=== PATIENT | male | born 1935 | race Caucasian/White ===

== ENCOUNTER 2021-12-05 10:28 | Emergency (ER) | payer OTHER, SELFPAY ==
[2021-12-05 10:39] VITALS: BP 120/64; PULSE 78; RESP 16; TEMP 36.8; O2SAT 99; BMI 27.7
--- NOTE | 2021-12-05 12:23 | ED.LOWEXIN ---
HPI - Extremity Injury (Lower) General Date Seen: 12/05/21 Chief Complaint: Extremity Pain/Injury, Lower Stated Complaint: Pain on left leg Time Seen by Provider: 12/05/21 10:53 Source: patient Mode of arrival: ambulatory Limitations: no limitations History of Present Illness HPI Narrative: 86-year-old gentleman presents here for evaluation of right lower leg pain, he has had an area of redness, that is increased over the course of today, and a history of cellulitis, with a delayed healing wound there. He is brought in today by wheelchair with his . They called the clinic, they were unable to get an appointment, and did want a wait to see her Urgent Care at noon. Denies a history of fevers chills eating and drinking otherwise normally, does use a cane to get around the best at times. Tells me that this wound was there for approximately 1 year any nasally bumped it on his boat, continues to bump but it does also bleed. MD complaint: leg injury Onset (ago): day(s) Related Data Home Medications Medication Instructions Recorded Confirmed allopurinol 100 mg tablet 100 mg PO DAILY 12/05/21 12/05/21 alprazolam 1 mg tablet 0.5 mg PO HS 12/05/21 12/05/21 cholecalciferol (vitamin D3) 325 325 mcg PO QWEEK 12/05/21 12/05/21 mcg (13,000 unit) capsule doxazosin 8 mg tablet 8 mg PO HS 12/05/21 12/05/21 furosemide 40 mg tablet 20 mg PO DAILY 12/05/21 12/05/21 metoprolol succinate 100 mg 100 mg PO DAILY 12/05/21 12/05/21 tablet,extended release 24 hr omeprazole 20 mg capsule,delayed 20 mg PO DAILY 12/05/21 12/05/21 release ruxolitinib 20 mg tablet (Jakafi) 20 mg PO DAILY 12/05/21 12/05/21 vit C 250 mg-vit E 90 mg-zinc 40 1 tab PO BID 12/05/21 12/05/21 mg-copper 1 [id number] capsule (PreserVision AREDS-2) Previous Rx's Medication Instructions Recorded cephalexin 500 mg capsule 500 mg PO TID #30 caps 12/05/21 Allergies Allergy/AdvReac Type Severity Reaction Status Date / Time amoxicillin Allergy vomited Verified 12/05/21 10:50 vicoden Allergy Mild Nausea Uncoded 12/05/21 10:50 Review of Systems Status of ROS: Reports: 6 or more systems reviewed and unremarkable except as noted in History and below Exam Narrative: Exam Narrative: Patient is delightful gentleman seen with his , and then later explained also to his . On his right lower agarwal region. There is an area of redness, with some scaling consistent with the cellulitis, in the middle of this there is an area of redness, and what looks like proud flesh), no (pyogenic granuloma). Pulses are decreased in his legs bilaterally, with a little bit more edema on the right than the left side. He otherwise moves his leg normally. I did emma off with the felt pen, the area of the cellulitis. Const: Vital Signs, click to edit/add: Vital Signs - 24 hr 12/05/21 10:39 Temperature 98.3 F Pulse Rate [Right Pulse Oximeter] 78 Respiratory Rate 16 Blood Pressure [Ri ght Upper Arm] 120/64 Pulse Oximetry 99 Oxygen Delivery Me thod Room Air Course Vital Signs Vital signs: Initial Vital Signs Temperature 98.3 F 12/05/21 10:39 Temperature Source Temporal Artery Scan 12/05/21 10:39 Pulse Rate 78 12/05/21 10:39 Respiratory Rate 16 12/05/21 10:39 Blood Pressure 120/64 12/05/21 10:39 Blood Pressure Mean 82 12/05/21 10:39 Blood Pressure Position Sitting 12/05/21 10:39 Pulse Oximetry 99 12/05/21 10:39 Oxygen Delivery Method 12/05/21 10:39 Vital Signs Temperature 98.3 F 12/05/21 10:39 Pulse Rate 78 12/05/21 10:39 Respiratory Rate 16 12/05/21 10:39 Blood Pressure 120/64 12/05/21 10:39 Pulse Oximetry 99 12/05/21 10:39 Oxygen Delivery Method 12/05/21 10:39 Temperature 98.3 F 12/05/21 10:39 Pulse Rate 78 12/05/21 10:39 Respiratory Rate 16 12/05/21 10:39 Blood Pressure 120/64 12/05/21 10:39 Pulse Oximetry 99 12/05/21 10:39 Oxygen Delivery Method 12/05/21 10:39 MDM - Extremity Injury (Lower) MDM Narrative Medical decision making narrative: during this evaluation I considered multiple diagnosis including cellulitis, osteomyelitis, abscess, MRSA, pathogenic granuloma, basal cell carcinoma or other type of skin cancer, ischemic ulcer, DVT, radiculopathy, fracture, or other possibilities. Medical Records Attestation: I reviewed the patient's medical records. Discharge Plan Discharge Clinical Impression: Cellulitis of right lower leg, Cellulitis, Granuloma, pyogenic Patient Disposition: Home, Self-Care Condition: Stable Instructions: Cellulitis (ED) Additional Instructions: Home, rest, elevation of right leg, laying down with her leg above the level of your heart. Bacitracin twice daily to the area, follow-up with doctor mukherjee in [facility] later in the week, Keflex antibiotics 500 mg p.o. t.i.d., Tylenol 1 g p.o. t.i.d. Follow up appointment is scheduled at the [facility] on 12/09 with a 10am arrival time. [address] [place] [address] Prescriptions: New cephalexin 500 mg capsule 500 mg PO TID Qty: 30 0RF No Action allopurinol 100 mg tablet 100 mg PO DAILY alprazolam 1 mg tablet 0.5 mg PO HS doxazosin 8 mg tablet 8 mg PO HS furosemide 40 mg tablet 20 mg PO DAILY metoprolol succinate 100 mg tablet extended release 24 hr 100 mg PO DAILY omeprazole 20 mg capsule,delayed release(DR/EC) 20 mg PO DAILY Jakafi 20 mg tablet 20 mg PO DAILY PreserVision AREDS-2 250-90-40-1 mg capsule 1 tab PO BID cholecalciferol (vitamin D3) 325 mcg (13,000 unit) capsule 325 mcg PO QWEEK Stand Alone Forms: [employer] Info Instructions
--- OUTSIDE RECORDS SUMMARY | 2021-12-05 12:38 | XMS_ITS | Clinical Summary ---
:1935 Author Organization [facility] [place] [address] Care Team Providers Name Role Phone Jaspal Leigh MD Primary Care Provider Allergies Active Allergy Reactions Severity Noted Date Comments Amoxicillin Nausea Only 10/11/2016 Hydrocodone-Acetaminophen Confusion 04/18/2010 Hydroxyzine Confusion 07/05/2012 Medications Medication Sig Dispensed Refills Start End Status Date Date VITAMINS Take 2 Tablets 0 Activ e A,C,K-OFIJ-LPUZVS by mouth once 1 (Ocuvite daily. PreserVision) 7,160 unit- 113 mg-100 unit tablet allopurinoL Take 1 Tablet 90 Tablet 3 Acti ve (ZYLOPRIM) 100 mg (100 mg) by 1 tabletIndications: mouth once Kidney stones daily. doxazosin (CARDURA) Take 1 Tablet 100 tablet. 3 Active 8 mg (8 mg) by 1 tabletIndications: mouth at Essential bedtime. Wait hypertension with until they goal blood pressure call for this. less than 140/90 furosemide (LASIX) Take 1 Tablet 90 Tablet 3 Active 40 mg (40 mg) by 2 tabletIndications: mouth every Localized edema due morning. to fluid overload omeprazole Take 1 Capsule 90 Capsule 3 Act shara (PRILOSEC) 20 mg (20 mg) by 2 Delayed-Release mouth once capsuleIndications: daily before a Gastroesophageal meal. reflux disease, unspecified whether esophagitis present blood sugar Dispense test 100 Each 3 Acti ve diagnostic (Blood strips covered 2 Glucose Test) by the patient stripIndications: insurance. Type 2 diabetes Test 1 times mellitus without per day. complication, without long-term current use of insulin (HC) ALPRAZolam (XANAX) 1 TAKE ONE-HALF 30 Tablet 2 Active mg TO ONE TABLET 2 tabletIndications: BY MOUTH AT Anxiety, Other BEDTIME insomnia NEEDED FOR ANXIETY metoprolol succinate Take 1 Tablet 90 Tablet 3 Active (Toprol XL) 100 mg (100 mg) by 2 Sustained-Release mouth once tabletIndications: daily. Benign essential HTN ruxolitinib (Jakafi) Take 1 Tablet 0 Active 20 mg tablet by mouth. 2 Inrebic 100 mg cap Take 200 mg by 0 Discontinued capsule mouth once 2 022 (*Patient daily. states no Prescribed by longer oncology taking/Not on sending facility l ist) Active Problems Problem Noted Date Type 2 diabetes mellitus without complication, without long-term current 05/18/2021 use of insulin CKD (chronic kidney disease) stage 4, GFR 15-29 ml/min 05/12/2021 Multiple thyroid nodules 11/30/2019 Overview: Yearly follow up Ultrasound will be due in [id number]. 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 Diverticulosis of colon (without mention of hemorrhage ) 10/16/2011 Cholelithiasis 10/16/2011 Kidney Stones - uric acid 02/17/2011 Colon polyp 04/01/2010 Overview: Colonoscopy 03/2010 polyp repeat in 5 yea rs Primary hypercoagulable state 11/28/2006 Overview: Anticardiolipin IgA antibody was initial ly abnormal - follow up test was normal. Dr. Lui of Hematology told him he could discontinue his coumadin in 06/2007. Jaspal Leigh MD signed electronically .................... 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 05/09/2010 10/13/2010 Overview: INR Goal Range: 2.0 - 2.5 DVT (deep venous thrombosis) 05/09/2010 10/13/2010 Ulcer of esophagus without bleeding 09/21 Encounters Date Type Specialty Care Team Description 12/02/2021 Refill Ceasar Romero, Refi ll Request (Allopurinol) 11/21/2021 Office Visit Sendy Vázquez MD Foll ow Up (Cyst middle of back) 11/21/2021 Travel 11/14/2021 Office Visit Sendy Vázquez MD Cons ult (Cyst middle of back referred b y Natalie CRUMP) 11/13/2021 Travel 10/31/2021 Office Visit Natalie Abraham PA Hunter m Problem (cyst- 3 weeks middle back- pa inful) 10/31/2021 Travel 10/06/2021 Orders Only Lab[facility] 10/06/2021 Travel 09/12/2021 Orders Only Ceasar Romero, <No scans attached> 09/08/2021 Orders Only Lab, [facility] 09/08/2021 Travel from Last 3 Months Immunizations Name Administration Dates Next Due AMB INFLUENZA IIV3 (AGE 65+ YRS) PF 12/26/2018, 12/05/2017 (Flu Clinic Only) AMB Influenza, IIV3 (Age >=3 12/05/2012, 11/27/2011, 011, years)(Flu Clinic Only) 02/04/2008 Amb Influenza, Inact (High-dose) (Flu 12/03/2015, 11/20/2014 , 11/28/2013 Clinic Only) COVID-19 vaccine (Avinger 12/13/2020, 04/18/2020, 30mcg/0.3mL) PF, MDV Influenza A (H1N1), Inactivated 03/08/2009 Influenza A (H1N1), Inactivated (Age 0103/08/2009 >=3 Years) Influenza, High-dose Inactivated 12/03/2015, 11/20/2014, 11/2013 Influenza, IIV3 (Age 6-35 mos) 12/09/2010, 01/28/2009 Influenza, IIV3 (Age >=3 years) 12/05/2012, 11/27/2011, 02/19, 01/28/2009, 02/04/2008, 12/10/2006, 01/17/2006, 12/26/2004, 12/02/2003, 01/10/2003 Influenza, Inactivated AIIV4 (Age 65+ 12/13/2020, 10/31/2019 Years) Preserv Free Influenza, Inactivated IIV3 (Age 65+ 11/15/2016 Years) Preserv Free Pneumococcal Poly,23-Valent 12/10/2015, 03/22/2004 (Pneumovax) Pneumococcal conj 13-Valent (Prevnar 01/27/2015 13) Td (Age >=7 Years) 09/11/1995 Td, Preservative Free (age >= 7 10/19/2006 Years) Tdap 11/02/2017 Zoster (Shingrix-RZV, recombinant) 01/23/2018, 11/02/2017 Zoster (Zostavax-ZVL, live) 02/17/2013 Family History Medical History Relation Name Comments Alcohol/Drug Brother 1 Broderick Lung cancer Brother 1 Broderick Alcoholism Brother 2 Cancer Brother 2 Metastatic unkno wn primary at 60. Heart Disease Father [place] at 53 and 63, at 63 Cancer-breast Mother at 67 Hypertension Mother Relation Name Status Comments Brother 1 Broderick Brother 2 (Age 60) Father (Age 63) Mother (Age 67) Social History Tobacco Use Types Packs/Day Years Used Date Former Smoker Quit: 02/19/18 73 Smokeless Tobacco: Never Used Tobacco Cessation: Counseling Given: Yes Alcohol Use Standard Drinks/Week Comments Not Currently 1.7 (1 standard drink = 0.6 oz pure alco hol) Occasional, 1-2 per week Alcohol Habits Answer Date Recorded How often do you have a drink containing alcohol? 2-4 times a month 02/17/2019 How many drinks containing alcohol do you have on a 1 or 2 02/17/2019 typical day when you are drinking? How often do you have six or more drinks on one Never 02/17/2019 occasion? Comment: Not asked Sex Assigned at Date Recorded Male 06/21/2020 11:36 AM CDT COVID-19 Exposure Response Date Recorded In the last 10 days, have you been in contact with No / Unsu re 11/21/2021 3:28 PM CDT someone who was confirmed or suspected to have Coronavirus/COVID-19? Obstetrics History Last Filed Vital Signs Vital Sign Reading Time Taken Comments Blood Pressure 156/65 11/21/2021 3:39 PM CDT Pulse 70 11/21/2021 3:39 PM CDT Temperature 36.3 ??C (97.3 ??F) 08/29/2021 9:10 AM CDT Respiratory Rate 16 08/29/2021 2:00 PM CDT Oxygen Saturation 100% 11/21/2021 3:39 PM CDT Inhaled Oxygen Concentration - - Weight 82.1 kg (181 lb) 11/14/2021 3:50 PM CDT Height 177.5 cm (5' 9.88) 05/18/2021 1:43 PM CDT Body Mass Index 26.06 05/18/2021 1:43 PM CDT Plan of Treatment Upcoming Encounters Date Type Specialty Care Team Description 12/05/2021 Office Visit Lucia Vázquez MD [phone] (Wo rk) 12/08/2021 Office Visit Ceasar Romero MD [phone] (Wo rk) 12/09/2021 Office Visit Jaspal Leigh MD [address] [phone] (Wo rj) Health Maintenance Due Date Last Done Comments COVID-19 vaccine series (4 - 02/07/2021 12/13/2020, 021, Booster for Pfizer series) 03/28/2020 Influenza for age 65+ 10/20/2021 12/13/2020, 10/31/2019, 12/26/2018, Additional history exists BMI (ht and wt on same day) for 05/18/2022 05/18/2021, 04/19, age 18+ 04/05/2020, Additional history exists Depression screening for age 12+ 05/18/2022 05/18/2021, , 04/28/2019, Additional history exists Medicare Wellness for age 65+ 05/18/2022 05/18/2021 Tetanus booster 11/03/2027 11/02/2017, 10/19/2006, 09/11/1995 Pneumococcal series for age 65+ Completed 12/10/2015, 10/2014, 03/22/2004 Tdap Completed 11/02/2017 Zoster (shingles) series for age Completed 01/23/2018, , 50+ 02/17/2013 Procedures Procedure Name Priority Date/Time Associated Comments Diagnosis BASIC METABOLIC PANEL Routine 10/06/2021 2:50 PM CKD (chronic kidney Results for this CDT disease) stage 4, procedure are in GFR 15-29 ml/min the results (HC) section. RED CELL MORPHOLOGY Routine 09/08/2021 12:32 CKD (chronic kidn ey Results for this PM CDT disease) stage 4, procedure are in GFR 15-29 ml/min the results (HC) section. 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 Myelofibrosis (H C) Anemia in stage 4 chronic kidney disease (HC) MANUAL DIFFERENTIAL Routine 09/08/2021 12:32 CKD (chronic kidn ey Results for this PM CDT disease) stage 4, procedure are in GFR 15-29 ml/min the results (HC) section. Myelofibrosis (H C) Anemia in stage 4 chronic kidney disease (HC) CBC WITH AUTO Routine 09/08/2021 12:32 CKD (chronic kidney Res ults for this DIFFERENTIAL PM CDT disease) stage 4, procedure are in GFR 15-29 ml/min the results (HC) section. Myelofibrosis (H C) Anemia in stage 4 chronic kidney disease (HC) FERRITIN Routine 09/08/2021 12:32 CKD (chronic kidney Resu lts for this PM CDT disease) stage 4, procedure are in GFR 15-29 ml/min the results (HC) section. 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 CBC WITH AUTO Routine 09/08/2021 12:32 CKD (chronic kidney Res ults for this DIFFERENTIAL PM CDT disease) stage 4, procedure are in GFR 15-29 ml/min the results (HC) section. Myelofibrosis (H C) Anemia in stage 4 chronic kidney disease (HC) from Last 3 Months Results (ABNORMAL) BASIC METABOLIC PANEL (10/06/2021 2:50 PM CDT) [facility] Method Time Signature SODIUM 138 135 - 145 10/07/2021 [facility] mmol/L 3:35 AM CDT LAB[facility]ATORY[facility] TRAL LAB[facility]ATORY POTASSIUM 4.8 3.5 - 5.0 10/07/2021 [facility] mmol/L 3:35 AM CDT [facility] TRAL LAB[facility]ATORY CHLORIDE 107 98 - 110 10/07/2021 [facility] mmol/L 3:35 AM CDT [facility]AL LAB[facility]ORY CO2,TOTAL 23 21 - 31 10/07/2021 [facility] mmol/L 3:35 AM CDT [facility]AL LAB[facility]ORY ANION GAP 8 5 - 18 10/07/2021 [facility] 3:35 AM CDT [facility] TRAL LAB[facility]ATORY GLUCOSE 160 (H) 65 - 100 10/07/2021 [facility] mg/dL 3:35 AM CDT LAB[facility] TRAL LABORATORY CALCIUM 8.7 8.5 - 10.5 10/07/2021 [facility] mg/dL 3:35 AM CDT [facility]AL LAB[facility]ATORY BUN 58 (H) 8 - 25 10/07/2021 [facility] mg/dL 3:35 AM CDT [facility]AL LAB[facility]ATORY CREATININE 3.23 (H) 0.72 - 10/07/2021 [facility] 1.25 mg/dL 3:35 AM CDT [facility] TRAL LABORATORY BUN/CREAT RATIO 18 10 - 20 10/07/2021 [facility] 3:35 AM CDT [facility] TRAL LABORATORY eGFR 18 (L) >90 10/07/2021 [facility] mL/min/1.7 3:35 AM CDT LABORATORY-[facility] 3m2 TRAL LABORATORY Comment: As of 2021, eGFR is calcu lated by the CKD-EPI creatinine equation without race adjustment. eGFR can be inf luenced by muscle mass, exercise, and diet. The reported eGFR is an estimation only and is only applicable if the renal function is stable. Specimen Anatomical Collection Method / Collection Time Recei elly Time (Source) Location / Volume Laterality Blood BLOOD SPECIMEN / Venipuncture / 10/06/2021 2:50 2021 2:50 Unknown Unknown PM CDT PM CDT Ceasar Romero MD CHEMISTRY Performing Organization Address City/State/ZIP Code Phon e Number [facility] [address] [place] [id number] LAB[facility]ATORY-CENTRAL 1999 LABORATORY (ABNORMAL) CBC WITH AUTO DIFFERENTIAL (09/08/2021 12:32 PM CDT) [facility] Method Time Signature WHITE BLOOD 17.1 (H) 4.5 - 11.0 09/08/2021 [facility] COUNT thou/cu mm 10:06 PM CDT [facility] TRAL LABORATORY RED BLOOD COUNT 2.79 (L) 4.30 - 09/08/2021 [facility] 5.90 10:06 PM CDT LABORATORY-[facility] mil/cu mm TRAL LABORATORY HEMOGLOBIN 7.6 (L) 13.5 - 09/08/2021 [facility] 17.5 g/dL 10:06 PM CDT [facility] TRAL LABORATORY HEMATOCRIT 25.0 (L) 37.0 - 09/08/2021 [facility] 53.0 % 10:06 PM CDT [facility] TRAL LABORATORY MCV 90 80 - 100 09/08/2021 [facility] fL 10:06 PM CDT [facility] TRAL LABORATORY MCH 27.2 26.0 - 09/08/2021 [facility] 34.0 pg 10:06 PM CDT [facility] TRAL LABORATORY MCHC 30.4 (L) 32.0 - 09/08/2021 [facility] 36.0 g/dL 10:06 PM CDT [facility] TRAL LABORATORY RDW 21.5 (H) 11.5 - 09/08/2021 [facility] 15.5 % 10:06 PM CDT [facility] TRAL LAB[facility]ORY PLATELET COUNT 165 140 - 440 09/08/2021 [facility] thou/cu mm 10:06 PM CDT [facility] TRAL LABORATORY MPV 09/08/2021 [facility] 10:06 PM CDT [facility] TRAL LABORATORY Comment: Unable to be determined Specimen Anatomical Collection Method / Collection Time Recei elly Time (Source) Location / Volume Laterality Blood BLOOD SPECIMEN / Venipuncture / 09/08/2021 12:32 09/08 Unknown Unknown PM CDT 12:33 PM CDT Ceasar Romero MD HEMATOLOGY Performing Organization Address City/State/ZIP Code Phon e Number [facility] [address] [place] [address] LAB[facility]ATORY-CENTRAL 2000 LABORATORY (ABNORMAL) RED CELL MORPHOLOGY (09/08/2021 12:32 PM CDT) [facility] Method Time Signature ELLIPTOCYTES Few 09/08/2021 [facility] 10:05 PM LABORATORY-CE CDT NTRAL LABORATORY SCHISTOCYTES Few 09/08/2021 [facility] 10:05 PM LABORATORY-CE CDT NTRAL LABORATORY TEARDROP CELLS Few 09/08/2021 [facility] 10:05 PM LABORATORY-CE CDT NTRAL LABORATORY RBC COMMENT Present RBC 09/08/2021 [facility] (A) morphology 10:05 PM LABORATORY-CE appears CDT NTRAL normal, RBC LABORATORY morphology within normal limits for newborns. *BASOPHILIC Present 09/08/2021 [facility] STIPPLING 10:05 PM LABORATORY-CE CDT NTRAL LABORATORY LARGE PLATELETS Present 09/08/2021 [facility] 10:05 PM LABORATORY-CE CDT NTRAL LABORATORY Specimen Anatomical Collection Method / Collection Time Recei elly Time (Source) Location / Volume Laterality Blood BLOOD SPECIMEN / Venipuncture / 09/08/2021 12:32 09/08 Unknown Unknown PM CDT 12:33 PM CDT Ceasar Romero MD HEMATOLOGY Performing Organization Address City/State/ZIP Code Phon e Number [facility] [address] [place] [address] LABORATORY-CENTRAL 2000 LABORATORY PLATELET ESTIMATE (09/08/2021 12:32 PM CDT) [facility] Method Time Signature PLATELET Adequate Adequate, No 09/08/2021 [facility] ESTIMATE estimate 10:05 PM CDT [facility] TRAL LABORATORY Specimen Anatomical Collection Method / Collection Time Recei elly Time (Source) Location / Volume Laterality Blood BLOOD SPECIMEN / Venipuncture / 09/08/2021 12:32 09/08 Unknown Unknown PM CDT 12:33 PM CDT Ceasar Romero MD HEMATOLOGY Performing Organization Address City/State/ZIP Code Phon e Number [facility] [address] [place], [place] [address] [place] [address] LABORATORY-CENTRAL 2000 LABORATORY (ABNORMAL) MANUAL DIFFERENTIAL (09/08/2021 12:32 PM CDT) [facility] Method Time Signature % NEUTROPHILS 58.0 % 09/08/2021 [facility] 10:05 PM CDT LABORATORY-CE NTRAL LABORATORY % LYMPHOCYTES 7.0 % 09/08/2021 [facility] 10:05 PM CDT LABORATORY-CE NTRAL LABORATORY % MONOCYTES 9.0 % 09/08/2021 [facility] 10:05 PM CDT LABORATORY-CE NTRAL LABORATORY % EOSINOPHILS 3.0 % 09/08/2021 [facility] 10:05 PM CDT LABORATORY-CE NTRAL LABORATORY % BASOPHILS 2.0 % 09/08/2021 [facility] 10:05 PM CDT LABORATORY-CE NTRAL LABORATORY % METAMYELOCYTES 8.0 (H) <0.2 % 09/08/2021 [facility] H 10:05 PM CDT LABORATORY-CE NTRAL LABORATORY % MYELOCYTES 11.0 (H) <0.2 % 09/08/2021 [facility] 10:05 PM CDT LABORATORY-CE NTRAL LABORATORY % PROMYELOCYTES 0.0 <0.2 % 09/08/2021 [facility] 10:05 PM CDT LABORATORY-CE NTRAL LABORATORY % BLASTS 2.0 (H) <0.2 % 09/08/2021 [facility] 10:05 PM CDT LABORATORY-CE NTRAL LABORATORY % OTHER CELLS 0.0 % 09/08/2021 [facility] 10:05 PM CDT LABORATORY-CE NTRAL LABORATORY % PLASMA CELLS 0.0 % 09/08/2021 [facility] 10:05 PM CDT LABORATORY-CE NTRAL LABORATORY NEUTROPHILS 9.9 (H) 1.7 - 7.0 09/08/2021 [facility] ABSOLUTE thou/cu 10:05 PM CDT LABORATORY-CE mm NTRAL LABORATORY LYMPHOCYTES 1.2 0.9 - 2.9 09/08/2021 [facility] ABSOLUTE thou/cu 10:05 PM CDT LABORATORY-CE mm NTRAL LABORATORY MONOCYTES ABSOLUTE 1.5 (H) <0.9 09/08/2021 [facility] thou/cu 10:05 PM CDT LABORATORY-CE mm NTRAL LABORATORY EOSINOPHILS 0.5 (H) <0.5 09/08/2021 [facility] ABSOLUTE thou/cu 10:05 PM CDT LABORATORY-CE mm NTRAL LABORATORY BASOPHILS ABSOLUTE 0.3 (H) <0.3 09/08/2021 [facility] thou/cu 10:05 PM CDT LABORATORY-CE mm NTRAL LABORATORY ABSOLUTE 1.4 (H) <=0.0 09/08/2021 [facility] METAMYELOCYTES thou/cu 10:05 PM CDT LABORATORY-C E mm NTRAL LABORATORY ABSOLUTE 1.9 (H) <=0.0 09/08/2021 [facility] MYELOCYTES thou/cu 10:05 PM CDT LABORATORY-CE mm NTRAL LABORATORY ABSOLUTE BLASTS 0.3 (H) <=0.0 09/08/2021 [facility] thou/cu 10:05 PM CDT LABORATORY-CE mm NTRAL LABORATORY Specimen Anatomical Collection Method / Collection Time Recei elly Time (Source) Location / Volume Laterality Blood BLOOD SPECIMEN / Venipuncture / 09/08/2021 12:32 09/08 Unknown Unknown PM CDT 12:33 PM CDT Ceasar Romero MD HEMATOLOGY Performing Organization Address City/State/ZIP Code Phon e Number [facility] [address] [place] [address] LABORATORY-CENTRAL 2000 LABORATORY (ABNORMAL) IRON PLUS IRON BINDING CAP (09/08/2021 12:32 PM CDT) Analysis Performed At Patho logist Time Signature IRON 98 31 - 144 09/09/2021 [facility] ug/dL 4:17 AM CDT LAB[facility]ATORY-[facility] TRAL LABORATORY UIBC 120 09/09/2021 [facility] (UNSATURATED) 4:17 AM CDT [facility] TRAL LABORATORY IRON BINDING 218 (L) 245 - 400 09/09/2021 [facility] ug/dL 4:17 AM CDT LAB[facility] TRAL LABORATORY IRON,% 45 20 - 55 % 09/09/2021 [facility] SATURATION 4:17 AM CDT LAB[facility]AT[facility] TRAL LABORATORY Specimen Anatomical Collection Method / Collection Time Recei elly Time (Source) Location / Volume Laterality Blood BLOOD SPECIMEN / Venipuncture / 09/08/2021 12:32 09/08 Unknown Unknown PM CDT 12:33 PM CDT Ceasar Romero MD CHEMISTRY Performing Organization Address City/State/ZIP Code Phon e Number [facility] [address] [place] [address] LABORATORY-CENTRAL 1999 LABORATORY (ABNORMAL) FERRITIN (09/08/2021 12:32 PM CDT) P athologist Signature FERRITIN 492.9 (H) 22.0 - 09/09/2021 [facility] 275.0 3:50 AM CDT LABORATORY-CENT ng/mL RAL LABORATORY Specimen Anatomical Collection Method / Collection Time Recei elly Time (Source) Location / Volume Laterality Blood BLOOD SPECIMEN / Venipuncture / 09/08/2021 12:32 09/08 Unknown Unknown PM CDT 12:33 PM CDT Ceasar Romero MD CHEMISTRY Performing Organization Address City/State/ZIP Code Phon e Number [facility] [address] [place] [address] LABORATORY-CENTRAL 2000 LABORATORY (ABNORMAL) RENAL FUNCTION PANEL (09/08/2021 12:32 PM CDT) [facility] Method Time Signature SODIUM 140 135 - 145 09/09/2021 [facility] mmol/L 3:23 AM CDT [facility] TRAL LABORATORY POTASSIUM 4.5 3.5 - 5.0 09/09/2021 [facility] mmol/L 3:23 AM CDT [facility] TRAL LABORATORY CHLORIDE 108 98 - 110 09/09/2021 [facility] mmol/L 3:23 AM CDT [facility] TRAL LABORATORY CO2,TOTAL 19 (L) 21 - 31 09/09/2021 [facility] mmol/L 3:23 AM CDT [facility] TRAL LABORATORY ANION GAP 13 5 - 18 09/09/2021 [facility] 3:23 AM CDT [facility] TRAL LABORATORY GLUCOSE 224 (H) 65 - 100 09/09/2021 [facility] mg/dL 3:23 AM CDT [facility] TRAL LABORATORY CALCIUM 8.7 8.5 - 10.5 09/09/2021 [facility] mg/dL 3:23 AM CDT [facility] TRAL LABORATORY BUN 51 (H) 8 - 25 09/09/2021 [facility] mg/dL 3:23 AM CDT [facility] TRAL LABORATORY CREATININE 3.62 (H) 0.72 - 09/09/2021 [facility] 1.25 mg/dL 3:23 AM CDT [facility] TRAL LABORATORY BUN/CREAT RATIO 14 10 - 20 09/09/2021 [facility] 3:23 AM CDT LAB[facility] TRAL LABORATORY PHOSPHORUS 4.2 2.3 - 4.7 09/09/2021 [facility] mg/dL 3:23 AM CDT [facility] TRAL LABORATORY ALBUMIN 3.9 3.2 - 4.6 09/09/2021 [facility] g/dL 3:23 AM CDT [facility] TRAL LABORATORY eGFR 16 (L) >90 09/09/2021 [facility] mL/min/1.7 3:23 AM CDT LABORATORY-[facility] 3m2 TRAL LABORATORY Comment: As of 2021, eGFR is calcu lated by the CKD-EPI creatinine equation without race adjustment. eGFR can be inf luenced by muscle mass, exercise, and diet. The reported eGFR is an estimation only and is only applicable if the renal function is stable. Specimen Anatomical Collection Method / Collection Time Recei elly Time (Source) Location / Volume Laterality Blood BLOOD SPECIMEN / Venipuncture / 09/08/2021 12:32 09/08 Unknown Unknown PM CDT 12:33 PM CDT Ceasar Romero MD CHEMISTRY Performing Organization Address City/State/ZIP Code Phon e Number [facility] [address] [place] [address] LABORATORY-CENTRAL 2000 LABORATORY from Last 3 Months Insurance Payer Benefit Plan / Subscriber ID Effective Dates Phone Addre ss Type Group MEDICARE PART B MEDICARE PART B [id number] 2001-Present ATTN: CLAIMS - HB USE ONLY HB ONLY [address] [place] [address] MEDICARE PART A MEDICARE PART A [id number] 2001-Present ATTN: CLAIMS - HB USE ONLY HB ONLY [address] [place] [address] MEDICA MR MED[employer] PRIME [id number] 2012-Present [address] [address] [place] [address] MED[employer] [id number] 2017-Present [address] [address] [place] [address] Advance Directives Latest Code Status on File Code Status Date Activated Date Inactivated Comments Full Code 08/29/2021 11:00 AM 08/30/2021 2:15 AM Code Status Discussion: Reviewed Preferences Care Teams [employer] Dean Relationship Specialty Start Date End Date Jaspal Leigh MD PCP - General 07/27/[address] [place] [address]
--- NOTE | 2021-12-05 12:39 | ED.NURSE ---
Bacitracin applied to wound on pt's L agarwal. Wound on L agarwal dressed with adaptic and gauze roll.
== END 2021-12-05 12:53 | disposition home or self-care (01) ==
PROVIDERS: Emergency Provider Family Medicine; PCP Family Medicine
DX: L03.115 Cellulitis of right lower limb (principal); L98.0 Pyogenic granuloma
CPT/HCPCS: 99283

== ENCOUNTER 2022-03-30 10:38 | Outpatient (CLI) | payer MEDICARE, OTHER, SELFPAY | END 2022-03-30 10:39 | disposition home or self-care (01) | LOC: FRMREF 10:39 | PROVIDERS: PCP Family Medicine; Visit Provider Dermatology | DX: B99.9 Unspecified infectious disease (principal) | CPT/HCPCS: 87070; 87186; 87205 ==

== ENCOUNTER 2023-03-18 13:03 | Emergency (ER) | payer MEDICARE, OTHER, SELFPAY ==
[2023-03-18 13:44] VITALS: BP 135/65; PULSE 86; RESP 16; TEMP 37.2; O2SAT 95; BMI 27.7
--- NOTE | 2023-03-18 14:13 | ED_ITS ---
HPI - General Adult General Date Seen: 03/18/23 Chief complaint: Cough Stated complaint: flu/COVID symptoms Time Seen by Provider: 03/18/23 13:58 History of Present Illness HPI narrative: This is an 87-year-old male with a history of myelofibrosis (currently on ru xolitinib), also history of anemia (get shots for bone marrow stimulation), chronic kidney disease stage 4. He presents to the ER today from home for evaluation of cough, body aches and muscle soreness ongoing since yesterday. Had a faint positive at home COVID test. Symptoms can yesterday with a significant runny nose that was runny with clear liquid and rhinorrhea but no purulent drainage or bloody nose. He has also had a significant dry cough. No chest pain. No shortness of breath. No fever. Not much body aches. Normal activity level. Normal energy. Normal appetite. He had an at home COVID test that was faintly positive. His is not currently sick. She had COVID a few months ago when he did not get sick. She is feeling fine this time. He has no known sick exposures. He has had all of his COVID vaccines as well as the recent booster.. Related Data Home Medications Medication Instructions Recorded Confirmed allopurinol 100 mg tablet 100 mg PO DAILY 12/05/21 03/18/23 alprazolam 1 mg tablet 0.5 mg PO HS 12/05/21 03/18/23 cholecalciferol (vitamin D3) 325 325 mcg PO QWEEK 12/05/21 03/18/23 mcg (13,000 unit) capsule doxazosin 8 mg tablet 8 mg PO HS 12/05/21 03/18/23 furosemide 40 mg tablet 20 mg PO DAILY 12/05/21 03/18/23 metoprolol succinate 100 mg 100 mg PO DAILY 12/05/21 03/18/23 tablet,extended release 24 hr omeprazole 20 mg capsule,delayed 20 mg PO DAILY 12/05/21 03/18/23 release ruxolitinib 20 mg tablet (Jakafi) 20 mg PO DAILY 12/05/21 03/18/23 vit C 250 mg-vit E 90 mg-zinc 40 1 tab PO BID 12/05/21 03/18/23 mg-copper 1 [id number] capsule (PreserVision AREDS-2) Previous Rx's Medication Instructions Recorded gentamicin 0.1 % topical ointment 1 applic topical TID #30 grams 04/04/22 benzonatate 100 mg capsule 100 mg PO TID PRN cough #20 caps 03/18/23 Allergies Allergy/AdvReac Type Severity Reaction Status Date / Time amoxicillin Allergy vomited Verified 03/18/23 13:49 codeine AdvReac Intermediate Nausea Verified 03/18/23 13:49 hydrocodone AdvReac Intermediate Nausea Verified 03/18/23 13:49 vicoden Allergy Mild Nausea Uncoded 12/21/22 11:04 [facility] Medical History (Updated 03/18/23 @ 16:04 by Junior Cabral MD) Infection ?B99.9 - Unspecified infectious disease (ICD-10) Social History Smoking Status: Never smoker Do you use any of these nicotine containing products: None Second hand tobacco smoke exposure: No How often do you have a drink containing alcohol: never How often do you have six or more drinks on one occasion: Never AUDIT-C Alcohol total score: 0 Non-prescribed substance use: denies use Exam Narrative: Exam Narrative: Constitutional: Appears well-developed and well-nourished. Alert. Conversant. Non toxic. Watching football on TV as I enter the room. Politely turns the TV down. HENT: Head: Atraumatic. Nose: Nose normal. No active rhinorrhea at this time. TMs normal bilaterally. Mouth/Throat: Oral mucosa is clear and moist. no trismus. Pharynx normal. Tonsils symmetric. No tonsillar enlargement, erythema, or exudate. Eyes: Conjunctivae normal. EOM normal. Pupils equal, round, and reactive to light. No scleral icterus. Neck: Normal range of motion. Neck supple. No tracheal deviation present. Cardiovascular: Normal rate, regular rhythm. No gallop. No friction rub. No m urmur heard. Symmetric radial artery pulses Pulmonary/Chest: Effort normal. No stridor. No respiratory distress. No wheezes. No rales. No rhonchi . No tenderness. Abdominal: Soft. No distension. No mass. No tenderness. No rebound. No guarding. Musculoskeletal: RUE: Normal range of motion. No tenderness. No deformity LUE: Normal range of motion. No tenderness. No deformity RLE: Normal range of motion. No edema. No tenderness. No deformity LLE: Normal range of motion. No edema. No tenderness. No deformity Neurological: Alert and oriented to person, place, and time. Normal strength. CN II-VII intact. No sensory deficit. GCS eye subscore is 4. GCS verbal subscore is 5. GCS motor subscore is 6. Normal coordination Skin: Skin is warm and dry. No rash noted. No pallor. Normal capillary refill. Psychiatric: Normal mood. Normal affect. Const: Vital Signs, click to edit/add: Vital Signs - 24 hr 03/18/23 13:44 Temperature 98.9 F Pulse Rate [Pulse Oximeter] 86 Respiratory Rate 16 Blood Pressure [Ri ght Upper Arm] 135/65 Pulse Oximetry 95 Oxygen Delivery Me thod Room Air Course Vital Signs Vital signs: Initial Vital Signs Temperature 98.9 F 03/18/23 13:44 Temperature Source Temporal Artery Scan 03/18/23 13:44 Pulse Rate 86 03/18/23 13:44 Respiratory Rate 16 03/18/23 13:44 Blood Pressure 135/65 03/18/23 13:44 Blood Pressure Mean 88 03/18/23 13:44 Blood Pressure Position Sitting 03/18/23 13:44 Pulse Oximetry 95 03/18/23 13:44 Oxygen Delivery Method Room Air 03/18/23 13:44 Vital Signs Temperature 98.9 F 03/18/23 13:44 Pulse Rate 86 03/18/23 13:44 Respiratory Rate 16 03/18/23 13:44 Blood Pressure 135/65 03/18/23 13:44 Pulse Oximetry 95 03/18/23 13:44 Oxygen Delivery Method Room Air 03/18/23 13:44 Temperature 98.9 F 03/18/23 13:44 Pulse Rate 86 03/18/23 13:44 Respiratory Rate 16 03/18/23 13:44 Blood Pressure 135/65 03/18/23 13:44 Pulse Oximetry 95 03/18/23 13:44 Oxygen Delivery Method Room Air 03/18/23 13:44 Medical Decision Making [facility] Narrative Medical decision making narrative: This patient presents for evaluation of cough since yesterday with nasal congestion and a faint positive at home COVID test. This is consistent with an upper respiratory tract infection. Viral testing positive today by COVID via PCR. Negative for influenza and RSV.. There is no signs at this point of serious bacterial infection such as OM, RPA, epiglottitis, [employer], strep pharyngitis, pneumonia, sinusitis, meningitis, bacteremia, serious bacterial infection. Given clear lungs, fever curve, no hypoxia and no respiratory distress I do not feel a CXR is indicated at this point as the probability of bacterial pneumonia is very unlikely. There are no gastrointestinal symptoms at this point and no signs of dehydration. Because of his medical comorbidities he would be a ?high risk? patient with COVID. Would certainly be a candidate for antiviral treatment with Paxlovid. 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 Therefore Paxlovid is contraindicated. Considered other methods of antiviral treatment. He would be a candidate for remdesivir. Discussed with our hospital pharmacy. We do have a limited supply which would be available for the patient. I initially placed orders to start on remdesivir. However discussed with the patient and his that remdesivir is not always covered by insurance and may be substantially expensive, costing in around $3300 according to our hospital pharmacist. Discussing the risks and benefits of treatment with remdesivir, they decided to hold off. Overall although he is a high risk because of his comorbidities he is vaccinated. Actually doing better today than he was yesterday which is reassuring. Discussed the risks of clinical worsening or worsening hypoxia with COVID. Close followup with primary care physician is indicated. Return to ED for f high fever, worsening cough, chest pain, worsening trouble breathing, hypoxia with sats less than 90 (they will get a home O2 monitor), protracted vomiting, confusion, or other worsening. He and his are comfortable. Lab Data Labs: Lab Results 03/18/23 Range/Units 13:54 SARS-CoV-2 (PCR) POSITIVE SARS-CoV-2 A (Negative) Influenza Type A (PCR) Negative PCR FLU A (Negative) Influenza Type B (PCR) Negative PCR FLU B (Negative) RSV (PCR) Negative PCR RSV (Negative) Discharge Plan Discharge Clinical Impression: COVID-19 Patient Disposition: Home, Self-Care Condition: Stable Instructions: COVID-19 (Coronavirus Disease 2019) (ED) Additional Instructions: As we discussed, please come back to the ER right away if you get worse- especially if you have trouble breathing, oxygen levels below 90%, worsening cough, chest pain, high fever, weakness or dehydration. Please continue to stay home in quarantine for at least another 5 days. After that you can go out of the house (only if necessary) while wearing a mask. Please reschedule your checkup that was scheduled for Sunday. Activity Level: No Restrictions Discharge Diet: Regular Prescriptions: New benzonatate 100 mg capsule 100 mg PO TID PRN (Reason: cough) Qty: 20 0RF No Action allopurinol 100 mg tablet 100 mg PO DAILY alprazolam 1 mg tablet 0.5 mg PO HS doxazosin 8 mg tablet 8 mg PO HS furosemide 40 mg tablet 20 mg PO DAILY metoprolol succinate 100 mg tablet extended release 24 hr 100 mg PO DAILY omeprazole 20 mg capsule,delayed release(DR/EC) 20 mg PO DAILY Jakafi 20 mg tablet 20 mg PO DAILY PreserVision AREDS-2 250-90-40-1 mg capsule 1 tab PO BID cholecalciferol (vitamin D3) 325 mcg (13,000 unit) capsule 325 mcg PO QWEEK gentamicin 0.1 % ointment 1 applic topical TID Qty: 30 0RF Follow Up/Referrals: Jaspal Leigh MD [Primary Care Provider] - Stand Alone Forms: [employer] Info Instructions
--- OUTSIDE RECORDS SUMMARY | 2023-03-18 14:54 | XMS_ITS | Clinical Summary ---
Author Name Unknown Organization [facility] Address [place], [place] [address] Care Team Providers Care Ladle Repairer Name Role Phone Jaspal Leigh MD Primary Care Provider [phone] Allergies Active Allergy Reactions Criticality Noted Date Comments Amoxicillin Nausea Only 10/11/2016 Hydrocodone-Acetaminophen Confusion 04/18/2010 Hydroxyzine Confusion 07/05/2012 Medications Medication Sig Dispensed Refills Start Date End Date Status VITAMINS A,C,M-IUHC-KQLPZN (Ocuvite PreserVision) 7,160 unit- 113 mg-100 unit tablet Take 2 Tablets by mouth once daily. 0 06/23/2020 Active blood sugar diagnostic (Blood Glucose Test) stripIndications:Typ e 2 diabetes mellitus without complication, without long-term current use of insulin (HC) Dispense test strips covered by the patient insurance. Test 1 times per day. 100 Each 3 05/18/2021 Active ruxolitinib (Jakafi) 20 mg tablet Take 1 Tablet by mouth. 0 09/28/2021 Active ferrous sulfate, 65 mg elemental, tablet 65 mg elemental iron 0 03/08/2022 Active furosemide (LASIX) 40 mg tabletIndications:Lo calized edema due to fluid overload Take 1 Tablet (40 mg) by mouth every morning. 90 Tablet 3 04/06/2022 Active metoprolol succinate (Toprol XL) 100 mg Sustained-Release tabletIndications:Be nign essential HTN Take 1 Tablet (100 mg) by mouth once daily. 90 Tablet 3 04/06/2022 Active cholecalciferol (Vitamin D) 1,000 unit capsule Take 1 Capsule (1,000 units) by mouth once daily. 0 04/06/2022 Active allopurinoL (ZYLOPRIM) 100 mg tabletIndications:Ki dney stones Take 1 Tablet (100 mg) by mouth once daily. 90 Tablet 3 05/22/2022 Active omeprazole (PRILOSEC) 20 mg Delayed-Release capsuleIndications:G astroesophageal reflux disease, unspecified whether esophagitis present Take 1 Capsule (20 mg) by mouth once daily before a meal. 90 Capsule 3 05/22/2022 Active doxazosin (CARDURA) 8 mg tabletIndications:Es sential hypertension with goal blood pressure less than 140/90 Take 1 Tablet (8 mg) by mouth at bedtime. 100 Tablet 3 05/22/2022 Active ALPRAZolam (XANAX) 1 mg tabletIndications:An xiety,Other insomnia TAKE ONE-HALF TO ONE TABLET BY MOUTH AT BEDTIME NEEDED FOR ANXIETY 30 Tablet 2 12/03/2022 Active Active Problems Problem Noted Date Diagnosed Date Depression, recurrent 05/23/2022 Anemia in stage 4 chronic kidney disease 023 Peripheral arterial disease 03/08/2022 Type 2 diabetes mellitus wit hout complication, without long-term current use of insulin 05/18/2021 CKD (chronic kidney disease) stage 4, GFR 15-29 ml/min 05/12/2021 Overview: He is stable. He sees Dr. Romero and plans to follow him to [place]. He sees him every 3 months.Jaspal Leigh MD signed electronically .................... 01/10/2023 Multiple thyroid nodules 11/30/2019 Overview: Yearly follow up Ultrasound will be due in [id number]. 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 Diverticulosis of colon (without mention of hemo rrhage) 10/16/2011 Cholelithiasis 10/16/2011 Kidney Stones - uric acid 02/17/2011 Colon polyp 04/01/2010 Overview: Colonoscopy 03/2010 polyp repeat in 5 years Primary hypercoagulable state 11/28/2006 Overview: Anticardiolipin IgA antibody was initially abnormal - follow up test was normal. Dr. Lui of Hematology told him he could discontinue his coumadin in 06/2007. Jaspal Leigh MD signed electronically .................... 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 05/09/2010 10/13/2010 Overview: INR Goal Range: 2.0 - 2.5 DVT (deep venous thrombosis) 05/09/2010 10/13/2010 Ulcer of esophagus without bleeding 10/19/2006 Acute renal failure 04/06/19 23 Encounters Date Type Department Care Team Description 03/02/2023 Telephone [facility] [place] [address] Ghulam Matias MD Results 02/28/2023 9:00 AM JOB PLACEMENT SPECIALIST Orders Only [facility] [address] [facility] [place] [facility] 02/28/2023 Travel 01/19/2023 1:45 PM JOB PLACEMENT SPECIALIST Ancillary Procedure [facility] [place] [address] 01/19/2023 Travel 01/10/2023 2:00 PM JOB PLACEMENT SPECIALIST Office Visit [facility] [address] Jaspal Leigh MD Derm Problem (Check wound on back of left calf); Follow Up (Go over recent lab results); Immunization/Injec tion 01/10/2023 Travel 01/09/2023 Telephone [facility] [address] [place] [address] Jaspal Leigh MD Appointment (Too soon for medicare appt) 01/04/2023 3:00 PM JOB PLACEMENT SPECIALIST Office Visit [facility] [address] [place] [address] Ceasar Romero MD Follow Up (CKD) 01/04/2023 Travel 01/02/2023 2:10 PM JOB PLACEMENT SPECIALIST Orders Only [facility] [address] [place] [address] Lab, [place] [facility] 01/02/2023 Travel 12/25/2022 Orders Only [facility] Trans[facility] Providers [address] [phone] Ceasar Romero MD <No scans attached> 12/25/2022 Telephone [facility] [address] [phone] Ceasar Romero MD Questions (lab orders) 12/21/2022 Lab Requisition [facility] [phone] Cristy Estrada MD from Last 3 Months Immunizations Name Administration Dates Next Due AMB INFLUENZA IIV3 (AGE 65+ YRS) PF (Flu Clinic Only) 12/26/2018,12/05/2017 AMB Influenza, IIV3 (Age >=3 years)(Flu Clinic Only) 12/05/2012,11/27/2011,12/09/2010,2007 Amb Influenza, Inact (High-d ose) (Flu Clinic Only) 12/03/2015,11/20/2014,11/28/2013 COVID-19 Vaccine Spikevax (M oderna 50mcg/0.5mL) 12YO+ [id number] Formula PF 01/10/2023 COVID-19 vaccine (SilveradoBio NTech 30mcg/0.3mL) 12YO+ BIVALENT PF MDV 03/08/2022 COVID-19 vaccine (LTG Exam Prep Platform 30mcg/0.3mL) PF, MDV 12/13/2020,04/18/2020,03/28/2020 Influenza A (H1N1), Inactivated 03/08/2009 Influenza A (H1N1), Inactiva kenzie (Age >=3 Years) 03/08/2009 Influenza, High-dose Inactivated 12/03/2015,1003/2014,11/28/2013 Influenza, IIV3 (Age 6-35 mos) 12/09/2010,2008 Influenza, IIV3 (Age >=3 years) 12/06/19 13,11/27/2011,03/03/2010,2008,02/04/2008,12/10/2006,01/17/2006,1 02/26/2004,12/02/2003,01/10/2003 Influenza, Inactivated AIIV4 (Age 65+ Years) Preserv Free 01/10/2023,12/28/2021,12/13/2020,2019 Influenza, Inactivated IIV3 (Age 65+ Years) Preserv Free 11/15/2016 Pneumococcal Poly,23-Valent (Pneumovax) 12/10/2015,03/22/2004 Pneumococcal conj 13-Valent (Prevnar 13) 01/27/2015 Td (Age >=7 Years) 09/11/1995 Td, Preservative Free (age > = 7 Years) 10/19/2006 Tdap 11/02/2017 Zoster (Shingrix-RZV, recombinant) 01/23/2018, Zoster (Zostavax-ZVL, live) 02/17/2013 Family History Medical History Relation Name Comments Alcohol/Drug Brother 1 Broderick Lung cancer Brother 1 Broderick Stroke Brother 1 Broderick Alcoholism Brother 2 Cancer Brother 2 Metastatic unkn own primary at 60. Heart Disease Father [place] at 53 and 6 3, at 63 Cancer-breast Mother at 67 Hypertension Mother Relation Name Status Comments Brother 1 Broderick Brother 2 (Age 60) Father (Age 63) Mother (Age 67) Social History Tobacco Use Types Packs/Day Years Used Date Smoking Tobacco: Former Cigarettes Q uit: 02/19/1971 Smokeless Tobacco: Never Tobacco Cessation:Counseling Given: Not Answered Alcohol Use Standard Drinks/Week Comments Not Currently 0 (1 standard drink = 0.6 oz pur e alcohol) PHQ-2 Answer Date Recorded PHQ-2 TOTAL SCORE 3 05/22/2022 Social Connections Answer Date Recorded Frequency of Communication with Friends and Fami ly Not on file 06/19/2022 Financial Resource Strain Answer Date R ecorded Difficulty of Paying Living Expenses 3 06/08/2021 Difficulty of Paying Living Expenses Not on file 06/08/2021 Food Insecurity Answer Date Recorded Worried About Running Out of Food in the Last Ye ar 1 06/08/2021 Transportation Needs Answer Date Record ed Lack of Transportation (Medical) 1 06/08/2021 Housing Stability Answer Date Recorded Unable to Pay for Housing in the Last Year 1 06/08/2021 Sex and Gender Information Value Date Recorded Sex Assigned at Male 06/21/2020 11:36 AM CDT Gender Identity Not on file Sexual Orientation Not on file Obstetrics History Last Filed Vital Signs Vital Sign Reading Time Taken Comments Blood Pressure 133/58 01/10/2023 2:22 PM JOB PLACEMENT SPECIALIST Pulse 72 01/10/2023 2:22 PM JOB PLACEMENT SPECIALIST Temperature 36.4 ??C (97.5 ??F) 01/10/2023 2:22 PM CS T Respiratory Rate 16 08/29/2021 2:00 PM CDT Oxygen Saturation 99% 01/10/2023 2:22 PM JOB PLACEMENT SPECIALIST Inhaled Oxygen Concentration - - Weight 88.1 kg (194 lb 3.2 oz) 01/10/2023 2:22 P M JOB PLACEMENT SPECIALIST Height 176 cm (5' 9.3) 05/22/2022 1:21 PM CDT Body Mass Index 28.43 05/22/2022 1:21 PM CDT Plan of Treatment Health Maintenance Due Date Last Done Comments COVID-19 vaccine series ( season) 2023 01/10/2023, 03/08/2022, 12/13/2020, Additional history exists Medicare Wellness for age 65+ 05/22/2023 05/22/2022, 05/18/2021 BMI (ht and wt on same day) for age 18+ 05/23/2023 05/22/2022, 12/14/2021, 05/18/2021, Additional history exists Depression screening for age 12+ 05/27/2023 05/26/2022, 05/22/2022, 05/18/2021, Additional history exists Tetanus booster 11/03/2027 11/02/2017, 09/21, 09/11/1995 Pneumococcal series for age 65+ Completed 12/10/2015, 01/27/2015, 03/22/2004 Tdap Completed 11/02/2017 Zoster (shingles) series for age 50+ Completed 01/23/2018, 11/02/2017, 02/17/2013 Influenza for age 65+ Completed 01/10/2023 , 12/28/2021, 12/13/2020, Additional history exists Procedures Procedure Name Priority Date/Time Associated Diagnosis Comments URINE ALBUMIN TO CREATININE RATIO, RANDOM Routine 02/28/2023 9:15 AM JOB PLACEMENT SPECIALIST Type II or unspecified type diabetes mellitus without mention of complication, not stated as uncontrolled BASIC METABOLIC PANEL Routine 02/28/2023 9:02 AM JOB PLACEMENT SPECIALIST CKD (chronic kidney disease) stage 4, GFR 15-29 ml/min (HC) US THYROID/PARATHYROID Routine 01/19/2023 3:02 PM JOB PLACEMENT SPECIALIST Multiple thyroid nodules PLATELET ESTIMATE Routine 01/02/2023 2:2 6 PM JOB PLACEMENT SPECIALIST CKD (chronic kidney disease) stage 4, GFR 15-29 ml/min (HC) RED CELL MORPHOLOGY Routine 01/02/2023 2 :26 PM JOB PLACEMENT SPECIALIST CKD (chronic kidney disease) stage 4, GFR 15-29 ml/min (HC) ALT (SGPT) Routine 01/02/2023 2:26 PM JOB PLACEMENT SPECIALIST Kidney Stones - uric acid VITAMIN D 25 (DEFICIENCY) Routine 01/02/2023 2:26 PM JOB PLACEMENT SPECIALIST Vitamin D deficiency URIC ACID Routine 01/02/2023 2:26 PM JOB PLACEMENT SPECIALIST Kidney Stones - uric acid LIPID PANEL W REFLEX MEASURED LDL Routine 01/02/2023 2:26 PM JOB PLACEMENT SPECIALIST Type II or unspecified type diabetes mellitus without mention of complication, not stated as uncontrolled PTH,INTACT Routine 01/02/2023 2:26 PM JOB PLACEMENT SPECIALIST CKD (chronic kidney disease) stage 4, GFR 15-29 ml/min (HC) FERRITIN Routine 01/02/2023 2:26 PM JOB PLACEMENT SPECIALIST CKD (chronic kidney disease) stage 4, GFR 15-29 ml/min (HC) IRON PLUS IRON BINDING CAP Routine 01/02/2023 2:26 PM JOB PLACEMENT SPECIALIST CKD (chronic kidney disease) stage 4, GFR 15-29 ml/min (HC) CBC W PLT NO DIFF Routine 01/02/2023 2:2 6 PM JOB PLACEMENT SPECIALIST CKD (chronic kidney disease) stage 4, GFR 15-29 ml/min (HC) HEMOGLOBIN A1C Routine 01/02/2023 2:26 PM JOB PLACEMENT SPECIALIST Type II or unspecified type diabetes mellitus without mention of complication, not stated as uncontrolled RENAL FUNCTION PANEL Routine 01/02/2023 2:26 PM JOB PLACEMENT SPECIALIST CKD (chronic kidney disease) stage 4, GFR 15-29 ml/min (HC) LAB TRACKING EVENT Routine 12/21/2022 11 :20 AM CDT PATH TISSUE EXAM Routine 12/21/2022 11:2 0 AM CDT from Last 3 Months Results * (ABNORMAL) URINE ALBUMIN TO CREATININE RATIO, RANDOM (02/28/2023 9:15 AM [facility]) ALB RAND URINE 40.0 mg/L 02/28/2023 6:50 PM [facility] CREATININE,URIN E 0.81 g/L 02/28/2023 6:50 PM [facility] ALBUMIN TO CREATININE RATIO,RAND UR 49.4(H) <30.0 mg/g creat 02/28/2023 6:50 PM [facility] Urine URINE SPECIMEN / Unknown Non-Blood / Unknown 02/28/2023 9:15 AM JOB PLACEMENT SPECIALIST 02/28/2023 9:15 AM [facility] Narrative [facility] - 02/28/2023 6:50 PM JOB PLACEMENT SPECIALIST If Albumin to Creatinine Ratio is elevated, consider the following: ? Elevations seen with incipient nephropathy associated ?? with diabetes mellitus or hypertension. Stress, exercise,hematuria, ?? and urinary tract infection may also produce elevated results. If clinically indicated, confirm with ?24 Hour Albumin to Creatinine Ratio. ?? Ceasar Romero MD URINE [facility] [address] [place] [address], * (ABNORMAL) BASIC METABOLIC PANEL (02/28/2023 9:02 AM [facility]) SODIUM 140 136 - 145 mmol/L 02/28/2023 6:36 PM [facility] POTASSIUM 4.5 3.5 - 5.1 mmol/L 02/28/2023 6:36 PM [facility] CHLORIDE 103 98 - 107 mmol/L 02/28/2023 6:36 PM [facility] CO2,TOTAL 22 22 - 29 mmol/L 02/28/2023 6:36 PM [facility] ANION GAP 15 5 - 18 02/28/2023 6:36 PM [facility] GLUCOSE 164(H) 70 - 99 mg/dL 02/28/2023 6:36 PM [facility] CALCIUM 9.2 8.8 - 10.2 mg/dL 02/28/2023 6:36 PM [facility] BUN 52(H) 8 - 23 mg/dL 02/28/2023 6:36 PM [facility] CREATININE 3.38(H) 0.70 - 1.20 mg/dL 02/28/2023 6:36 PM [facility] BUN/CREAT RATIO 15 10 - 20 6:36 PM [facility] eGFR 17(L) >90 mL/min/1.7 3m2 02/28/2023 6:36 PM JOB PLACEMENT SPECIALIST [facility] Comment:As of 2021, eG FR is calculated by the CKD-EPI creatinine equation without race adjustment. ??eGFR can be influenced by muscle mass, exercise, and diet. ??The reported eGFR is an estimation only and is only applicable if the renal function is stable. Blood BLOOD SPECIMEN / Unknown Venipuncture / Unknown 02/28/2023 9:02 AM JOB PLACEMENT SPECIALIST 02/28/2023 9:02 AM JOB PLACEMENT SPECIALIST Ceasar Romero MD [facility] [address] [place] [address], [place] * US THYROID/PARATHYROID (01/19/2023 3:02 PM JOB PLACEMENT SPECIALIST) Anatomical Region Laterality Modality THYROID Ultrasound 01/22/2023 6:18 AM JOB PLACEMENT SPECIALIST Impressions 01/22/2023 6:18 AM JOB PLACEMENT SPECIALIST Stable size and morphology of bilateral thyroid nodules. Dictated by Braulio Bates MD @ Jan ??4 2022 ??6:18AM (Electronically Signed) ?? Narrative 01/22/2023 6:18 AM JOB PLACEMENT SPECIALIST For Patients: ??As a result of the Century Cures Act, medical imaging exams and procedure reports are released immediately into your electronic medical record. ??You may view this report before your referring provider. ??If you have questions, please contact your health care provider. INDICATION: Thyroid nodules COMPARISON: 11/27/19 TECHNIQUE: Jara scale and color Doppler images were acquired of the thyroid gland. FINDINGS: Hypoechoic nodule right thyroid lobe measures 2.2 x 1.2 x 1.6 cm, previously measuring 2.0 x 1.5 x 1.6 cm. Calcified nodule right thyroid lobe measures 9 x 6 x 8 millimeters, previously measuring 9 x 7 x 8 millimeters. Hypoechoic nodule with calcifications right thyroid lobe measures 1.5 x 1.1 x 1.5 cm, previously measuring 1.6 x 1.4 x 1.3 cm. A circumscribed hypoechoic nodule left thyroid lobe measures 3.5 x 3.0 x 2.6 cm, previously measuring 3.4 x 3.1 x 2.4 cm. The right lobe measures 4.8 x 2.7 x 2.7 cm and the left lobe measures 4.0 x 2.8 x 3.3 cm in size. The isthmus measures 4 millimeters. The color Doppler images demonstrate normal vascularity. There is no evidence of cervical lymphadenopathy or parathyroid mass. Procedure Note Braulio Bates MD - 01/22/2023 For Patients: As a result of the Cures Act, medical imagingexams and procedure reports are released immediately into your electronicmedical record. You may view this report before your referring provider.If you have questions, please contact your health care provider. INDICATION: Thyroid nodules COMPARISON: 11/27/19 TECHNIQUE: Jara scale and color Doppler images were acquired of the thyroid gland. FINDINGS: Hypoechoic nodule right thyroid lobe measures 2.2 x 1.2 x 1.6 cm,previously measuring 2.0 x 1.5 x 1.6 cm. Calcified nodule right thyroidlobe measures 9 x 6 x 8 millimeters, previously measuring 9 x 7 x 8millimeters. Hypoechoic nodule with calcifications right thyroid lobemeasures 1.5 x 1.1 x 1.5 cm, previously measuring 1.6 x 1.4 x 1.3 cm. Acircumscribed hypoechoic nodule left thyroid lobe measures 3.5 x 3.0 x 2.6cm, previously measuring 3.4 x 3.1 x 2.4 cm. The right lobe measures 4.8 x2.7 x 2.7 cm and the left lobe measures 4.0 x 2.8 x 3.3 cm in size. Theisthmus measures 4 millimeters. The color Doppler images demonstratenormal vascularity. There is no evidence of cervical lymphadenopathy orparathyroid mass. IMPRESSION: Stable size and morphology of bilateral thyroid nodules. Dictated by Braulio Bates MD @ Jan 22 2023 6:18AM (Electronically Signed) Jaspal Leigh MD [place] * (ABNORMAL) RED CELL MORPHOLOGY (01/02/2023 2:26 PM JOB PLACEMENT SPECIALIST) ELLIPTOCYTES Few 01/02/2023 3:04 PM JOB PLACEMENT SPECIALIST [facility] TEARDROP CELLS Moderate 01/02/2023 3:04 PM JOB PLACEMENT SPECIALIST [facility] RBC COMMENT Present(A) RBC morphology appears normal, RBC morphology within normal limits for newborns. 01/02/2023 3:04 PM JOB PLACEMENT SPECIALIST [facility] Blood BLOOD SPECIMEN / Unknown Venipuncture / Unknown 01/02/2023 2:26 PM JOB PLACEMENT SPECIALIST 01/02/2023 2:27 PM JOB PLACEMENT SPECIALIST Narrative [facility] - 01/02/2023 3:04 PM JOB PLACEMENT SPECIALIST This procedure was originally ordered at [facility] Trans[facility] Providers. Ceasar Romero MD HEMATOLOGY Performing Organization Address City/[facility]/ZIP Co de Phone Number [facility] [address] [place] [address], [place] [phone] * (ABNORMAL) PLATELET ESTIMATE (01/02/2023 2:26 PM JOB PLACEMENT SPECIALIST) Pathologist [facility] PLATELET ESTIMATE Decreased (A) Adequate, No estimate 01/02/2023 3:04 PM JOB PLACEMENT SPECIALIST [facility] Blood BLOOD SPECIMEN / Unknown Venipuncture / Unknown 01/02/2023 2:26 PM JOB PLACEMENT SPECIALIST 01/02/2023 2:27 PM JOB PLACEMENT SPECIALIST [facility] - 01/02/2023 3:04 PM JOB PLACEMENT SPECIALIST This procedure was originally ordered at [facility] Kidney Transplant Providers. Ceasar Romero MD HEMATOLOGY Performing Organization Address City/[facility]/ZIP Co de Phone Number [facility] [address] [place] [address], [place] [phone] * (ABNORMAL) LIPID PANEL W REFLEX MEASURED LDL (01/02/2023 2:26 PM JOB PLACEMENT SPECIALIST) CHOLESTEROL,TOTAL 107 100 - 199 mg/dL 01/02/2023 10:42 PM JOB PLACEMENT SPECIALIST [facility] Comment: Cholesterol, Total Reference Ranges Desirable <200 mg/dL Borderline 200-239 mg/dL High >=240 mg/dL TRIGLYCERIDES 232(H) <150 mg/dL 01/02/2023 10:42 PM JOB PLACEMENT SPECIALIST [facility] HDL CHOLESTEROL 21(L) >40 mg/dL 10:42 PM JOB PLACEMENT SPECIALIST [facility] NON-HDL CHOLESTEROL 86 <145 mg/dl 01/02/2023 10:42 PM [facility] CHOL/HDL RATIO 5.10(H) <4.50 01/02/2023 10:42 PM JOB PLACEMENT SPECIALIST [facility] LDL CHOLESTEROL 40 <=130 mg/dL 01/02/2023 10:42 PM [facility] VLDL CHOLESTEROL 46(H) <=30 mg/dL 01/02/2023 10:42 PM [facility] PROVIDER ORDERED STATUS RANDOM 01/02/2023 10:42 PM [facility] Blood BLOOD SPECIMEN / Unknown Venipuncture / Unknown 01/02/2023 2:26 PM JOB PLACEMENT SPECIALIST 01/02/2023 2:27 PM JOB PLACEMENT SPECIALIST Jaspal Leigh MD CHEMISTRY [facility] [address] [place] [address], * VITAMIN D 25 (DEFICIENCY) (01/02/2023 2:26 PM JOB PLACEMENT SPECIALIST) VITAMIN D TOTAL 45.3 20.0 - 80.0 ng/mL 01/02/2023 10:[address] [facility] Blood BLOOD SPECIMEN / Unknown Venipuncture / Unknown 01/02/2023 2:26 PM JOB PLACEMENT SPECIALIST 01/02/2023 2:27 PM JOB PLACEMENT SPECIALIST Narrative [facility] - 01/02/2023 10:42 PM JOB PLACEMENT SPECIALIST ? Vitamin D Status Deficiency: ? <20 ng/mL Insufficiency: ?20-29 ng/mL Sufficiency: ?30-80 ng/mL Possible Toxicity: ??>80 ng/mL Based on [employer] recommendations Biotin supplements may cause clinically significant interference for this test assay. ??If interference is suspected, it is strongly recommended that biotin is discontinued for at least one week prior to retesting. Jaspal Leigh MD SEND OUTS Performing Organization Address City/[facility]/ZIP Co de Phone Number [facility] [address] [place] [address], * (ABNORMAL) IRON PLUS IRON BINDING CAP (01/02/2023 2:26 PM JOB PLACEMENT SPECIALIST) Pathologist [facility] IRON 64 61 - 157 ug/dL 01/02/2023 10:42 PM JOB PLACEMENT SPECIALIST [facility] UIBC (UNSATURATED) 167 112 - 347 ug/dL 01/02/2023 10:42 PM JOB PLACEMENT SPECIALIST [facility] IRON BINDING CAPACITY 231(L) 250 - 400 ug/dL 01/02/2023 10:42 PM JOB PLACEMENT SPECIALIST [facility] IRON,% SATURATION 28 14 - 50 % 01/02/2023 10:42 PM JOB PLACEMENT SPECIALIST [facility] Blood BLOOD SPECIMEN / Unknown Venipuncture / Unknown 01/02/2023 2:26 PM JOB PLACEMENT SPECIALIST 01/02/2023 2:27 PM JOB PLACEMENT SPECIALIST Ceasar Romero MD CHEMISTRY Performing Organization Address [facility]/ZIP Co de Phone Number [facility] [address] [place] [address], [place] * (ABNORMAL) CBC W PLT NO DIFF (01/02/2023 2:26 PM JOB PLACEMENT SPECIALIST) Pathologist [facility] WHITE BLOOD COUNT 11.4(H) 4.5 - 11.0 thou/cu mm 01/02/2023 3:04 PM JOB PLACEMENT SPECIALIST [facility] RED BLOOD COUNT 2.96(L) 4.30 - 5.90 mil/cu mm 01/02/2023 3:04 PM [facility] HEMOGLOBIN 8.5(L) 13.5 - 17.5 g/dL 01/02/2023 3:04 PM [facility] HEMATOCRIT 26.9(L) 37.0 - 53.0 % 01/02/2023 3:04 PM [facility] MCV 91 80 - 100 fL 01/02/2023 3:04 PM JOB PLACEMENT SPECIALIST [facility] MCH 28.7 26.0 - 34.0 pg 01/02/2023 3:04 PM JOB PLACEMENT SPECIALIST [facility] MCHC 31.6(L) 32.0 - 36.0 g/dL 01/02/2023 3:04 PM JOB PLACEMENT SPECIALIST [facility] RDW 19.6(H) 11.5 - 15.5 % 01/02/2023 3:04 PM JOB PLACEMENT SPECIALIST [facility] PLATELET COUNT 65(L) 140 - 440 thou/cu mm 01/02/2023 3:04 PM [facility] PLACEMENT SPECIALIST [facility] MPV 01/02/2023 3:04 PM JOB PLACEMENT SPECIALIST [facility] Comment:Unable to be determi edu Blood BLOOD SPECIMEN / Unknown Venipuncture / Unknown 01/02/2023 2:26 PM JOB PLACEMENT SPECIALIST 01/02/2023 2:27 PM JOB PLACEMENT SPECIALIST Narrative [facility] - 01/02/2023 3:04 PM JOB PLACEMENT SPECIALIST This procedure was originally ordered at [facility] Kidney Transplant Providers. Ceasar Romero MD HEMATOLOGY [facility] [address] [place] [address], [place] [phone] * URIC ACID (01/02/2023 2:26 PM JOB PLACEMENT SPECIALIST) URIC ACID 6.4 3.4 - 7.0 mg/dL 01/03/2023 1:21 AM JOB PLACEMENT SPECIALIST [facility] Blood BLOOD SPECIMEN / Unknown Venipuncture / Unknown 01/02/2023 2:26 PM JOB PLACEMENT SPECIALIST 01/02/2023 2:27 PM JOB PLACEMENT SPECIALIST Jaspal Leigh MD CHEMISTRY [facility] [address] [place] [address], [place] * ALT (SGPT) (01/02/2023 2:26 PM JOB PLACEMENT SPECIALIST) ALT (SGPT) 19 10 - 50 IU/L 01/02/2023 10:42 [address] [facility] Blood BLOOD SPECIMEN / Unknown Venipuncture / Unknown 01/02/2023 2:26 PM JOB PLACEMENT SPECIALIST 01/02/2023 2:27 PM JOB PLACEMENT SPECIALIST Jaspal Leigh MD CHEMISTRY Performing Organization Address [facility] Co de Phone Number [facility] [address] * (ABNORMAL) PTH,INTACT (01/02/2023 2:26 PM JOB PLACEMENT SPECIALIST) CALCIUM 9.3 8.8 - 10.2 mg/dL 01/02/2023 10:42 [address] [facility] PTH,INTACT 123.0(H) 15.0 - 69.0 pg/mL 01/02/2023 10:42 [address] [facility] Blood BLOOD SPECIMEN / Unknown Venipuncture / Unknown 01/02/2023 2:26 PM JOB PLACEMENT SPECIALIST 01/02/2023 2:27 PM JOB PLACEMENT SPECIALIST Ceasar Romero MD SEND OUTS Performing Organization Address [facility] Co de Phone Number [facility] [address] * (ABNORMAL) HEMOGLOBIN A1C MONITORING (POCT) (01/02/2023 2:26 PM JOB PLACEMENT SPECIALIST) HEMOGLOBIN A1C MONITORING (POCT) 7.8(H) <=6.4 % 01/02/2023 2:36 PM JOB PLACEMENT SPECIALIST [facility] Blood BLOOD SPECIMEN / Unknown Venipuncture / Unknown 01/02/2023 2:26 PM JOB PLACEMENT SPECIALIST 01/02/2023 2:27 PM JOB PLACEMENT SPECIALIST Narrative [facility] - 01/02/2023 2:36 PM JOB PLACEMENT SPECIALIST ? (<=6.9%) ? Indicates good control ? (7.0% to 7.9%) ? Indicates fair control ? (>=8.0%) ? Indicates poor control ?? NOTE: ??These thresholds are guidelines and ?individual targets may vary. Falsely low levels may be seen with: Recent Transfusion, Recent Significant Blood Loss, Hemolytic Diseases, or Falsely elevated levels may be seen with: Untreated Anemias, Splenectomy ? Ceasar Romero MD CHEMISTRY Performing Organization Address City/[facility]/ZIP Co de Phone Number [facility] [address] [place] [address], * FERRITIN (01/02/2023 2:26 PM JOB PLACEMENT SPECIALIST) Pathologist [facility] FERRITIN 295.0 30.0 - 400.0 ng/mL 01/02/2023 10:42 PM JOB PLACEMENT SPECIALIST [facility] Blood BLOOD SPECIMEN / Unknown Venipuncture / Unknown 01/02/2023 2:26 PM JOB PLACEMENT SPECIALIST 01/02/2023 2:27 PM JOB PLACEMENT SPECIALIST Ceasar Romero MD CHEMISTRY [facility] [address] [address], * (ABNORMAL) RENAL FUNCTION PANEL (01/02/2023 2:26 PM JOB PLACEMENT SPECIALIST) Pathologist [facility] SODIUM 139 136 - 145 mmol/L 01/03/2023 1:21 AM [facility] POTASSIUM 4.7 3.5 - 5.1 mmol/L 01/03/2023 1:21 AM [facility] CHLORIDE 105 98 - 107 mmol/L 01/03/2023 1:21 AM [facility] CO2,TOTAL 23 22 - 29 mmol/L 01/03/2023 1:21 AM [facility] ANION GAP 11 5 - 18 01/03/2023 1:21 AM [facility] GLUCOSE 198(H) 70 - 99 mg/dL 01/03/2023 1:21 AM [facility] CALCIUM 9.3 8.8 - 10.2 mg/dL 01/03/2023 1:21 AM [facility] BUN 59(H) 8 - 23 mg/dL 01/03/2023 1:21 AM [facility] CREATININE 3.37(H) 0.70 - 1.20 mg/dL 01/03/2023 1:21 AM [facility] BUN/CREAT RATIO 18 10 - 20 1:21 AM [facility] eGFR 17(L) >90 mL/min/1.7 3m2 01/03/2023 1:21 AM [facility] Comment:As of 2021, eG FR is calculated by the CKD-EPI creatinine equation without race adjustment. ??eGFR can be influenced by muscle mass, exercise, and diet. ??The reported eGFR is an estimation only and is only applicable if the renal function is stable. PHOSPHORUS 3.3 2.5 - 4.5 mg/dL 01/03/2023 1:21 AM [facility] ALBUMIN 4.2 4.0 - 4.9 g/dL 01/03/2023 1:21 AM [facility] Blood BLOOD SPECIMEN / Unknown Venipuncture / Unknown 01/02/2023 2:26 PM JOB PLACEMENT SPECIALIST 01/02/2023 2:27 PM JOB PLACEMENT SPECIALIST Ceasar Romero MD CHEMISTRY Performing Organization Address City/[facility]/ZIP Co de Phone Number [facility] [address] [place] [address], * LAB TRACKING EVENT (12/21/2022 11:20 AM CDT) Other (Other) Client Collect / Unknown 12/21/2022 11:20 AM CDT 12/21/2022 3:40 PM CDT Cristy Estrada MD LAB BILL ONLY [facility] [address] [place] [address], * PATH TISSUE EXAM (12/21/2022 11:20 AM CDT) Case Report Pathology Report ?Case: [id number] ? Authorizing Provider: ??Cristy Estrada MD ?? Collected: ? 12/21/2022 1120 ? Ordering Location: ? [facility] ?Received: ?12/21/2022 1618 ? Pathologist: ? Salome Sainz MD ? Specimen: ?Left Forearm ? 12/22/2022 11:25 AM CDT [facility] Final Diagnosis A) SKIN, LEFT INNER FOREARM, BIOPSY: 1. At least squamous cell carcinoma in situ: ?? a. Margins: POSITIVE ??(peripheral and deep) 12/22/2022 11:25 AM CDT [facility] Comment The tumor is transected at the base of the biopsy; invasive carcinoma cannot therefore be excluded. 12/22/2022 11:25 AM CDT [facility] Clinical Information Atypical lesion 12/22/2022 11:25 AM CDT [facility] Gross Description A) Received in formalin, labeled with the patient's name and date of , is a 1.1 x 1.0 x 0.1 cm skin biopsy. There is a 1.0 x 0.9 cm variably raised, crusted, brown-black to purple-red lesion. The specimen is inked green, serially sectioned and entirely submitted in one cassette. EKW 12/21/2022 12/22/2022 11:25 AM CDT [facility] Microscopic Description The final diagnosis is based on microscopic examination of appropriate sections of all specimens. 12/22/2022 11:25 AM CDT [facility] Additional Information Interpreted at [facility] - [address] [place] [address] 12/22/2022 11:25 AM CDT [facility] Other (Left Forearm) 12/21/2022 11:20 AM CDT 12/21/2022 4:18 PM CDT Cristy Estrada MD PATHOLOGY/CYTOLOG Y Performing Organization Address City/State/[facility] Co de Phone Number [facility] [address] [place] [address], from Last 3 Months Advance Directives Latest Code Status on File Code Status Date Activated Date Inactivated Comments Full Code 08/29/2021 11:00 AM 08/30/2021 2:15 AM Question Answer Comments Code Status Discussion: Reviewed Preferences Care Teams Ladle Repairer Relationship Specialty Start Date End Date Jaspal Leigh MD [address] [place] [address] PCP - General 07/27/05
--- OUTSIDE RECORDS SUMMARY | 2023-03-18 14:54 | XMS_ITS | Encounter Summary ---
Author Name Unknown Organization [facility] Address [address] [place] [address] Care Team Providers Care Senior Controller Name Role Phone Jaspal Leigh MD Primary Care Provider [phone] Encounter Details Date Type Department Care Team Description 03/02/2023 Telephone [facility] [address] [facility] [address] [place] [address] Ceasar Romero MD [address] [place] [address] Social History Tobacco Use Types Packs/Day Years Used Date Smoking Tobacco: Never Assessed Sex and Gender Information Value Date Recorded Sex Assigned at Not on file Gender Identity Not on file Sexual Orientation Not on file documented as of this encounter Miscellaneous Notes * Telephone Encounter - Joy Lazo - 03/02/2023 3:32 PM CST [place] [facility]-embedded patient is scheduled for a follow up on 04/26/23. A new patient packet is being mailed to the patient. Note from Dr. Romero in December 2022: Follow-up in 4 months with labs prior to the visit. BMP also in 2 months to monitor closely. documented in this encounter Plan of Treatment Upcoming Encounters Date Type Department Care Team Description 04/26/2023 11:00 AM EST Office Visit [facility] [address] [place] [address] Ceasar Romero MD [address] [place] [phone] documented as of this encounter Visit Diagnoses Not on filedocumented in this encounter Care Teams Senior Controller Relationship Specialty Start Date End Date Jaspal Leigh MD [address] [place] [address] PCP - General Family Medicine 03/02/23 documented as of this encounter
--- OUTSIDE RECORDS SUMMARY | 2023-03-18 14:54 | XMS_ITS | Clinical Summary ---
Author Name Unknown Organization [facility] Address [address] [place] [address] Phone Care Team Providers Care Magnetic Resonance Imaging Coordinator Name Role Phone Jaspal Leigh MD Primary Care Provider [phone] Encounters Date Type Department Care Team Description 03/02/2023 Telephone [facility] [place] [address] [address] Ceasar Romero MD from Last 3 Months Social History Tobacco Use Types Packs/Day Years Used Date Smoking Tobacco: Never Assessed Sex and Gender Information Value Date Recorded Sex Assigned at Not on file Gender Identity Not on file Sexual Orientation Not on file Plan of Treatment Upcoming Encounters Date Type Department Care Team Description 04/26/2023 11:00 AM EST Office Visit [facility] [address] [place] [address] Ceasar Romero MD [address] [place] [address] Health Maintenance Due Date Last Done Comments Diabetes: Ophthalmology Exam 03/02/2023 Diabetes: Pedal Pulse Checked 03/02/2023 Diabetes: Sensory Foot Exam 03/02/2023 Diabetes: Visual Foot Exam 03/02/2023 Diabetes: Hemoglobin A1C 04/04/2023 01/02/2023 Pneumococcal Vaccine: 65+ Years Completed 12/10/2015, 01/27/2015, 03/22/2004 Influenza Vaccine Completed 01/10/2023, , 12/13/2020, Additional history exists Hepatitis B Vaccine Aged Out No longe r eligible based on patient's age to complete this topic Care Teams Magnetic Resonance Imaging Coordinator Relationship Specialty Start Date End Date Jaspal Leigh MD [address] [place] [address] PCP - General Family Medicine 03/02/23
[2023-03-18 14:55] LABS: PCR FLU A Negative PCR FLU A (Negative); PCR FLU B Negative PCR FLU B (Negative); PCR RSV Negative PCR RSV (Negative); SARS PCR* POSITIVE SARS-CoV-2 (Negative)
== END 2023-03-18 16:21 | disposition home or self-care (01) ==
PROVIDERS: Emergency Provider Emergency Medicine; PCP Family Medicine
DX: U07.1 COVID-19 (principal)
CPT/HCPCS: 80048; 87631; 96360; 99283; 99284

== ENCOUNTER 2023-03-19 09:09 | Outpatient (CLI) | payer MEDICARE, OTHER, SELFPAY ==
--- OUTSIDE RECORDS SUMMARY | 2023-03-20 11:08 | XMS_ITS | Encounter Summary ---
Author Name Unknown Organization [facility] Address [address] [place] [address] Care Team Providers Care Wastewater Analyst Lab Analyst Name Role Phone Jaspal Leigh MD Primary Care Provider [phone] Encounter Details Date Type Department Care Team Description 03/02/2023 Telephone [facility] [place] [address] [facility] [address] [place] [address] Ceasar Romero MD [address] [place] [address] Social History Tobacco Use Types Packs/Day Years Used Date Smoking Tobacco: Never Assessed Sex and Gender Information Value Date Recorded Sex Assigned at Not on file Gender Identity Not on file Sexual Orientation Not on file documented as of this encounter Miscellaneous Notes * Telephone Encounter - Joy Lazo - 03/02/2023 3:32 PM CST [place] [facility] de-embedded patient is scheduled for a [...] [facility] [address] [place] [address] Ceasar Romero MD [address] [place] [phone] documented as of this encounter Visit Diagnoses Not on filedocumented in this encounter Care Teams Wastewater Analyst Lab Analyst Relationship Specialty Start Date End Date Jaspal Leigh MD [address] [place] [address] PCP - General Family Medicine 03/02/23 documented as of this encounter
--- OUTSIDE RECORDS SUMMARY | 2023-03-20 11:08 | XMS_ITS | Clinical Summary ---
Author Name Unknown Organization [facility] Address [address] [place] [address] Phone Care Team Providers Care Assisted Living Associate Name Role Phone Jaspal Leigh MD Primary Care Provider [phone] Encounters Date Type Department Care Team Description 03/02/2023 Telephone [facility] [place] [address] [address] Ceasar Romero MD from Last [...] [place] [address] [address] Ceasar Romero MD [address] [place] [address] Health Maintenance Due Date Last [...] age to complete this topic Care Teams Assisted Living Associate Relationship Specialty Start Date End Date Jaspal Leigh MD [address] [place] [address] PCP - General Family Medicine 03/02/23
--- OUTSIDE RECORDS SUMMARY | 2023-03-20 11:08 | XMS_ITS | Clinical Summary ---
Author Name Unknown Organization [facility] Address [place], [place] [address] Care Team Providers Care Hand Twister Name Role Phone Jaspal Leigh MD Primary Care Provider [phone] Allergies Active Allergy Reactions Criticality Noted Date Comments Amoxicillin Nausea Only 10/11/2016 Hydrocodone-Acetaminophen Confusion 04/18/2010 Hydroxyzine Confusion 07/05/2012 Medications Medication Sig Dispensed Refills Start Date End Date Status VITAMINS A,C,Y-[id number] (Ocuvite PreserVision) 7,160 unit- 113 mg-100 unit [...] Romero and plans to follow him to [place]. He sees him every 3 months.Jaspal Leigh MD signed electronically .................... 01/10/2023 Multiple thyroid nodules 11/30/2019 Overview: Yearly follow up Ultrasound will be due in [id number]. Gastroesophageal reflux disease 06/23/2015 Overview: EGD 06/2015 [...] Problem Noted Date Diagnosed Date Resolved Date exterminator termite (current) use of anticoagulants 05/09/2010 10/13/2010 Overview: INR Goal Range: 2.0 - 2.5 DVT (deep venous thrombosis) 05/09/2010 10/13/2010 Ulcer of esophagus without bleeding 10/19/2006 Acute renal failure 04/06/19 23 Encounters Date Type Department Care Team Description 03/20/2023 Nurse Triage [facility] [address] [place] [address] Jaspal Leigh MD Covid-19 Positive Result 03/02/2023 Telephone [facility] [address] [place] [address] Ghulam Matias MD Results 02/28/2023 9:00 AM AUTOMATIC PRINT DEVELOPER Orders Only [facility] [address] [place] [address] Lab, [place] [facility] 02/28/2023 Travel 01/19/2023 1:45 PM AUTOMATIC PRINT DEVELOPER Ancillary Procedure [facility] [address] [place] [address] 01/19/2023 Travel 01/10/2023 2:00 PM AUTOMATIC PRINT DEVELOPER Office Visit [facility] [address] [place] [address] Jaspal Leigh MD Derm Problem (Check wound on back of left calf); Follow Up (Go over recent lab results); Immunization/Injec tion 01/10/2023 Travel 01/09/2023 Telephone [facility] [address] [place] [address] Jaspal Leigh MD Appointment (Too soon for medicare appt) 01/04/2023 3:00 PM AUTOMATIC PRINT DEVELOPER Office Visit [facility] [address] [place] [address] Ceasar Romero MD Follow Up (CKD) 01/04/2023 Travel 01/02/2023 2:10 PM AUTOMATIC PRINT DEVELOPER Orders Only [facility] [address] [place] [address] Lab, [place] Lab 01/02/2023 Travel 12/25/2022 Orders Only [facility] [address] [phone] Ceasar Romero MD <No scans attached> 12/25/2022 Telephone [facility] [address] [place] [phone] Ceasar Romero MD Questions (lab orders) 12/21/2022 Lab Requisition [facility] [phone] Cristy Estrada MD from Last 3 Months Immunizations Name Administration Dates Next Due AMB INFLUENZA IIV3 (AGE 65+ YRS) PF (Flu Clinic Only) 12/26/2018,12/05/2017 AMB Influenza, IIV3 (Age >=3 years)(Flu Clinic Only) 12/05/2012,11/27/2011,12/09/2010,2007 Amb Influenza, Inact (High-d ose) (Flu Clinic Only) 12/03/2015,11/20/2014,11/28/2013 COVID-19 Vaccine Spikevax (M oderna 50mcg/0.5mL) 12YO+ [id number] Formula PF 01/10/2023 COVID-19 vaccine (Collexpo NTech 30mcg/0.3mL) 12YO+ BIVALENT PF, MDV 03/08/2022 COVID-19 vaccine (AditiveBio NTech 30mcg/0.3mL) PF, MDV 12/13/2020,04/18/2020,03/28/2020 Influenza A (H1N1), Inactivated 03/08/2009 Influenza A (H1N1), Inactiva kenzie (Age >=3 Years) 03/08/2009 Influenza, High-dose Inactivated 12/03/2015,03/2014,11/28/2013 Influenza, IIV3 (Age 6-35 mos) 12/09/2010,2008 Influenza, [...] own primary at 60. Heart Disease Father PA at 53 and 6 3, at 64 [...] Comments Blood Pressure 133/58 01/10/2023 2:22 PM AUTOMATIC PRINT DEVELOPER Pulse 72 01/10/2023 2:22 PM AUTOMATIC PRINT DEVELOPER Temperature 36.4 ??C (97.5 ??F) 01/10/2023 2:22 PM CS T Respiratory Rate 16 08/29/2021 2:00 PM CDT Oxygen Saturation 99% 01/10/2023 2:22 PM AUTOMATIC PRINT DEVELOPER Inhaled Oxygen Concentration - - Weight 88.1 kg (194 lb 3.2 oz) 01/10/2023 2:22 P M AUTOMATIC PRINT DEVELOPER Height 176 cm (5' 9.3) 05/22/2022 1:21 [...] CREATININE RATIO, RANDOM Routine 02/28/2023 9:15 AM AUTOMATIC PRINT DEVELOPER Type II or unspecified type diabetes mellitus without mention of complication, not stated as uncontrolled BASIC METABOLIC PANEL Routine 02/28/2023 9:02 AM AUTOMATIC PRINT DEVELOPER CKD (chronic kidney disease) stage 4, GFR 15-29 ml/min (HC) US THYROID/PARATHYROID Routine 01/19/2023 3:02 PM AUTOMATIC PRINT DEVELOPER Multiple thyroid nodules PLATELET ESTIMATE Routine 01/02/2023 2:2 6 PM AUTOMATIC PRINT DEVELOPER CKD (chronic kidney disease) stage 4, GFR 15-29 ml/min (HC) RED CELL MORPHOLOGY Routine 01/02/2023 2 :26 PM AUTOMATIC PRINT DEVELOPER CKD (chronic kidney disease) stage 4, GFR 15-29 ml/min (HC) ALT (SGPT) Routine 01/02/2023 2:26 PM AUTOMATIC PRINT DEVELOPER Kidney Stones - uric acid VITAMIN D 25 (DEFICIENCY) Routine 01/02/2023 2:26 PM AUTOMATIC PRINT DEVELOPER Vitamin D deficiency URIC ACID Routine 01/02/2023 2:26 PM AUTOMATIC PRINT DEVELOPER Kidney Stones - uric acid LIPID PANEL W REFLEX MEASURED LDL Routine 01/02/2023 2:26 PM AUTOMATIC PRINT DEVELOPER Type II or unspecified type diabetes mellitus without mention of complication, not stated as uncontrolled PTH,INTACT Routine 01/02/2023 2:26 PM AUTOMATIC PRINT DEVELOPER CKD (chronic kidney disease) stage 4, GFR 15-29 ml/min (HC) FERRITIN Routine 01/02/2023 2:26 PM AUTOMATIC PRINT DEVELOPER CKD (chronic kidney disease) stage 4, GFR 15-29 ml/min (HC) IRON PLUS IRON BINDING CAP Routine 01/02/2023 2:26 PM AUTOMATIC PRINT DEVELOPER CKD (chronic kidney disease) stage 4, GFR 15-29 ml/min (HC) CBC W PLT NO DIFF Routine 01/02/2023 2:2 6 PM AUTOMATIC PRINT DEVELOPER CKD (chronic kidney disease) stage 4, GFR 15-29 ml/min (HC) HEMOGLOBIN A1C Routine 01/02/2023 2:26 PM AUTOMATIC PRINT DEVELOPER Type II or unspecified type diabetes mellitus without mention of complication, not stated as uncontrolled RENAL FUNCTION PANEL Routine 01/02/2023 2:26 PM AUTOMATIC PRINT DEVELOPER CKD (chronic kidney disease) stage 4, GFR 15-29 ml/min (HC) LAB TRACKING EVENT Routine 12/21/2022 11 :20 AM CDT PATH TISSUE EXAM Routine 12/21/2022 11:2 0 AM CDT from Last 3 Months Results * (ABNORMAL) URINE ALBUMIN TO CREATININE RATIO, RANDOM (02/28/2023 9:15 AM [facility]) ALB RAND URINE 40.0 mg/L 02/28/2023 6:50 PM [facility] CREATININE,URIN E 0.81 g/L 02/28/2023 6:50 PM AUTOMATIC PRINT DEVELOPER [facility] ALBUMIN TO CREATININE RATIO,RAND UR 49.4(H) <30.0 mg/g creat 02/28/2023 6:50 PM [facility] Urine URINE SPECIMEN / Unknown Non-Blood / Unknown 02/28/2023 9:15 AM AUTOMATIC PRINT DEVELOPER 02/28/2023 9:15 AM [facility] Narrative [facility] - 02/28/2023 6:50 PM AUTOMATIC PRINT DEVELOPER If Albumin to Creatinine Ratio is elevated, consider the following: ? Elevations seen with incipient nephropathy associated ?? with diabetes mellitus or hypertension. Stress, exercise,hematuria, ?? and urinary tract infection may also produce elevated results. If clinically indicated, confirm with ?24 Hour Albumin to Creatinine Ratio. ?? Ceasar Romero MD URINE [facility] [address] [place] [address], * (ABNORMAL) BASIC METABOLIC PANEL (02/28/2023 9:02 AM AUTOMATIC PRINT DEVELOPER) SODIUM 140 136 - 145 mmol/L 02/28/2023 6:36 PM [facility] POTASSIUM 4.5 3.5 - 5.1 mmol/L 02/28/2023 6:36 PM [facility] CHLORIDE 103 98 - 107 mmol/L 02/28/2023 6:36 PM [facility] CO2,TOTAL 22 22 - 29 mmol/L 02/28/2023 6:36 PM [facility] ANION GAP 15 5 - 18 02/28/2023 6:36 PM [facility] GLUCOSE 164(H) 70 - 99 mg/dL 02/28/2023 6:36 PM [facility] CALCIUM 9.2 8.8 - 10.2 mg/dL 02/28/2023 6:36 PM [facility] BUN 52(H) 8 - 23 mg/dL 02/28/2023 6:36 PM [facility] CREATININE 3.38(H) 0.70 - 1.20 mg/dL 02/28/2023 6:36 PM AUTOMATIC PRINT DEVELOPER [facility] BUN/CREAT RATIO 15 10 - 20 6:36 PM AUTOMATIC PRINT DEVELOPER [facility] eGFR 17(L) >90 mL/min/1.7 3m2 02/28/2023 6:36 PM AUTOMATIC PRINT DEVELOPER [facility] Comment:As of 2021, eG FR is calculated by the CKD-EPI creatinine equation without race adjustment. ??eGFR can be influenced by muscle mass, exercise, and diet. ??The reported eGFR is an estimation only and is only applicable if the renal function is stable. Blood BLOOD SPECIMEN / Unknown Venipuncture / Unknown 02/28/2023 9:02 AM AUTOMATIC PRINT DEVELOPER 02/28/2023 9:02 AM AUTOMATIC PRINT DEVELOPER Ceasar Romero MD CHEMISTRY [facility] [address] [place] [address], [place] * US THYROID/PARATHYROID (01/19/2023 3:02 PM AUTOMATIC PRINT DEVELOPER) Anatomical Region Laterality Modality THYROID Ultrasound 01/22/2023 6:18 AM AUTOMATIC PRINT DEVELOPER Impressions 01/22/2023 6:18 AM AUTOMATIC PRINT DEVELOPER Stable size and morphology of bilateral thyroid nodules. Dictated by Braulio Bates MD @ Jan ??4 2022 ??6:18AM (Electronically Signed) ?? Narrative 01/22/2023 6:18 AM AUTOMATIC PRINT DEVELOPER For Patients: ??As a result of the [...] (ABNORMAL) RED CELL MORPHOLOGY (01/02/2023 2:26 PM AUTOMATIC PRINT DEVELOPER) [facility] ELLIPTOCYTES Few 01/02/2023 3:04 PM AUTOMATIC PRINT DEVELOPER [facility] TEARDROP CELLS Moderate 01/02/2023 3:04 PM AUTOMATIC PRINT DEVELOPER [facility] RBC COMMENT Present(A) RBC morphology appears normal, RBC morphology within normal limits for newborns. 01/02/2023 3:04 PM AUTOMATIC PRINT DEVELOPER [facility] Blood BLOOD SPECIMEN / Unknown Venipuncture / Unknown 01/02/2023 2:26 PM AUTOMATIC PRINT DEVELOPER 01/02/2023 2:27 PM AUTOMATIC PRINT DEVELOPER Narrative [facility] - 01/02/2023 3:04 PM AUTOMATIC PRINT DEVELOPER This procedure was originally ordered at [facility]. Ceasar Romero MD HEMATOLOGY Performing Organization Address City/[facility]/ZIP Co de Phone Number [facility] [address] [place] [address], [place] [phone] * (ABNORMAL) PLATELET ESTIMATE (01/02/2023 2:26 PM AUTOMATIC PRINT DEVELOPER) [facility] PLATELET ESTIMATE Decreased (A) Adequate, No estimate 01/02/2023 3:04 PM AUTOMATIC PRINT DEVELOPER [facility] Blood BLOOD SPECIMEN / Unknown Venipuncture / Unknown 01/02/2023 2:26 PM AUTOMATIC PRINT DEVELOPER 01/02/2023 2:27 PM AUTOMATIC PRINT DEVELOPER Narrative [facility] - 01/02/2023 3:04 PM AUTOMATIC PRINT DEVELOPER This procedure was originally ordered at [facility]. Ceasar Romero MD HEMATOLOGY [facility] [address] [place] [address], [place] [phone] * (ABNORMAL) LIPID PANEL W REFLEX MEASURED LDL (01/02/2023 2:26 PM AUTOMATIC PRINT DEVELOPER) [facility] CHOLESTEROL,TOTAL 107 100 - 199 mg/dL 01/02/2023 10:42 PM AUTOMATIC PRINT DEVELOPER [facility] Comment: Cholesterol, Total Reference Ranges Desirable <200 mg/dL Borderline 200-239 mg/dL High >=240 mg/dL TRIGLYCERIDES 232(H) <150 mg/dL 01/02/2023 10:42 PM AUTOMATIC PRINT DEVELOPER [facility] HDL CHOLESTEROL 21(L) >40 mg/dL 10:42 PM AUTOMATIC PRINT DEVELOPER [facility] NON-HDL CHOLESTEROL 86 <145 mg/dl 01/02/2023 10:42 PM AUTOMATIC PRINT DEVELOPER [facility] CHOL/HDL RATIO 5.10(H) <4.50 01/02/2023 10:42 PM AUTOMATIC PRINT DEVELOPER [facility] LDL CHOLESTEROL 40 <=130 mg/dL 01/02/2023 10:42 PM [facility] VLDL CHOLESTEROL 46(H) <=30 mg/dL 01/02/2023 10:42 PM AUTOMATIC PRINT DEVELOPER [facility] PROVIDER ORDERED STATUS RANDOM 01/02/2023 10:42 PM [facility] Blood BLOOD SPECIMEN / Unknown Venipuncture / Unknown 01/02/2023 2:26 PM AUTOMATIC PRINT DEVELOPER 01/02/2023 2:27 PM AUTOMATIC PRINT DEVELOPER Jaspal Leigh MD [facility]MISTRY [facility] [address] [place] [address], * VITAMIN D 25 (DEFICIENCY) (01/02/2023 2:26 PM AUTOMATIC PRINT DEVELOPER) VITAMIN D TOTAL 45.3 20.0 - 80.0 ng/mL 01/02/2023 10:42 PM AUTOMATIC PRINT DEVELOPER [facility] Blood BLOOD SPECIMEN / Unknown Venipuncture / Unknown 01/02/2023 2:26 PM AUTOMATIC PRINT DEVELOPER 01/02/2023 2:27 PM AUTOMATIC PRINT DEVELOPER Narrative [facility] - 01/02/2023 10:42 PM AUTOMATIC PRINT DEVELOPER ? Vitamin D Status Deficiency: ? <20 ng/mL Insufficiency: ?20-29 ng/mL Sufficiency: ?30-80 ng/mL Possible Toxicity: ??>80 ng/mL Based on [employer] of [employer] recommendations Biotin supplements may cause clinically significant interference for this test assay. ??If interference is suspected, it is strongly recommended that biotin is discontinued for at least one week prior to retesting. Jaspal Leigh MD SEND OUTS Performing Organization Address [facility]/ZIP Co de Phone Number [facility] [address] [place], [place] [id number], * (ABNORMAL) IRON PLUS IRON BINDING CAP (01/02/2023 2:26 PM AUTOMATIC PRINT DEVELOPER) Pathologist [facility] IRON 64 61 - 157 ug/dL 01/02/2023 10:42 PM AUTOMATIC PRINT DEVELOPER [facility] UIBC (UNSATURATED) 167 112 - 347 ug/dL 01/02/2023 10:42 PM AUTOMATIC PRINT DEVELOPER [facility] IRON BINDING CAPACITY 231(L) 250 - 400 ug/dL 01/02/2023 10:42 PM AUTOMATIC PRINT DEVELOPER [facility] IRON,% SATURATION 28 14 - 50 % 01/02/2023 10:42 PM AUTOMATIC PRINT DEVELOPER [facility] Blood BLOOD SPECIMEN / Unknown Venipuncture / Unknown 01/02/2023 2:26 PM AUTOMATIC PRINT DEVELOPER 01/02/2023 2:27 PM AUTOMATIC PRINT DEVELOPER Ceasar Romero MD CHEMISTRY Performing Organization Address [facility]/ZIP Co de Phone Number [facility] [address] [place] [address], [place] * (ABNORMAL) CBC W PLT NO DIFF (01/02/2023 2:26 PM AUTOMATIC PRINT DEVELOPER) WHITE BLOOD COUNT 11.4(H) 4.5 - 11.0 thou/cu mm 01/02/2023 3:04 PM AUTOMATIC PRINT DEVELOPER [facility] RED BLOOD COUNT 2.96(L) 4.30 - 5.90 mil/cu mm 01/02/2023 3:04 PM AUTOMATIC PRINT DEVELOPER [facility] HEMOGLOBIN 8.5(L) 13.5 - 17.5 g/dL 01/02/2023 3:04 PM AUTOMATIC PRINT DEVELOPER [facility] HEMATOCRIT 26.9(L) 37.0 - 53.0 % 01/02/2023 3:04 PM AUTOMATIC PRINT DEVELOPER [facility] MCV 91 80 - 100 fL 01/02/2023 3:04 PM AUTOMATIC PRINT DEVELOPER [facility] MCH 28.7 26.0 - 34.0 pg 01/02/2023 3:04 PM AUTOMATIC PRINT DEVELOPER [facility] MCHC 31.6(L) 32.0 - 36.0 g/dL 01/02/2023 3:04 PM AUTOMATIC PRINT DEVELOPER [facility] RDW 19.6(H) 11.5 - 15.5 % 01/02/2023 3:04 PM AUTOMATIC PRINT DEVELOPER [facility] PLATELET COUNT 65(L) 140 - 440 thou/cu mm 01/02/2023 3:04 PM AUTOMATIC PRINT DEVELOPER [facility] MPV 01/02/2023 3:04 PM AUTOMATIC PRINT DEVELOPER [facility] Comment:Unable to be determi edu Blood BLOOD SPECIMEN / Unknown Venipuncture / Unknown 01/02/2023 2:26 PM AUTOMATIC PRINT DEVELOPER 01/02/2023 2:27 PM AUTOMATIC PRINT DEVELOPER Narrative [facility] - 01/02/2023 3:04 PM AUTOMATIC PRINT DEVELOPER This procedure was originally ordered at [facility]. Ceasar Romero MD HEMATOLOGY Performing Organization Address City/[facility]/ZIP Co de Phone Number [facility] [address] [place] [address], [place] [phone] * URIC ACID (01/02/2023 2:26 PM AUTOMATIC PRINT DEVELOPER) URIC ACID 6.4 3.4 - 7.0 mg/dL 01/03/2023 1:21 AM AUTOMATIC PRINT DEVELOPER [facility] Blood BLOOD SPECIMEN / Unknown Venipuncture / Unknown 01/02/2023 2:26 PM AUTOMATIC PRINT DEVELOPER 01/02/2023 2:27 PM AUTOMATIC PRINT DEVELOPER Jaspal Leigh MD CHEMISTRY [facility] [address] [place] [address], [place] * ALT (SGPT) (01/02/2023 2:26 PM AUTOMATIC PRINT DEVELOPER) ALT (SGPT) 19 10 - 50 IU/L 01/02/2023 10:42 PM AUTOMATIC PRINT DEVELOPER [facility] Blood BLOOD SPECIMEN / Unknown Venipuncture / Unknown 01/02/2023 2:26 PM AUTOMATIC PRINT DEVELOPER 01/02/2023 2:27 PM AUTOMATIC PRINT DEVELOPER Jaspal Leigh MD CHEMISTRY Performing Organization Address [facility] Co de Phone Number [facility] [address] [place] [address], * (ABNORMAL) PTH,INTACT (01/02/2023 2:26 PM AUTOMATIC PRINT DEVELOPER) Pathologist [facility] CALCIUM 9.3 8.8 - 10.2 mg/dL 01/02/2023 10:42 PM AUTOMATIC PRINT DEVELOPER [facility] PTH,INTACT 123.0(H) 15.0 - 69.0 pg/mL 01/02/2023 10:42 PM AUTOMATIC PRINT DEVELOPER [facility] Blood BLOOD SPECIMEN / Unknown Venipuncture / Unknown 01/02/2023 2:26 PM AUTOMATIC PRINT DEVELOPER 01/02/2023 2:27 PM AUTOMATIC PRINT DEVELOPER Ceasar Romero MD SEND OUTS Performing Organization Address [facility] Co de Phone Number [facility] [address] [place] [address], [place] * (ABNORMAL) HEMOGLOBIN A1C MONITORING (POCT) (01/02/2023 2:26 PM AUTOMATIC PRINT DEVELOPER) HEMOGLOBIN A1C MONITORING (POCT) 7.8(H) <=6.4 % 01/02/2023 2:36 PM AUTOMATIC PRINT DEVELOPER [facility] Blood BLOOD SPECIMEN / Unknown Venipuncture / Unknown 01/02/2023 2:26 PM AUTOMATIC PRINT DEVELOPER 01/02/2023 2:27 PM AUTOMATIC PRINT DEVELOPER Narrative [facility] - 01/02/2023 2:36 PM AUTOMATIC PRINT DEVELOPER ? (<=6.9%) ? Indicates good control ? (7.0% to 7.9%) ? Indicates fair control ? (>=8.0%) ? Indicates poor control ?? NOTE: ??These thresholds are guidelines and ?individual targets may vary. Falsely low levels may be seen with: Recent Transfusion, Recent Significant Blood Loss, Hemolytic Diseases, or Falsely elevated levels may be seen with: Untreated Anemias, Splenectomy ? Ceasar Romero MD CHEMISTRY [facility] [address] [place] [address], * FERRITIN (01/02/2023 2:26 PM AUTOMATIC PRINT DEVELOPER) Pathologist [facility] FERRITIN 295.0 30.0 - 400.0 ng/mL 01/02/2023 10:42 PM AUTOMATIC PRINT DEVELOPER [facility] Blood BLOOD SPECIMEN / Unknown Venipuncture / Unknown 01/02/2023 2:26 PM AUTOMATIC PRINT DEVELOPER 01/02/2023 2:27 PM AUTOMATIC PRINT DEVELOPER Ceasar Romero MD [facility] [address] [place] [address], * (ABNORMAL) RENAL FUNCTION PANEL (01/02/2023 2:26 PM AUTOMATIC PRINT DEVELOPER) Pathologist [facility] SODIUM 139 136 - 145 mmol/L 01/03/2023 1:21 AM AUTOMATIC PRINT DEVELOPER [facility] POTASSIUM 4.7 3.5 - 5.1 mmol/L 01/03/2023 1:21 AM AUTOMATIC PRINT DEVELOPER [facility] CHLORIDE 105 98 - 107 mmol/L 01/03/2023 1:21 AM AUTOMATIC PRINT DEVELOPER [facility] CO2,TOTAL 23 22 - 29 mmol/L 01/03/2023 1:21 AM AUTOMATIC PRINT DEVELOPER [facility] ANION GAP 11 5 - 18 01/03/2023 1:21 AM [facility] GLUCOSE 198(H) 70 - 99 mg/dL 01/03/2023 1:21 AM [facility] CALCIUM 9.3 8.8 - 10.2 mg/dL 01/03/2023 1:21 AM [facility] BUN 59(H) 8 - 23 mg/dL 01/03/2023 1:21 AM [facility] CREATININE 3.37(H) 0.70 - 1.20 mg/dL 01/03/2023 1:21 AM [facility] BUN/CREAT RATIO 18 10 - 20 1:21 AM [facility] eGFR 17(L) >90 mL/min/1.7 3m2 01/03/2023 1:21 AM [facility] Comment:As of 2021, eG FR is calculated by the CKD-EPI creatinine equation without race adjustment. ??eGFR can be influenced by muscle mass, exercise, and diet. ??The reported eGFR is an estimation only and is only applicable if the renal function is stable. PHOSPHORUS 3.3 2.5 - 4.5 mg/dL 01/03/2023 1:21 AM [facility] ALBUMIN 4.2 4.0 - 4.9 g/dL 01/03/2023 1:21 AM [facility] Blood BLOOD SPECIMEN / Unknown Venipuncture / Unknown 01/02/2023 2:26 PM AUTOMATIC PRINT DEVELOPER 01/02/2023 2:27 PM AUTOMATIC PRINT DEVELOPER Ceasar Romero MD CHEMISTRY [facility] [address] [place] [address], * LAB TRACKING EVENT (12/21/2022 11:20 AM CDT) Other (Other) Client Collect / Unknown 12/21/2022 11:20 AM CDT 12/21/2022 3:40 PM CDT Cristy Estrada MD LAB BILL ONLY [facility] [employer] [facility] [address] [place] [address], * PATH TISSUE EXAM (12/21/2022 11:20 AM CDT) Case Report Pathology Report ?Case: [id number] ? Authorizing Provider: ??Cristy Estrada MD ?? Collected: ? 12/21/2022 1120 ? Ordering Location: ? [facility] ?Received: ?12/21/2022 1618 ? Pathologist: ? Salome Sainz MD ? Specimen: ?Left Forearm ? 12/22/2022 11:25 AM CDT [employer] [facility] Final Diagnosis A) SKIN, LEFT INNER FOREARM, BIOPSY: 1. At least squamous cell carcinoma in situ: ?? a. Margins: POSITIVE ??(peripheral and deep) 12/22/2022 11:25 AM CDT [employer] [facility] Comment The tumor is transected at the base of the biopsy; invasive carcinoma cannot therefore be excluded. 12/22/2022 11:25 AM CDT [facility] [employer] [facility] Clinical Information Atypical lesion 12/22/2022 11:25 AM CDT [facility] Gross Description A) Received in formalin, labeled with the patient's name and date of , is a 1.1 x 1.0 x 0.1 cm skin biopsy. There is a 1.0 x 0.9 cm variably raised, crusted, brown-black to purple-red lesion. The specimen is inked green, serially sectioned and entirely submitted in one cassette. EKW 12/21/2022 12/22/2022 11:25 AM CDT [facility] Microscopic Description The final diagnosis is based on microscopic examination of appropriate sections of all specimens. 12/22/2022 11:25 AM CDT [facility] Additional Information Interpreted at [facility] Z2 [facility] - [address] [place] [address] 12/22/2022 11:25 AM T [facility] Other (Left Forearm) 12/21/2022 11:20 AM CDT 12/21/2022 4:18 PM CDT Cristy Estrada MD PATHOLOGY/CYTOLOG Y Performing Organization Address City/State/[facility] Co de Phone Number [facility] [address] [place] [address], from Last 3 Months Advance Directives Latest Code Status on File Code Status Date Activated Date Inactivated Comments Full Code 08/29/2021 11:00 AM 08/30/2021 2:15 AM Question Answer Comments Code Status Discussion: Reviewed Preferences Care Teams Hand Twister Relationship Specialty Start Date End Date Jaspal Leigh [place] [address] [place] [address] PCP - General 07/27/05
== END 2023-03-19 09:10 | disposition home or self-care (01) ==
LOC: AMB 03-20 11:06
PROVIDERS: PCP Family Medicine; Visit Provider Family Medicine
DX: R53.1 Weakness (principal)
CPT/HCPCS: A0998

== ENCOUNTER 2023-08-20 15:33 | Outpatient (RCR) | payer MEDICARE, OTHER, SELFPAY | END 2023-12-18 23:59 | disposition home or self-care (01) | PROVIDERS: PCP Family Medicine; Visit Provider Family Medicine | DX: M51.36 Other intervertebral disc degeneration, lumbar region (principal); M54.50 Low back pain, unspecified; M62.81 Muscle weakness (generalized); Z51.89 Encounter for other specified aftercare | CPT/HCPCS: 97110; 97161 ==

== ENCOUNTER 2023-11-25 04:40 | Outpatient (CLI) | payer MEDICARE, OTHER, SELFPAY ==
--- OUTSIDE RECORDS SUMMARY | 2023-12-11 23:30 | XMS_ITS | Clinical Summary ---
Author Organization [facility] [place] Address [address] [place] [address] Phone Care Team Providers Care Attacher Name Role Phone Jaspal Leigh MD Primary Care Provider [phone] Allergies Active Allergy Reactions Criticality Noted Date Comments Amoxicillin Nausea 10/11/2016 Other Reaction(s): vomited Codeine Nausea High 03/18/2023 Other Reaction(s): Unknown Hydrocodone Nausea High 03/18/2023 Medications furosemide (LASIX) 40 MG tablet Take 40 mg by mouth 1 (one) time each day 04/06/2022 Active omeprazole (PriLOSEC) [address] capsule Take 20 mg by mouth 1 (one) time each day 02/26/2023 Active Multiple Vitamins-Minera ls (PreserVision AREDS) tablet Take 2 tablets by mouth in the morning. 06/23/2020 Active Jakafi 20 MG chemo tablet Take 20 mg by mouth 09/28/2021 Active ferrous sulfate 324 (65 Fe) MG EC tablet Take 324 mg by mouth 1 (one) time each day 03/08/2022 Active ALPRAZolam (XANAX) 1 MG tablet Take 0.5 mg by mouth at night if needed for anxiety 12/03/2022 Active allopurinol (ZYLOPRIM) 100 MG tablet Take 100 mg by mouth 1 (one) time each day 05/22/2022 Active doxazosin (CARDURA) 8 MG tablet Take 8 mg by mouth every night 05/22/2022 Active cholecalciferol (VITAMIN D-3) 25 MCG (1000 UT) capsule Take 1,000 Units by mouth in the morning. 04/06/2022 Active metoprolol succinate XL (TOPROL-XL) 100 MG 24 hr tablet Take 1 tablet (100 mg total) by mouth 1 (one) time each day 90 tablet 3 05/29/2023 Active glipiZIDE (GLUCOTROL XL) 5 MG 24 hr tablet Take 5 mg by mouth in the morning. 09/19/2023 Active Active Problems Problem Noted Date Diagnosed Date Hypertensive chronic kidney disease with stage 1 through stage 4 chronic kidney disease, or unspecified chronic kidney disease 04/26/2023 Type 2 diabetes mellitus wit h diabetic chronic kidney disease 04/26/2023 Anemia in chronic kidney disease 04/26/2023 Uric acid urolithiasis 04/26/2023 Secondary hyperparathyroidism of renal origin Gastroesophageal reflux disease 04/26/2023 Peripheral vascular disease 03/08/2022 Chronic kidney disease, stage 4 (severe) 022 Overview (03/27/2023): He is stable. He sees Dr. Romero and plans to follow him to [place]. He sees him every 3 months.Jaspal Leigh MD signed electronically .................... 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 Primary hypercoagulable state 11/28/2006 Overview (04/26/2023): Anticardiolipin IgA antibody was initially abnormal - follow up test was normal. Dr. Lui of Hematology told him he could discontinue his coumadin in 06/2007. Jaspal Leigh MD signed electronically .................... 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, not otherwise specified; Hypertensive chronic kidney disease with stage 1 through stage 4 chronic kidney disease, or unspecified chronic kidney disease; Type 2 diabetes mellitus with diabetic chronic kidney disease (HCC); Secondary hyperparathyroidism of renal origin (HCC); Anemia in chronic kidney disease; Uric acid urolithiasis; Gastroesophageal reflux disease 11/25/2023 Orders Only [facility] [place] [address] Ceasar Romero MD Chronic kidney disease, stage 4 (severe) (HCC) 11/22/2023 Telephone [facility] [address] [place] [address] Myron Guerrero 11/21/2023 Documentation Only [facility] [address] [place] [id number] Ceasar Romero MD 09/25/2023 Orders Only [facility] [place] [address] Ceasar Romero MD Chronic kidney disease, stage 4 (severe) (HCC) 09/11/2023 Office Communication [facility] [address] [place] [phone] Ceasar Romero MD from Last 3 Months Immunizations Name Administration Dates Next Due Influenza Vaccine, Quadrival ent, Adjuvanted 01/10/2023,12/28/2021,12/13/2020, 020 Moderna Sars-cov-2 (Covid-19 ) Vaccine, Mrna, Fran Protein 07/18/2023,01/10/2023 Pfizer SARS-CoV-2 Bivalent 3 0 mcg/0.3 mL 03/08/2022 Family History Medical History Relation Comments Cancer Brother 1 metastatic - ukn own primary age 60 Cancer Brother 2 lung Heart disease Father Diabetes Father's Brother Heart disease Father's Brother Hypertension Father's Sister No Known Problems Maternal Grandfather Heart disease Maternal Grandmother Stroke Maternal Grandmother Cancer Mother age 67 Diabetes Mother Heart attack Mother PA at 53 & 63, d ied 63 Heart disease Mother Hypertension Mother Diabetes Mother's Brother Hypertension Mother's Sister No Known Problems Paternal Grandfather No Known Problems Paternal Grandmother Relation Status Comments Brother 1 Brother 2 Alive Father Father's Brother Father's Sister Maternal Grandfather Maternal Grandmother Mother Mother's Brother Mother's Sister Paternal Grandfather Paternal Grandmother Social History Tobacco Use Types Packs/Day Years Used Date Smoking Tobacco: Former Cigarettes 1 1975 Smokeless Tobacco: Never Tobacco Cessation:Counseling Given: Not Answered Alcohol Use Standard Drinks/Week Comments Not Currently 0 (1 standard drink = 0.6 oz pur e alcohol) Sex and Gender Information Value Date Recorded Sex Assigned at Not on file Legal Sex Male 2:00 PM EST Gender Identity Not on file Sexual Orientation Not on file Last Filed Vital Signs Vital Sign Reading Time Taken Comments Blood Pressure 126/58 12/06/2023 2:44 PM CDT Pulse 65 12/06/2023 2:44 PM CDT Temperature - - Respiratory Rate - - Oxygen Saturation 97% 07/26/2023 10:23 AM CDT Inhaled Oxygen Concentration - - Weight 83.9 kg (185 lb) 12/06/2023 2:44 PM CDT Height 179.1 cm (5' 10.5) 12/06/2023 2:44 PM CD T Body Mass Index 26.17 12/06/2023 2:44 PM CDT Plan of Treatment Upcoming Encounters Date Type Department Care Team (Late st Contact Info) Description 03/28/2024 11:30 AM GUN STOCKER Office Visit [facility] [place] [place] [address] [place] [address] Ceasar Romero MD [address] [place] [phone] Health Maintenance Due Date Last Done Comments Pneumococcal Vaccine: 65+ Years (1 of 2 - PCV) 1941 Diabetes: Ophthalmology Exam 03/02/2023 Diabetes: Pedal Pulse Checked 03/02/2023 Diabetes: Sensory Foot Exam 03/02/2023 Diabetes: Visual Foot Exam 03/02/2023 Diabetes: Hemoglobin A1C 03/04/2024 024, 07/18/2023, 01/02/2023 Influenza Vaccine Completed 11/09/2023, , 12/28/2021, Additional history exists Hepatitis B Vaccine Aged Out No longe r eligible based on patient's age to complete this topic Procedures Procedure Name Priority Date/Time Associated Diagnosis Comments PTH, INTACT Routine 12/03/2023 10:40 AM CDT HEMOGLOBIN Routine 12/03/2023 10:40 AM CDT RENAL FUNCTION PANEL Routine 12/03/2023 10:40 AM CDT BASIC METABOLIC PANEL Routine 09/28/2023 Chronic kidney disease, stage 4 (severe) (HCC) from Last 3 Months Results * (ABNORMAL) Hemoglobin (12/03/2023 10:40 AM CDT) Hemoglobin 8.0(L) 13.2 - 17.1 g/dL See order comments 12/03/2023 10:4 0 AM CDT 12/03/2023 10:40 AM CDT Narrative Resulting Agency Comment Performing Organization Information: ?Site ID: [id number] ?Name: [facility] ?Address: [address] [place] [phone] ?Director: Dion Sifuentes us Ceasar Romero MD LAB BLOOD ORDERABLES Final Re sult Performing Organization Address [facility] Co de Phone Number [facility] See order comments [place] [address] * (ABNORMAL) PTH, Intact (12/03/2023 10:40 AM CDT) Parathyroid Hormone, Intact 206(H) 16 - 77 pg/mL See order comments Comment: Interpretive Guide ?Intact PTH ? Calcium ? ------- Normal Parathyroid ?Normal ? Normal Hypoparathyroidism ?Low or Low Normal ?Low Hyperparathyroidism ?? Primary ?Normal or High ? High ?? Secondary ?High ? Normal or Low ?? Tertiary ? High ? High Non-Parathyroid ?? Hypercalcemia ?Low or Low Normal ?High 12/03/2023 10:4 0 AM CDT 12/03/2023 10:40 AM CDT Narrative Resulting Agency Comment Performing Organization Information: ?Site ID: [id number] ?Name: [employer] ?Address: [address] [place] [phone] ?Director: Dion Sifuentes us Ceasar Romero MD LAB BLOOD ORDERABLES Final Re sult [facility] See order comments [place] [address] * (ABNORMAL) Renal Function Panel (12/03/2023 10:40 AM CDT) Glucose 177(H) 65 - 99 mg/dL See order comments Comment: ? Fasting reference interval For someone without known diabetes, a glucose value >125 mg/dL indicates that they may have diabetes and this should be confirmed with a follow-up test. BUN 52(H) 7 - 25 mg/dL See order comments Creatinine 3.39(H) 0.70 - 1.22 mg/dL See order comments eGFR CKD-EPI CR 2020 17(L) > OR = 60 mL/min/1.7 3m2 See order comments BUN/Creatinine Ratio 15 6 - 22 (calc) See order comments Sodium 138 135 - 146 mmol/L See order comments Potassium 4.3 3.5 - 5.3 mmol/L See order comments Chloride 108 98 - 110 mmol/L See order comments Bicarbonate (CO2) 22 20 - 32 mmol/L See order comments Calcium 8.4(L) 8.6 - 10.3 mg/dL See order comments Phosphorus 4.4(H) 2.1 - 4.3 mg/dL See order comments Albumin 3.6 3.6 - 5.1 g/dL See order comments 12/03/2023 10:4 0 AM CDT 12/03/2023 10:40 AM CDT Narrative Resulting Agency Comment Performing Organization Information: ?Site ID: ?Name: [facility] ?Address: [address] [place] [phone] ?Director: Dion Sifuentes us Ceasar Romero MD LAB BLOOD ORDERABLES Final Re sult [facility] See order comments [place] [address] * (ABNORMAL) Basic metabolic panel (09/28/2023) Sodium 140 mEq/L [facility] Potassium 5.1 mEq/L [facility] Chloride 106 [facility] Carbon Dioxide 22 mmol/L [facility] Calcium 9.1 mg/dL [facility] BUN 60(H) mg/dL [facility] Creatinine 3.31(H) mg/dL [facility] Glucose 153(H) mg/dL [facility] eGFR 17(L) [facility] Blood (Blood, Venous) 09/28/2023 us Ceasar Romero MD LAB BLOOD ORDERABLES Final Re sult [facility] from Last 3 Months Insurance [address] [place] [address] [employer] MEDICARE Care Teams Attacher Relationship Specialty Start Date End Date Jaspal Leigh MD [address] [place] [address] PCP - General Family Medicine 03/02/23
--- OUTSIDE RECORDS SUMMARY | 2023-12-11 23:30 | XMS_ITS | Encounter Summary ---
Author Organization [facility] Address [address] [place] [address] Care Team Providers Care Living Coach Name Role Phone Jaspal Leigh MD Primary Care Provider [phone] Encounter Details Date Type Department Care Team (Late st Contact Info) Description 11/25/2023 Orders Only [facility] [address] [place] [address] Ceasar Romero MD [address] [place] [address] Chronic kidney disease, stage 4 (severe) (HCC) Social History Tobacco Use Types Packs/Day Years Used Date Smoking Tobacco: Former Cigarettes 1 20 1 956 - 1975 Smokeless Tobacco: Never Alcohol Use Standard Drinks/Week Comments Not Currently 0 (1 standard drink = 0.6 oz pur e alcohol) Sex and Gender Information Value Date Recorded Sex Assigned at Not on file Legal Sex Male 2:00 PM EST Gender Identity Not on file Sexual Orientation Not on file documented as of this encounter Plan of Treatment Upcoming Encounters Date Type Department Care Team (Late st Contact Info) Description 03/28/2024 11:30 AM MANUFACTURING QUALITY INSPECTOR Office Visit [facility] [address] [place] [address] Ceasar Romero MD [address] [place] [address] documented as of this encounter Visit Diagnoses Diagnosis Chronic kidney disease, stage 4 (severe) (HCC) documented in this encounter Care Teams Living Coach Relationship Specialty Start Date End Date Jaspal Leigh MD [address] [place] [address] PCP - General Family Medicine 03/02/23 documented as of this encounter
--- OUTSIDE RECORDS SUMMARY | 2023-12-11 23:30 | XMS_ITS | Encounter Summary ---
Author Organization [facility] Address [address] [place] [address] Care Team Providers Care Molder Setter Name Role Phone Jaspal Leigh MD Primary Care Provider [phone] Encounter Details Date Type Department Care Team (Late st Contact Info) Description 09/25/2023 Orders Only [facility] [address] [place] [address] Ceasar Romero MD [address] [place] [address] Chronic kidney disease, stage 4 [...] on file documented as of this encounter Progress Notes * Mariana Osorio RN BSN - 09/25/2023 11:59 PM CDT Recheck * Ceasar Romero MD - 09/25/2023 11:59 PM CDT Kidney labs stable, MyChart message sent to patient. Darío Romero MD documented in this encounter Plan of Treatment Upcoming Encounters Date Type Department Care Team (Late st Contact Info) Description 03/28/2024 11:30 AM VITREO RETINAL SURGEON Office Visit [facility] [place] [place] [address] [place] [address] Ceasar Romero MD [address] [place] [address] documented as of this encounter Procedures Procedure Name Priority Date/Time Associated Diagnosis Comments BASIC METABOLIC PANEL Routine 09/28/2023 Chronic kidney disease, stage 4 (severe) (HCC) documented in this encounter Results * (ABNORMAL) Basic metabolic panel (09/28/2023) Sodium 140 mEq/L [facility] Potassium 5.1 mEq/L [facility] Chloride 106 [facility] Carbon Dioxide 22 mmol/L [facility] Calcium 9.1 mg/dL [facility] BUN 60(H) mg/dL [facility] Creatinine 3.31(H) mg/dL [facility] Glucose 153(H) mg/dL [facility] eGFR 17(L) [facility] Blood (Blood, Venous) 09/28/2023 us Ceasar Romero MD LAB BLOOD ORDERABLES Final Re sult [facility] documented in this encounter Visit Diagnoses Diagnosis Chronic kidney disease, stage 4 (severe) (HCC) documented in this encounter Care Teams Molder Setter Relationship Specialty Start Date End Date Jaspal Leigh MD [address] [place] [id number] PCP - General Family Medicine 03/02/23 documented as of this encounter
--- OUTSIDE RECORDS SUMMARY | 2023-12-11 23:30 | XMS_ITS | Encounter Summary ---
Author Organization [facility] Address [address] [place] [address] Care Team Providers Care Horse Riding Coach Or Instructor Name Role Phone Jaspal Leigh MD Primary Care Provider Encounter Details Date Type Department Care Team (Late st Contact Info) Description 11/22/2023 Telephone [facility] [place] [address] [place] [address] Myron Guerrero [address] [place] [address] Social History Tobacco Use Types Packs/Day Years [...] encounter Miscellaneous Notes * Telephone Encounter - Myron Guerrero - 11/22/2023 3:28 PM CDT Left a voicemail regarding pre-visit labs. I stated the patient's preferred lab location and left phone number to call back if patient has any questions. documented in this encounter Plan of Treatment Upcoming Encounters Date Type Department Care Team (Late st Contact Info) Description 03/28/2024 11:30 AM NUCLEAR POWER PLANT ENGINEER Office Visit [facility] [place] [address] [place] [address] Ceasar Romero MD [address] [place] [phone] documented as of this encounter Visit Diagnoses Not on filedocumented in this encounter Care Teams Horse Riding Coach Or Instructor Relationship Specialty Start Date End Date Jaspal Leigh MD [address] [place] [address] PCP - General Family Medicine 03/02/23 documented as of this encounter
--- OUTSIDE RECORDS SUMMARY | 2023-12-11 23:30 | XMS_ITS | Encounter Summary ---
Author Organization [facility] Address [address] [facility] [address] [place] [address] Care Team Providers Care Perinatal Director Name Role Phone Jaspal Leigh MD Primary Care Provider [phone] Reason for Visit * Reason Comments Follow-up Encounter Details Date Type Department Care Team (Latest Contact Info) Description 12/06/2023 3:00 PM CDT Office Visit [facility] [address] [place] [address] Sussy Nelson, ACQUISITION ADVISOR-BOARDING MOTHER [address] [place] [address] Chronic kidney disease, stage 4 (severe) (HCC) (Primary Dx); 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, not otherwise specified; Hypertensive chronic kidney disease with stage 1 through stage 4 chronic kidney disease, or unspecified chronic kidney disease; Type 2 diabetes mellitus with diabetic chronic kidney disease (HCC); Secondary hyperparathyroidism of renal origin (HCC); Anemia in chronic kidney disease; Uric acid urolithiasis; Gastroesophageal reflux disease Social History Tobacco Use Types Packs/Day Years Used Date Smoking Tobacco: Former Cigarettes 1 6 - 1975 Smokeless Tobacco: Never Alcohol Use Standard Drinks/Week Comments Not Currently 0 (1 standard drink = 0.6 oz pur e alcohol) Sex and Gender Information Value Date Recorded Sex Assigned at Not on file Legal Sex Male 2:00 PM EST Gender Identity Not on file Sexual Orientation Not on file documented as of this encounter Last Filed Vital Signs Vital Sign Reading Time Taken Comments Blood Pressure 126/58 12/06/2023 2:44 PM CDT Pulse 65 12/06/2023 2:44 PM CDT Temperature - - Respiratory Rate - - Oxygen Saturation - - Inhaled Oxygen Concentration - - Weight 83.9 kg (185 lb) 12/06/2023 2:44 PM CDT Height 179.1 cm (5' 10.5) 12/06/2023 2:44 PM CD T Body Mass Index 26.17 12/06/2023 2:44 PM CDT documented in this encounter Patient Instructions * Patient Instructions* Myron Guerrero - 12/06/2023 3:00 PM CDT -Return to clinic for follow-up in [address] Romero; pre-visit labs -Please discuss tomorrow with primary regarding legs -Will continue to monitor PTH; no need for calcitriol -Continue to limit salt/sodium as much as you can -Keep legs elevated during the day as much as you can -Try to drink around 40 ounces total fluids per day We will see you for your 4 month follow up. Labs should be completed 1-2 weeks prior. Sussy Nelson NP/Myron Enriquez MA Low Sodium Diet What is sodium? Sodium is a mineral found naturally in foods and added during the processing of foods. Table salt is a combination of sodium and chloride. A level teaspoon of salt contains 2,300 milligrams (mg) of sodium. Why should I limit sodium? A high sodium diet causes your body to hold on to extra fluid. This extra fluid causes your blood pressure to rise. Although medications can control your blood pressure, limiting sodium will help them work better. How much sodium should my diet contain? Aim between 2,000 to 2,300 milligrams (mg) of sodium per day. If you have heart disease or problemswith swelling, talk with your doctor to find the right daily sodium amount for you. How do I limit sodium? Limiting or avoiding table salt is the first step. But what most people don't realize is that up to75% of the sodium in our diet comes from processed foods we buy and from foods we eat from restaurants. Only 15% of our sodium in our diet is from table salt. The remaining 10% of the sodium we eat is found naturally in food. Preparing food yourself using fresh, unprocessed ingredients will help you greatly in controlling your sodium intake. Can I use salt substitutes? Avoid any salt substitutes that contain potassium chloride, as they may raise your potassium intaketoo much. Many people with kidney disease need to limit potassium and it is best not to add any extra to your diet. However, you can use a variety of salt-free herbs and spices to flavor your food. Try seasoning mixes like Mrs. Rivera?? or use your own herbs and seasonings. Do check the labels to make sure salt has not been added. For example, use garlic powder and not garlic salt. Be aware that some seasonings, like chili powder, may have salt added, even though it isn't clear from the name of the product. What about products labeled low-sodium or sodium-free? Some of these products will be good choices, but always check labels for the ingredients. Some foods, like canned soups, have potassium chloride added to give a salty taste. This may raise your potassium level too much. Read food labels for sodium. First, read the product name or description. The following terms will tell you that salt has been added: pickled brine cured smoked corned seasoned breaded barbecued Next, look at the serving size listed on the package. Often, the serving size is smaller than the amount you would eat at one time. The sodium content will be listed for the serving size on the package. Remember, if you eat twice the serving size, then you need to multiply the amount of sodium by two. Sodium is listed as the number of milligrams and as a percent of Daily Value (DV). Look for foods with no more than 6-10% of DV for sodium. Avoid foods with more than 20% of the Daily Value for sodium (480 mg). Avoid snack foods with over 6% of the Daily Value for sodium (140 mg). Avoid frozen meals that have over 600 mg of sodium per serving. It all tastes so blah???How can I get used to a low sodium diet? Your taste buds will adapt in a few weeks so that you will start tasting the flavor of the food. Use herbs and spices to flavor your meals. (Some ideas are included in the Guide that follows.) Soon you will find high sodium foods taste too salty. It takes time to make changes and create new diet habits. Work on making changes a little at a time over several weeks. How can I limit sodium when I eat out? Ask for your food to be made without salt and order any sauces, salad dressings, or gravies on the side so you can limit how much you use. If you eat fast-food, try to limit it to once a week at most, and learn which menu items are lower in sodium. Splitting orders with someone else is one way to lower the sodium you get from the meal. You can check out the sodium content of many restaurant foods on their own websites or at www.directworx. Where can I find low sodium recipes for cooking? Heart healthy cookbooks usually have recipes low in sodium. However, you need to think about the other ingredients as well if you are limiting phosphorus or potassium. For example, recipes using tomato sauce will be high in potassium, and recipes with beef will be high in phosphorus and potassium. Choose the recipes carefully and change them as needed to fit your diet for kidney disease. Some cookbooks with low salt recipes: DASH Diet Cookbook for Beginners by Karo Stevens. 2023. Eat Less Salt: An Easy Action Plan for Finding and Reducing the Sodium Hidden in Your Diet by the Stateless [employer] Association. 2018. Low Sodium Cookbook for Beginners by Angel Chapman RD, MPH. 2020. Sodium Guide Food Items high in sodium: Avoid or Limit Choose Instead Dairy Buttermilk Skim, 1%, 2% milk Cheese, processed cheeses such as Stateless and Velveeta, cottage cheese Low sodium cheese or small amounts of aged cheeses such as Togolese, cheddar, Murtaza, henriquez's cheese Instant pudding mix Homemade pudding Instant cocoa mix Meat, Poultry, Fish Processed and cured meats such as sausage, zarate, hot dogs, corned beef, ham, bologna, liverwurst, salami, deli-prepared lunchmeats Fresh or frozen unseasoned beef, pork, chicken, turkey, fish, seafood, wild game. Make sandwiches using fresh meat you have cooked Breaded fish, poultry, meat Plain fish filets, poultry, meat (no breading) Canned meats and fish such as tuna, sardines, salmon Low sodium canned meat and fish (or drain liquid and rinse off meat if regular canned) Beef jerky Fruit & Vegetables Canned vegetables Low sodium canned vegetables (or drain liquid and rinse off vegetables if regular canned). Fresh and frozen vegetables without sauces are low sodium. All fruit is low in sodium. Vegetable drink (V8??), tomato juice, vegetable broth Look for low sodium vegetable juice, tomato juice, or vegetable broth (check labels for potassium chloride). Pickled Items Pickles, prepared pickle relish, olives, sauerkraut, pickled martin Garnish food with fresh vegetables such as lettuce, onions, cucumbers, reynoso peppers. Make your own pickles and pickle relish using fresh cucumbers, vinegar, and salt-free seasonings. Canned Foods Canned soup, stew, chili, ravioli, and pasta meals Homemade soups, stews, chili, etc.,with allowed lower sodium ingredients. Some low sodium soups (check labels for potassium chloride). Salted Snacks Salted tortilla chips, potato chips, salted nuts, salted popcorn, salted pretzels, crackers with salt on top Unsalted chips, nuts, popcorn, pretzels,crackers, rice cakes Food Items high in sodium: Avoid or Limit Choose Instead Convenience Foods Frozen (TV) dinners and entrees, potpies, pizza, burritos; dry soup mixes; Ramen noodles; prepared meats (pre-marinated, pre-seasoned); Homemade foods with allowed lower sodium ingredients. Frozen entrees with less than 600 mg sodium per entr??e. Boxed dinners such as Hamburger [place]??, macaroni and cheese; rice, noodle, and potato dishes with seasoning packets Plain rice, noodle, potatoes flavored with salt-free seasonings. Salad dressings, Condiments, Sauces If you use regular condiments, keep portions small. Commercial salad dressings, salsa, barbecue sauce, soy sauce, fish sauce, teriyaki sauce, steak sauce, Worcestershire sauce, ketchup, mustard, mixes for gravies, slow cooker seasoning packets Salt-free homemade salad dressing; vinegar and oil. Look for lower sodium versions of condiments Use recipes from low sodium cookbooks to make seasonings for various dishes, using herbs, spices, and low sodium ingredients. Seasonings & Salt Avoid potassium-containing salt substitutes Make your own seasoning mixes leaving out the salt. Table salt, Lite salt, sea salt, garlic salt, onion salt, meat tenderizer; Fresh or dried herbs and spices, fresh garlic, fresh onion, garlic powder, onion powder; Seasoning mixes that contain salt (check labels) Seasoning mixes low in salt such as Mrs. Rivera?? Other Items Many [id number] dry cereals Cereals with less than 200 mg sodium per serving Instant oatmeal Quick or regular cooked cereals such as cream of wheat, cream of rice, Malt-o-meal?? Biscuits Seasoning Ideas: Try these herbs and spices Chicken: Mandi, garlic, oregano, tarragon, donal, kristian, marjoram, allspice Beef: Garlic, chili powder, oregano, pepper, thyme, marjoram, parsley, mandi, clove, allspice Pork: Kristian, garlic, onion, donal, coriander Fish: Lemongrass, basil, oregano, dill, parsley, marjoram, mandi, anise documented in this encounter Progress Notes * Sussy Nelson APRN-CNP - 12/06/2023 3:00 PM CDT Images from the original note were not included. Patient: Yrn Steele Date of : 1935 Chart: [id number] PCP: Jaspal Leigh MD Date of Service: 12/06/2023 Chief Complaint: CKD Stage 4 Subjective: Yrn Steele is a very pleasant 88 y.o.M that presents today for follow-up of CKD stage 4. Accompanied by and son. See prior notes in [facility] system for further details of presentation to me and prior renal biopsy. Since last visit, he is doing well. Continues to have ongoing fatigue without any other symptoms. BP 120-130/50's-60's systolic. No dizziness or orthostatic symptoms. Stable edema in legs, perhaps a little worse and has more in L leg where he had cellulitis previously and has some skin scarring. Hehad a fall last week in the middle of the night after going to bathroom without walker. 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 has lived in [place] >50 years Retired, worked for [employer] to [employer] Has kids and 4 grandchildren, all live in [place] but none in [place] Former smoker many many years ago The following portions of the patient's chart were reviewed in this encounter and updated as appropriate: Tobacco Allergies Meds Med Hx Surg Hx Fam Hx Active Problems Patient Active Problem List Diagnosis Chronic kidney disease, stage 4 (severe) (HCC) Hypertensive chronic kidney disease with stage 1 through stage 4 chronic kidney disease, or unspecified chronic kidney disease 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 Taking? Provider LT allopurinol (ZYLOPRIM) 100 MG tablet Mallory Dawn MD Take 100 mg by mouth 1 (one) time each day ALPRAZolam (XANAX) 1 MG tablet Mallory Dawn MD Take 0.5 mg by mouth at night if needed for anxiety cholecalciferol (VITAMIN D-3) 25 MCG (1000 UT) capsule Mallory Dawn MD Take 1,000 Units by mouth in the morning. doxazosin (CARDURA) 8 MG tablet Mallory Dawn MD Take 8 mg by mouth every night ferrous sulfate 324 (65 Fe) MG EC tablet Mallory Dawn MD Take 324 mg by mouth 1 (one) time each day furosemide (LASIX) 40 MG tablet Mallory Dawn MD Take 40 mg by mouth 1 (one) time each day glipiZIDE (GLUCOTROL XL) 5 MG 24 hr tablet Mallory Dawn MD Take 5 mg by mouth in the morning. Jakafi 20 MG chemo tablet Mallory Dawn MD Take 20 mg by mouth metoprolol succinate XL (TOPROL-XL) 100 MG 24 hr tablet Ceasar Romero MD Take 1 tablet (100 mg total) by mouth 1 (one) time each day Multiple Vitamins-Minerals (PreserVision AREDS) tablet Mallory Dawn MD Take 2 tablets by mouth in the morning. omeprazole (PriLOSEC) [address] capsule Mallory Dawn MD Take 20 mg by mouth 1 (one) time each day Allergies Allergen Reactions Codeine Nausea Other Reaction(s): Unknown Hydrocodone Nausea Amoxicillin Nausea Other Reaction(s): vomited Physical Exam BP 126/58 (BP Location: Right upper arm, Patient Position: Sitting, BP Cuff Size: Adult) Pulse 65 Ht 5' 10.5 (1.791 m) Wt 185 lb (83.9 kg) BMI 26.17 kg/m?? CONSTITUTIONAL: appears frail but in NAD EYES: pupils equal, sclerae not icteric. RESPIRATORY: Clear to auscultation bilaterally CARDIOVASCULAR: Regular rate and rhythm, no murmurs. 1+ leg edema on R and 2+ lower L leg with scarring where previously cellulitis PSYCHIATRIC: Alert and pleasant INTEGUMENT: No visible rash on exposed skin MUSCULOSKELETAL: four limbs, no contractures Chemistry and Bone Mineral Lab Units 12/03/23 1040 09/28/23 0000 07/18/23 0000 04/20/23 0000 02/28/23 0000 SODIUM mmol/L 138 140 138 137 140 POTASSIUM mmol/L 4.3 5.1 4.5 4.5 4.5 CHLORIDE mmol/L 108 106 103 102 103 CO2 mmol/L 22 22 22 23 22 ANION GAP MMOL/L -- -- 13 -- -- CALCIUM mg/dL 8.4* 9.1 9.0 9.0 9.0 9.0 9.2 PHOSPHORUS mg/dL 4.4* -- 4.3 4.6* -- PTH pg/mL 206* -- 187.0* 169.0* -- GLUCOSE mg/dL 177* 153* 335* 260* 164* ALBUMIN, S/P g/dL 3.6 -- -- -- -- ALBUMIN g/dL -- -- 4.2 4.1 -- BUN mg/dL 52* 60* 58* 62* 52* CREATININE mg/dL 3.39* 3.31* 3.18* 3.24* 3.38* EGFR mL/min/1.73m2 17* 17* 18* 18* 17* CBC and Iron Studies Lab Units 12/03/23 1040 07/18/23 0000 04/20/23 0000 WBC AUTO K/uL -- -- 12.2* HEMATOCRIT % -- -- 25.2* HEMOGLOBIN g/dL 8.0* 8.3 8.2* MCV -- -- 90 PLATELETS AUTO -- -- 72* Imaging: Renal ultrasound from 01/2013: Impression: 1. No definite shadowing calculi involving either kidney. 2. 3.3 cm cyst at the lower pole of the right kidney. 3. 37 percent postvoid bladder residual. CT 08/02/21: No hydronephrosis Renal Biopsy completed 08/29/2021 ASSESSMENT AND PLAN: CKD Stage 4 - stable 2/2 renovascular disease and hypertensive nephrosclerosis, biopsy proven. No GN or nephritis on biopsy. Rise in Cr likely with improved volume and BP control and reflective of low renal function and not ischemic nephropathy (none on biopsy). Cr has improved a little since time of biopsy and we willbe cautious with diuretic dosing and anti-hypertensive to avoid low BP given high pulse pressure and advanced kidney disease. Most recent creatinine 3.39 mg/dl with eGFR 17. He has been stable around this for some time. -BP goal 120's-130's systolic and avoid diastolic <50. At goal in clinic and at home currently -Continue low salt diet and use compression socks as needed. Takes lasix. Advised to keep legs elevated as much as possible during the day. -He has had discussion regarding future dialysis and agreed to conservative management without future dialysis if renal function worsens given his age and co-morbidities. We will hopefully be able tomanage advanced CKD and keep GFR stable for some time. Discussed again today. Hypertension with hypertensive CKD stage 4 15+ years of HTN, not optimally controlled at consultation with BP above goal consistently. Symptomatic with high dose metoprolol, now on doxazosin 8mg and Toprol XL 100mg daily and loop diuretic andfollowing lower salt diet and BP is at goal. -Continue current meds -BP at goal. Today in clinic 126/58 -Monitor BP in clinic and home monitoring Type 2 DM with CKD DM is at goal. No advanced diabetic changes on renal biopsy. Has microalbuminuria only. -Last A1C in 5.4%. -He can no longer be on Metformin which he was on before given GFR is too low Secondary renal hyperparathyroidism PTH mildly elevated. Ca wnl. Phos mildly elevated and low phos diet recommended and discussed and phos has improved compared to last visit. Will monitor. 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 [place] [facility] following, follows with Dr. Crockett. On Jakafi and Aranesp injections. Hgb's in 8's recently, platelets running lower and they are following this closely. He gets labs m onthly with CASSANDRA injections. Hx Uric acid stones, hyperuricemia - stable Has had 4-5 stones, always passed. No obstructive symptoms, stone sx currently. CT showed few <2mm stones L kidney. He passed 2 tiny stones in 2020, neither symptomatic. Likely ongoing uric acid stone formation and uric acid lvl was near 10. -Started allopurinol 100mg daily, discussed possible adverse effects, tolerating well and will continue -No change in management GERD - stable needs PPI as symptomatic when he tried on alternative, biopsy confirmed no interstitial nephritis. Continue PPI Return in about 4 months (around 04/07/2024) for Recheck. Sussy Nelson APRN CNP [facility]: [phone] documented in this encounter Plan of Treatment Upcoming Encounters Date Type Department Care Team (Late st Contact Info) Description 03/28/2024 11:30 AM ACCOUNT MANAGER B2B Office Visit [facility] [address] [place] [address] Ceasar Romero MD [address] [place] [id number] Scheduled Orders Name Type Priority Associated Diagnoses Orde r Schedule Renal function panel Lab Routine Chronic kidney disease, stage 4 (severe) (HCC) Every 8 Weeks for 3 Occurrences starting 12/06/2023 until 01/05/2025 Hemoglobin Lab Routine Chronic kidney disease, stage 4 (severe) (HCC) Every 8 Weeks for 3 Occurrences starting 12/06/2023 until 01/05/2025 PTH, intact Lab Routine Chronic kidney disease, stage 4 (severe) (HCC) Every 8 Weeks for 3 Occurrences starting 12/06/2023 until 01/05/2025 Urinalysis with microscopic Lab Routine Chronic kidney disease, stage 4 (severe) (HCC) Every 8 Weeks for 2 Occurrences starting 12/06/2023 until 01/05/2025 Urine Protein / creatinine ratio Lab Routine Chronic kidney disease, stage 4 (severe) (HCC) Every 8 Weeks for 3 Occurrences starting 12/06/2023 until 01/05/2025 documented as of this encounter Visit Diagnoses Diagnosis Chronic kidney disease, stage 4 (severe) (HCC)- Primary 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, 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
--- OUTSIDE RECORDS SUMMARY | 2023-12-11 23:30 | XMS_ITS | Encounter Summary ---
Author Organization [facility] Address [address] [place] [address] Care Team Providers Care Permit Specialist Name Role Phone Jaspal Leigh MD Primary Care Provider [phone] Encounter Details Date Type Department Care Team (Late st Contact Info) Description 11/21/2023 Documentation Only [facility] [place] [address] [facility] [address] [place] [address] Ceasar Romero MD [address] [place] [address] Social History Tobacco Use Types [...] st Contact Info) Description 03/28/2024 11:30 AM PETROLOGY TEACHER Office Visit [facility] [address] [place] [address] Ceasar Romero MD [address] [place] [address] documented as of this encounter Visit Diagnoses Not on filedocumented in this encounter Care Teams Permit Specialist Relationship Specialty Start Date End Date Jaspal Leigh MD [address] [place] [address] PCP - General Family Medicine 03/02/23 documented as of this encounter
--- OUTSIDE RECORDS SUMMARY | 2023-12-11 23:31 | XMS_ITS | Encounter Summary ---
Author Organization [facility] Address [address] [place] [address] Care Team Providers Care Neurology Manager Name Role Phone Jaspal Leigh MD Primary Care Provider [phone] Encounter Details Date Type Department Care Team (Late st Contact Info) Description 08/29/2023 Documentation Only [facility] [place] [address] [facility] [address] [place] [address] Ceasar Romero MD [address] [place] [address] Social History Tobacco Use Types [...] st Contact Info) Description 03/28/2024 11:30 AM OCULAR PATHOLOGIST Office Visit [facility] [address] [place] [address] Ceasar Romero MD [address] [place] [address] documented as of this encounter Visit Diagnoses Not on filedocumented in this encounter Care Teams Neurology Manager Relationship Specialty Start Date End Date Jaspal Leigh MD [address] [place] [address] PCP - General Family Medicine 03/02/23 documented as of this encounter
--- OUTSIDE RECORDS SUMMARY | 2023-12-11 23:31 | XMS_ITS | Clinical Summary ---
Author Organization [facility] Address [place], [place] [address] Care Team Providers Care Safety Administrator Name Role Phone Jaspal Leigh MD Primary Care Provider [phone] Allergies Active Allergy Reactions Criticality Noted Date Comments Amoxicillin Nausea Only 10/11/2016 Hydrocodone-Acetaminophen Confusion 04/18/2010 Hydroxyzine Confusion 07/05/2012 Medications Medication Sig Dispensed Refills Start Date End Date Status VITAMINS A,C,U-ZLGR-ZCAYUL (Ocuvite PreserVision) 7,160 unit- 113 mg-100 unit tablet Take 2 Tablets by mouth once daily. 0 06/23/2020 Active blood sugar diagnostic (Blood Glucose Test) stripIndications:Ty pe 2 diabetes mellitus without complication, without long-term current use of insulin (HC) Dispense test strips covered by the patient insurance. Test 1 times per day. 100 Each 3 05/18/2021 Active ruxolitinib (Jakafi) 20 mg tablet Take 1 Tablet by mouth. 09/28/2021 Active ferrous sulfate, 65 mg elemental, tablet 65 mg elemental iron 0 03/08/2022 Active cholecalciferol (Vitamin D) 1,000 unit capsule Take 1 Capsule (1,000 units) by mouth once daily. 0 04/06/2022 Active furosemide (LASIX) 40 mg tabletIndications:L ocalized edema due to fluid overload TAKE ONE TABLET BY MOUTH EVERY MORNING 90 Tablet 3 05/10/2023 Active metoprolol succinate (Toprol XL) 100 mg Sustained-Release tabletIndications:B enign essential HTN Take 1 Tablet (100 mg) by mouth once daily. 90 Tablet 3 07/18/2023 Active omeprazole (PRILOSEC) 20 mg Delayed-Release capsuleIndications: Gastroesophageal reflux disease, unspecified whether esophagitis present Take 1 Capsule (20 mg) by mouth once daily before a meal. 90 Capsule 4 07/18/2023 Active doxazosin (CARDURA) 8 mg tabletIndications:E ssential hypertension with goal blood pressure less than 140/90 Take 1 Tablet (8 mg) by mouth at bedtime. 100 Tablet 3 07/18/2023 Active allopurinoL (ZYLOPRIM) 100 mg tabletIndications:K idney stones Take 1 Tablet (100 mg) by mouth once daily. 90 Tablet 3 07/18/2023 Active glipiZIDE extended-release (GLUCOTROL XL) 5 mg Extended-Release tabletIndications:T ype 2 diabetes mellitus without complication, without long-term current use of insulin (HC) Take 1 Tablet (5 mg) by mouth once daily before a meal. 90 Tablet 3 09/19/2023 Active ALPRAZolam (XANAX) 1 mg tabletIndications:A nxiety,Other insomnia TAKE ONE-HALF TO ONE TABLET BY MOUTH AT BEDTIME NEEDED FOR ANXIETY 30 Tablet 2 11/09/2023 Active cephalexin (KEFLEX) 250 mg capsuleIndications: Cellulitis of skin Take 1 Capsule (250 mg) by mouth two times daily for 7 days. 14 Capsule 12/07/2023 12/14/2023 Active Active Problems Problem Noted Date Diagnosed Date Multilevel DDD (degenerative disc disease), lumbar w facet arthrosis 07/18/2023 Depression, recurrent 05/23/2022 Anemia in stage 4 chronic kidney disease 023 Peripheral arterial disease 03/08/2022 Type 2 diabetes mellitus wit hout complication, without long-term current use of insulin 05/18/2021 CKD (chronic kidney disease) stage 4, GFR 15-29 ml/min 05/12/2021 Overview (01/10/2023): He is stable. He sees Dr. Romero and plans to follow him to [place]. He sees him every 3 months.Jaspal Leigh MD signed electronically .................... 01/10/2023 Multiple thyroid nodules 11/30/2019 Overview (11/30/2019): Yearly follow up Ultrasound will be due in [id number]. 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 Resolved Problems Problem Noted Date Diagnosed Date Resolved Date shelter (current) use of anticoagulants 05/09/2010 10/13/2010 Overview (06/29/2010): INR Goal Range: 2.0 - 2.5 DVT (deep venous thrombosis) 05/09/2010 10/13/2010 Ulcer of esophagus without bleeding 10/19/2006 Acute renal failure 04/06/19 23 Encounters Date Type Department Care Team Description 12/11/2023 Telephone [facility] [address] [place] [address] Jaspal Leigh MD Derm Problem (Follow up on legs) 12/07/2023 1:55 PM CDT Office Visit [facility] [address] [place] [address] Jaspal Leigh MD Musculoskeletal Problem (Bilateral leg weakness); Derm Problem (Check abrasions on legs from needing to crawl on the floor) 12/07/2023 Telephone [facility] [address] [place] [address] Jaspal Leigh MD Medication Reaction (Allergy to an antibiotic) 12/07/2023 Travel 12/05/2023 Telephone [facility] [address] [place] [address] Jaspal Leigh MD Appointment Request 12/05/2023 Nurse Triage [facility] [address] [place] [address] Jaspal Leigh MD Leg Pain/problem 12/03/2023 11:15 AM CDT Orders Only [facility] [address] [place] [address] Lab, [place] [facility] 12/03/2023 Travel 11/28/2023 Telephone [facility] [address] [place] [address] Jaspal Leigh MD Lab (Lab appointment 12/03/23; too early per provider plan ) 11/28/2023 Orders Only [facility] [address] [place] [address] Jaspal Leigh MD Lab (Reorder of standing lipid labs) 11/09/2023 2:45 PM CDT Office Visit [facility] [address] [place] [address] Jaspal Leigh MD Fatigue (Weakness in legs, heels are very painful at night); Medication Management; Immunization/Injection 11/09/2023 Travel 11/07/2023 Travel 09/28/2023 3:00 PM CDT Orders Only [facility] [address] [facility] [address] [facility], [place] [facility] 09/28/2023 Travel 09/19/2023 4:05 PM CDT Office Visit [facility] [address] [place] [address] Jaspal Leigh MD Wound Check (Recheck spot on back); Medication Management (Wondering about glipizide for diabetes) 09/19/2023 Travel 09/13/2023 11:00 AM CDT Nurse/Clinic Staff Only [facility] [address] [facility] [address] Dressing Change (Abscess on back ) 09/13/2023 Travel 09/10/2023 1:40 PM CDT Office Visit [facility] [address] [place] [address] Lisandra Kang PA Abscess (Follow up) 09/10/2023 Travel from Last 3 Months Immunizations Name Administration Dates Next Due AMB INFLUENZA IIV3 (AGE 65+ YRS) PF (Flu Clinic Only) 12/26/2018,12/05/2017 AMB Influenza, IIV3 (Age >=3 years)(Flu Clinic Only) 12/05/2012,11/27/2011,12/09/2010,2007 Amb Influenza, Inact (High-d ose) (Flu Clinic Only) 12/03/2015,11/20/2014,11/28/2013 COVID-19 VACCINE SPIKEVAX (M ODERNA 50MCG/0.5ML) 12YO+ PFS 11/09/2023,07/18/2023,01/10/2023 COVID-19 vaccine (Prime Advantage-Bio NTech 30mcg/0.3mL) 12YO+ BIVALENT PF, MDV 03/08/2022 COVID-19 vaccine (Prime Advantage-Bio NTech 30mcg/0.3mL) PF, MDV 12/13/2020,04/18/2020,03/28/2020 Influenza A (H1N1), Inactivated 03/08/2009 Influenza A (H1N1), Inactiva kenzie (Age >=3 Years) 03/08/2009 Influenza, High-dose Inactivated 12/03/2015,03/2014,11/28/2013 Influenza, IIV3 (Age 6-35 mos) 12/09/2010,2008 Influenza, IIV3 (Age >=3 years) 12/06/19 13,11/27/2011,03/03/2010,2008,02/04/2008,12/10/2006,01/17/2006,1 02/26/2004,12/02/2003,01/10/2003 Influenza, Inactivated AIIV4 (Age 65+ Years) Preserv Free 01/10/2023,12/28/2021,12/13/2020,2019 Influenza, Inactivated IIV3 (Age 65+ Years) Preserv Free 11/09/2023,11/15/2016 Pneumococcal Poly,23-Valent (Pneumovax) 12/10/2015,03/22/2004 Pneumococcal conj 13-Valent (Prevnar 13) 01/27/2015 Td (Age >=7 Years) 09/11/1995 Td, Preservative Free (age > = 7 Years) 10/19/2006 Tdap 11/02/2017 Zoster (Shingrix-RZV, recombinant) 01/23/2018, Zoster (Zostavax-ZVL, live) 02/17/2013 Family History Medical History Relation Name Comments Alcohol/Drug Brother 1 Broderick Lung cancer Brother 1 Broderick remission Stroke Brother 1 Broderick recovered Alcoholism Brother 2 Cancer Brother 2 Metastatic unkn own primary at 60. Heart Disease Father [place] at 53 and 6 3, at 63 Cancer-breast Mother at 67 Hypertension Mother Relation Name Status Comments Brother 1 Broderick Brother 2 (Age 60) Father (Age 63) Mother (Age 67) Social History Tobacco Use Types Packs/Day Years Used Date Smoking Tobacco: Former Cigarettes Q uit: 02/19/1971 Smokeless Tobacco: Never Tobacco Cessation:Counseling Given: Yes Alcohol Use Standard Drinks/Week Comments Not Currently 0 (1 standard drink = 0.6 oz pur e alcohol) PHQ-2 Answer Date Recorded PHQ-2 TOTAL SCORE 1 07/18/2023 Social Connections Answer Date Recorded Frequency of Communication with Friends and Fami ly 0 06/08/2021 Financial Resource Strain Answer Date R ecorded [...] Sign Reading Time Taken Comments Blood Pressure 148/66 12/07/2023 2:02 PM CDT Pulse 69 12/07/2023 2:02 PM CDT Temperature 36.2 ??C (97.2 ??F) 12/07/2023 2:02 PM CD T Respiratory Rate 16 08/29/2021 2:00 PM CDT Oxygen Saturation 100% 12/07/2023 2:02 PM CDT Inhaled Oxygen Concentration - - Weight 84.8 kg (187 lb) 12/07/2023 2:02 PM CDT Height 174.2 cm (5' 8.6) 11/09/2023 2:54 PM CDT Body Mass Index 27.94 11/09/2023 2:54 PM CDT Plan of Treatment Upcoming Encounters Date Type Department Care Team (Late st Contact Info) Description 12/14/2023 12:40 PM CDT Office Visit [facility] [address] [place] [address] Jaspal Leigh MD [address] [place] [address] Health Maintenance Due Date Last Done Comments RSV vaccine for adults or (1 - 1-dose 75+ series) 05/12/2011 COVID-19 vaccine series ( season) 2024 11/09/2023, 07/18/2023, 01/10/2023, Additional history exists Depression screening for age 12+ 07/17/2024 07/18/2023, 05/26/2022, 05/22/2022, Additional history exists Medicare Wellness for age 65+ 07/18/2024, 05/22/2022, 05/18/2021 BMI (ht and wt on same day) for age 18+ 11/08/2024 11/09/2023, 07/18/2023, 05/22/2022, Additional history exists Tetanus booster 11/03/2027 11/02/2017, 09/21, 09/11/1995 Pneumococcal series for age 65+ Completed 12/10/2015, 01/27/2015, 03/22/2004 Tdap Completed 11/02/2017 Zoster (shingles) series for age 50+ Completed 01/23/2018, 11/02/2017, 02/17/2013 Influenza for age 65+ Completed 11/09/2023 , 01/10/2023, 12/28/2021, Additional history exists Procedures Procedure Name Priority Date/Time Associated Diagnosis Comments HEMOGLOBIN A1C MONITORING (POCT) Routine 12/03/2023 11:46 AM CDT Type 2 diabetes mellitus without complication, without long-term current use of insulin (HC) LIPID PANEL W REFLEX MEASURED LDL Routine 09/28/2023 3:04 PM CDT Type 2 diabetes mellitus without complication, without long-term current use of insulin (HC) BASIC METABOLIC PANEL Routine 09/28/2023 3:04 PM CDT Chronic kidney disease, stage IV (severe) (HC) from Last 3 Months Results * HEMOGLOBIN A1C MONITORING (POCT) (12/03/2023 11:46 AM CDT) POC HEMOGLOBIN A1C 5.4 <6.0 % OF TOTAL HGB [facility] Comment: Any point of care results exhibiting inconsistency with the patient's clinical status should be repeated using a different testing method. Blood BLOOD SPECIMEN / Unknown 12/03/2023 11:46 AM CDT 12/03/2023 11:47 AM CDT Narrative [facility] - 12/03/2023 2:31 PM CDT DRAW FEE ON PREVIOUS REQ Jaspal Leigh MD CHEMISTRY [facility] [address] [place] [address], [facility] [address], [place] [address] * (ABNORMAL) LIPID PANEL W REFLEX MEASURED LDL (09/28/2023 3:04 PM CDT) [facility] CHOLESTEROL,TOTAL 88(L) 100 - 199 mg/dL 09/29/2023 5:50 AM CDT [facility] Comment: Cholesterol, Total Reference Ranges Desirable <200 mg/dL Borderline 200-239 mg/dL High >=240 mg/dL TRIGLYCERIDES 205(H) <150 mg/dL 09/29/2023 5:50 AM CDT [facility] HDL CHOLESTEROL 18(L) >40 mg/dL 5:50 AM CDT [facility] NON-HDL CHOLESTEROL 70 <145 mg/dl 09/29/2023 5:50 AM CDT [facility] CHOL/HDL RATIO 4.89(H) <4.50 09/29/2023 5:50 AM CDT [facility] LDL CHOLESTEROL 29 <=130 mg/dL 09/29/2023 5:50 AM CDT [facility] VLDL CHOLESTEROL 41(H) <=30 mg/dL 09/29/2023 5:50 AM CDT [facility] PROVIDER ORDERED STATUS RANDOM 09/29/2023 5:50 AM CDT [facility] Blood BLOOD SPECIMEN / Unknown Venipuncture / Unknown 09/28/2023 3:04 PM CDT 09/28/2023 3:06 PM CDT Jaspal Leigh MD [facility] [address] [address] * (ABNORMAL) BASIC METABOLIC PANEL (09/28/2023 3:04 PM CDT) [facility] SODIUM 140 136 - 145 mmol/L 09/29/2023 5:50 AM CDT [facility] POTASSIUM 5.1 3.5 - 5.1 mmol/L 09/29/2023 5:50 AM CDT [facility] CHLORIDE 106 98 - 107 mmol/L 09/29/2023 5:50 AM CDT [facility] CO2,TOTAL 22 22 - 29 mmol/L 09/29/2023 5:50 AM CDT [facility] ANION GAP 12 5 - 18 09/29/2023 5:50 AM CDT [facility] GLUCOSE 153(H) 70 - 99 mg/dL 09/29/2023 5:50 AM T [facility] CALCIUM 9.1 8.8 - 10.2 mg/dL 09/29/2023 5:50 AM T [facility] BUN 60(H) 8 - 23 mg/dL 09/29/2023 5:50 AM T [facility] CREATININE 3.31(H) 0.70 - 1.20 mg/dL 09/29/2023 5:50 AM [facility] BUN/CREAT RATIO 18 10 - 20 5:50 AM [facility] eGFR 17(L) >90 mL/min/1.7 3m2 09/29/2023 5:50 AM T [facility] Comment:As of 2021, eG FR is calculated by the CKD-EPI creatinine equation without race adjustment. ??eGFR can be influenced by muscle mass, exercise, and diet. ??The reported eGFR is an estimation only and is only applicable if the renal function is stable. Blood BLOOD SPECIMEN / Unknown Venipuncture / Unknown 09/28/2023 3:04 PM CDT 09/28/2023 3:06 PM CDT Jaspal Leigh MD CHEMISTRY [employer] [facility] [address] [place] [address], from Last 3 Months Advance Directives * Full Code (Latest Code Status on File) Date Activated Date Inactivated Comments 08/29/2021 11:00 AM 08/30/2021 2:15 AM Question Answer Comments Code Status Discussion: Reviewed Preferences Care Teams Safety Administrator Relationship Specialty Start Date End Date [place] [address] PCP - General 07/27/05
--- OUTSIDE RECORDS SUMMARY | 2023-12-11 23:31 | XMS_ITS | Encounter Summary ---
Author Organization [facility] Address [address] [place] [address] Care Team Providers Care Operations Project Manager Name Role Phone Jaspal Leigh MD Primary Care Provider [phone] Encounter Details Date Type Department Care Team (Late st Contact Info) Description 07/16/2023 Orders Only [facility] [address] [place] [address] Ceasar Romero MD [address] [place] [address] Chronic kidney disease, stage 4 [...] st Contact Info) Description 03/28/2024 11:30 AM GOLF CART REPAIRER Office Visit [facility] [address] [place] [address] Ceasar Romero MD [address] [place] [address] documented as of this encounter Procedures Procedure Name Priority Date/Time Associated Diagnosis Comments HEMOGLOBIN Routine 12/03/2023 10:40 AM CDT PTH, INTACT Routine 12/03/2023 10:40 AM CDT RENAL FUNCTION PANEL Routine 12/03/2023 10:40 AM CDT HEMOGLOBIN Routine 07/18/2023 Chronic kidney disease, stage 4 (severe) (HCC) PTH, INTACT Routine 07/18/2023 Chronic kidney disease, stage 4 (severe) (HCC) RENAL FUNCTION PANEL Routine 07/18/2023 Chronic kidney disease, stage 4 (severe) (HCC) documented in this encounter Results * (ABNORMAL) PTH, Intact (12/03/2023 10:40 AM [...] Performing Organization Information: ?Site ID: [id number] ?Name: Tracy Izaguirre ?Address: [address] [place] [address] [address] ?Director: Dion Sifuentes Ceasar Romero MD LAB BLOOD ORDERABLES Final Re sult Performing Organization Address [facility] de Phone Number [facility] See order comments [place] [address] * (ABNORMAL) Hemoglobin (12/03/2023 10:40 AM CDT) Hemoglobin 8.0(L) 13.2 - 17.1 g/dL See order comments 12/03/2023 10:4 0 AM CDT 12/03/2023 10:40 AM CDT Narrative Resulting Agency Comment Performing Organization Information: ?Site ID: [id number] ?Name: Tracy Izaguirre ?Address: [address] [place] [id number] ?Director: Dion Sifuentes Ceasar Romero MD LAB BLOOD ORDERABLES Final Re sult Performing Organization Address [facility] Phone Number [facility] See order comments [place] [address] * (ABNORMAL) Renal Function Panel (12/03/2023 10:40 [...] Comment Performing Organization Information: ?Site ID: ?Name: [email or web address] ?Address: [address] [place] [phone] ?Director: Dion Sifuentes Ceasar Romero MD LAB BLOOD ORDERABLES Final Re sul Performing Organization Address [facility] de Phone Number [facility] See order comments [place] [address] * (ABNORMAL) PTH, intact (07/18/2023) Parathyroid Hormone, Intact 187.0(H) pg/mL [facility] CALCIUM FOR PTH 9.0 [facility] Blood (Blood, Venous) 07/18/2023 Ceasar Romero MD LAB BLOOD ORDERABLES Edited R esult - Final Performing Organization Address [facility] de Phone Number [facility] * Hemoglobin (07/18/2023) Hemoglobin 8.3 g/dL [facility] Comment:L Blood (Blood, Venous) 07/18/2023 Ceasar Romero MD LAB BLOOD ORDERABLES Final Re sult Performing Organization Address [facility] de Phone Number [facility] * (ABNORMAL) Renal function panel (07/18/2023) Glucose 335(H) mg/dL [facility] BUN 58(H) mg/dL [facility] Creatinine 3.18(H) mg/dL [facility] BUN/Creatinine Ratio 18 [facility] Sodium 138 mEq/L [facility] Potassium 4.5 mEq/L [facility] Chloride 103 [facility] Carbon Dioxide 22 mmol/L [facility] Calcium 9.0 mg/dL [facility] Phosphorus, Serum 4.3 mg/dL [facility] Albumin (Blood) 4.2 g/dL [facility] eGFR 18(L) [facility] Comment:As of 2021, eG FR is calculated by the CKD-EPI creatinine equation without race adjustment. eGFR can be influenced by muscle mass, exercise, and diet. The reported eGFR is an estimation only and is only applicable if the renal function is stable. Anion Gap 13 MMOL/L [facility] Blood (Blood, Venous) 07/18/2023 us Ceasar Romero MD LAB BLOOD ORDERABLES Final Re sult [facility] documented in this encounter Visit Diagnoses Diagnosis Chronic kidney disease, stage 4 (severe) (HCC) documented in this encounter Care Teams Operations Project Manager Relationship Specialty Start Date End Date Jaspal Leigh MD [address] [place] [address] PCP - General Family Medicine 03/02/23 documented as of this encounter
--- OUTSIDE RECORDS SUMMARY | 2023-12-11 23:31 | XMS_ITS | Encounter Summary ---
Author Organization [facility] Address [address] [place] [address] Care Team Providers Care Animal Care Attendant Name Role Phone Jaspal Leigh MD Primary Care Provider [phone] Encounter Details Date Type Department Care Team (Late st Contact Info) Description 09/11/2023 Office Communication [facility] [address] [address] Ceasar Romero MD [address] [place] [address] Social History Tobacco Use Types [...] encounter Miscellaneous Notes * Telephone Encounter - Shantell Washington RN - 09/20/2023 4:32 PM CDT Pt's called after receiving letter in the mail. Unable to transfer to as they are closed after 4:30. Advised her to call back tomorrow. * Telephone Encounter - Montrell Brown - 09/11/2023 12:37 PM CDT Second call attempt made to reach the patient for scheduling. Mailed the Established Patient Letter to the patient to schedule 4M follow up in November with a TOYIN. At call to patient unsure if someone answered, unable to leave VM. documented in this encounter Plan of Treatment Upcoming Encounters Date Type Department Care Team (Late st Contact Info) Description 03/28/2024 11:30 AM BUSBOY Office Visit [facility] [address] [place] [address] Ceasar Romero MD [address] [place] [address] documented as of this encounter Visit Diagnoses Not on filedocumented in this encounter Care Teams Animal Care Attendant Relationship Specialty Start Date End Date Jaspal Leigh MD [address] [place] [address] PCP - General Family Medicine 03/02/23 documented as of this encounter
--- OUTSIDE RECORDS SUMMARY | 2023-12-11 23:31 | XMS_ITS | Encounter Summary ---
Author Organization [facility] Address [address] [place] [address] Care Team Providers Care Vegetables Cook Name Role Phone Jaspal Leigh MD Primary Care Provider [phone] Encounter Details Date Type Department Care Team (Late st Contact Info) Description 09/05/2023 Telephone [facility] [address] [place] [address] Shantell Washington, MILAN [address] [place] [address] Social History Tobacco Use Types [...] Telephone Encounter - Shantell Washington RN - 09/05/2023 11:59 AM CDT Patient's spouse asked about the medication suggested for diabetes by Dr. Romero. Glipizide and d/c metformin. Note was faxed to Dr. Leigh's office containing this recommendation. documented in this encounter Plan of Treatment Upcoming Encounters Date Type Department Care Team (Late st Contact Info) Description 03/28/2024 11:30 AM CLERICAL ADVISER Office Visit [facility] [address] [place] [address] Ceasar Romero MD [address] [place] [address] documented as of this encounter Visit Diagnoses Not on filedocumented in this encounter Care Teams Vegetables Cook Relationship Specialty Start Date End Date Jaspal Leigh MD [address] [place] [address] PCP - General Family Medicine 03/02/23 documented as of this encounter
== END 2023-11-25 04:41 | disposition home or self-care (01) ==
LOC: AMB 12-11 23:29
PROVIDERS: PCP Family Medicine; Visit Provider Family Medicine
DX: R53.1 Weakness (principal)
CPT/HCPCS: A0998

== ENCOUNTER 2024-03-07 06:10 | Outpatient (CLI) | payer MEDICARE, OTHER, SELFPAY | END 2024-03-07 06:11 | disposition home or self-care (01) | LOC: AMB 03-27 04:07 | PROVIDERS: PCP Family Medicine; Visit Provider Family Medicine | DX: S41.102A Unspecified open wound of left upper arm, initial encounter (principal); W01.0XXA Fall on same level from slipping, tripping and stumbling without subsequent striking against object, initial encounter; Y92.000 Kitchen of unspecified non-institutional (private) residence as the place of occurrence of the external cause | CPT/HCPCS: A0425; A0429 ==

== ENCOUNTER 2024-03-07 06:50 | Emergency (ER) | payer MEDICARE, OTHER, SELFPAY ==
--- OUTSIDE RECORDS SUMMARY | 2024-03-07 06:51 | XMS_ITS | Continuity of Care Document ---
Author Name [facility] User [email or web address] Address Unknown Organization Unknown Address Unknown Procedures FILTER APPLIED:Only known Procedures with Onset Date within the last 5 years Procedure Date Procedure Provider Additional Inform ation Status RESP VIRUS 3-5 TARGETS (87327) Completed EMERGENCY DEPT VISIT MOD MDM (04574) Completed HYDRATION IV INFUSION INIT (60882) Completed Encounters FILTER APPLIED:Only known Encounters with Admission Date within the last 5 years Encounter Location Admission Discharge Billing Code Consultant [facility] Joseline Larson
--- OUTSIDE RECORDS SUMMARY | 2024-03-07 06:51 | XMS_ITS | Clinical Summary ---
Author Organization [facility] Address [place], [place] [address] Care Team Providers Care Community Mental Health Worker Name Role Phone Jaspal Leigh MD Primary Care Provider [phone] Allergies Active Allergy Reactions Criticality Noted Date Comments Amoxicillin Nausea Only 10/11/2016 Hydrocodone-Acetaminophen Confusion 04/18/2010 Hydroxyzine Confusion 07/05/2012 Medications VITAMINS A,C,B-MRSN-PDHMU R (Ocuvite PreserVision) 7,160 unit- 113 mg-100 unit tablet Take 2 Tablets by mouth once daily. 0 1 Active ruxolitinib (Jakafi) 20 mg tablet Take 1 Tablet by mouth. 2 Active ferrous sulfate, 65 mg elemental, tablet 65 mg elemental iron 0 3 Active cholecalciferol (Vitamin D) 1,000 unit capsule Take 1 Capsule (1,000 units) by mouth once daily. 0 3 Active furosemide (LASIX) 40 mg tabletIndication s:Localized edema due to fluid overload TAKE ONE TABLET BY MOUTH EVERY MORNING 90 Tablet 3 4 Active metoprolol succinate (Toprol XL) 100 mg Sustained-Releas e tabletIndication s:Benign essential HTN Take 1 Tablet (100 mg) by mouth once daily. 90 Tablet 3 4 Active omeprazole (PRILOSEC) 20 mg Delayed-Release capsuleIndicatio ns:Gastroesophag eal reflux disease, unspecified whether esophagitis present Take 1 Capsule (20 mg) by mouth once daily before a meal. 90 Capsule 4 4 Active doxazosin (CARDURA) 8 mg tabletIndication s:Essential hypertension with goal blood pressure less than 140/90 Take 1 Tablet (8 mg) by mouth at bedtime. 100 Tablet 3 4 Active allopurinoL (ZYLOPRIM) 100 mg tabletIndication s:Kidney stones Take 1 Tablet (100 mg) by mouth once daily. 90 Tablet 3 4 Active glipiZIDE extended-release (GLUCOTROL XL) 5 mg Extended-Release tabletIndication s:Type 2 diabetes mellitus without complication, without long-term current use of insulin (HC) Take 1 Tablet (5 mg) by mouth once daily before a meal. 90 Tablet 3 4 Active ALPRAZolam (XANAX) 1 mg tabletIndication s:Anxiety,Other insomnia TAKE ONE-HALF TO ONE TABLET BY MOUTH AT BEDTIME NEEDED FOR ANXIETY 30 Tablet 2 4 Active cephalexin 250 mg capsuleIndicatio ns:Cellulitis of skin Take 1 Capsule (250 mg) by mouth two times daily. 14 Capsule 4 Active blood sugar diagnostic (Blood Glucose Test) stripIndications :Type 2 diabetes mellitus without complication, without long-term current use of insulin (HC) Dispense test strips covered by the patient insurance. Test 1 times per day. 100 Each 3 5 Active blood sugar diagnostic (Blood Glucose Test) stripIndications :Type 2 diabetes mellitus without complication, without long-term current use of insulin (HC) Dispense test strips covered by the patient insurance. Test 1 times per day. 100 Each 3 2 02/28/19 25 Discontin ued(Reord er (E-cancel not sent)) Active Problems Problem Noted Date Diagnosed Date [...] Romero and plans to follow him to [facility]. He sees him every 3 months.Jaspal Leigh MD signed electronically .................... 01/10/2023 Multiple thyroid nodules 11/30/2019 Overview (11/30/2019): Yearly follow up Ultrasound will be due in [id number]. 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 05/09/2010 10/13/2010 Overview (06/29/2010): INR Goal Range: 2.0 - 2.5 DVT (deep venous thrombosis) 05/09/2010 10/13/2010 Ulcer of esophagus without bleeding 10/19/2006 Acute renal failure 04/06/19 23 Encounters Date Type Department Care Team Description 03/03/2024 Telephone [facility] [address] [place] [address] Jaspal Leigh MD Physical Therapy (MORE VISITS) 02/29/2024 Refill [facility] [address] [place] [address] Jaspal Leigh MD Refill Request (Blood Glucose test strips) 02/04/2024 10:30 AM CORRAL BOSS Orders Only [facility] [address] [place] [address] Lab, [facility] 02/04/2024 Travel 12/20/2023 Orders Only [facility] [place] [address] Jaspal Leigh MD <No scans attached> 12/14/2023 12:40 PM CDT Office Visit [facility] [address] [place] [address] Jaspal Leigh MD Follow Up (cellulitis) 12/14/2023 Travel 12/11/2023 Telephone [facility] [address] [place] [address] Jaspal Leigh MD Derm Problem (Follow up on legs) 12/07/2023 1:55 PM CDT Office Visit [facility] [address] [place] [address] [place] [address] Jaspal Leigh MD Musculoskeletal Problem (Bilateral leg weakness); Derm Problem (Check abrasions on legs from needing to crawl on the floor) 12/07/2023 Telephone [facility] [place] [address] Jaspal Leigh MD Medication Reaction (Allergy to an antibiotic) 12/07/2023 Travel from Last 3 Months Immunizations Name Administration Dates Next Due AMB INFLUENZA IIV3 (AGE 65+ YRS) PF (Flu Clinic Only) 12/26/2018,12/05/2017 AMB Influenza, IIV3 (Age >=3 years)(Flu Clinic Only) 12/05/2012,11/27/2011,12/09/2010,2007 Amb Influenza, Inact (High-d ose) (Flu Clinic Only) 12/03/2015,11/20/2014,11/28/2013 COVID-19 VACCINE SPIKEVAX (M ODERNA 50MCG/0.5ML) 12YO+ PFS 11/09/2023,07/18/2023,01/10/2023 COVID-19 vaccine (Subtext-Bio NTech 30mcg/0.3mL) 12YO+ BIVALENT PF, MDV 03/08/2022 COVID-19 vaccine (Subtext-Bio NTech 30mcg/0.3mL) PF, MDV 12/13/2020,04/18/2020,03/28/2020 Influenza A [...] own primary at 60. Heart Disease Father [place] at 53 and 6 3, at 64 [...] Assigned at Male 06/21/2020 11:36 AM CDT Legal Sex Male 6:19 AM CORRAL BOSS Gender Identity Not on file Sexual Orientation Not on file Occupation Industry Job Start Date Job End Date Retired Not on file Not on file Not on file Obstetrics History Last Filed Vital Signs Vital Sign Reading Time Taken Comments Blood Pressure 136/66 12/14/2023 12:44 PM CDT Pulse 89 12/14/2023 12:44 PM CDT Temperature 36.2 C (97.2 F) 12/07/2023 2:02 PM CDT Respiratory Rate 16 08/29/2021 2:00 PM CDT Oxygen Saturation 98% 12/14/2023 12:44 PM CDT Inhaled Oxygen Concentration - - Weight 84.8 kg (187 lb) 12/14/2023 12:44 PM CDT Height 174.2 cm (5' 8.6) 11/09/2023 2:54 PM CDT Body Mass Index 27.94 11/09/2023 2:54 PM CDT Plan of Treatment Upcoming Encounters Date Type Department Care Team (Late st Contact Info) Description 03/27/2024 2:00 PM CORRAL BOSS Orders Only [facility] [address] [place] [address] [facility] Maintenance Due Date Last Done Comments RSV vaccine for adults or (1 - 1-dose 75+ series) 05/12/2011 COVID-19 vaccine series (2023- season) 2024 11/09/2023, 07/18/2023, 01/10/2023, Additional history exists Depression screening for age 12+ 07/17/2024 07/18/2023, 05/26/2022, 05/22/2022, Additional history exists Medicare Wellness for age 65+ 07/18/2024, 05/22/2022, 05/18/2021 BMI (ht and wt on same day) for age 18+ 11/08/2024 11/09/2023, 07/18/2023, 05/22/2022, Additional history exists Tetanus booster 11/03/2027 11/02/2017, 09/21, 09/11/1995 Pneumococcal series for age 50+ Completed 12/10/2015, 01/27/2015, 03/22/2004 Tdap Completed 11/02/2017 Zoster (shingles) series for age 50+ Completed 01/23/2018, 11/02/2017, 02/17/2013 Influenza for age 65+ Completed 11/09/2023 , 01/10/2023, 12/28/2021, Additional history exists Procedures Procedure Name Priority Date/Time Associated Diagnosis Comments BASIC METABOLIC PANEL Routine 12/14/2023 1:29 PM CDT CKD (chronic kidney disease) stage 4, GFR 15-29 ml/min (HC) from Last 3 Months Results * (ABNORMAL) BASIC METABOLIC PANEL (12/14/2023 1:29 PM CDT) GLUCOSE 118(H) 65 - 99 mg/dL [facility] Comment: Fasting reference interval For someone without known diabetes, a glucose value between 100 and 125 mg/dL is consistent with prediabetes and should be confirmed with a follow-up test. UREA NITROGEN (BUN) 55(H) 7 - 25 mg/dL [facility] CREATININE 2.84(H) 0.70 - 1.22 mg/dL [facility] EGFR 21(L) > OR = 60 mL/min/1.7 3m2 [facility] BUN/CREATININE RATIO 19 6 - 22 (calc) [facility] SODIUM 140 135 - 146 mmol/L [facility] POTASSIUM 5.4(H) 3.5 - 5.3 mmol/L [facility] CHLORIDE 109 98 - 110 mmol/L [facility] CARBON DIOXIDE 23 20 - 32 mmol/L [facility] ELECTROLYTE BALANCE 8 7 - 17 mmol/L (calc) [facility] CALCIUM 8.7 8.6 - 10.3 mg/dL [facility] Blood BLOOD SPECIMEN / Unknown 12/14/2023 1:29 PM CDT 12/14/2023 1:31 PM CDT us Jaspal Leigh MD CHEMISTRY Final Resu lt [employer] [facility] [address] [place] [address], [facility] [address] [facility] [place] [address] from Last 3 Months Insurance MEDICA [employer] SOL[employer]IONS [place] PB ONLY MEDICARE PART B HB ONLY MEDICA PRIME SOLUTION HB MEDICARE PART A HB ONLY Advance Directives * Full Code (Latest Code Status on File) Date Activated Date Inactivated Comments 08/29/2021 11:00 AM 08/30/2021 2:15 AM Question Answer Comments Code Status Discussion: Reviewed Preferences Care Teams Community Mental Health Worker Relationship Specialty Start Date End Date Jaspal Leigh MD [address] [place] [address] (work) PCP - General 07/27/05
[2024-03-07 06:52] VITALS: BP 143/67; PULSE 72; RESP 16; TEMP 36.4; O2SAT 97; BMI 28.1
--- NOTE | 2024-03-07 07:31 | ED_ITS ---
HPI - General Adult General Date Seen: 03/07/24 <Braulio Wynn MD - Last Filed: 03/09/24 23:14> Chief complaint: Fall/Minor Trauma <Braulio Wynn MD - Last Filed: 03/09/24 23:14> Stated complaint: fall <Braulio Wynn MD - Last Filed: 03/09/24 23:14> Time Seen by Provider: 03/07/24 07:07 <Braulio Wynn MD - Last Filed: 03/09/24 23:14> Source: patient <Braulio Wynn MD - Last Filed: 03/09/24 23:14> Mode of arrival: EMS <Braulio Wynn MD - Last Filed: 03/09/24 23:14> Limitations: no limitations <Braulio Wynn MD - Last Filed: 03/09/24 23:14> History of Present Illness HPI narrative: Patient is an 88-year-old male who lives at home with his . This morning he was up early and went to the kitchen to get some water and his legs got weak and he slowly slumped to the ground. He did not hit his head or hurt anything other than a small skin tear on his left elbow that was dressed by paramedics. This is the 3rd or 4th time says happen to him in the past year. He does take doxazosin and Xanax at bedtime. His is concerned about his cough but he tells me that he has been coughing for six years. He has seen ENT on several occasions and they have told him that this is a tickle cough. He denies fevers or chills. He is treated for a myelodysplastic disorder with Ruxolitinib. <Braulio Wynn MD - Last Filed: 03/09/24 23:14> Related Data Home medications: Home Medications ?Medication ?Instructions ?Recorded ?Confirmed allopurinol 100 mg tablet 100 mg PO DAILY 12/05/21 03/07/24 alprazolam 1 mg tablet 0.5 mg PO HS 12/05/21 03/07/24 cholecalciferol (vitamin D3) 325 325 mcg PO QWEEK 12/05/21 03/07/24 mcg (13,000 unit) capsule doxazosin 8 mg tablet 8 mg PO HS 12/05/21 03/07/24 furosemide 40 mg tablet 20 mg PO DAILY 12/05/21 03/07/24 metoprolol succinate 100 mg 100 mg PO DAILY 12/05/21 03/07/24 tablet,extended release 24 hr omeprazole 20 mg capsule,delayed 20 mg PO DAILY 12/05/21 03/07/24 release ruxolitinib 20 mg tablet (Jakafi) 20 mg PO DAILY 12/05/21 03/07/24 multivitamin with iron (Daily 1 tab PO QDAY 08/21/23 03/07/24 Vitamin with Iron tablet) vit C 250 mg-E 90 mg-zinc 40 1 tab PO QAM AND QPM 08/21/23 03/07/24 mg-copper 1 [id number] chew tablet (PreserVision AREDS-2) Previous Rx's ?Medication ?Instructions ?Recorded gentamicin 0.1 % topical ointment 1 applic topical TID #30 grams 04/04/22 benzonatate 100 mg capsule 100 mg PO TID PRN cough #20 caps 03/18/23 <Braulio Wynn MD - Last Filed: 03/09/24 23:14> Allergies/adverse reactions: Allergies Allergy/AdvReac Type Severity Reaction Status Date / Time acetaminophen (From Vicodin) Allergy Verified 08/21/23 17:44 amoxicillin Allergy vomited Verified 05/31/23 10:53 codeine AdvReac Intermediate Nausea Verified 05/31/23 10:53 hydrocodone AdvReac Intermediate Nausea Verified 05/31/23 10:53 vicoden Allergy Mild Nausea Uncoded 05/31/23 10:53 <Braulio Wynn MD - Last Filed: 03/09/24 23:14> Review of Systems Narrative: He has chronic weakness and gets short of breath with minimal exertion. Cognitively he is sharp. He has frequent lightheadedness. [facility]. Review of systems in all other areas is noted to be negative. <Braulio Wynn MD - Last Filed: 03/09/24 23:14> [facility] Medical History: Medical History (Updated 03/07/24 @ 08:43 by Klever Batista MD) Infection ?B99.9 - Unspecified infectious disease (ICD-10) <Braulio Wynn MD - Last Filed: 03/09/24 23:14> Social History: Social History Smoking Status: Never smoker Do you use any of these nicotine containing products: None Second hand tobacco smoke exposure: No How often do you have a drink containing alcohol: never How often do you have six or more drinks on one occasion: Never AUDIT-C Alcohol total score: 0 Non-prescribed substance use: denies use <Braulio Wynn MD - Last Filed: 03/09/24 23:14> Exam Narrative: Exam Narrative: Vitals noted. He is awake and alert and seems to be an adequate historian. HEENT: Conjunctiva clear. Tympanic membranes are pearly white bilaterally. Posterior pharynx is clear without erythema or exudate. Neck is supple without adenopathy, thyromegaly, carotid bruit. Lungs: Clear to auscultation in all mcgregor. No wheezes, rales, rhonchi. Heart: Regular rate and rhythm with a soft systolic murmur. Abdomen: Soft and nontender. No guarding, rigidity, rebound. Bowel sounds are normal. No palpable masses. Extremities: No cyanosis or edema. Good distal pulses. Skin: Numerous dry scaly areas many of which look pre cancers. He has large scab on the left side of his nose. He has a skin tear that has been dressed by the paramedics on his left elbow. Neurologic: Awake, alert, fully oriented. Neurologic exam is nonfocal. <Braulio Wynn MD - Last Filed: 03/09/24 23:14> Const: Vital Signs, click to edit/add: Vital Signs - 24 hr 03/07/24 06:52 Temperature 97.6 F Pulse Rate [Pulse Oximeter] 72 Respiratory Rate 16 Blood Pressure [Ri ght Upper Arm] 143/67 H Pulse Oximetry 97 Oxygen Delivery Me thod Room Air <Braulio Wynn MD - Last Filed: 03/09/24 23:14> Vital Signs, click to edit/add: Vital Signs - 24 hr 03/07/24 06:52 Temperature 97.6 F Pulse Rate [Pulse Oximeter] 72 Respiratory Rate 16 Blood Pressure [Ri ght Upper Arm] 143/67 H Pulse Oximetry 97 Oxygen Delivery Me thod Room Air <Klever Batista MD - Last Filed: 03/07/24 08:43> Course Course ED Course: Patient is seen and examined. He is in no distress. Triple swab is negative. CBC is ordered. Basic metabolic panel shows a BUN of 75 and a creatinine of 3.1. Care is turned over to Dr. Batista at change of shift. <Parrish Wynn MD - Last Filed: 03/09/24 23:14> Vital Signs Vital signs: Initial Vital Signs Temperature 97.6 F 03/07/24 06:52 Temperature Source Temporal Artery Scan 03/07/24 06:52 Pulse Rate 72 03/07/24 06:52 Respiratory Rate 16 03/07/24 06:52 Blood Pressure 143/67 H 03/07/24 06:52 Blood Pressure Mean 92 03/07/24 06:52 Blood Pressure Position Supine 03/07/24 06:52 Pulse Oximetry 97 03/07/24 06:52 Oxygen Delivery Method Room Air 03/07/24 06:52 Vital Signs Temperature 97.6 F 03/07/24 06:52 Pulse Rate 72 03/07/24 06:52 Respiratory Rate 16 03/07/24 06:52 Blood Pressure 143/67 H 03/07/24 06:52 Pulse Oximetry 97 03/07/24 06:52 Oxygen Delivery Method Room Air 03/07/24 06:52 Temperature 97.0 F L 03/07/24 08:42 Pulse Rate 72 03/07/24 08:42 Respiratory Rate 18 03/07/24 08:42 Blood Pressure 136/73 03/07/24 08:42 Pulse Oximetry 96 03/07/24 08:42 Oxygen Delivery Method Room Air 03/07/24 08:42 <Braulio Wynn MD - Last Filed: 03/09/24 23:14> Initial Vital Signs Temperature 97.6 F 03/07/24 06:52 Temperature Source Temporal Artery Scan 03/07/24 06:52 Pulse Rate 72 03/07/24 06:52 Respiratory Rate 16 03/07/24 06:52 Blood Pressure 143/67 H 03/07/24 06:52 Blood Pressure Mean 92 03/07/24 06:52 Blood Pressure Position Supine 03/07/24 06:52 Pulse Oximetry 97 03/07/24 06:52 Oxygen Delivery Method Room Air 03/07/24 06:52 Vital Signs Temperature 97.6 F 03/07/24 06:52 Pulse Rate 72 03/07/24 06:52 Respiratory Rate 16 03/07/24 06:52 Blood Pressure 143/67 H 03/07/24 06:52 Pulse Oximetry 97 03/07/24 06:52 Oxygen Delivery Method Room Air 03/07/24 06:52 Temperature 97.0 F L 03/07/24 08:42 Pulse Rate 72 03/07/24 08:42 Respiratory Rate 18 03/07/24 08:42 Blood Pressure 136/73 03/07/24 08:42 Pulse Oximetry 96 03/07/24 08:42 Oxygen Delivery Method Room Air 03/07/24 08:42 <Klever Batista MD - Last Filed: 03/07/24 08:43> Medical Decision Making MDM Narrative Medical decision making narrative: Assumed care from my colleague. Patient resting comfortably. Lab shows chronic anemia consistent with myelodysplastic syndrome. He does well on his ambulation here in states he feels fine. At this time will discharge him to home to continue current care consider adjusting his medications under the care of his primary care doctor. All questions answered <Klever Batista MD - Last Filed: 03/07/24 08:43> Lab Data Labs: Lab Results 03/07/24 03/07/24 Range/Units 06:57 07:28 WBC 10.98 (4.50-11.00) K/uL RBC 3.30 L (4.30-5.90) m/uL Hgb 9.0 L (13.5-17.5) gm/dL Hct 29.5 L (37.0-53.0) % MCV 89 (80-100) fL MCH 27 (26-34) pg MCHC 31 L (32-36) gm/dL RDW Coeff of Fredy 21.0 H (11.5-15.5) % Plt Count 58 L (140-440) K/uL Neut % (Auto) 44.7 (42.0-72.0) % Lymph % (Auto) 12.3 L (20-44) % [place] % (Auto) 18.9 H (0.0-11.0) % Eos % (Auto) 4.2 (0.0-7.0) % Baso % (Auto) 1.8 (0.0-3.0) % Neut # (Auto) 4.90 (1.7-7.0) K/uL Lymph # (Auto) 1.40 (0.90-2.90) K/uL [place] # (Auto) 2.10 H (0.00-0.90) K/UL Eos # (Auto) 0.46 (0.00-0.50) K/uL Baso # (Auto) 0.20 (0.00-0.30) K/uL Abs Immat Gran (auto) 1.99 H (0.00-0.30) K/uL Imm/Tot Granulo (auto) 18.1 % Diff Slide Review Acceptable Review (Acceptable) Sodium 137 (135-149) mmol/L Potassium 4.7 (3.6-5.1) mmol/L Chloride 107 (96-114) mmol/L Carbon Dioxide 21 (20-32) mmol/L Anion Gap 9 (7-15) mEq/L BUN 75 H (7-30) mg/dL Creatinine 3.1 H (0.5-1.5) mg/dL Estimated Creat Clear 16.79 Estimated GFR 19 ml/min Glucose 115 (60-115) mg/dL Calcium 8.5 (8.4-10.6) mg/dL SARS-CoV-2 (PCR) Negative SARS-CoV-2 (Negative) Influenza Type A (PCR) Negative PCR FLU A (Negative) Influenza Type B (PCR) Negative PCR FLU B (Negative) RSV (PCR) Negative PCR RSV (Negative) <Braulio Wynn MD - Last Filed: 03/09/24 23:14> Lab Results 03/07/24 03/07/24 Range/Units 06:57 07:28 WBC 10.98 (4.50-11.00) K/uL RBC 3.30 L (4.30-5.90) m/uL Hgb 9.0 L (13.5-17.5) gm/dL Hct 29.5 L (37.0-53.0) % MCV 89 (80-100) fL MCH 27 (26-34) pg MCHC 31 L (32-36) gm/dL RDW Coeff of Fredy 21.0 H (11.5-15.5) % Plt Count 58 L (140-440) K/uL Neut % (Auto) 44.7 (42.0-72.0) % Lymph % (Auto) 12.3 L (20-44) % [place] % (Auto) 18.9 H (0.0-11.0) % Eos % (Auto) 4.2 (0.0-7.0) % Baso % (Auto) 1.8 (0.0-3.0) % Neut # (Auto) 4.90 (1.7-7.0) K/uL Lymph # (Auto) 1.40 (0.90-2.90) K/uL [place] # (Auto) 2.10 H (0.00-0.90) K/UL Eos # (Auto) 0.46 (0.00-0.50) K/uL Baso # (Auto) 0.20 (0.00-0.30) K/uL Abs Immat Gran (auto) 1.99 H (0.00-0.30) K/uL Imm/Tot Granulo (auto) 18.1 % Diff Slide Review Acceptable Review (Acceptable) Sodium 137 (135-149) mmol/L Potassium 4.7 (3.6-5.1) mmol/L Chloride 107 (96-114) mmol/L Carbon Dioxide 21 (20-32) mmol/L Anion Gap 9 (7-15) mEq/L BUN 75 H (7-30) mg/dL Creatinine 3.1 H (0.5-1.5) mg/dL Estimated Creat Clear 16.79 Estimated GFR 19 ml/min Glucose 115 (60-115) mg/dL Calcium 8.5 (8.4-10.6) mg/dL SARS-CoV-2 (PCR) Negative SARS-CoV-2 (Negative) Influenza Type A (PCR) Negative PCR FLU A (Negative) Influenza Type B (PCR) Negative PCR FLU B (Negative) RSV (PCR) Negative PCR RSV (Negative) <Klever Batista MD - Last Filed: 03/07/24 08:43> Discharge Plan Discharge Clinical Impression: Fall <Braulio Wynn MD - Last Filed: 03/09/24 23:14> Patient Disposition: Home, Self-Care <Braulio Wynn MD - Last Filed: 03/09/24 23:14> Condition: Stable <Braulio Wynn MD - Last Filed: 03/09/24 23:14> Instructions: Fall Prevention for Older Adults (ED) <Braulio Wynn MD - Last Filed: 03/09/24 23:14> Additional Instructions: Consider following up with your doctor to discuss medication adjustments. Continue hydration and diet Follow-up as discussed. <Braulio Wynn MD - Last Filed: 03/09/24 23:14> Activity Level: No Restrictions <Braulio Wynn MD - Last Filed: 03/09/24 23:14> No Restrictions <Klever Batista MD - Last Filed: 03/07/24 08:43> Discharge Diet: Regular <Braulio Wynn MD - Last Filed: 03/09/24 23:14> Regular <Klever Batista MD - Last Filed: 03/07/24 08:43> Prescriptions: No Action PreserVision AREDS-2 250-90-40-1 mg tablet,chewable 1 tab PO QAM AND QPM multivitamin with iron [Daily Vitamin with Iron] Tablet 1 tab PO QDAY benzonatate 100 mg capsule 100 mg PO TID PRN (Reason: cough) Qty: 20 0RF allopurinol 100 mg tablet 100 mg PO DAILY alprazolam 1 mg tablet 0.5 mg PO HS doxazosin 8 mg tablet 8 mg PO HS furosemide 40 mg tablet 20 mg PO DAILY metoprolol succinate 100 mg tablet extended release 24 hr 100 mg PO DAILY omeprazole 20 mg capsule,delayed release(DR/EC) 20 mg PO DAILY Jakafi 20 mg tablet 20 mg PO DAILY cholecalciferol (vitamin D3) 325 mcg (13,000 unit) capsule 325 mcg PO QWEEK gentamicin 0.1 % ointment 1 applic topical TID Qty: 30 0RF <Braulio Wynn MD - Last Filed: 03/09/24 23:14> Follow Up/Referrals: Jaspal Leigh MD [Primary Care Provider] - <Braulio Wynn MD - Last Filed: 03/09/24 23:14> Stand Alone Forms: MyHealth Info Instructions <Braulio Wynn MD - Last Filed: 03/09/24 23:14>
[2024-03-07 07:38] LABS: PCR FLU A Negative PCR FLU A (Negative); PCR FLU B Negative PCR FLU B (Negative); PCR RSV Negative PCR RSV (Negative); SARS PCR* Negative SARS-CoV-2 (Negative)
[2024-03-07 07:49] LABS: Chloride* 107 mmol/L (96-114)
[2024-03-07 07:50] LABS: Potassium* 4.7 mmol/L (3.6-5.1); Sodium* 137 mmol/L (135-149)
[2024-03-07 07:51] LABS: Basophils Percent Auto 1.8 % (0.0-3.0); Eosinophils Absolute Auto 0.46 K/uL (0.00-0.50); Eosinophils Percent Auto 4.2 % (0.0-7.0); Hematocrit 29.5 % (37.0-53.0); Immature Granulocytes Abs Auto 1.99 K/uL (0.00-0.30); Immature Granulocytes Pct Auto 18.1 %; Lymphocytes Percent Auto 12.3 % (20-44); Mean Corpuscular HGB Conc 31 gm/dL (32-36); Mean Corpuscular Hemoglobin 27 pg (26-34); Mean Corpuscular Volume 89 fL (80-100); Monocytes Percent Auto 18.9 % (0.0-11.0); Neutrophils Percent Auto 44.7 % (42.0-72.0); Platelet Count* 58 K/uL (140-440); White Blood Count* 10.98 K/uL (4.50-11.00)
[2024-03-07 07:53] LABS: Anion Gap 9 mEq/L (7-15); Blood Urea Nitrogen* 75 mg/dL (7-30); Calcium* 8.5 mg/dL (8.4-10.6); Carbon Dioxide* 21 mmol/L (20-32); Creatinine* 3.1 mg/dL (0.5-1.5); Est. Creatinine Clearance* 16.79; Estimated Glomerular Filt Rate 19 ml/min; Glucose* 115 mg/dL (60-115)
--- OUTSIDE RECORDS SUMMARY | 2024-03-07 08:05 | XMS_ITS | Continuity of Care Document ---
Author Name [facility] User [email or web address] Address Unknown Organization Unknown Address Unknown Procedures FILTER APPLIED:Only known Procedures with Onset Date within the last 5 years Procedure Date Procedure Provider Additional Inform ation Status RESP VIRUS 3-5 TARGETS (40087) Completed EMERGENCY DEPT VISIT MOD MDM (71784) Completed HYDRATION IV INFUSION INIT (58098) Completed Encounters FILTER APPLIED:Only known Encounters with Admission Date within the last 5 years Encounter Location Admission Discharge Billing Code [facility]ant [facility] Joseline Larson
[2024-03-07 08:18] LABS: Slide Review Reflex Yes
[2024-03-07 08:42] VITALS: BP 136/73; PULSE 72; RESP 18; TEMP 36.1; O2SAT 96
[2024-03-07 09:08] LABS: Slide Review Acceptable Review (Acceptable)
== END 2024-03-07 09:08 | disposition home or self-care (01) ==
PROVIDERS: Emergency Provider Family Medicine; PCP Family Medicine
DX: S51.012A Laceration without foreign body of left elbow, initial encounter (principal); W19.XXXA Unspecified fall, initial encounter
CPT/HCPCS: 36415; 80048; 85025; 87631; 99283

== ENCOUNTER 2024-05-15 10:30 | Outpatient (RCR) | payer MEDICARE, OTHER, SELFPAY | END 2024-06-06 09:18 | disposition home or self-care (01) | PROVIDERS: PCP Family Medicine; Visit Provider Family Medicine | DX: R29.898 Other symptoms and signs involving the musculoskeletal system (principal); Z51.89 Encounter for other specified aftercare | CPT/HCPCS: 97110; 97112; 97116; 97161; 97530 ==

== ENCOUNTER 2024-05-19 15:52 | Outpatient (CLI) | payer OTHER, MEDICARE, SELFPAY | END 2024-05-19 15:53 | disposition home or self-care (01) | LOC: AMB 05-21 09:18 | PROVIDERS: PCP Family Medicine; Visit Provider Internal Medicine | DX: R41.82 Altered mental status, unspecified (principal); R53.1 Weakness | CPT/HCPCS: A0425; A0429 ==

== ENCOUNTER 2024-05-19 16:22 | Inpatient (IN) | payer MEDICARE, OTHER, SELFPAY ==
--- OUTSIDE RECORDS SUMMARY | 2024-05-19 16:24 | XMS_ITS | Patient Health Record ---
Author Organization [facility] Billing Info Address [address] [place] [address] Care Team Providers Care Equipment Sterilizer Name Role Phone YOVANI VALLE Unavailable [phone] Allergies Allergen (clinical drug ingredient) Drug/Non Drug Allergy documented on EMR Reaction Allergy Type Onset Date Status codeine Codeine Unknown Drug Allergy Active Reason For Referral No Information Medications Medication SIG (Take, Route, Frequency, Duration) Notes Start Date End Date Status Alprazolam 0.5 MG Orally Daily Active Metformin HCl Active Metoprolol Succinate ER 50 MG Orally Daily Active Lisinopril 10 MG Orally Daily Active Omeprazole 20 MG Orally Daily Active Jakafi 20 MG Orally Daily Acti ve Amoxicillin 875 MG 1 tablet Orally ever y 12 hrs for 10 day(s) 05/04/2016 Active Social History Tobacco Use: Social History Observation Description Date Details (start date - stop date) Former Smoker NA - NA Tobacco Status: Question Answer Notes Patient is a former smoker Plan Of Treatment No Information Insurance Providers Payer Name Payer Address Payer Phone Subscriber Number Group Number Insured Name Patient Relationship to Insured Coverage Start Date Coverage End Date [place] PART B [address] [facility] AL[facility]I SCHMITZ [id number] Yrn Steele Self - patient is the insured 1 1 Medical (General) History Medical History History ICD Code Hypertension Diabetes mellitus Myelofibrosis
--- OUTSIDE RECORDS SUMMARY | 2024-05-19 16:24 | XMS_ITS | Clinical Summary ---
Author Organization [facility] Address [address] [place] [id number] Care Team Providers Care Aerial Gunner Name Role Phone Jaspal Leigh MD Primary Care Provider [phone] Allergies Active Allergy Reactions Criticality Noted Date Comments Amoxicillin Nausea Only 10/11/2016 Hydrocodone-Acetaminophen Confusion 04/18/2010 Hydroxyzine Confusion 07/05/2012 Medications VITAMINS A,C,S-USPN-EXCCR R (Ocuvite PreserVision) 7,160 unit- 113 mg-100 [...] FOR ANXIETY 30 Tablet 2 4 Active blood sugar diagnostic (Blood Glucose Test) stripIndications :Type 2 diabetes mellitus without complication, without long-term current use of insulin (HC) Dispense test strips covered by the patient insurance. Test 1 times per day. 100 Each 3 5 Active cephalexin 250 mg capsuleIndicatio ns:Cellulitis of skin Take 1 Capsule (250 mg) by mouth two times daily. 14 Capsule 5 Active cephalexin 250 mg capsuleIndicatio ns:Cellulitis of skin Take 1 Capsule (250 mg) by mouth two times daily. 14 Capsule 5 04/23/19 25 Discontin ued(Reord er (E-cancel not sent)) Active Problems Problem Noted Date Diagnosed Date Type 2 diabetes mellitus wit h chronic kidney disease, without long-term current use of insulin, unspecified CKD stage 04/11/2024 Multilevel DDD (degenerative disc disease), lumbar w [...] Romero and plans to follow him to [place]. He sees him every 3 months.Jaspal Leigh MD signed electronically .................... 01/10/2023 Multiple thyroid nodules 11/30/2019 Overview (11/30/2019): Yearly follow up Ultrasound will be due in [id number]. 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 05/09/2010 10/13/2010 Overview (06/29/2010): INR Goal Range: 2.0 - 2.5 DVT (deep venous thrombosis) 05/09/2010 10/13/2010 Ulcer of esophagus without bleeding 10/19/2006 Acute renal failure 04/06/19 23 Encounters Date Type Department Care Team Description 05/19/2024 Nurse Triage [facility] [address] [place] [address] Jaspal Leigh MD Lab; Urinary Problem (Needs triage/) 05/06/2024 Refill [facility] [address] [facility] [place] [address] Ceasar Romero MD Refill Request (Furosemide) 04/22/2024 11:15 AM DENTAL OFFICE ASSISTANT Office Visit [facility] [address] [place] [address] Jaspal Leigh MD Derm Problem (Recheck cyst on back - looking better) 04/22/2024 Travel 04/16/2024 Telephone [facility] [address] [place] [address] Jaspal Leigh MD Letter 04/11/2024 10:30 AM DENTAL OFFICE ASSISTANT Office Visit [facility] [address] [facility] [place] [address] Jaspal Leigh MD Derm Problem (Concerns with a cyst on his back) 04/11/2024 Travel 04/09/2024 Travel 03/27/2024 2:00 PM DENTAL OFFICE ASSISTANT Orders Only [facility] [address] [facility] [place] [address] [place], [place] [facility] 03/27/2024 Travel 03/03/2024 Telephone [facility] [address] [facility] [place] [address] Jaspal Leigh MD Physical Therapy ([facility]) 02/29/2024 Refill [facility] [address] [place] [address] Jaspal Leigh MD Refill Request (Blood Glucose test strips) from Last 3 Months Immunizations Immunization Administration Dates Next Due AMB INFLUENZA IIV3 (AGE 65+ YRS) PF (Flu Clinic Only) 12/26/2018,12/05/2017 AMB Influenza, IIV3 (Age >=3 years)(Flu Clinic Only) 12/05/2012,11/27/2011,12/09/2010,2007 Amb Influenza, Inact (High-d ose) (Flu Clinic Only) 12/03/2015,11/20/2014,11/28/2013 COVID-19 VACCINE SPIKEVAX (M ODERNA 50MCG/0.5ML) 12YO+ PFS 11/09/2023,07/18/2023,01/10/2023 COVID-19 vaccine ([employer]-Bio NTech 30mcg/0.3mL) 12YO+ BIVALENT PF, MDV 03/08/2022 COVID-19 vaccine (Pfizer-Bio NTech 30mcg/0.3mL) PF, MDV 12/13/2020,04/18/2020,03/28/2020 Influenza A [...] own primary at 60. Heart Disease Father CA at 53 and 6 3, at 64 [...] AM CDT Legal Sex Male 6:19 AM DENTAL OFFICE ASSISTANT Gender Identity Not on file Sexual Orientation Not on file Occupation Industry Job Start Date Job End Date Retired Not on file Not on file Not on file Obstetrics History Last Filed Vital Signs Vital Sign Reading Time Taken Comments Blood Pressure 122/48 04/22/2024 11:56 AM DENTAL OFFICE ASSISTANT Pulse 68 04/22/2024 11:41 AM DENTAL OFFICE ASSISTANT Temperature 36.4 C (97.6 F) 04/22/2024 11:41 AM DENTAL OFFICE ASSISTANT Respiratory Rate 16 08/29/2021 2:00 PM CDT Oxygen Saturation 99% 04/22/2024 11:41 AM DENTAL OFFICE ASSISTANT Inhaled Oxygen Concentration - - Weight 81.4 kg (179 lb 8 oz) 04/22/2024 11:41 AM DENTAL OFFICE ASSISTANT Height 174.2 cm (5' 8.6) 11/09/2023 2:54 PM CDT Body Mass Index 26.82 11/09/2023 2:54 PM CDT Plan of Treatment Upcoming Encounters Date Type Department Care Team (Late st Contact Info) Description 07/16/2024 11:00 AM CDT Orders Only [facility] [address] [place] [address] [place], [place] [facility] Maintenance Due Date Last Done Comments RSV vaccine for adults or (1 - 1-dose 75+ series) 05/12/2011 COVID-19 vaccine series (8 - Pfizer risk season) 2024 11/09/2023, 07/18/2023, 01/10/2023, Additional history [...] age 50+ Completed 01/23/2018, 11/02/2017, 02/17/2013 Influenza Vaccine Completed 11/09/2023, , 12/28/2021, Additional history exists Insurance [id number] [facility] [place] [id number] MEDICA PRIME SOLUTIONS MR PB ONLY MEDICARE PART B HB ONLY MEDICA PRIME SOLUTION HB MEDICARE PART A HB ONLY Advance Directives * Full Code (Latest Code Status on File) Date Activated Date Inactivated Comments 08/29/2021 11:00 AM 08/30/2021 2:15 AM Question Answer Comments Code Status Discussion: Reviewed Preferences Care Teams Aerial Gunner Relationship Specialty Start Date End Date Jaspal Leigh MD [address] [facility] [place] [address] [facility] - General 07/27/05
--- OUTSIDE RECORDS SUMMARY | 2024-05-19 16:25 | XMS_ITS | Data Portability ---
Author Organization [facility] Derm [facility], Main Office Address [address] [place] [address] Assessment Encounter Date Assessment Date Assessment LastModified by Organization Details LastModified Time 10/09/2022 10/09/2022 1. Biopsy-proven basal carcinoma right jawline we discussed pain discomfort downtime flaps grafts closure length of scar chance of bleeding. Area cleansed with alcohol Nestabs 0.5% lidocaine with epinephrine Mohs case number [id number] 5. This was biopsied today see the [facility] for the pathology and interpretation Stage I: Curette debulk 2 mm margins taken the subcutis revealing no residual basal carcinoma Total stages 1 total sections 1 final defect 3 cm. An advancement flap was performed cutting along the jawline advancing this forward with the redundancy taken towards the right lower cutaneous lip. The entire length of this was 5 x 2 and half centimeters equaling 12 cm . Hemostasis obtained with electrocautery undermined in the adipose layer. Closed with 3-0 Vicryl and 4-0 Prolene. Suture removal in 9 days in [place]. Typewritten verbal wound care instructions given 2. Biopsy-proven basal carcinoma nonhealing left anterior ankle. We discussed the much higher rate of infection possible need for granulation. New paragraph area cleansed with alcohol Nestabs 0.5% lidocaine with epinephrine Mohs case number [id number] Stage I: Gentle curette debulking performed 1 mm margins taken revealing residual basal carcinoma at the 1:00 pole. Stage II: No debulking performed 1/2 to 2 mm margins taken from 10:00 to 3:00 through 1:00 revealing 1 basal cell island that steps away prior to the final section. Therefore clear Total stages 2 total sections 2 final defect approximately 2 x 2.1 cm. Pressure dressing applied typewritten verbal wound care instructions given allow to granulate 3. Neoplasm uncertain etiology right flexor wrist. This most likely is a seborrheic keratosis or squamous cell carcinoma. We anesthetized gently shave excised electrodesiccation and curettage to final lesion size of 1.9 cm. If this is a squamous cell carcinoma this is billed as destruction malignant lesion on the extremity. If not billed as a biopsy. Or concerning malignancy excluding a melanoma billed as destruction is destruction of malignant lesion. [id number] Not available 10/10/2022 00:38:59 Plan of Treatment Reminders Order Date Submit Date Provider Last Modified By Organization Details Last Modified Time Details Appointments None recorded. Lab pathology, skin 2022 023 [facility], [address] [place] [address], [address], [place], [address], 18:08:08 Referral None recorded. Procedures None recorded. Surgeries None recorded. Imaging None recorded. Medication Orders doxycycline hyclate 100 mg capsule 2022 023 [facility], [address] [place] [address], [phone], 19:09:54 Patient TargetsNo targets recorded. Patient Instructions Encounter Date Encounter Id Patient Instructions Last Modified By Organization Details Last Modified Time 10/09/2022 [id number] cellulitis: care instructions [email or web address] Not available 10/09/2022 19:09:51 Reason for Referral None Reported. Results Created Date Observation Date Name Description Value Unit Range Abnormal Flag Note LastModifiedBy Organization Detail LastModifiedTime Result Notes None recorded. Medical Equipment None Reported. Allergies No known drug allergies Medications Name Sig Start Date Stop Date Status Note LastModified by Organization Details LastModified Time furosemide 40 mg tablet active Not Available Not Available No t Available venlafaxine ER 75 mg capsule,extend ed release 24 hr active Not Available Not Available Not Available doxycycline hyclate 100 mg capsule Take 1 capsule twice a day by oral route for 14 days. active Not Available Not Available No t Available clindamycin HCl 300 mg capsule active Not Available Not Available Not Available alprazolam 1 mg tablet active Not Available Not Available No t Available cephalexin 250 mg capsule active Not Available Not Available N ot Available fluorouracil 5 % topical cream active Not Available Not Available Not Available metoprolol succinate ER 100 mg tablet,extende d release 24 hr active Not Available Not Available Not Available allopurinol 100 mg tablet active Not Available Not Availabl e Not Available doxazosin 8 mg tablet active Not Available Not Available Not Available cephalexin 500 mg capsule active Not Available Not Available N ot Available omeprazole 20 mg capsule,delaye d release active Not Available Not Available No t Available gentamicin 0.1 % topical ointment active Not Available Not Available Not Available oxycodone 5 mg tablet active Not Available Not Available Not Available Jakafi 20 mg tablet active Not Available Not Available Not Available doxycycline hyclate 50 mg tablet active Not Available Not Available Not Available Vitals None Recorded Social History None recorded. Functional Status None recorded. Mental Status None recorded. Family History Nothing Reported. Medical History No medical history recorded. Past Encounters Encounter ID Performer Location Encounter Start Date Encounter Closed Date Diagnosis/Indication Diagnosis SNOMED-CT Code Diagnosis ICD10 Code Diagnosis Note [id number] Cristy Estrada MD Main Office [address] [place] [address] 10/09/2022 12:44:46 10/27/2022 22:57:27 Neoplasm of uncertain behavior of skin 34457379 D48.5 Cellulitis 280403546 L03 .90 Basal cell carcinoma of face 215026046 C44.319 Basal cell carcinoma of lower extremity 050118201 C44.712 Health Concerns Section Related Observation LastModified by Organization Detai ls LastModified Time None Recorded Concern Status LastModified by Organization Details LastModified Time None Recorded Advance Directives Directive None Recorded Payers Encounter Date Sequence Insurance Name Policy Number Policy Fofana Covered Member ID Fofana Member ID Guarantor Name 10/09/2022 1 MEDICA (MEDICARE REPLACEMENT/ ADVANTAGE - PPO) [id number] Yrn Steele [id number] Yrn Steele Notes Date Note Type Note Provider Name and Address Organization Details Recorded Time 10/09/2022 text/html 87-year-old male presents today for a yet to be biopsy-proven trabeculated large basal carcinoma on the right jawline. Today pathology was performed which confirmed this is a basal cell prior to Mohs surgery. This is BX 23 0 03 Gross reveals a specimen friable 1 cm brunner. Bisected and inked. Scalp reveals basaloid trabeculated islands throughout the entire lesion Diagnosis: Basal carcinoma positive margins right chin/right lower cutaneous lip The other lesion is a biopsy-proven friable lesion left anterior ankle The next concern is a new lesion nonhealing for more than 2 years on the right flexor wrist we are unaware of this. Developed at site of trauma very sore and tender. Duration 2 years. He is accompanied by his son and his today throughout the entire visit. Cristy Estrada MD [address] [place] [address], [phone], [facility] 10/27/2022 22:57:10
[2024-05-19 16:31] VITALS: BP 166/93; PULSE 107; RESP 20; TEMP 37.1; O2SAT 93; BMI 26.0
--- NOTE | 2024-05-19 16:41 | CRLHL7_ITS ---
For Patients: As a result of the Century Cures Act, medical imaging exams and procedure reports are released immediately into your electronic medical record. You may view this report before your referring provider. If you have questions, please contact your health care provider. INDICATION: Weakness. TECHNIQUE: Chest 1 view. COMPARISON: None. FINDINGS: Unremarkable cardiomediastinal contours. Mildly low lung volumes. No evident lung consolidation. No sign of pleural effusion. No pneumothorax. No acute osseous or soft tissue findings. IMPRESSION: No acute findings. Dictated by Truong Simmons MD @ 05/19/2024 5:25:39 PM (Electronically Signed)
--- NOTE | 2024-05-19 16:43 | CRLHL7_ITS ---
For Patients: As a result of the Century Cures Act, medical imaging exams and procedure reports are released immediately into your electronic medical record. You may view this report before your referring provider. If you have questions, please contact your health care provider. Indication: Fall Technique: Three views of the left foot Comparison: None Findings/Impression: No acute fracture or malalignment. No ankle joint effusion. 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 Mild osteopenia. No suspicious osseous lesions. Moderate soft tissue swelling along the dorsal aspect of the forefoot. Severe vascular calcifications. Dictated by Eyad Winston MD @ 05/19/2024 5:28:41 PM (Electronically Signed)
--- NOTE | 2024-05-19 16:43 | CRLHL7_ITS ---
For Patients: As a result of the Cures Act, medical imaging exams and procedure reports are released immediately into your electronic medical record. You may view this report before your referring provider. If you have questions, please contact your health care provider. Indication: Fall Technique: Three views of the right knee Comparison: None Findings/Impression: No acute fracture or malalignment. No knee joint effusion. Moderate medial compartment joint space narrowing; otherwise, no additional significant osteoarthritic degenerative changes. No suspicious osseous lesions. Superior patellar enthesophyte. The soft tissues are without acute abnormality. Severe vascular calcifications. Dictated by Eyad Winston MD @ 05/19/2024 5:26:34 PM (Electronically Signed)
--- NOTE | 2024-05-19 16:46 | ED_ITS ---
HPI - General Adult General Date Seen: 05/19/24 Chief complaint: Weakness Stated complaint: Weakness Time Seen by Provider: 05/19/24 16:32 History of Present Illness HPI narrative: Patient is an 89-year-old male who lives at home with his and his daughter is currently staying with them as well as the had surgery recently. She reports that this morning he tried to get out of bed independently and had a fall, he scraped his right knee and his left foot was injured as well. They got him back into bed, she estimates he was lying on the ground for maybe 30 minutes or so. She says he has tried to get up on his own a couple of times since then has had difficulty, he supposed to ask for help but has not been doing so today. Has not had any other falls. Seems more weak today than usual. No focal neurologic changes. 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 She says he gets a expensive shot at his cancer doctors clinic periodically but his hemoglobin is never greater than 6. No bleeding concerns, no fevers, no abdominal pain, chest pain, shortness of breath, vomiting, diarrhea. Patient denies much in the way of complaints, does have some pain in his left foot. His daughter reports that he has not eaten anything today as he has been sleeping, but he does feel hungry now would like to have something to eat. Related Data Home Medications ?Medication ?Instructions ?Recorded ?Confirmed allopurinol 100 mg tablet 100 mg PO DAILY 12/05/21 03/07/24 alprazolam 1 mg tablet 0.5 mg PO HS 12/05/21 03/07/24 cholecalciferol (vitamin D3) 325 325 mcg PO QWEEK 12/05/21 03/07/24 mcg (13,000 unit) capsule doxazosin 8 mg tablet 8 mg PO HS 12/05/21 03/07/24 furosemide 40 mg tablet 20 mg PO DAILY 12/05/21 03/07/24 metoprolol succinate 100 mg 100 mg PO DAILY 12/05/21 03/07/24 tablet,extended release 24 hr omeprazole 20 mg capsule,delayed 20 mg PO DAILY 12/05/21 03/07/24 release ruxolitinib 20 mg tablet (Jakafi) 20 mg PO DAILY 12/05/21 03/07/24 multivitamin with iron (Daily 1 tab PO QDAY 08/21/23 03/07/24 Vitamin with Iron tablet) vit C 250 mg-E 90 mg-zinc 40 1 tab PO QAM AND QPM 08/21/23 03/07/24 mg-copper 1 hs-otxspl-njcokh chew tablet (PreserVision AREDS-2) Previous Rx's ?Medication ?Instructions ?Recorded gentamicin 0.1 % topical ointment 1 applic topical TID #30 grams 04/04/22 benzonatate 100 mg capsule 100 mg PO TID PRN cough #20 caps 03/18/23 Allergies Allergy/AdvReac Type Severity Reaction Status Date / Time acetaminophen (From Vicodin) Allergy Verified 08/21/23 17:44 amoxicillin Allergy vomited Verified 05/31/23 10:53 codeine AdvReac Intermediate Nausea Verified 05/31/23 10:53 hydrocodone AdvReac Intermediate Nausea Verified 05/31/23 10:53 vicoden Allergy Mild Nausea Uncoded 05/31/23 10:53 Review of Systems Status of ROS: Reports: 10 or more systems reviewed and unremarkable except as noted in History and below [facility] Medical History Infection ?B99.9 - Unspecified infectious disease (ICD-10) Social History Smoking Status: Never smoker Do you use any of these nicotine containing products: None Second hand tobacco smoke exposure: No How often do you have a drink containing alcohol: never How often do you have six or more drinks on one occasion: Never AUDIT-C Alcohol total score: 0 Non-prescribed substance use: denies use service: Yes Exam Narrative: Exam Narrative: Vital signs reviewed In general, alert, nontoxic elderly male. He is conversant and pleasant. Head: Normocephalic, atraumatic. Eyes: Sclera clear. Pupils equal and reactive. ENT: Mucous membranes moist. Neck: Supple without adenopathy. Heart: Regular rate and rhythm, systolic murmur. Lungs: Clear. No increased work of breathing, crackles or wheezes. Abdomen: Soft, nontender to palpation. Extremities: Right lower extremity is notable for a skin tear over the knee. No apparent effusion or bony tenderness. On the left, the foot is somewhat swollen and there is a bruise over the dorsum of the foot. He has tenderness here. Neurologic: Alert, conversant. Speech fluent, face symmetric. Moves all extremities equally. Skin: Warm, dry well perfused. Multiple lesions of indeterminate etiology, some of them appear to be may be skin picking, he has some raised lesions which may be skin cancers as he does have a history of that. Affect: Normal. Const: Vital Signs, click to edit/add: Vital Signs - 24 hr 05/19/24 16:31 05/19/24 17:54 05/19/24 19:01 Temperature 98.8 F 99.7 F H Pulse Rate [Pulse Oximeter] 107 H 105 H Respiratory Rate 20 20 Blood Pressure [Ri ght Upper Arm] 166/93 H 132/76 Pulse Oximetry 93 98 Oxygen Delivery Me thod Room Air Room Air Course Course ED Course: Will place an IV, check routine labs, EKG, he is somewhat tachycardic here but blood pressure is elevated. May be a component of dehydration, rule out worsening anemia, infection, or metabolic derangement. Will get x-rays of the r ight knee, left foot and chest. Urinalysis pending as well. We will also get him something to eat. He ate quite a bit of food here in the ER, is feeling better in terms of shakiness. His labs are notable for hemoglobin of 8.2 which seems like it is pretty good for him. He does have chronic renal insufficiency, last creatinine was 3.1 it is 3.3 today. Urine is negative. X-rays of the left foot, right knee, and chest by my review are negative for acute findings. Radiology reads reviewed and also found to be negative. Viral swab is negative. His initial point of care troponin is 0.07, I think this is likely related to his chronic in renal disease rather than anything acute but will recheck that. He did have an EKG, significant baseline waver but this shows a mild sinus tachycardia with ventricular rate of 105, no acute ST segment changes. Right bundle branch block. His daughter does not feel that they will be able to manage him at home with his foot, weakness, and requests admission to the hospital. Discussed that he is unlikely to be significantly better tomorrow and may need placement at the nursing facility, alternatively having home health may be benefit for them. He does already do some physical therapy once a week. Discussed with Dr. Dean who accepts the patient in admission to the floor. Other labs returned showing procalcitonin of 1.1, of unclear significance currently. I think this can reasonably be trended in the absence of any obvious infection and with no other markers for sepsis. TSH return 2.106, free T4 is however normal at 1.1. Repeat troponin is stable. Vital Signs Vital signs: Initial Vital Signs Temperature 98.8 F 05/19/24 16:31 Temperature Source Temporal Artery Scan 05/19/24 16:31 Pulse Rate 107 H 05/19/24 16:31 Respiratory Rate 20 05/19/24 16:31 Blood Pressure 166/93 H 05/19/24 16:31 Blood Pressure Mean 117 H 05/19/24 16:31 Pulse Oximetry 93 05/19/24 16:31 Oxygen Delivery Method Room Air 05/19/24 16:31 Vital Signs Temperature 98.8 F 05/19/24 16:31 Pulse Rate 107 H 05/19/24 16:31 Respiratory Rate 20 05/19/24 16:31 Blood Pressure 166/93 H 05/19/24 16:31 Pulse Oximetry 93 05/19/24 16:31 Oxygen Delivery Method Room Air 05/19/24 16:31 Temperature 98.2 F 05/19/24 20:34 Pulse Rate 81 05/19/24 20:34 Respiratory Rate 18 05/19/24 20:34 Blood Pressure 133/62 05/19/24 20:34 Pulse Oximetry 97 05/19/24 20:34 Oxygen Delivery Method Room Air 05/19/24 20:34 Medications Administered Medications: Discontinued Medications Generic Name Dose Route Start Last Admin Trade Name Freq PRN Reason Stop Dose Admin Acetaminophen 650 mg 05/19/24 17:56 05/19/24 18:02 Acetaminophen 325 Mg Tablet PO 05/19/24 17:57 650 mg ONCE ONE Administration Sodium Chloride 500 mls @ 500 mls/hr 05/19/24 16:41 05/19/24 18:35 0.9 % Sodium Chloride 500 Ml IV 05/19/24 17:40 Infused .Q1H ONE Infusion Medical Decision Making Lab Data Lab results reviewed: Yes I reviewed the patient's lab results Labs: Lab Results 05/19/24 05/19/24 05/19/24 Range/Units 16:34 16:42 17:20 WBC 7.06 (4.50-11.00) K/uL RBC 3.10 L (4.30-5.90) m/uL Hgb 8.3 L (13.5-17.5) gm/dL Hct 26.8 L (37.0-53.0) % MCV 87 (80-100) fL MCH 27 (26-34) pg MCHC 31 L (32-36) gm/dL RDW Coeff of Fredy 20.0 H (11.5-15.5) % Plt Count 50 L (140-440) K/uL Neut % (Auto) 47.8 (42.0-72.0) % Lymph % (Auto) 12.7 L (20-44) % Lee % (Auto) 19.4 H (0.0-11.0) % Eos % (Auto) 2.5 (0.0-7.0) % Baso % (Auto) 2.3 (0.0-3.0) % Neut # (Auto) 3.37 (1.7-7.0) K/uL Lymph # (Auto) 0.90 (0.90-2.90) K/uL Lee # (Auto) 1.40 H (0.00-0.90) K/UL Eos # (Auto) 0.18 (0.00-0.50) K/uL Baso # (Auto) 0.16 (0.00-0.30) K/uL Abs Immat Gran (auto) 1.08 H (0.00-0.30) K/uL Imm/Tot Granulo (auto) 15.3 % Sodium 137 (135-149) mmol/L Potassium 4.9 (3.6-5.1) mmol/L Chloride 109 (96-114) mmol/L Carbon Dioxide 19 L (20-32) mmol/L Anion Gap 9 (7-15) mEq/L BUN 73 H (7-30) mg/dL Creatinine 3.3 H (0.5-1.5) mg/dL Estimated Creat Clear 15.98 Estimated GFR 17 ml/min Glucose 123 H (60-115) mg/dL Lactate 1.4 (0.5-1.9) mmol/L Calcium 9.0 (8.4-10.6) mg/dL Total Bilirubin 1.1 (0.1-1.5) mg/dL AST 61 H (12-35) U/L ALT 36 (4-50) U/L Alkaline Phosphatase 167 H (40-150) U/L C-Reactive Protein 4.6 H (0.5-1.0) mg/dL Total Protein 6.5 (6.0-8.3) g/dL Albumin 3.9 (3.3-5.0) g/dL Procalcitonin 1.10 H (<0.50) ng/mL TSH 0.106 L (0.270-4.200) uIU/mL Free T4 1.10 (0.70-1.85) ng/dL Urine Color Yellow (Yellow) Urine Appearance Clear (Clear) Urine pH 5.0 (5.0-8.5) Ur Specific [place] 1.010 (1.000-1.030) Urine Protein 2+ A (Negative) Urine Glucose (UA) Negative (Negative) Urine Ketones Negative (Negative) Urine Blood 2+ A (Negative) Urine Nitrite Negative (Negative) Urine Bilirubin Negative (Negative) Urine Urobilinogen 0.2 (0.2-1.0) Ur Leukocyte Esterase Negative (Negative) Urine RBC 0-2 (0-2) Urine WBC 0-2 (0-5) Ur Squamous Epith Cells None (None-Few) Amorphous Sediment Moderate A (None) Urine Bacteria None (None) Hyaline Casts Few (None-Few) Coarse Granular Casts Few A (None) SARS-CoV-2 (PCR) Negative SARS-CoV-2 (Negative) Influenza Type A (PCR) Negative PCR FLU A (Negative) Influenza Type B (PCR) Negative PCR FLU B (Negative) RSV (PCR) Negative PCR RSV (Negative) POC Troponin I 0.07 H (0.01-0.04) ng/ml 05/19/24 Range/Units 18:38 WBC (4.50-11.00) K/uL RBC (4.30-5.90) m/uL Hgb (13.5-17.5) gm/dL Hct (37.0-53.0) % MCV (80-100) fL MCH (26-34) pg MCHC (32-36) gm/dL RDW Coeff of Rfedy (11.5-15.5) % Plt Count (140-440) K/uL Neut % (Auto) (42.0-72.0) % Lymph % (Auto) (20-44) % Lee % (Auto) (0.0-11.0) % Eos % (Auto) (0.0-7.0) % Baso % (Auto) (0.0-3.0) % Neut # (Auto) (1.7-7.0) K/uL Lymph # (Auto) (0.90-2.90) K/uL Lee # (Auto) (0.00-0.90) K/UL Eos # (Auto) (0.00-0.50) K/uL Baso # (Auto) (0.00-0.30) K/uL Abs Immat Gran (auto) (0.00-0.30) K/uL Imm/Tot Granulo (auto) % Sodium (135-149) mmol/L Potassium (3.6-5.1) mmol/L Chloride (96-114) mmol/L Carbon Dioxide (20-32) mmol/L Anion Gap (7-15) mEq/L BUN (7-30) mg/dL Creatinine (0.5-1.5) mg/dL Estimated Creat Clear Estimated GFR ml/min Glucose (60-115) mg/dL Lactate (0.5-1.9) mmol/L Calcium (8.4-10.6) mg/dL Total Bilirubin (0.1-1.5) mg/dL AST (12-35) U/L ALT (4-50) U/L Alkaline Phosphatase (40-150) U/L C-Reactive Protein (0.5-1.0) mg/dL Total Protein (6.0-8.3) g/dL Albumin (3.3-5.0) g/dL Procalcitonin (<0.50) ng/mL TSH (0.270-4.200) uIU/mL Free T4 (0.70-1.85) ng/dL Urine Color (Yellow) Urine Appearance (Clear) Urine pH (5.0-8.5) Ur Specific [place] (1.000-1.030) Urine Protein (Negative) Urine Glucose (UA) (Negative) Urine Ketones (Negative) Urine Blood (Negative) Urine Nitrite (Negative) Urine Bilirubin (Negative) Urine Urobilinogen (0.2-1.0) Ur Leukocyte Esterase (Negative) Urine RBC (0-2) Urine WBC (0-5) Ur Squamous Epith Cells (None-Few) Amorphous Sediment (None) Urine Bacteria (None) Hyaline Casts (None-Few) Coarse Granular Casts (None) SARS-CoV-2 (PCR) (Negative) Influenza Type A (PCR) (Negative) Influenza Type B (PCR) (Negative) RSV (PCR) (Negative) POC Troponin I 0.06 H (0.01-0.04) ng/ml Imaging Data Right knee x-ray: Attestation: I have reviewed the pertinent imaging results. Radiologist's impression: [place] [address] Diagnostic Imaging Report Patient: Yrn Steele MR#: [id number] : 1935 Acct:[id number] Loc: ED Service Date: 05/19/[address]: Ordering Physician: Shelbie So M.D. Date of Service: 05/19/24 Procedure(s): XR knee RT 3V Accession Number(s): [id number] cc: Shelbie So M.D.; Jaspal Leigh M.D.~ For Patients: As a result of the Cures Act, medical imaging exams and procedure reports are released immediately into your electronic medical record. You may view this report before your referring provider. If you have questions, please contact your health care provider. Indication: Fall Technique: Three views of the right knee Comparison: None Findings/Impression: No acute fracture or malalignment. No knee joint effusion. Moderate medial compartment joint space narrowing; otherwise, no additional significant osteoarthritic degenerative changes. No suspicious osseous lesions. Superior patellar enthesophyte. The soft tissues are without acute abnormality. Severe vascular calcifications. Dictated by Eyad Winston MD @ 05/19/2024 5:26:34 PM left foot x-ray: Attestation: I have reviewed the pertinent imaging results. Radiologist's impression: Patient: YRN STEELE Facility: [facility] RIS Site . Site : 1935 Study: XRay-Extremity Left FOOT 3V-05/19/2024 5:07:53 PM Ordering Physician: Judah Morfin Final Report: Indication: Fall Technique: Three views of the left foot Comparison: None Findings/Impression: No acute fracture or malalignment. No ankle joint effusion. 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 Mild osteopenia. No suspicious osseous lesions. Moderate soft tissue swelling along the dorsal aspect of the forefoot. Severe vascular calcifications. Chest x-ray: Attestation: I have reviewed the pertinent imaging results. Radiologist's impression: [place] [address] Diagnostic Imaging Report Patient: Yrn Steele MR#: [id number] : 1935 Acct:[id number] Loc: ED Service Date: 05/19/[address]: Ordering Physician: Shelbie So M.D. Date of Service: 05/19/24 Procedure(s): XR chest 1V Accession Number(s): [id number] cc: Shelbie So M.D.; Jaspal Leigh M.D.~ For Patients: As a result of the Century Cures Act, medical imaging exams and procedure reports are released immediately into your electronic medical record. You may view this report before your referring provider. If you have questions, please contact your health care provider. INDICATION: Weakness. TECHNIQUE: Chest 1 view. COMPARISON: None. FINDINGS: Unremarkable cardiomediastinal contours. Mildly low lung volumes. No evident lung consolidation. No sign of pleural effusion. No pneumothorax. No acute osseous or soft tissue findings. IMPRESSION: No acute findings. Dictated by Truong Simmons MD @ 05/19/2024 5:25:39 PM Discharge Plan Discharge Patient Disposition: Admitted As Inpatient
[2024-05-19 16:54] LABS: Appearance Urine Clear (Clear); Bilirubin Urine Negative (Negative); Blood Urine 2+ (Negative); Color Urine Yellow (Yellow); Glucose Urine Negative (Negative); Ketones Urine Negative (Negative); Leukocyte Esterase Urine Negative (Negative); Nitrite Urine Negative (Negative); Protein Urine 2+ (Negative); Urobilinogen Urine 0.2 (0.2-1.0)
[2024-05-19 17:12] LABS: Amorphous Sediment Urine Moderate; Coarse Granular Casts Urine Few; Hyaline Casts Urine Few (None-Few); RBC Urine 0-2 (0-2); WBC Urine 0-2 (0-5)
[2024-05-19] MEDS: 0.9 % SODIUM CHLORIDE 500 ML 500 ML IV (17:35)
[2024-05-19 17:38] LABS: Troponin, Point-of-Care* 0.07 ng/ml (0.01-0.04)
[2024-05-19 17:41] LABS: Lactate Sepsis w/Reflex* 1.4 mmol/L (0.5-1.9)
[2024-05-19 17:54] VITALS: BP 132/76; PULSE 105; RESP 20; O2SAT 98
[2024-05-19] MEDS: ACETAMINOPHEN 325 MG TABLET 650 MG PO (18:02)
[2024-05-19 18:18] LABS: Basophils Absolute Auto 0.16 K/uL (0.00-0.30); Basophils Percent Auto 2.3 % (0.0-3.0); Eosinophils Absolute Auto 0.18 K/uL (0.00-0.50); Eosinophils Percent Auto 2.5 % (0.0-7.0); Hematocrit 26.8 % (37.0-53.0); Hemoglobin* 8.3 gm/dL (13.5-17.5); Immature Granulocytes Abs Auto 1.08 K/uL (0.00-0.30); Immature Granulocytes Pct Auto 15.3 %; Lymphocytes Percent Auto 12.7 % (20-44); Mean Corpuscular HGB Conc 31 gm/dL (32-36); Mean Corpuscular Hemoglobin 27 pg (26-34); Mean Corpuscular Volume 87 fL (80-100); Monocytes Percent Auto 19.4 % (0.0-11.0); Neutrophils Absolute Auto 3.37 K/uL (1.7-7.0); Neutrophils Percent Auto 47.8 % (42.0-72.0); Platelet Count* 50 K/uL (140-440); White Blood Count* 7.06 K/uL (4.50-11.00)
[2024-05-19 18:19] LABS: PCR FLU A Negative PCR FLU A (Negative); PCR FLU B Negative PCR FLU B (Negative); PCR RSV Negative PCR RSV (Negative); SARS PCR* Negative SARS-CoV-2 (Negative)
[2024-05-19 18:20] LABS: Slide Review Reflex No
--- OUTSIDE RECORDS SUMMARY | 2024-05-19 18:24 | XMS_ITS | Clinical Summary ---
Author Organization [facility] Address [address] [place] [id number] Care Team Providers Care House Registry Rn Name Role Phone Jaspal Leigh MD Primary Care Provider [phone] Allergies Active Allergy Reactions Criticality Noted Date Comments Amoxicillin Nausea Only 10/11/2016 Hydrocodone-Acetaminophen Confusion 04/18/2010 Hydroxyzine Confusion 07/05/2012 Medications VITAMINS A,C,T-BBRZ-VUMMQ R (Ocuvite PreserVision) 7,160 unit- 113 mg-100 [...] Romero and plans to follow him to [place]. He sees him every 3 months.Jaspal Leigh MD signed electronically .................... 01/10/2023 Multiple thyroid nodules 11/30/2019 Overview (11/30/2019): Yearly follow up Ultrasound will be due in [id number]. Gastroesophageal reflux disease 06/23/2015 Overview (07/09/2015): EGD [...] Problem Noted Date Diagnosed Date Resolved Date automatic toe laster (current) use of anticoagulants 05/09/2010 10/13/2010 Overview (06/29/2010): INR Goal Range: 2.0 - 2.5 DVT (deep venous thrombosis) 05/09/2010 10/13/2010 Ulcer of esophagus without bleeding 10/19/2006 Acute renal failure 04/06/19 23 Encounters Date Type Department Care Team Description 05/19/2024 Nurse Triage [facility] [address] [place] [address] Jaspal Leigh MD Lab; Urinary Problem (Needs triage/) 05/06/2024 Refill [facility] [address] [facility] [place] [address] Ceasar Romero MD Refill Request (Furosemide) 04/22/2024 11:15 AM MANAGER UI Office Visit [facility] [address] [place] [address] Jaspal Leigh MD Derm Problem (Recheck cyst on back - looking better) 04/22/2024 Travel 04/16/2024 Telephone [facility] [address] [place] [address] Jaspal Leigh MD Letter 04/11/2024 10:30 AM MANAGER UI Office Visit [facility] [place] [address] Jaspal Leigh MD Derm Problem (Concerns with a cyst on his back) 04/11/2024 Travel 04/09/2024 Travel 03/27/2024 2:00 PM MANAGER UI Orders Only [facility] [address] [facility] [place] [address] [place] [place] [facility] 03/27/2024 Travel 03/03/2024 Telephone [facility] [address] [facility] [place] [address] Jaspal Liegh MD Physical Therapy (MORE VISITS) 02/29/2024 Refill [facility] [address] [place] [address] Jaspal Leigh MD Refill Request (Blood Glucose test strips) from Last 3 Months Immunizations Immunization Administration Dates Next Due AMB INFLUENZA IIV3 (AGE 65+ YRS) PF (Flu Clinic Only) 12/26/2018,12/05/2017 AMB Influenza, IIV3 (Age >=3 years)(Flu Clinic Only) 12/05/2012,11/27/2011,12/09/2010,2007 Amb Influenza, Inact (High-d ose) (Flu Clinic Only) 12/03/2015,11/20/2014,11/28/2013 COVID-19 VACCINE SPIKEVAX (M ODERNA 50MCG/0.5ML) 12YO+ PFS 11/09/2023,07/18/2023,01/10/2023 COVID-19 vaccine (HyprKey-Bio NTech 30mcg/0.3mL) 12YO+ BIVALENT PF, MDV 03/08/2022 [...] own primary at 61. Heart Disease Father [place] at 53 and 6 3, at 64 [...] AM CDT Legal Sex Male 6:19 AM MANAGER UI Gender Identity Not on file Sexual Orientation Not on file Occupation Industry Job Start Date Job End Date Retired Not on file Not on file Not on file Obstetrics History Last Filed Vital Signs Vital Sign Reading Time Taken Comments Blood Pressure 122/48 04/22/2024 11:56 AM MANAGER UI Pulse 68 04/22/2024 11:41 AM MANAGER UI Temperature 36.4 C (97.6 F) 04/22/2024 11:41 AM MANAGER UI Respiratory Rate 16 08/29/2021 2:00 PM CDT Oxygen Saturation 99% 04/22/2024 11:41 AM MANAGER UI Inhaled Oxygen Concentration - - Weight 81.4 kg (179 lb 8 oz) 04/22/2024 11:41 AM MANAGER UI Height 174.2 cm (5' 8.6) 11/09/2023 2:54 PM CDT Body Mass Index 26.82 11/09/2023 2:54 PM CDT Plan of Treatment Upcoming Encounters Date Type Department Care Team (Late st Contact Info) Description 07/16/2024 11:00 AM CDT Orders Only [facility] [address] [place] [address] [facility] [place] [facility] Maintenance Due Date Last [...] , 12/28/2021, Additional history exists [facility] [address] [facility] [place] [id number] [employer] [place] PB ONLY MEDICARE PART B HB ONLY MED[employer] SOL[employer] HB MEDICARE PART A HB ONLY Advance Directives * Full Code (Latest Code Status on File) Date Activated Date Inactivated Comments 08/29/2021 11:00 AM 08/30/2021 2:15 AM Question Answer Comments Code Status Discussion: Reviewed Preferences Care Teams House Registry Rn Relationship Specialty Start Date End Date Jaspal Leigh MD [address] [place] [address] [facility] - General 07/27/05
[2024-05-19 18:36] LABS: Albumin* 3.9 g/dL (3.3-5.0); Chloride* 109 mmol/L (96-114); Sodium* 137 mmol/L (135-149)
[2024-05-19 18:37] LABS: Potassium* 4.9 mmol/L (3.6-5.1)
[2024-05-19 18:39] LABS: Alanine Aminotransferase* 36 U/L (4-50); Aspartate Amino Transferase* 61 U/L (12-35); Blood Urea Nitrogen* 73 mg/dL (7-30); Creatinine* 3.3 mg/dL (0.5-1.5); Est. Creatinine Clearance* 15.98; Estimated Glomerular Filt Rate 17 ml/min
[2024-05-19 18:40] LABS: Alkaline Phosphatase* 167 U/L (40-150); Anion Gap 9 mEq/L (7-15); Bilirubin Total* 1.1 mg/dL (0.1-1.5); Carbon Dioxide* 19 mmol/L (20-32); Glucose* 123 mg/dL (60-115); Total Protein* 6.5 g/dL (6.0-8.3)
[2024-05-19 18:43] LABS: C Reactive Protein* 4.6 mg/dL (0.5-1.0)
[2024-05-19 19:01] VITALS: TEMP 37.6
[2024-05-19 19:12] LABS: Troponin, Point-of-Care* 0.06 ng/ml (0.01-0.04)
--- NOTE | 2024-05-19 19:14 | ED.NURSE ---
Pt had a bowel movement, very odorous, soft/liquid and med/large brown/green amount.
[2024-05-19 19:42] LABS: TSH With Reflex to FT4* 0.106 uIU/mL (0.270-4.200)
[2024-05-19 20:34] VITALS: BP 133/62; PULSE 81; RESP 18; TEMP 36.8; O2SAT 97; BMI 25.7
[2024-05-19] MEDS: MELATONIN 3 MG TABLET PO (21:16)
[2024-05-19] MEDS: 0.9 % SODIUM CHLORIDE 1000 ml 1,000 ML 500 ML IV (21:16)
--- NOTE | 2024-05-19 21:18 | PM.IMHP1 ---
Assessment and Plan Assessment and plan (1) Cognitive impairment: Problem comment: No previous history of cognitive impairment but family reports forgetfulness. Status: Acute (2) Frequent falls: Problem comment: Falls frequently, especially at night. His has had to call 911 for the ambulance to help him get up. Status: Acute (3) Weakness: Problem comment: Acute on chronic. At baseline patient is able to walk with a walker in his own home. Acutely weak and unable to walk today. Status: Acute (4) Low grade fever: Problem comment: Temp of 99.7?. With elevated procalcitonin concern for infection. No obvious source. Continue to monitor. Status: Acute (5) Weight loss, non-intentional: Problem comment: June 2023 87.6 kg November 2023 84.8 kg 04/22/2024 81.4 kg Status: Acute (6) Dehydration: Problem comment: Patient appears dry by clinical and laboratory evaluation Status: Acute (7) Diarrhea: Problem comment: Patient had 1 diarrhea stool in the emergency department. With recent antibiotic use check C diff. Status: Acute (8) Myelofibrosis: Problem comment: Chronic anemia, lymphopenia and thrombocytopenia. Elevated monocytes/immature granulocytes. Also large platelets, teardrop cells, elliptocytes Status: Acute (9) Insomnia: Problem comment: On chronic alprazolam. Due to frequent falls I recommend stopping this. At this point will cut his dose from 0.5 mg at bedtime to 0.25 mg at bedtime and add in melatonin. Recommend complete cessation of alprazolam Status: Acute (10) CKD (chronic kidney disease) stage 4, GFR 15-29 ml/min: Problem comment: Followed by Dr. Romero , [facility] Status: Acute (11) Infection: Problem comment: With elevated inflammatory markers and low-grade fever and acute on chronic weakness I suspect he has an infection. Source of the infection is not clear. Obtain cultures and monitor. Status: Suspected (12) Heart murmur: Problem comment: / systolic ejection murmur Echo from Mar 09, 2017: Final Impressions: 1. Mild to moderately increased left ventricular size, moderately increased wall thickness, normal global systolic function, calculated EF of 58 %. 2. Severely enlarged left atrium. 3. The mitral valve is sclerotic, no mitral regurgitation. 4. The inferior vena cava is dilated, respiratory size variation greater than 50%. 5. Trivial pericardial effusion. Status: Acute (13) Low TSH level: Problem comment: Normal free T4. Not on thyroid replacement. Ultrasound in the past shows multiple thyroid nodules. Followed by serial ultrasounds. As of January 2023 findings are stable. Status: Acute (14) Cholelithiasis: Problem comment: Mildly abnormal liver tests. No tenderness over the gallbladder. No GI symptoms. Status: Acute (15) Multiple thyroid nodules: Status: Acute (16) Secondary hyperparathyroidism: Problem comment: Due to chronic kidney disease Status: Acute (17) Chronic cough: Problem comment: Reports 6 year history of chronic cough. Family has observed this occurs after drinking water. No history of aspiration pneumonia. Check swallowing evaluation. Status: Acute (18) Skin cancer: Problem comment: Patient has multiple lesions suggestive of skin cancer scattered over his body. Being followed and treated for skin cancer by race board attendant. Status: Acute (19) Tremor: Problem comment: Patient and both raise the issue of him having an occasional tremor. It sounds like this is not disabling and is infrequently and intermittently present. It is not present during my evaluation tonight. I suspect it is a physiologic tremor related to stress or illness based on the history that it seems to come at certain times of stress. Recommend no further evaluation unless it progresses or becomes disabling Status: Acute Plan 89-year-old male admitted to the hospital with acute on chronic weakness and increasing falls. Clinically appears to have an infection with a low-grade fever and elevated inflammatory markers. Also multiple other medical problems identified above. Admitted to evaluate for acute illness as well as chronic disability. Monitoring will include ongoing evaluation for acute infection. Will taper him off alprazolam because of a history of falls at night. PT and OT to evaluate functional status. Food And Beverage Cashier to evaluate disposition planning. Continue to follow multiple chronic medical problems. Total Time Spent Total Time Spent: Total time spent today is 90 minutes in coordination of care, review of outside records, discussing with patient and family ongoing evaluation management of above medical problems. Hospitalist- H&P: [facility] History of Present Illness Date Seen: 05/19/24 Chief complaint: Weakness Narrative: Yrn Steele is a 89 year old male with multiple medical problems outlined below presents with recurrent falls today. Patient has longstanding problems with falls. He normally walks with a walker Today he fell getting out of bed in the morning. He was unable to get up on his own. Has had recurrent falls since this morning as well. He reports no other symptoms of illness. In the emergency department he was found have a low-grade fever and inflammatory markers were abnormal. No obvious infection identified. History of weakness and recurrent falls. has called 911 to have paramedics help her pick him up when he falls. No serious injuries. Multiple bruises however. More frequently falls at night. Takes Xanax at bedtime. Stage 4 chronic kidney disease. Followed by Nephrology. Diabetes mellitus, apparently well controlled. Myelofibrosis with chronic anemia and thrombocytopenia. Review of Systems Narrative: Patient specifically denies recent illness. He is not aware of fever, cold, new cough, sore throat, chest pain, shortness of breath, abdominal pain, nausea, vomiting, diarrhea, urinary problems. Did have recent lower extremity cellulitis treated with Keflex. Does have chronic cough for 6 years. Question of possible aspiration of thin liquids without history of aspiration pneumonia. Has had weight loss and very sedentary lifestyle. [facility] Medical History (Updated 05/19/24 @ 21:42 by Bear Dean MD) Tremor ?R25.1 - Tremor, unspecified (ICD-10) Urethral stricture ?N35.919 - Unspecified urethral stricture, male, unspecified site (ICD-10) Hypercoagulable state ?D68.59 - Other primary thrombophilia (ICD-10) Cognitive impairment ?R41.89 - Other symptoms and signs involving cognitive functions and awareness (ICD-10) Skin cancer ?C44.90 - Unspecified malignant neoplasm of skin, unspecified (ICD-10) Chronic cough ?R05.3 - Chronic cough (ICD-10) Frequent falls ?R29.6 - Repeated falls (ICD-10) Weight loss, non-intentional ?R63.4 - Abnormal weight loss (ICD-10) Uric acid kidney stone ?N20.0 - Calculus of kidney (ICD-10) Secondary hyperparathyroidism ?N25.81 - Secondary hyperparathyroidism of renal origin (ICD-10) Unspecified essential hypertension ?I10 - Essential (primary) hypertension (ICD-10) Psychosexual dysfunction with inhibited sexual excitement ?F52.8 - Other sexual dysfunction not due to a substance or known physiological condition (ICD-10) Primary hypercoagulable state (11/28/06) ?D68.59 - Other primary thrombophilia (ICD-10) Peripheral arterial disease (03/08/22) ?I73.9 - Peripheral vascular disease, unspecified (ICD-10) Myelofibrosis (01/13/13) ?D75.81 - Myelofibrosis (ICD-10) Multiple thyroid nodules (11/30/19) ?E04.2 - Nontoxic multinodular goiter (ICD-10) Insomnia (11/27/14) ?G47.00 - Insomnia, unspecified (ICD-10) Gastroesophageal reflux disease (06/23/15) ?K21.9 - Gastro-esophageal reflux disease without esophagitis (ICD-10) Diverticulosis of colon (without mention of hemorrhage) (10/16/11) ?K57.30 - Diverticulosis of large intestine without perforation or abscess without bleeding (ICD-10) Depression, recurrent (05/23/22) ?F33.9 - Major depressive disorder, recurrent, unspecified (ICD-10) Cough ?R05.9 - Cough, unspecified (ICD-10) CKD (chronic kidney disease) stage 4, GFR 15-29 ml/min (05/12/21) ?N18.4 - Chronic kidney disease, stage 4 (severe) (ICD-10) Cholelithiasis (10/16/11) ?K80.20 - Calculus of gallbladder without cholecystitis without obstruction (ICD-10) Benign neoplasm of colon ?D12.6 - Benign neoplasm of colon, unspecified (ICD-10) Anxiety (11/27/14) ?F41.9 - Anxiety disorder, unspecified (ICD-10) Anemia in stage 4 chronic kidney disease (04/06/22) ?N18.4 - Chronic kidney disease, stage 4 (severe) (ICD-10) ?D63.1 - Anemia in chronic kidney disease (ICD-10) Heart murmur ?R01.1 - Cardiac murmur, unspecified (ICD-10) Weakness ?R53.1 - Weakness (ICD-10) Infection ?B99.9 - Unspecified infectious disease (ICD-10) Surgical History (Updated 05/19/24 @ 21:28 by Bear Dean MD) H/O umbilical hernia repair ?Z98.890 - Other specified postprocedural states (ICD-10) ?Z87.19 - Personal history of other diseases of the digestive system (ICD-10) H/O prostate biopsy ?Z98.890 - Other specified postprocedural states (ICD-10) H/O cystoscopy ?Z98.890 - Other specified postprocedural states (ICD-10) Family History (Updated 05/19/24 @ 21:30 by Bear Dean MD) Father Heart disease Brother Alcohol dependence Lung cancer Stroke Other High blood pressure Social History (Updated 05/19/24 @ 21:31 by Bear Dean MD) Narrative: He lives in [place] with his . had abdominal surgery last week and is recovering nicely. Daughter is staying with family well mom recovers. 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 Code status is DNR. He does not smoke. He does not drink alcohol. He walks with a walker. Smoking Status: Never smoker Do you use any of these nicotine containing products: None Second hand tobacco smoke exposure: No How often do you have a drink containing alcohol: never How often do you have six or more drinks on one occasion: Never AUDIT-C Alcohol total score: 0 Non-prescribed substance use: denies use service: Yes Meds Home Medications and Allergies Home Medications ?Medication ?Instructions ?Recorded ?Confirmed ?Type allopurinol 100 mg tablet 100 mg PO DAILY 12/05/21 03/07/24 History alprazolam 1 mg tablet 0.5 mg PO HS 12/05/21 03/07/24 History cholecalciferol (vitamin D3) 325 325 mcg PO QWEEK 12/05/21 03/07/24 History mcg (13,000 unit) capsule doxazosin 8 mg tablet 8 mg PO HS 12/05/21 03/07/24 History furosemide 40 mg tablet 20 mg PO DAILY 12/05/21 03/07/24 History metoprolol succinate 100 mg 100 mg PO DAILY 12/05/21 03/07/24 History tablet,extended release 24 hr omeprazole 20 mg capsule,delayed 20 mg PO DAILY 12/05/21 03/07/24 History release ruxolitinib 20 mg tablet (Jakafi) 20 mg PO DAILY 12/05/21 03/07/24 History multivitamin with iron (Daily 1 tab PO QDAY 08/21/23 03/07/24 History Vitamin with Iron tablet) vit C 250 mg-E 90 mg-zinc 40 1 tab PO QAM AND QPM 08/21/23 03/07/24 History mg-copper 1 [id number] chew tablet (PreserVision AREDS-2) Home Medication Comments: and son set up medications Allergies Allergy/AdvReac Type Severity Reaction Status Date / Time acetaminophen (From Vicodin) Allergy Verified 08/21/23 17:44 amoxicillin Allergy vomited Verified 05/31/23 10:53 codeine AdvReac Intermediate Nausea Verified 05/31/23 10:53 hydrocodone AdvReac Intermediate Nausea Verified 05/31/23 10:53 vicoden Allergy Mild Nausea Uncoded 05/31/23 10:53 Exam Narrative: Exam Narrative: He is alert and appears in no distress. He is not oriented to place but otherwise able to some history. Head is notable for multiple skin lesions, some excoriated some appear to be suspicious for cancer. Eyes normal. Extraocular movements are full though he has diminished upward gaze. Visual mcgregor intact. Pupils are equal round reactive to light. Oropharynx with dry mucous membranes. No mucosal abnormalities. Neck is supple without adenopathy. Small thyroid nodules noted. No other mass. Respirations are clear to auscultation. Breathing is unlabored. Cardiovascular: S1, S2, 2/6 systolic ejection murmur heard along the entire left sternal border. Abdomen: Bowel sounds are active. Abdomen is soft without tenderness. Abdomen is somewhat protuberant. No mass noted. Splenomegaly suspected. External genitalia normal. Extremities notable for multiple ulcerations and abrasions and bruises consistent with history of falling and excoriations. Left lower extremity has some chronic brawny induration but no obvious erythema. No significant drainage from multiple lesions. No edema. Diminished but present pedal pulses. Const: Vital Signs, click to edit/add: Vital Signs - 24 hr 05/19/24 16:31 05/19/24 17:54 05/19/24 19:01 Temperature 98.8 F 99.7 F H Pulse Rate [Pulse Oximeter] 107 H 105 H Respiratory Rate 20 20 Blood Pressure [Ri ght Arm] Blood Pressure [Ri ght Upper Arm] 166/93 H 132/76 Pulse Oximetry 93 98 Oxygen Delivery Me thod Room Air Room Air 05/19/24 20:34 Temperature 98.2 F Pulse Rate [Pulse Oximeter] 81 Respiratory Rate 18 Blood Pressure [Ri ght Arm] 133/62 Blood Pressure [Ri ght Upper Arm] Pulse Oximetry 97 Oxygen Delivery Me thod Room Air Documenting provider has reviewed patient's vital signs: yes Hospitalist - H&P: Result Labs Labs: Short CBC 05/19/24 Range/Units 17:20 WBC 7.06 (4.50-11.00) K/uL Hgb 8.3 L (13.5-17.5) gm/dL Hct 26.8 L (37.0-53.0) % Plt Count 50 L (140-440) K/uL BMP 05/19/24 17:20 Sodium 137 Potassium 4.9 Chloride 109 Carbon Dioxide 19 L BUN 73 H Creatinine 3.3 H Glucose 123 H Calcium 9.0 Liver Function 05/19/24 Range/Units 17:20 Total Bilirubin 1.1 (0.1-1.5) mg/dL AST 61 H (12-35) U/L ALT 36 (4-50) U/L Alkaline Phosphatase 167 H (40-150) U/L Albumin 3.9 (3.3-5.0) g/dL Urine 05/19/24 Range/Units 16:34 Urine Color Yellow (Yellow) Urine Appearance Clear (Clear) Urine pH 5.0 (5.0-8.5) Ur Specific [place] 1.010 (1.000-1.030) Urine Protein 2+ A (Negative) Urine Glucose (UA) Negative (Negative) Imaging Chest x-ray: Radiologist's impression: INDICATION: Weakness. TECHNIQUE: Chest 1 view. COMPARISON: None. FINDINGS: Unremarkable cardiomediastinal contours. Mildly low lung volumes. No evident lung consolidation. No sign of pleural effusion. No pneumothorax. No acute osseous or soft tissue findings. IMPRESSION: No acute findings. Knee x-ray: Radiologist's impression: Indication: Fall Technique: Three views of the right knee Comparison: None Findings/Impression: No acute fracture or malalignment. No knee joint effusion. Moderate medial compartment joint space narrowing; otherwise, no additional significant osteoarthritic degenerative changes. No suspicious osseous lesions. Superior patellar enthesophyte. The soft tissues are without acute abnormality. Severe vascular calcifications. Foot x-ray: Radiologist's impression: Indication: Fall Technique: Three views of the left foot Comparison: None Findings/Impression: No acute fracture or malalignment. No ankle joint effusion. 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 Mild osteopenia. No suspicious osseous lesions. Moderate soft tissue swelling along the dorsal aspect of the forefoot. Severe vascular calcifications.
[2024-05-19] MEDS: ALPRAZolam 1 MG TABLET 0.25 MG PO (21:53)
--- NOTE | 2024-05-19 22:54 | PC.NURSE ---
Patient arrived on the floor via bed. He was accompanied by family and ER staff. The patient is alert and oriented to self place, situation. He exhibits forgetfulness. Patient was noted to have multiple scabs all over his skin. Most are open to air. Buttocks red blanchable, meplex applied to buttocks for protection. Also noted to have a distended stomach, denies pain. +1 edema noted in bilateral lower extremities. Uses a urinal, no BM while on the unit during this shift. Family at bedside most of the shift.
[2024-05-19 23:30] VITALS: BP 122/54; PULSE 90; RESP 20; TEMP 36.5; O2SAT 96
[2024-05-20 02:09] LABS: C.Difficile Negative (Negative); CDIFFEPI 027 PRESUMPTIVE NEGATIVE (Negative)
[2024-05-20 03:05] VITALS: BP 131/60; PULSE 87; RESP 18; TEMP 36.8; O2SAT 94
[2024-05-20] MEDS: lidocaine HCL 2 % JELLY (TOP) STERILE 6 ML UR (05:06)
[2024-05-20 06:45] LABS: Basophils Percent Auto 1.7 % (0.0-3.0); Hematocrit 22.6 % (37.0-53.0); Immature Granulocytes Pct Auto 15.2 %; Lymphocytes Percent Auto 14.9 % (20-44); Mean Corpuscular HGB Conc 31 gm/dL (32-36); Mean Corpuscular Hemoglobin 27 pg (26-34); Mean Corpuscular Volume 87 fL (80-100); Monocytes Percent Auto 18.7 % (0.0-11.0); Neutrophils Percent Auto 47.5 % (42.0-72.0); Platelet Count* 57 K/uL (140-440); RDW Coefficient of Variation % 20.2 % (11.5-15.5); Red Blood Count 2.59 m/uL (4.30-5.90); White Blood Count* 8.11 K/uL (4.50-11.00)
--- NOTE | 2024-05-20 06:53 | PC.NURSE ---
Addendum entered by Alexus Damon 05/20/24 07:09: After catheterization attempts and pt voided, pt was rebladder scanned for 140ml. Updated MD Hogan. Original Note: Pt alert and oriented to self and place. Pt had minimal output overnight. This RN and ski patrol officer [place] bladder scanned pt for 141-786 ml. Two attempts made to straight catheterize, both attempts were unsuccessful but pt was able to void after second attempt and several clots came out with urine, updated MD Thurman ([facility] hospitalist), no new orders given stated ?I don?t want to push for a nguyen catheter because pt?s penis tissue may swell and cause discomfort and harm to pt. Wait for the day Hospitalist to see him in morning to do a physical assessment at bed side.??Pt denies pain, chest pain, SOB, and N/V. Pt is up A2 with walker and gait belt pivot to commode.?
[2024-05-20 06:55] LABS: Albumin* 3.3 g/dL (3.3-5.0); Chloride* 111 mmol/L (96-114); Potassium* 4.4 mmol/L (3.6-5.1); Sodium* 137 mmol/L (135-149)
[2024-05-20 06:58] LABS: Alanine Aminotransferase* 35 U/L (4-50); Alkaline Phosphatase* 147 U/L (40-150); Anion Gap 9 mEq/L (7-15); Aspartate Amino Transferase* 63 U/L (12-35); Bilirubin Direct* 0.4 mg/dL (0.0-0.5); Bilirubin Total* 0.9 mg/dL (0.1-1.5); Blood Urea Nitrogen* 69 mg/dL (7-30); Carbon Dioxide* 17 mmol/L (20-32); Creatinine* 3.1 mg/dL (0.5-1.5); Est. Creatinine Clearance* 17.01; Estimated Glomerular Filt Rate 19 ml/min; Phosphorus* 2.7 mg/dL (2.5-4.5); Total Protein* 5.7 g/dL (6.0-8.3)
[2024-05-20 06:59] LABS: Calcium* 8.8 mg/dL (8.4-10.6); Glucose* 109 mg/dL (60-115); Magnesium* 1.7 mg/dL (1.5-2.6)
[2024-05-20 07:00] VITALS: BP 123/60; PULSE 103; RESP 18; TEMP 37; O2SAT 96
[2024-05-20 07:16] LABS: C Reactive Protein* 12.8 mg/dL (0.5-1.0)
[2024-05-20 07:40] LABS: Corrected White Blood Count 7.58 K/UL (4.50-11.00); Slide Review Reflex Yes
[2024-05-20 07:43] LABS: Slide Review Acceptable Review (Acceptable)
[2024-05-20] MEDS: glipiZIDE XL 5 MG TAB PO (07:52)
[2024-05-20] MEDS: FERROUS SULFATE 325 MG TABLET PO (07:52)
[2024-05-20] MEDS: FUROSEMIDE 40 MG TABLET PO (07:52)
--- NOTE | 2024-05-20 07:56 | CRLHL7_ITS ---
For Patients: As a result of the Century Cures Act, medical imaging exams and procedure reports are released immediately into your electronic medical record. You may view this report before your referring provider. If you have questions, please contact your health care provider. INDICATION: Hematuria. Large clots. Severe anemia. COMPARISON: August 02, 2021 TECHNIQUE: CT examination of the abdomen and pelvis was performed without intravenous contrast. Thin section axial images were obtained from the lung bases through the pubic symphysis. Oral contrast was not administered. Please note that all CT scans at this facility use dose modulation, iterative reconstruction, and/or weight-based dosing when appropriate to reduce radiation dose to as low as reasonably achievable. FINDINGS: LUNG BASES: Bibasilar opacities probably due to atelectasis.The heart is mildly enlarged the lung bases. There are atherosclerotic vascular and valvular calcifications noted. LIVER/BILIARY SYSTEM:No focal mass identified. No obvious cirrhotic morphology. Cholelithiasis with stones suggested within a contracted gallbladder ADRENALS: Normal non-contrast appearance KIDNEYS, URETERS and BLADDER:Normal-sized kidneys. No hydronephrosis or hydroureter. Low-density right midpole renal lesion probably a cyst. This measures 3.6 centimeters and is unchanged. No hydronephrosis or hydroureter. The bladder is not well evaluated as it is unopacified but no gross abnormalities are noted. Significant enlargement of the prostate is again noted. SPLEEN:Significantly enlarged spleen measuring about 21 centimeters. Similar in size to the prior study. There is perisplenic fluid that is part ascites but there is also likely a subcapsular component inferiorly. PANCREAS: Normal non-contrast appearance. RETROPERITONEUM and MESENTERY: There is no mass, adenopathy or aortic aneurysm. Very dense atherosclerotic vascular calcifications diffusely GASTROINTESTINAL SYSTEM: There is no evidence of diverticulitis, colitis, mechanical obstruction, or appendicitis. The small bowel as visualized appears normal. PELVIS: Enlarged prostate as mentioned above. OSSEOUS STRUCTURES and ABDOMINAL WALL: Diffuse osteosclerosis. This suggest osseous metastatic disease. The most common cause of this would be prostate carcinoma. OTHER: There is moderate to severe ascites. The exact cause of this is uncertain. There is also mild stranding and nodularity of the omentum which often indicates an intra-abdominal carcinoma. IMPRESSION: 1. Enlarged heart. Vascular and valvular calcifications. 2. Cholelithiasis. Contracted gallbladder. No definite acute cholecystitis. No obvious cirrhotic morphology of the liver on this noncontrast study. 3. Right renal cyst. No specific visible cause for hematuria on this noncontrast exam. 4. The spleen is significantly enlarged measuring 21 centimeters. Similar to the prior study. There is also a moderate-sized subcapsular splenic fluid collection which was not present previously. 5. Enlarged prostate. This is similar to the prior examination. 6. Moderate to severe ascites. There is also mild stranding and nodularity of the omentum which often indicates an intra-abdominal carcinoma, less likely infection. The omental surface findings ascites appear to be new. 7. Diffuse osteosclerosis. The most common cause of this is metastatic disease. In a male, this usually indicates prostate carcinoma 8. Other findings as discussed in the body of the report Please note that all CT scans at this facility use dose modulation, iterative reconstruction, and/or weight-based dosing when appropriate to reduce radiation dose to as low as reasonably achievable. Dictated by Neel Ferrell MD @ 05/20/2024 8:48:08 AM (Electronically Signed)
[2024-05-20 08:47] LABS: Hemoglobin* 7.5 gm/dL (13.5-17.5)
[2024-05-20] MEDS: METOPROLOL SUCCINATE (XL) 100 MG TAB PO (08:55)
[2024-05-20] MEDS: OMEPRAZOLE 20 MG CAPSULE DR PO (08:56)
[2024-05-20] MEDS: MULTIVITAMIN/MINERALS 1 TABLET 1 TAB PO (08:56)
[2024-05-20] MEDS: allopurinoL 100 MG TABLET PO (08:56)
[2024-05-20] MEDS: SODIUM CHLORIDE 0.9 % (FLUSH) 10 ML SYRINGE 5 ML IVF (08:56)
[2024-05-20 09:39] VITALS: BMI 25.4
[2024-05-20 11:00] VITALS: BP 126/56; PULSE 98; RESP 18; TEMP 36.4; O2SAT 97
--- NOTE | 2024-05-20 13:43 | PM.IMPN1 ---
Assessment and Plan Assessment and plan (1) Ascites: Problem comment: Newly diagnosed ascites. 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 Liver panel unremarkable except for mild elevation in AST, family states that he never had history of alcohol abuse in the past or currently. Will consult general surgery for paracentesis, fluid analysis & cytology. Will order INR, liver panel, hepatitis panel, PSA Status: Acute (2) CKD (chronic kidney disease) stage 4, GFR 15-29 ml/min: Problem comment: Followed by Dr. Romero , [facility] Status: Acute (3) Hematuria: Problem comment: Nurses document blood clots upon a trial of stright cathing him on admission Status: Acute (4) Cognitive impairment: Problem comment: No previous history of cognitive impairment but family reports forgetfulness. Status: Acute (5) Frequent falls: Problem comment: Falls frequently, especially at night. His has had to call 911 for the ambulance to help him get up. Status: Acute (6) Weakness: Problem comment: Acute on chronic. At baseline patient is able to walk with a walker in his own home. Acutely weak and unable to walk today. Status: Acute (7) Low grade fever: Problem comment: Temp of 99.7?. With elevated procalcitonin concern for infection. No obvious source. Continue to monitor. Status: Acute (8) Weight loss, non-intentional: Problem comment: June 2023 87.6 kg November 2023 84.8 kg 04/22/2024 81.4 kg Status: Acute (9) Dehydration: Problem comment: Patient appears dry by clinical and laboratory evaluation Status: Acute (10) Diarrhea: Problem comment: Patient had 1 diarrhea stool in the emergency department. With recent antibiotic use check C diff. Status: Acute (11) Myelofibrosis: Problem comment: Chronic anemia, lymphopenia and thrombocytopenia. Elevated monocytes/immature granulocytes. Also large platelets, teardrop cells, elliptocytes Status: Acute (12) Insomnia: Problem comment: On chronic alprazolam. Due to frequent falls I recommend stopping this. At this point will cut his dose from 0.5 mg at bedtime to 0.25 mg at bedtime and add in melatonin. Recommend complete cessation of alprazolam Status: Acute (13) Infection: Problem comment: With elevated inflammatory markers and low-grade fever and acute on chronic weakness I suspect he has an infection. Source of the infection is not clear. Obtain cultures and monitor. Status: Suspected (14) Heart murmur: Problem comment: 2/ systolic ejection murmur Echo from Mar 09, 2017: Final Impressions: 1. Mild to moderately increased left ventricular size, moderately increased wall thickness, normal global systolic function, calculated EF of 58 %. 2. Severely enlarged left atrium. 3. The mitral valve is sclerotic, no mitral regurgitation. 4. The inferior vena cava is dilated, respiratory size variation greater than 50%. 5. Trivial pericardial effusion. Status: Acute (15) Low TSH level: Problem comment: Normal free T4. Not on thyroid replacement. Ultrasound in the past shows multiple thyroid nodules. Followed by serial ultrasounds. As of January 2023 findings are stable. Status: Acute (16) Cholelithiasis: Problem comment: Mildly abnormal liver tests. No tenderness over the gallbladder. No GI symptoms. Status: Acute (17) Multiple thyroid nodules: Status: Acute (18) Secondary hyperparathyroidism: Problem comment: Due to chronic kidney disease Status: Acute (19) Chronic cough: Problem comment: Reports 6 year history of chronic cough. Family has observed this occurs after drinking water. No history of aspiration pneumonia. Check swallowing evaluation. Status: Acute (20) Skin cancer: Problem comment: Patient has multiple lesions suggestive of skin cancer scattered over his body. 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 Status: Acute (21) Tremor: Problem comment: Patient and both raise the issue of him having an occasional tremor. It sounds like this is not disabling and is infrequently and intermittently present. It is not present during my evaluation tonight. I suspect it is a physiologic tremor related to stress or illness based on the history that it seems to come at certain times of stress. Recommend no further evaluation unless it progresses or becomes disabling Status: Acute Total Time Spent Total Time Spent: Today I spent 50 minutes seeing the patient, reviewing Expanse and EPIC notes/diagnostics, discussing the care plan with our care time that includes social work, PT/OT, pharmacy, RT, prison and documenting my impressions and plan in the medical record. Subjective Date Seen: 05/20/24 Interval history: Pt seen and examined at bedside. Pt is comfortable, denying lightheadednes, CP or SOB. His son mentioned that his abdominal distension has been noticed a few months ago but not investigated. Exam Narrative: Exam Narrative: Physical exam GENERAL: Comfortable, no acute distress. HEAD AND NECK: Atraumatic, normocephalic CARDIOVASCULAR: RRR. Normal S1, S2. No murmurs. RESPIRATORY: Clear to auscultation B/L. Good air entry B/L. No wheezes or rhonchi. GASTROINTESTINAL: Distended, not tender to palpation, dull to percussion. NEUROLOGY: Alert, awake, oriented X2. Normal speech. PSYCH: Normal mood, normal affect. Const: Vital Signs, click to edit/add: Vital Signs - 24 hr 05/19/24 16:31 05/19/24 17:54 05/19/24 19:01 Temperature 98.8 F 99.7 F H Pulse Rate [Pulse Oximeter] 107 H 105 H Respiratory Rate 20 20 Blood Pressure [Ri ght Arm] Blood Pressure [Ri ght Upper Arm] 166/93 H 132/76 Pulse Oximetry 93 98 Oxygen Delivery Me thod Room Air Room Air 05/19/24 20:34 05/19/24 23:30 05/20/24 03:05 Temperature 98.2 F 97.7 F 98.2 F Pulse Rate [Pulse Oximeter] 81 90 87 Respiratory Rate 18 20 18 Blood Pressure [Ri ght Arm] 133/62 122/54 L 131/60 Blood Pressure [Ri ght Upper Arm] Pulse Oximetry 97 96 94 Oxygen Delivery Me thod Room Air Room Air Room Air 05/20/24 07:00 05/20/24 07:00 05/20/24 11:00 Temperature 98.6 F 97.5 F L Pulse Rate [Pulse Oximeter] 103 H 103 H 98 Respiratory Rate 18 18 18 Blood Pressure [Ri ght Arm] 123/60 126/56 L Blood Pressure [Ri ght Upper Arm] Pulse Oximetry 96 97 Oxygen Delivery Me thod Room Air Room Air Labs Labs: Laboratory Results - last 24 hr 05/19/24 05/19/24 05/19/24 16:34 16:42 17:20 WBC 7.06 Corrected WBC RBC 3.10 L Hgb 8.3 L Hct 26.8 L MCV 87 MCH 27 MCHC 31 L RDW Coeff of Fredy 20.0 H Plt Count 50 L Neut % (Auto) 47.8 Lymph % (Auto) 12.7 L [place] % (Auto) 19.4 H Eos % (Auto) 2.5 Baso % (Auto) 2.3 Neut # (Auto) 3.37 Lymph # (Auto) 0.90 [place] # (Auto) 1.40 H Eos # (Auto) 0.18 Baso # (Auto) 0.16 Abs Immat Gran (auto) 1.08 H Imm/Tot Granulo (auto) 15.3 Diff Slide Review Sodium 137 Potassium 4.9 Chloride 109 Carbon Dioxide 19 L Anion Gap 9 BUN 73 H Creatinine 3.3 H Estimated Creat Clear 15.98 Estimated GFR 17 Glucose 123 H Lactate 1.4 Calcium 9.0 Phosphorus Magnesium Total Bilirubin 1.1 Direct Bilirubin AST 61 H ALT 36 Alkaline Phosphatase 167 H C-Reactive Protein 4.6 H Total Protein 6.5 Albumin 3.9 Procalcitonin 1.10 H TSH 0.106 L Free T4 1.10 Urine Color Yellow Urine Appearance Clear Urine pH 5.0 Ur Specific [place] 1.010 Urine Protein 2+ A Urine Glucose (UA) Negative Urine Ketones Negative Urine Blood 2+ A Urine Nitrite Negative Urine Bilirubin Negative Urine Urobilinogen 0.2 Ur Leukocyte Esterase Negative Urine RBC 0-2 Urine WBC 0-2 Ur Squamous Epith Cells None Amorphous Sediment Moderate A Urine Bacteria None Hyaline Casts Few Coarse Granular Casts Few A Stl C. diff Tox B Gene Stl C. diff [id number]-NAP1-BI SARS-CoV-2 (PCR) Negative SARS-CoV-2 Influenza Type A (PCR) Negative PCR FLU A Influenza Type B (PCR) Negative PCR FLU B RSV (PCR) Negative PCR RSV POC Troponin I 0.07 H Blood Type Antibody Screen 05/19/24 05/20/24 05/20/24 18:38 00:54 05:51 WBC 8.11 Corrected WBC 7.58 RBC 2.59 L Hgb 7.0 L* Hct 22.6 L MCV 87 MCH 27 MCHC 31 L RDW Coeff of Fredy 20.2 H Plt Count 57 L Neut % (Auto) 47.5 Lymph % (Auto) 14.9 L [place] % (Auto) 18.7 H Eos % (Auto) 2.0 Baso % (Auto) 1.7 Neut # (Auto) 3.60 Lymph # (Auto) 1.10 [place] # (Auto) 1.40 H Eos # (Auto) 0.20 Baso # (Auto) 0.10 Abs Immat Gran (auto) 1.20 H Imm/Tot Granulo (auto) 15.2 Diff Slide Review Acceptable Review Sodium 137 Potassium 4.4 Chloride 111 Carbon Dioxide 17 L Anion Gap 9 BUN 69 H Creatinine 3.1 H Estimated Creat Clear 17.01 Estimated GFR 19 Glucose 109 Lactate Calcium 8.8 Phosphorus 2.7 Magnesium 1.7 Total Bilirubin 0.9 Direct Bilirubin 0.4 AST 63 H ALT 35 Alkaline Phosphatase 147 C-Reactive Protein 12.8 H Total Protein 5.7 L Albumin 3.3 Procalcitonin TSH Free T4 Urine Color Urine Appearance Urine pH Ur Specific [place] Urine Protein Urine Glucose (UA) Urine Ketones Urine Blood Urine Nitrite Urine Bilirubin Urine Urobilinogen Ur Leukocyte Esterase Urine RBC Urine WBC Ur Squamous Epith Cells Amorphous Sediment Urine Bacteria Hyaline Casts Coarse Granular Casts Stl C. diff Tox B Gene Negative Stl C. diff -[id number] PRESUMPTIVE NEGATIVE SARS-CoV-2 (PCR) Influenza Type A (PCR) Influenza Type B (PCR) RSV (PCR) POC Troponin I 0.06 H Blood Type Antibody Screen 05/20/24 08:35 WBC Corrected WBC RBC Hgb 7.5 L* Hct MCV MCH MCHC RDW Coeff of Fredy Plt Count Neut % (Auto) Lymph % (Auto) [place] % (Auto) Eos % (Auto) Baso % (Auto) Neut # (Auto) Lymph # (Auto) [place] # (Auto) Eos # (Auto) Baso # (Auto) Abs Immat Gran (auto) Imm/Tot Granulo (auto) Diff Slide Review Sodium Potassium Chloride Carbon Dioxide Anion Gap BUN Creatinine Estimated Creat Clear Estimated GFR Glucose Lactate Calcium Phosphorus Magnesium Total Bilirubin Direct Bilirubin AST ALT Alkaline Phosphatase C-Reactive Protein Total Protein Albumin Procalcitonin TSH Free T4 Urine Color Urine Appearance Urine pH Ur Specific [place] Urine Protein Urine Glucose (UA) Urine Ketones Urine Blood Urine Nitrite Urine Bilirubin Urine Urobilinogen Ur Leukocyte Esterase Urine RBC Urine WBC Ur Squamous Epith Cells Amorphous Sediment Urine Bacteria Hyaline Casts Coarse Granular Casts Stl C. diff Tox B Gene Stl C. diff [id number]-[id number] SARS-CoV-2 (PCR) Influenza Type A (PCR) Influenza Type B (PCR) RSV (PCR) POC Troponin I Blood Type A Negative Antibody Screen NEGATIVE Imaging CT scan - abdomen: Attestation: I have reviewed the pertinent imaging results. Radiologist's impression: INDICATION: Hematuria. Large clots. Severe anemia. COMPARISON: August 02, 2021 TECHNIQUE: CT examination of the abdomen and pelvis was performed without intravenous contrast. Thin section axial images were obtained from the lung bases through the pubic symphysis. Oral contrast was not administered. Please note that all CT scans at this facility use dose modulation, iterative reconstruction, and/or weight-based dosing when appropriate to reduce radiation dose to as low as reasonably achievable. FINDINGS: LUNG BASES: Bibasilar opacities probably due to atelectasis.The heart is mildly enlarged the lung bases. There are atherosclerotic vascular and valvular calcifications noted. LIVER/BILIARY SYSTEM:No focal mass identified. No obvious cirrhotic morphology. Cholelithiasis with stones suggested within a contracted gallbladder ADRENALS: Normal non-contrast appearance KIDNEYS, URETERS and BLADDER:Normal-sized kidneys. No hydronephrosis or hydroureter. Low-density right midpole renal lesion probably a cyst. This measures 3.6 centimeters and is unchanged. No hydronephrosis or hydroureter. The bladder is not well evaluated as it is unopacified but no gross abnormalities are noted. Significant enlargement of the prostate is again noted. SPLEEN:Significantly enlarged spleen measuring about 21 centimeters. Similar in size to the prior study. There is perisplenic fluid that is part ascites but there is also likely a subcapsular component inferiorly. PANCREAS: Normal non-contrast appearance. RETROPERITONEUM and MESENTERY: There is no mass, adenopathy or aortic aneurysm. Very dense atherosclerotic vascular calcifications diffusely GASTROINTESTINAL SYSTEM: There is no evidence of diverticulitis, colitis, mechanical obstruction, or appendicitis. The small bowel as visualized appears normal. PELVIS: Enlarged prostate as mentioned above. OSSEOUS STRUCTURES and ABDOMINAL WALL: Diffuse osteosclerosis. This suggest osseous metastatic disease. The most common cause of this would be prostate carcinoma. OTHER: There is moderate to severe ascites. The exact cause of this is uncertain. There is also mild stranding and nodularity of the omentum which often indicates an intra-abdominal carcinoma. IMPRESSION: 1. Enlarged heart. Vascular and valvular calcifications. 2. Cholelithiasis. Contracted gallbladder. No definite acute cholecystitis. No obvious cirrhotic morphology of the liver on this noncontrast study. 3. Right renal cyst. No specific visible cause for hematuria on this noncontrast exam. 4. The spleen is significantly enlarged measuring 21 centimeters. Similar to the prior study. There is also a moderate-sized subcapsular splenic fluid collection which was not present previously. 5. Enlarged prostate. This is similar to the prior examination. 6. Moderate to severe ascites. There is also mild stranding and nodularity of the omentum which often indicates an intra-abdominal carcinoma, less likely infection. The omental surface findings ascites appear to be new. 7. Diffuse osteosclerosis. The most common cause of this is metastatic disease. In a male, this usually indicates prostate carcinoma 8. Other findings as discussed in the body of the report Please note that all CT scans at this facility use dose modulation, iterative reconstruction, and/or weight-based dosing when appropriate to reduce radiation dose to as low as reasonably achievable. Dictated by Nele Ferrell MD @ 05/20/2024 8:48:08 AM
[2024-05-20] MEDS: INSULIN ASPART 100 UNIT/ML SUBCUT (13:58)
[2024-05-20 15:00] VITALS: BP 141/60; PULSE 80; RESP 18; TEMP 36.3; O2SAT 92
--- NOTE | 2024-05-20 15:22 | PC.SOCIAL ---
Discharge planning: ornamental iron worker met with pt and his son, Ej, this afternoon to discuss early discharge planning. Currently, the pt is being recommended for short-term rehab after his hospital stay. Pt and his son wanted to talk to the pt's and daughter who were coming into the hospital later this afternoon about a short-term rehab stay for the pt. ornamental iron worker left this worker's contact information for them to call if they wanted to meet again before 4:30pm, otherwise this social media designer shared that this worker's co-worker would check-in with them in the morning, as this social media designer does not work on Wednesdays. ornamental iron worker did provide the pt and his son with the list [facility] for their reference. This social media designer did also explain that the pt will need three nights of an inpatient hospital stay in order to have Medicare insurance coverage for a short-term rehab stay. Pt was made inpatient today and tonight will be his first night as inpatient status. Social work to follow-up as needed.
[2024-05-20 19:00] VITALS: BP 132/59; PULSE 90; RESP 20; TEMP 36.6; O2SAT 95
--- NOTE | 2024-05-20 19:33 | PC.NURSE ---
End of Shift: Patient pleasant and cooperative, only A&O to self and place. VSS, afebrile.? Tolerating regular diet. EZ stand for transfers. Patient has had 3 BM?s this shift.?
[2024-05-20] MEDS: MELATONIN 3 MG TABLET PO (21:33)
[2024-05-20] MEDS: ACETAMINOPHEN 325 MG TABLET 650 MG PO (21:33)
[2024-05-20] MEDS: DOXAZOSIN 4 MG TABLET 8 MG PO (21:34)
[2024-05-20] MEDS: ALPRAZolam 0.25 MG TABLET PO (21:35)
[2024-05-20 23:00] VITALS: BP 108/50; PULSE 80; RESP 20; TEMP 38.2; O2SAT 100
[2024-05-21] VITALS (16 sets, daily range): BP systolic 120–138; BP diastolic 58–68; PULSE 67–100; RESP 16–19; TEMP 36.6–37.2; O2SAT 94–99
[2024-05-21 06:51] LABS: Basophils Percent Auto 1.4 % (0.0-3.0); Eosinophils Percent Auto 3.2 % (0.0-7.0); Hematocrit 22.2 % (37.0-53.0); Immature Granulocytes Pct Auto 17.8 %; Lymphocytes Percent Auto 18.2 % (20-44); Mean Corpuscular HGB Conc 31 gm/dL (32-36); Mean Corpuscular Hemoglobin 27 pg (26-34); Mean Corpuscular Volume 86 fL (80-100); Monocytes Percent Auto 17.1 % (0.0-11.0); Neutrophils Percent Auto 42.3 % (42.0-72.0); Platelet Count* 51 K/uL (140-440); RDW Coefficient of Variation % 20.4 % (11.5-15.5); Red Blood Count 2.57 m/uL (4.30-5.90); White Blood Count* 10.37 K/uL (4.50-11.00)
[2024-05-21 07:01] LABS: Albumin* 3.1 g/dL (3.3-5.0); Chloride* 109 mmol/L (96-114)
[2024-05-21 07:02] LABS: Potassium* 4.2 mmol/L (3.6-5.1); Sodium* 136 mmol/L (135-149)
[2024-05-21 07:03] LABS: INR 1.74 (0.91-1.10); Prothrombin Time 21.3 Seconds
[2024-05-21 07:04] LABS: Blood Urea Nitrogen* 70 mg/dL (7-30); Creatinine* 3.3 mg/dL (0.5-1.5); Est. Creatinine Clearance* 15.98; Estimated Glomerular Filt Rate 17 ml/min
[2024-05-21 07:05] LABS: Alanine Aminotransferase* 30 U/L (4-50); Alkaline Phosphatase* 137 U/L (40-150); Anion Gap 9 mEq/L (7-15); Aspartate Amino Transferase* 43 U/L (12-35); Bilirubin Direct* 0.4 mg/dL (0.0-0.5); Bilirubin Total* 0.8 mg/dL (0.1-1.5); Calcium* 8.8 mg/dL (8.4-10.6); Carbon Dioxide* 18 mmol/L (20-32); Glucose* 113 mg/dL (60-115); Total Protein* 5.5 g/dL (6.0-8.3)
--- NOTE | 2024-05-21 07:20 | PC.NURSE ---
The patient is alert to self and month only. Appears confused throughout the night and attempts to get out of bed when he has to void, although is already incontinent of urine. Heavy assist of 2 pivot to commode. R knee skin tear WOC was preformed 2x.... tolerated this well. Scabs generalized on al extremities and face. The patient is noted to cough extensively after taking his pills... swallow study needs to be completed. Will set off his alarm. Incontinent of urine many times throughout the night. Carlotta YATES BSN
[2024-05-21 07:21] LABS: C Reactive Protein* 16.1 mg/dL (0.5-1.0)
[2024-05-21 07:36] LABS: PSA Screen* 3.11 ng/mL (0.10-4.00)
[2024-05-21 07:39] LABS: Corrected White Blood Count 9.43 K/UL (4.50-11.00); Hemoglobin* 6.9 gm/dL (13.5-17.5); Slide Review Reflex Yes
[2024-05-21 07:40] LABS: Slide Review Acceptable Review (Acceptable)
[2024-05-21] MEDS: OMEPRAZOLE 20 MG CAPSULE DR PO (08:43)
[2024-05-21] MEDS: FERROUS SULFATE 325 MG TABLET PO (08:43)
[2024-05-21] MEDS: METOPROLOL SUCCINATE (XL) 100 MG TAB PO (08:43)
[2024-05-21] MEDS: allopurinoL 100 MG TABLET PO (08:43)
[2024-05-21] MEDS: FUROSEMIDE 40 MG TABLET PO (08:43)
[2024-05-21] MEDS: MULTIVITAMIN/MINERALS 1 TABLET 1 TAB PO (08:43)
[2024-05-21] MEDS: SODIUM CHLORIDE 0.9 % (FLUSH) 10 ML SYRINGE 5 ML IVF ×2 (08:51→20:40)
--- NOTE | 2024-05-21 09:28 | CRLHL7_ITS ---
For Patients: As a result of the Century Cures Act, medical imaging exams and procedure reports are released immediately into your electronic medical record. You may view this report before your referring provider. If you have questions, please contact your health care provider. INDICATION: Dysphagia TECHNIQUE: Modified barium swallow. Fluoroscopic time 1 minutes 30 seconds. COMPARISON: None FINDINGS/IMPRESSION: Flash laryngeal penetration occurred with varying consistencies of barium. Aspiration with cough reflex occurred with initial swallow of thin barium. This improved with chin tuck maneuver. Dictated by Braulio Bates MD @ 05/21/2024 1:18:51 PM (Electronically Signed)
[2024-05-21 09:45] LABS: Lactate Dehydrogenase* 519 U/L (120-246)
[2024-05-21 09:46] LABS: Total Protein* 5.5 g/dL (6.0-8.3)
--- NOTE | 2024-05-21 10:00 | P.IMPN_ITS ---
Assessment and Plan Assessment and plan (1) Ascites: Problem comment: Newly diagnosed ascites. 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 Liver panel unremarkable except for mild elevation in AST, family states that he never had history of alcohol abuse in the past or currently. Will consult general surgery for paracentesis, fluid analysis & cytology. Mildly elevated INR, liver panel unremarkable, LDH elevated hepatitis panel ordered PSA unremarkable at 3 Status: Acute (2) CKD (chronic kidney disease) stage 4, GFR 15-29 ml/min: Problem comment: Followed by Dr. Romero , [facility] No more visible bleeding in the urine, pt able to urinate Reduced UOP Status: Acute (3) Hematuria: Problem comment: No more visible bleeding, pt able to urinate, though reduced UOP Nurses document blood clots upon a trial of stright cathing him on admission Status: Acute (4) Dysphagia: Problem comment: Speech therapist want to do a modified barium swallow study because patient has dysphagia. Status: Acute (5) Chronic anemia: Problem comment: will give 1 unit of her blood for hemoglobin of 6.9 History of myelofibrosis following with Heme-Onc, on medication Status: Acute (6) Cognitive impairment: Problem comment: No previous history of cognitive impairment but family reports forgetfulness. Status: Acute (7) Frequent falls: Problem comment: Falls frequently, especially at night. His has had to call 911 for the ambulance to help him get up. Status: Acute (8) Weakness: Problem comment: Acute on chronic. At baseline patient is able to walk with a walker in his own home. Acutely weak and unable to walk today. Status: Acute (9) Low grade fever: Problem comment: Temp of 99.7?. With elevated procalcitonin concern for infection. No obvious source. Continue to monitor. Status: Acute (10) Weight loss, non-intentional: Problem comment: June 2023 87.6 kg November 2023 84.8 kg 04/22/2024 81.4 kg Status: Acute (11) Dehydration: Problem comment: Patient appears dry by clinical and laboratory evaluation Status: Acute (12) Diarrhea: Problem comment: Patient had 1 diarrhea stool in the emergency department. With recent antibi otic use check C diff. Status: Acute (13) Myelofibrosis: Problem comment: Chronic anemia, lymphopenia and thrombocytopenia. Elevated monocytes/immature granulocytes. Also large platelets, teardrop cells, elliptocytes Status: Acute (14) Insomnia: Problem comment: On chronic alprazolam. Due to frequent falls I recommend stopping this. At this point will cut his dose from 0.5 mg at bedtime to 0.25 mg at bedtime and add in melatonin. Recommend complete cessation of alprazolam Status: Acute (15) Infection: Problem comment: With elevated inflammatory markers and low-grade fever and acute on chronic weakness I suspect he has an infection. Source of the infection is not clear. Obtain cultures and monitor. Status: Suspected (16) Heart murmur: Problem comment: 03/27 systolic ejection murmur Echo from Mar 09, 2017: Final Impressions: 1. Mild to moderately increased left ventricular size, moderately increased wall thickness, normal global systolic function, calculated EF of 58 %. 2. Severely enlarged left atrium. 3. The mitral valve is sclerotic, no mitral regurgitation. 4. The inferior vena cava is dilated, respiratory size variation greater than 50%. 5. Trivial pericardial effusion. Status: Acute (17) Low TSH level: Problem comment: Normal free T4. Not on thyroid replacement. Ultrasound in the past shows multiple thyroid nodules. Followed by serial ultrasounds. As of January 2023 findings are stable. Status: Acute (18) Cholelithiasis: Problem comment: Mildly abnormal liver tests. No tenderness over the gallbladder. No GI symptoms. Status: Acute (19) Multiple thyroid nodules: Status: Acute (20) Secondary hyperparathyroidism: Problem comment: Due to chronic kidney disease Status: Acute (21) Chronic cough: Problem comment: Reports 6 year history of chronic cough. Family has observed this occurs after drinking water. No history of aspiration pneumonia. Check swallowing evaluation. Status: Acute (22) Skin cancer: Problem comment: Patient has multiple lesions suggestive of skin cancer scattered over his body. 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 Status: Acute (23) Tremor: Problem comment: Patient and both raise the issue of him having an occasional tremor. It sounds like this is not disabling and is infrequently and intermittently present. It is not present during my evaluation tonight. I suspect it is a physiologic tremor related to stress or illness based on the history that it seems to come at certain times of stress. Recommend no further evaluation unless it progresses or becomes disabling Status: Acute Subjective Date Seen: 05/21/24 Interval history: Pt seen and examined at bedside. Pt is comfortable, no new complaints. Discussed with patient and family paracentesis procedure, in addition to discussion of goals of care and family wants paracentesis done. Speech th brendan presented today and they want to do a modified barium swallow study because patient has dysphagia. No more visible bleeding, pt able to urinate, though reduced UOP. Paracentesis today, will give 1 unit of her blood for hemoglobin of 6.9. Exam Const: Vital Signs, click to edit/add: Vital Signs - 24 hr 05/20/24 11:00 05/20/24 15:00 05/20/24 15:00 Temperature 97.5 F L 97.4 F L Pulse Rate [Pulse Oximeter] 98 80 Respiratory Rate 18 18 18 Blood Pressure [Le ft Arm] Blood Pressure [Ri ght Arm] 126/56 L 141/60 H Pulse Oximetry 97 92 Oxygen Delivery Me thod Room Air Room Air 05/20/24 19:00 05/20/24 23:00 05/21/24 01:30 Temperature 97.9 F 100.8 F H 98.1 F Pulse Rate [Pulse Oximeter] 90 80 Respiratory Rate 20 20 Blood Pressure [Le ft Arm] 132/59 L Blood Pressure [Ri ght Arm] 108/50 L Pulse Oximetry 95 100 Oxygen Delivery Me thod Room Air Room Air 05/21/24 03:00 Temperature 98.0 F Pulse Rate [Pulse Oximeter] 100 Respiratory Rate 16 Blood Pressure [Le ft Arm] 138/63 Blood Pressure [Ri ght Arm] Pulse Oximetry 96 Oxygen Delivery Me thod Room Air Labs Labs: Laboratory Results - last 24 hr 05/20/24 05/21/24 05/21/24 08:35 06:07 06:07 WBC 10.37 Corrected WBC 9.43 RBC 2.57 L Hgb 6.9 L* Hct 22.2 L MCV 86 MCH 27 MCHC 31 L RDW Coeff of Fredy 20.4 H Plt Count 51 L Neut % (Auto) 42.3 Lymph % (Auto) 18.2 L [place] % (Auto) 17.1 H Eos % (Auto) 3.2 Baso % (Auto) 1.4 Neut # (Auto) 4.00 Lymph # (Auto) 1.70 [place] # (Auto) 1.60 H Eos # (Auto) 0.30 Baso # (Auto) 0.10 Abs Immat Gran (auto) 1.70 H Imm/Tot Granulo (auto) 17.8 Diff Slide Review Acceptable Review INR 1.74 H Sodium 136 Potassium 4.2 Chloride 109 Carbon Dioxide 18 L Anion Gap 9 BUN 70 H Creatinine 3.3 H Estimated Creat Clear 15.98 Estimated GFR 17 Glucose 113 Calcium 8.8 Total Bilirubin 0.8 Direct Bilirubin 0.4 AST 43 H ALT 30 Alkaline Phosphatase 137 Lactate Dehydrogenase 519 H C-Reactive Protein 16.1 H Total Protein 5.5 L 5.5 L Albumin 3.1 L PSA Screen 3.11 Blood Type A Negative Antibody Screen NEGATIVE Crossmatch (AHG) See Detail
[2024-05-21 11:17] LABS: Mononuclear WBC Body Fluid* 90 %; Polynuclear WBC Body Fluid* 10 %; RBC, Body Fluid* 35000 Cells/uL; WBC, Body Fluid* 1008 Cells/uL
[2024-05-21 11:19] LABS: BF Clarity* Cloudy; BF Color Grossly Bloody; BF Total Volume* 20
[2024-05-21 11:21] LABS: Albumin Body Fluid* 2.3 gm/dL; Amylase Body Fluid* 49 U/L; Body Fluid Total Protein* 3.7 gm/dL; Glucose Body Fluid* 91 mg/dL; LDH Body Fluid* 706 U/L
--- NOTE | 2024-05-21 11:48 | PM.GSCN ---
History of Present Illness Consult details Date Seen: 05/21/24 Consult date: 05/21/24 Narrative: The patient is an 89-year-old male who presented to the emergency department 2 days ago with falls. He does have a history of frequent falls, stage IV CKD, myelofibrosis with anemia and thrombocytopenia. He had fallen that day and not been able to get up and so his called EMS. His daughter states that they have noticed he has had increasing abdominal girth over the past month or so. [place] and so he looked significantly different when she returned home. She states that her brother though did also notice that his abdomen was becoming more distended. CT scan showed cardiomegaly, splenomegaly and moderate to severe ascites with stranding and nodularity of the omentum concerning for intra-abdominal carcinoma. He was also found to have diffuse osteosclerosis. I was asked to see the patient for paracentesis. [facility] Medical History (Updated 05/21/24 @ 11:55 by Paz Salas MD) Chronic anemia ?D64.9 - Anemia, unspecified (ICD-10) Dysphagia ?R13.10 - Dysphagia, unspecified (ICD-10) Tremor ?R25.1 - Tremor, unspecified (ICD-10) Urethral stricture ?N35.919 - Unspecified urethral stricture, male, unspecified site (ICD-10) Hypercoagulable state ?D68.59 - Other primary thrombophilia (ICD-10) Cognitive impairment ?R41.89 - Other symptoms and signs involving cognitive functions and awareness (ICD-10) Skin cancer ?C44.90 - Unspecified malignant neoplasm of skin, unspecified (ICD-10) Chronic cough ?R05.3 - Chronic cough (ICD-10) Frequent falls ?R29.6 - Repeated falls (ICD-10) Weight loss, non-intentional ?R63.4 - Abnormal weight loss (ICD-10) Uric acid kidney stone ?N20.0 - Calculus of kidney (ICD-10) Secondary hyperparathyroidism ?N25.81 - Secondary hyperparathyroidism of renal origin (ICD-10) Unspecified essential hypertension ?I10 - Essential (primary) hypertension (ICD-10) Psychosexual dysfunction with inhibited sexual excitement ?F52.8 - Other sexual dysfunction not due to a substance or known physiological condition (ICD-10) Primary hypercoagulable state (11/28/06) ?D68.59 - Other primary thrombophilia (ICD-10) Peripheral arterial disease (03/08/22) ?I73.9 - Peripheral vascular disease, unspecified (ICD-10) Myelofibrosis (01/13/13) ?D75.81 - Myelofibrosis (ICD-10) Multiple thyroid nodules (11/30/19) ?E04.2 - Nontoxic multinodular goiter (ICD-10) Insomnia (11/27/14) ?G47.00 - Insomnia, unspecified (ICD-10) Gastroesophageal reflux disease (06/23/15) ?K21.9 - Gastro-esophageal reflux disease without esophagitis (ICD-10) Diverticulosis of colon (without mention of hemorrhage) (10/16/11) ?K57.30 - Diverticulosis of large intestine without perforation or abscess without bleeding (ICD-10) Depression, recurrent (05/23/22) ?F33.9 - Major depressive disorder, recurrent, unspecified (ICD-10) Cough ?R05.9 - Cough, unspecified (ICD-10) CKD (chronic kidney disease) stage 4, GFR 15-29 ml/min (05/12/21) ?N18.4 - Chronic kidney disease, stage 4 (severe) (ICD-10) Cholelithiasis (10/16/11) ?K80.20 - Calculus of gallbladder without cholecystitis without obstruction (ICD-10) Benign neoplasm of colon ?D12.6 - Benign neoplasm of colon, unspecified (ICD-10) Anxiety (11/27/14) ?F41.9 - Anxiety disorder, unspecified (ICD-10) Anemia in stage 4 chronic kidney disease (04/06/22) ?N18.4 - Chronic kidney disease, stage 4 (severe) (ICD-10) ?D63.1 - Anemia in chronic kidney disease (ICD-10) Heart murmur ?R01.1 - Cardiac murmur, unspecified (ICD-10) Weakness ?R53.1 - Weakness (ICD-10) Infection ?B99.9 - Unspecified infectious disease (ICD-10) Surgical History (Updated 05/19/24 @ 21:28 by Bear Dean MD) H/O umbilical hernia repair ?Z98.890 - Other specified postprocedural states (ICD-10) ?Z87.19 - Personal history of other diseases of the digestive system (ICD-10) H/O prostate biopsy ?Z98.890 - Other specified postprocedural states (ICD-10) H/O cystoscopy ?Z98.890 - Other specified postprocedural states (ICD-10) Family History (Updated 05/19/24 @ 21:30 by Bear Dean MD) Father Heart disease Brother Alcohol dependence Lung cancer Stroke Other High blood pressure Social History (Updated 05/19/24 @ 21:31 by Bear Dean MD) Narrative: He lives in [place] with his . had abdominal surgery last week and is recovering nicely. Daughter is staying with family well mom recovers. 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 Code status is DNR. He does not smoke. He does not drink alcohol. He walks with a walker. What is your current living situation?: I presently have a place to live Problems where you live: no known problems Problems where you live details: None In the past 12 months, utilities in danger of being shut off: no In past 12 months, lack of transportation kept you from medical appts, meetings, work, or getting things needed for daily living: no In the past 12 mos, have been you worried that your food would run out before you had money to buy more?: never true In the past 12 mos, the food you bought just didn't last and you didn't have money to buy more?: never true Smoking Status: Never smoker Do you use any of these nicotine containing products: None Second hand tobacco smoke exposure: No How often do you have a drink containing alcohol: never How often do you have six or more drinks on one occasion: Never AUDIT-C Alcohol total score: 0 Non-prescribed substance use: denies use Caffeine: No How often does anyone, including family, friends and others, physically hurt you: never How often does anyone, including family, friends and others, insult or talk down to you: never How often does anyone, including family, friends and others, threaten you with harm: never How often does anyone, including family, friends and others, scream or curse at you: never service: Yes Meds Home Medications and Allergies Home Medications ?Medication ?Instructions ?Recorded ?Confirmed ?Type allopurinol 100 mg tablet 100 mg PO DAILY 12/05/21 05/20/24 History alprazolam 1 mg tablet 0.5 mg PO HS 12/05/21 05/20/24 History doxazosin 8 mg tablet 8 mg PO HS 12/05/21 05/20/24 History furosemide 40 mg tablet 20 mg PO DAILY 12/05/21 05/20/24 History metoprolol succinate 100 mg 100 mg PO DAILY 12/05/21 05/20/24 History tablet,extended release 24 hr omeprazole 20 mg capsule,delayed 20 mg PO DAILY 12/05/21 05/20/24 History release ruxolitinib 20 mg tablet (Jakafi) 20 mg PO DAILY 12/05/21 03/07/24 History vit C 250 mg-E 90 mg-zinc 40 1 tab PO QAM AND QPM 08/21/23 05/20/24 History mg-copper 1 [id number] chew tablet (PreserVision AREDS-2) cholecalciferol (vitamin D3) 25 25 mcg PO DAILY 05/20/24 05/20/24 History mcg (1,000 unit) capsule ferrous sulfate 325 mg (65 mg 325 mg PO DAILY 05/20/24 05/20/24 History iron) tablet glipizide 5 mg tablet, extended 5 mg PO DAILY 05/20/24 05/20/24 History release 24 hr Allergies Allergy/AdvReac Type Severity Reaction Status Date / Time amoxicillin Allergy vomited Verified 05/31/23 10:53 codeine AdvReac Intermediate Nausea Verified 05/31/23 10:53 hydrocodone AdvReac Intermediate Nausea Verified 05/31/23 10:53 Exam Narrative: Exam Narrative: General: No acute distress HEENT: Patient with multiple open lesions of his head and face concerning for skin malignancy. Respiratory: Breathing nonlabored on room air CV: Regular Abdomen: Protuberant. Soft and nontender. Umbilical scar from prior umbilical hernia repair. Const: Vital Signs, click to edit/add: Vital Signs - 24 hr 05/20/24 15:00 05/20/24 15:00 05/20/24 19:00 Temperature 97.4 F L 97.9 F Pulse Rate [Pulse Oximeter] 80 90 Respiratory Rate 18 18 20 Blood Pressure [Le ft Arm] 132/59 L Blood Pressure [Ri ght Arm] 141/60 H Pulse Oximetry 92 95 Oxygen Delivery Me thod Room Air Room Air 05/20/24 23:00 05/21/24 01:30 05/21/24 03:00 Temperature 100.8 F H 98.1 F 98.0 F Pulse Rate [Pulse Oximeter] 80 100 Respiratory Rate 20 16 Blood Pressure [Le ft Arm] 138/63 Blood Pressure [Ri ght Arm] 108/50 L Pulse Oximetry 100 96 Oxygen Delivery Me thod Room Air Room Air 05/21/24 07:30 05/21/24 07:30 Temperature 97.9 F Pulse Rate [Pulse Oximeter] 96 96 Respiratory Rate 16 16 Blood Pressure [Le ft Arm] 137/68 Blood Pressure [Ri ght Arm] Pulse Oximetry 96 Oxygen Delivery Me thod Room Air Results Labs Labs: Abnormal lab results 05/20/24 05/21/24 05/21/24 Range/Units 08:35 06:07 06:07 RBC 2.57 L (4.30-5.90) m/uL Hgb 6.9 L* (13.5-17.5) gm/dL Hct 22.2 L (37.0-53.0) % MCHC 31 L (32-36) gm/dL RDW Coeff of Fredy 20.4 H (11.5-15.5) % Plt Count 51 L (140-440) K/uL Lymph % (Auto) 18.2 L (20-44) % [place] % (Auto) 17.1 H (0.0-11.0) % [place] # (Auto) 1.60 H (0.00-0.90) K/UL Abs Immat Gran (auto) 1.70 H (0.00-0.30) K/uL INR 1.74 H (0.91-1.10) Carbon Dioxide 18 L (20-32) mmol/L BUN 70 H (7-30) mg/dL Creatinine 3.3 H (0.5-1.5) mg/dL AST 43 H (12-35) U/L Lactate Dehydrogenase 519 H (120-246) U/L C-Reactive Protein 16.1 H (0.5-1.0) mg/dL Total Protein 5.5 L 5.5 L (6.0-8.3) g/dL Albumin 3.1 L (3.3-5.0) g/dL Fluid Color Fluid Appearance Crossmatch (AHG) See Detail 05/21/24 Range/Units 08:52 RBC (4.30-5.90) m/uL Hgb (13.5-17.5) gm/dL Hct (37.0-53.0) % MCHC (32-36) gm/dL RDW Coeff of Fredy (11.5-15.5) % Plt Count (140-440) K/uL Lymph % (Auto) (20-44) % [place] % (Auto) (0.0-11.0) % [place] # (Auto) (0.00-0.90) K/UL Abs Immat Gran (auto) (0.00-0.30) K/uL INR (0.91-1.10) Carbon Dioxide (20-32) mmol/L BUN (7-30) mg/dL Creatinine (0.5-1.5) mg/dL AST (12-35) U/L Lactate Dehydrogenase (120-246) U/L C-Reactive Protein (0.5-1.0) mg/dL Total Protein (6.0-8.3) g/dL Albumin (3.3-5.0) g/dL Fluid Color Grossly Bloody A Fluid Appearance Cloudy A Crossmatch (G) Diabetes panel 05/21/24 05/21/24 Range/Units 06:07 06:07 Sodium 136 (135-149) mmol/L Potassium 4.2 (3.6-5.1) mmol/L Chloride 109 (96-114) mmol/L Carbon Dioxide 18 L (20-32) mmol/L BUN 70 H (7-30) mg/dL Creatinine 3.3 H (0.5-1.5) mg/dL Glucose 113 (60-115) mg/dL Calcium 8.8 (8.4-10.6) mg/dL AST 43 H (12-35) U/L ALT 30 (4-50) U/L Alkaline Phosphatase 137 (40-150) U/L Total Protein 5.5 L 5.5 L (6.0-8.3) g/dL Albumin 3.1 L (3.3-5.0) g/dL Calcium panel 05/21/24 Range/Units 06:07 Calcium 8.8 (8.4-10.6) mg/dL Albumin 3.1 L (3.3-5.0) g/dL Pituitary panel 05/21/24 Range/Units 06:07 Sodium 136 (135-149) mmol/L Potassium 4.2 (3.6-5.1) mmol/L Chloride 109 (96-114) mmol/L Carbon Dioxide 18 L (20-32) mmol/L BUN 70 H (7-30) mg/dL Creatinine 3.3 H (0.5-1.5) mg/dL Glucose 113 (60-115) mg/dL Calcium 8.8 (8.4-10.6) mg/dL Adrenal panel 05/21/24 05/21/24 Range/Units 06:07 06:07 Sodium 136 (135-149) mmol/L Potassium 4.2 (3.6-5.1) mmol/L Chloride 109 (96-114) mmol/L Carbon Dioxide 18 L (20-32) mmol/L BUN 70 H (7-30) mg/dL Creatinine 3.3 H (0.5-1.5) mg/dL Glucose 113 (60-115) mg/dL Calcium 8.8 (8.4-10.6) mg/dL Total Bilirubin 0.8 (0.1-1.5) mg/dL AST 43 H (12-35) U/L ALT 30 (4-50) U/L Alkaline Phosphatase 137 (40-150) U/L Total Protein 5.5 L 5.5 L (6.0-8.3) g/dL Albumin 3.1 L (3.3-5.0) g/dL All other labs normal. Imaging Abdomen CT scan report/results: report reviewed and image reviewed Additional studies: IMPRESSION: 1. Enlarged heart. Vascular and valvular calcifications. 2. Cholelithiasis. Contracted gallbladder. No definite acute cholecystitis. No obvious cirrhotic morphology of the liver on this noncontrast study. 3. Right renal cyst. No specific visible cause for hematuria on this noncontrast exam. 4. The spleen is significantly enlarged measuring 21 centimeters. Similar to the prior study. There is also a moderate-sized subcapsular splenic fluid collection which was not present previously. 5. Enlarged prostate. This is similar to the prior examination. 6. Moderate to severe ascites. There is also mild stranding and nodularity of the omentum which often indicates an intra-abdominal carcinoma, less likely infection. The omental surface findings ascites appear to be new. 7. Diffuse osteosclerosis. The most common cause of this is metastatic disease. In a male, this usually indicates prostate carcinoma 8. Other findings as discussed in the body of the report Please note that all CT scans at this facility use dose modulation, iterative reconstruction, and/or weight-based dosing when appropriate to reduce radiation dose to as low as reasonably achievable. Dictated by Neel Ferrell MD @ 05/20/2024 8:48:08 AM General Surgery Procedures Paracentesis Time out performed: Yes Indication: Ascites Procedure: diagnostic paracentesis Location: RLQ (Right mid lower abdomen) Local anesthetic used: lidocaine 1% Amount of anesthesia used (ml): 2 Bedside ultrasound used: yes, real-time guidance Preparation: sterile prep and drape Amount of fluid obtained (ml): 20 Fluid: bloody (Suspect blood from needle insertion) Size of needle used: 20 Post procedure exam: awake, alert Patient tolerated procedure: well Complications: none Additional comments: Patient had a large amount of ascites, however a pocket was difficult to identify and therefore only a diagnostic tap was performed Progress Note:A&P Assessment and plan (1) Chronic anemia: Status: Acute (2) Myelofibrosis: Status: Acute (3) Ascites: Status: Acute (4) Thrombocytopenia: Status: Acute Plan The patient is an 81-year-old male with weakness and falls with history of myelofibrosis, anemia and thrombocytopenia and new onset ascites. This is concerning for malignant process in the setting of omental caking seen on CT scan. I was asked today to perform a diagnostic paracentesis. The patient had omentum and bowel adjacent to the abdominal wall in most of the abdomen. There was a pocket noted in the right mid/lower abdomen. I chose this to perform simply a diagnostic paracentesis and this was performed at bedside without incident. I did discuss with the patient and his daughter that if the fluid continues to accumulate, therapeutic paracentesis may be necessary. This may be easier if his abdomen is more distended.
--- NOTE | 2024-05-21 13:37 | PC.SOCIAL ---
Discharge planning: ERMELINDA spoke with patient's daughter as daughter wanted to follow-up on where they would like rehab referrals sent. Daughter states they'd like to go to [facility]. SW explained that she would send a referral to [facility] today and discussed that sometimes facilities aren't able to accept people based on their needs. SW explained she would bring a list of other rehab places so family can review if [facility] isn't able to accept or doesn't have availability. Daughter inquired about how long insurance would cover rehab. SW states she will inquire when she sends the referral. ERMELINDA spoke with daughter about how she and the family are navigating everything. Daughter states her mom is improving, but there's a lot to think about in terms of what the family wants and what her dad would want, and also that they're in a waiting game with the tests to see what is all going on medically. ERMELINDA listened, validated, and provided empathy to daughter. ERMELINDA sent [facility] referral to [place]. ERMELINDA to assist with continued discharging needs.
--- NOTE | 2024-05-21 14:33 | PC.NURSE ---
End of Shift: Pt has been pleasant and cooperative, only A&O to self, he is confused to date and place he said he was in the hospital but though he though it was in [place] swallow study was done. see note. he is up with 2 assist and ez-stand. he is voiding using a urinal and had a large incontinent BM.
[2024-05-21] MEDS: INSULIN ASPART 100 UNIT/ML SUBCUT (17:29)
--- NOTE | 2024-05-21 19:46 | PC.NURSE ---
Patient alert and oriented to self. 1 unit PRBCs, patient tolerated well. Vital signs remained stable post blood infusion. Son at bedside. Patient transfer with AX2 with EZ stand.
[2024-05-21] MEDS: ALPRAZolam 0.25 MG TABLET PO (20:40)
[2024-05-21] MEDS: MELATONIN 3 MG TABLET PO (20:40)
[2024-05-21] MEDS: DOXAZOSIN 4 MG TABLET 8 MG PO (20:40)
[2024-05-22 02:15] VITALS: BP 121/56; PULSE 66; RESP 18; TEMP 37; O2SAT 97
--- NOTE | 2024-05-22 06:11 | PC.NURSE ---
Shift note: Patient has been calm and remained in bed throughout the shift. Patient doing well participating turning and reposition PRN. Difficulty swallowing, require honey thick fluid to prevent aspiration. Alert and oriented with occasional confusion. Vitally stable.
[2024-05-22 06:31] LABS: Hematocrit 24.2 % (37.0-53.0); Mean Corpuscular HGB Conc 31 gm/dL (32-36); Mean Corpuscular Hemoglobin 26 pg (26-34); Mean Corpuscular Volume 85 fL (80-100); RDW Coefficient of Variation % 19.6 % (11.5-15.5); Red Blood Count 2.84 m/uL (4.30-5.90); White Blood Count* 12.12 K/uL (4.50-11.00)
[2024-05-22 06:59] LABS: Chloride* 108 mmol/L (96-114); Potassium* 4.1 mmol/L (3.6-5.1); Sodium* 135 mmol/L (135-149)
[2024-05-22 07:02] LABS: Anion Gap 9 mEq/L (7-15); Blood Urea Nitrogen* 72 mg/dL (7-30); Calcium* 8.7 mg/dL (8.4-10.6); Carbon Dioxide* 18 mmol/L (20-32); Creatinine* 3.3 mg/dL (0.5-1.5); Est. Creatinine Clearance* 15.98; Estimated Glomerular Filt Rate 17 ml/min; Glucose* 100 mg/dL (60-115)
[2024-05-22 08:01] LABS: C Reactive Protein* 14.8 mg/dL (0.5-1.0)
[2024-05-22 08:15] LABS: Hemoglobin* 7.5 gm/dL (13.5-17.5)
[2024-05-22 08:16] LABS: Corrected White Blood Count 10.82 K/UL (4.50-11.00); Platelet Count* 46 K/uL (140-440); Slide Review Reflex Yes
[2024-05-22 08:19] LABS: Slide Review Acceptable Review (Acceptable)
[2024-05-22 09:42] VITALS: BP 121/83; PULSE 102; RESP 16; TEMP 36.3; O2SAT 95
[2024-05-22] MEDS: FERROUS SULFATE 325 MG TABLET PO (09:48)
[2024-05-22] MEDS: FUROSEMIDE 40 MG TABLET PO (09:48)
[2024-05-22] MEDS: METOPROLOL SUCCINATE (XL) 100 MG TAB PO (09:50)
[2024-05-22] MEDS: allopurinoL 100 MG TABLET PO (09:50)
[2024-05-22] MEDS: MULTIVITAMIN/MINERALS 1 TABLET 1 TAB PO (09:51)
[2024-05-22] MEDS: SODIUM CHLORIDE 0.9 % (FLUSH) 10 ML SYRINGE 5 ML IVF ×2 (09:52→20:24)
[2024-05-22] MEDS: OMEPRAZOLE 20 MG CAPSULE DR PO (09:52)
--- NOTE | 2024-05-22 10:40 | PM.IMPN1 ---
Assessment and Plan Assessment and plan (1) Ascites: Problem comment: Newly diagnosed ascites. 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 Liver panel unremarkable except for mild elevation in AST, family states that he never had history of alcohol abuse in the past or currently. Will consult general surgery for paracentesis, fluid analysis & cytology. paracentesis procedure done on 05/21/24, showed a low gradient (< 1.1 g/dL, <11 g/L) indicates causes of ascites not associated with increased portal pressure such as: tuberculosis, pancreatitis, infections, serositis, various types of peritoneal cancers (peritoneal carcinomatosis). Mildly elevated INR, liver panel unremarkable, LDH elevated hepatitis panel ordered PSA unremarkable at 3 paracentesis fluid pending cytology. Status: Acute (2) Lower extremity cellulitis: Problem comment: -Patient has a large blister that looks blood on his left foot, there is also swelling redness and warmth will start him on doxycycline, specially that per the daughter he was on antibiotics 10 days ago for LLE cellulitis. -starting doxycycline 100 b.i.d. no need for renally dosing per our pharmacist Status: Acute (3) CKD (chronic kidney disease) stage 4, GFR 15-29 ml/min: Problem comment: Followed by Dr. Romero , [facility] No more visible bleeding in the urine, pt able to urinate Reduced UOP Status: Acute (4) Hematuria: Problem comment: No more visible bleeding, pt able to urinate, though reduced UOP Nurses document blood clots upon a trial of stright cathing him on admission Status: Acute (5) Dysphagia: Problem comment: Speech therapist want to do a modified barium swallow study because patient has dysphagia. Status: Acute (6) Chronic anemia: Problem comment: will give 1 unit of her blood for hemoglobin of 6.9 History of myelofibrosis following with Heme-Onc, on medication Status: Acute (7) Cognitive impairment: Problem comment: No previous history of cognitive impairment but family reports forgetfulness. Status: Acute (8) Frequent falls: Problem comment: Falls frequently, especially at night. His has had to call 911 for the ambulance to help him get up. Status: Acute (9) Weakness: Problem comment: Acute on chronic. At baseline patient is able to walk with a walker in his own home. Acutely weak and unable to walk today. Status: Acute (10) Low grade fever: Problem comment: Temp of 99.7?. With elevated procalcitonin concern for infection. No obvious source. Continue to monitor. Status: Acute (11) Weight loss, non-intentional: Problem comment: June 2023 87.6 kg November 2023 84.8 kg 04/22/2024 81.4 kg Status: Acute (12) Dehydration: Problem comment: Patient appears dry by clinical and laboratory evaluation Status: Acute (13) Diarrhea: Problem comment: Patient had 1 diarrhea stool in the emergency department. With recent antibiotic use check C diff. Status: Acute (14) Myelofibrosis: Problem comment: Chronic anemia, lymphopenia and thrombocytopenia. Elevated monocytes/immature granulocytes. Also large platelets, teardrop cells, elliptocytes Status: Acute (15) Insomnia: Problem comment: On chronic alprazolam. Due to frequent falls I recommend stopping this. At this point will cut his dose from 0.5 mg at bedtime to 0.25 mg at bedtime and add in melatonin. Recommend complete cessation of alprazolam Status: Acute (16) Infection: Problem comment: With elevated inflammatory markers and low-grade fever and acute on chronic weakness I suspect he has an infection. Source of the infection is not clear. Obtain cultures and monitor. Status: Suspected (17) Heart murmur: Problem comment: 2/6 systolic ejection murmur Echo from Mar 09, 2017: Final Impressions: 1. Mild to moderately increased left ventricular size, moderately increased wall thickness, normal global systolic function, calculated EF of 58 %. 2. Severely enlarged left atrium. 3. The mitral valve is sclerotic, no mitral regurgitation. 4. The inferior vena cava is dilated, respiratory size variation greater than 50%. 5. Trivial pericardial effusion. Status: Acute (18) Low TSH level: Problem comment: Normal free T4. Not on thyroid replacement. Ultrasound in the past shows multiple thyroid nodules. Followed by serial ultrasounds. As of January 2023 findings are stable. Status: Acute (19) Cholelithiasis: Problem comment: Mildly abnormal liver tests. No tenderness over the gallbladder. No GI symptoms. Status: Acute (20) Multiple thyroid nodules: Status: Acute (21) Secondary hyperparathyroidism: Problem comment: Due to chronic kidney disease Status: Acute (22) Chronic cough: Problem comment: Reports 6 year history of chronic cough. Family has observed this occurs after drinking water. No history of aspiration pneumonia. Check swallowing evaluation. Status: Acute (23) Skin cancer: Problem comment: Patient has multiple lesions suggestive of skin cancer scattered over his body. Being followed and treated for skin cancer by emergency room nurse. Status: Acute (24) Tremor: Problem comment: Patient and both raise the issue of him having an occasional tremor. It sounds like this is not disabling and is infrequently and intermittently present. It is not present during my evaluation tonight. I suspect it is a physiologic tremor related to stress or illness based on the history that it seems to come at certain times of stress. Recommend no further evaluation unless it progresses or becomes disabling Status: Acute Total Time Spent Total Time Spent: Today I spent 50 minutes seeing the patient, reviewing Expanse and EPIC notes/diagnostics, discussing the care plan with our care time that includes social work, PT/OT, pharmacy, RT, [place] [facility] and documenting my impressions and plan in the medical record. Subjective Date Seen: 05/22/24 Interval history: Pt seen and examined at bedside. Pt is comfortable, no new complaints. paracentesis procedure yesterday, showed a low gradient (< 1.1 g/dL, <11 g/L) indicates causes of ascites not associated with increased portal pressure such as: tuberculosis, pancreatitis, infections, serositis, various types of peritoneal cancers (peritoneal carcinomatosis). Patient has a large blister that looks blood on his left foot, there is also swelling redness and warmth will start him on doxycycline, specially that per the daughter he was on antibiotics 10 days ago for cellulitis of the same LE. Exam Narrative: Exam Narrative: Physical exam GENERAL: Comfortable, no acute distress. CARDIOVASCULAR: RRR. Normal S1, S2. RESPIRATORY: Clear to auscultation B/L. Good air entry B/L. No wheezes or rhonchi. GASTROINTESTINAL: distended, not tender to palpation. Positive wave fluid test. NEUROLOGY: Alert, awake. Normal speech. MSK: a large blister that looks blood on his left foot, there is also swelling redness and warmth. PSYCH: Normal mood, normal affect. Const: Vital Signs, click to edit/add: Vital Signs - 24 hr 05/21/24 11:15 05/21/24 12:24 05/21/24 12:31 Temperature 98.4 F 99.0 F 99.0 F Pulse Rate 80 80 Pulse Rate [Pulse Oximeter] 96 Respiratory Rate 16 16 16 Blood Pressure 130/58 L 130/58 L Blood Pressure [Le ft Arm] 127/62 Blood Pressure [Ri ght Arm] Pulse Oximetry 95 97 97 Oxygen Delivery Me thod Room Air Room Air Room Air 05/21/24 12:44 05/21/24 13:14 05/21/24 13:45 Temperature 99.0 F 98.6 F 99.0 F Pulse Rate 84 86 83 Pulse Rate [Pulse Oximeter] Respiratory Rate 16 16 16 Blood Pressure 124/60 138/59 L 130/60 Blood Pressure [Le ft Arm] Blood Pressure [Ri ght Arm] Pulse Oximetry 99 97 97 Oxygen Delivery Me thod Room Air Room Air Room Air 05/21/24 14:00 05/21/24 14:30 05/21/24 15:00 Temperature 98.8 F 99.0 F Pulse Rate 76 95 Pulse Rate [Pulse Oximeter] 96 Respiratory Rate 16 16 19 Blood Pressure 130/61 120/62 Blood Pressure [Le ft Arm] Blood Pressure [Ri ght Arm] Pulse Oximetry 98 99 Oxygen Delivery Me thod Room Air Room Air 05/21/24 15:37 05/21/24 15:37 05/21/24 16:41 Temperature 98.0 F 98.0 F 97.9 F Pulse Rate 96 83 Pulse Rate [Pulse Oximeter] 96 Respiratory Rate 18 18 19 Blood Pressure 129/64 125/63 Blood Pressure [Le ft Arm] 129/64 Blood Pressure [Ri ght Arm] Pulse Oximetry 98 96 94 Oxygen Delivery Me thod Room Air Room Air Room Air 05/21/24 19:00 05/21/24 22:35 05/21/24 22:35 Temperature 98.6 F 98.6 F Pulse Rate Pulse Rate [Pulse Oximeter] 77 67 67 Respiratory Rate 19 19 19 Blood Pressure Blood Pressure [Le ft Arm] 129/66 129/61 Blood Pressure [Ri ght Arm] Pulse Oximetry 98 99 Oxygen Delivery Me thod Room Air Room Air 05/22/24 02:15 05/22/24 09:42 Temperature 98.6 F 97.3 F L Pulse Rate Pulse Rate [Pulse Oximeter] 66 102 H Respiratory Rate 18 16 Blood Pressure Blood Pressure [Le ft Arm] 121/56 L Blood Pressure [Ri ght Arm] 121/83 Pulse Oximetry 97 95 Oxygen Delivery Me thod Room Air Room Air Labs Labs: Laboratory Results - last 24 hr 05/20/24 05/21/24 05/22/24 08:35 08:52 05:47 WBC 12.12 H Corrected WBC 10.82 RBC 2.84 L Hgb 7.5 L* Hct 24.2 L MCV 85 MCH 26 MCHC 31 L RDW Coeff of Fredy 19.6 H Plt Count 46 L* Neut % (Auto) 50.0 Lymph % (Auto) 14.0 L Bertie % (Auto) 13.0 H Eos % (Auto) 3.0 Baso % (Auto) 0.0 Neut # (Auto) 5.40 Lymph # (Auto) 1.50 Bertie # (Auto) 1.40 H Eos # (Auto) 0.30 Baso # (Auto) 0.00 Abs Immat Gran (auto) 2.20 H Imm/Tot Granulo (auto) 20.0 Diff Slide Review Acceptable Review Sodium 135 Potassium 4.1 Chloride 108 Carbon Dioxide 18 L Anion Gap 9 BUN 72 H Creatinine 3.3 H Estimated Creat Clear 15.98 Estimated GFR 17 Glucose 100 Calcium 8.7 C-Reactive Protein 14.8 H Fluid Volume 20 Fluid Color Grossly Bloody A Fluid Appearance Cloudy A Fluid WBC 1008 Fluid RBC 63681 Fluid Polynuclear WBCs 10 Fluid Mononuclear WBCs 90 Fluid Glucose 91 Fluid Total Protein 3.7 Fluid Albumin 2.3 Fluid LDH 706 Fluid Amylase 49 Blood Type A Negative Antibody Screen NEGATIVE Crossmatch (AHG) See Detail
[2024-05-22 12:05] VITALS: BP 135/64; PULSE 97; RESP 16; TEMP 36.6; O2SAT 98
[2024-05-22] MEDS: DOXYCYCLINE HYCLATE 100 MG PO ×2 (13:21→20:23)
[2024-05-22 15:00] VITALS: BP 129/65; PULSE 78; RESP 16; TEMP 36.2; O2SAT 98
--- NOTE | 2024-05-22 16:50 | PC.SOCIAL ---
Discharge planning: icebox worker sent updated PT/OT notes to Joel today at [facility]. icebox worker also answered questions for LUIS ALBERTO Daugherty at [facility], questions were about C-Diff status since they only have a shared bathroom available. icebox worker shared that the pt tested negative for C-Diff on 05/20/24. [facility] stated they also have concerns about pt's low hemoglobin and this social sciences chair explained to [facility] that his hemoglobin will be tested again in the morning when he gets his lab draw and this worker also told [facility] that the pt has chronic anemia and his hemoglobin is usually lower at baseline per the charge nurse on duty. [facility] also wanted this worker to ask the family about paying for medical transportation to medical appointments when the pt has follow-up appointments due to pt being a two assist right now, [facility] is concerned that the pt will not be able to get in and out of a private vehicle and will need medical transport. Social work to follow-up as needed.
--- NOTE | 2024-05-22 18:34 | PC.NURSE ---
Pt pleasant and cooperative. VSS. Denies pain. A&Ox3. A2 pivot w/walker, tolerated well. Pt's right knee dressing changed. 4x4 gauze and tubi mechanical maintenance supervisor applied to left foot blood blister.
[2024-05-22 19:00] VITALS: BP 161/75; PULSE 81; RESP 16; TEMP 37.2; O2SAT 98
[2024-05-22] MEDS: DOXAZOSIN 4 MG TABLET 8 MG PO (20:23)
[2024-05-22] MEDS: MELATONIN 3 MG TABLET PO (20:23)
[2024-05-22] MEDS: ALPRAZolam 0.25 MG TABLET PO (20:24)
[2024-05-22 21:36] LABS: Hep A Ab, IgM Negative (Negative); Hep B Core Ab, IgM Negative (Negative); Hep B Surface Antigen Negative (Negative); Hep C Ab by CIA Index 0.05 IV; Hep C Ab by CIA Interp Negative (Negative)
[2024-05-22 23:00] VITALS: BP 137/72; PULSE 78; RESP 16; TEMP 36.6; O2SAT 98
[2024-05-23 02:23] VITALS: BP 153/68; PULSE 90; RESP 16; TEMP 36.6; O2SAT 91
--- NOTE | 2024-05-23 06:29 | PC.NURSE ---
Shift note: Pt is alert with baseline altered mental status. Patient has been sleeping well. Vitally stable. Takes pill whole preferable 1 at a time with honey thicken water. Dressing dry and clean. Blister to the left leg covered with Tubigrip.
[2024-05-23 06:37] LABS: Basophils Percent Auto 1.5 % (0.0-3.0); Eosinophils Percent Auto 3.8 % (0.0-7.0); Hematocrit 25.3 % (37.0-53.0); Immature Granulocytes Pct Auto 22.4 %; Lymphocytes Percent Auto 15.3 % (20-44); Mean Corpuscular HGB Conc 31 gm/dL (32-36); Mean Corpuscular Hemoglobin 27 pg (26-34); Mean Corpuscular Volume 86 fL (80-100); Monocytes Percent Auto 18.2 % (0.0-11.0); Neutrophils Percent Auto 38.8 % (42.0-72.0); Platelet Count* 56 K/uL (140-440); RDW Coefficient of Variation % 19.6 % (11.5-15.5); Red Blood Count 2.95 m/uL (4.30-5.90)
[2024-05-23 06:40] LABS: Hemoglobin* 7.9 gm/dL (13.5-17.5)
[2024-05-23 06:41] LABS: Slide Review Reflex No
[2024-05-23 06:52] LABS: Chloride* 106 mmol/L (96-114); Sodium* 133 mmol/L (135-149)
[2024-05-23 06:55] LABS: Anion Gap 9 mEq/L (7-15); Blood Urea Nitrogen* 74 mg/dL (7-30); Carbon Dioxide* 18 mmol/L (20-32); Creatinine* 3.4 mg/dL (0.5-1.5); Est. Creatinine Clearance* 15.51; Estimated Glomerular Filt Rate 17 ml/min
[2024-05-23 06:56] LABS: Calcium* 8.7 mg/dL (8.4-10.6); Glucose* 148 mg/dL (60-115)
[2024-05-23 08:45] VITALS: BP 133/64; PULSE 97; RESP 24; TEMP 37.1; O2SAT 95
[2024-05-23] MEDS: DOXYCYCLINE HYCLATE 100 MG PO ×2 (08:53→21:10)
[2024-05-23] MEDS: FUROSEMIDE 40 MG TABLET PO (08:53)
[2024-05-23] MEDS: MULTIVITAMIN/MINERALS 1 TABLET 1 TAB PO (08:53)
[2024-05-23] MEDS: METOPROLOL SUCCINATE (XL) 100 MG TAB PO (08:53)
[2024-05-23] MEDS: OMEPRAZOLE 20 MG CAPSULE DR PO (08:53)
[2024-05-23] MEDS: allopurinoL 100 MG TABLET PO (08:53)
--- NOTE | 2024-05-23 11:41 | PC.SOCIAL ---
Addendum entered by RODRICK Thomas 05/23/24 16:42: Discharge planning: Pt needs to be to [facility] on Sunday no later than 2pm. Social work to follow-up as needed. Addendum entered by RODRICK Thomas 05/23/24 16:08: Discharge planning: wax ball knock out worker spoke with pt's son again this afternoon and he would like the pt to transport via non-emergent EMS on Sunday to [facility]. wax ball knock out worker reviewed the cost with pt's son again and he was fine with the cost([id number]= 113). Pt's son signed the non-emergent wheelchair transport form. Social work to follow-up as needed. Original Note: Discharge planning: After several back and forth discussions with the provider on duty and the DON at [facility], [facility] stated that they will accept the pt for admission on Friday 05/26. [facility] is concerned about the pt's low hemoglobin even though it has been shared multiple times that the pt has chronic anemia and he is not acutely bleeding. [facility] stated that they are not able to check the hemoglobin over the weekend and it would be best for the pt to come on Sunday since he is a new pt to them and they are not as familiar with all of his comorbidities. wax ball knock out worker updated the provider on duty and the pt's son. Pt's son stated that he would like to be able to transport his father on Sunday to [facility], but if his father is not able to get into his vehicle he is okay with paying the transportation cost for EMS. wax ball knock out worker will check-in with the pt's son on Sunday about transportation. Social work to follow-up as needed.
--- NOTE | 2024-05-23 12:37 | P.IMPN_ITS ---
Assessment and Plan Assessment and plan (1) Ascites: Problem comment: Newly diagnosed ascites. 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 Liver panel unremarkable except for mild elevation in AST, family states that he never had history of alcohol abuse in the past or currently. Will consult general surgery for paracentesis, fluid analysis & cytology. paracentesis procedure done on 05/21/24, showed a low gradient (< 1.1 g/dL, <11 g/L) indicates causes of ascites not associated with increased portal pressure such as: tuberculosis, pancreatitis, infections, serositis, various types of peritoneal cancers (peritoneal carcinomatosis). Mildly elevated INR, liver panel unremarkable, LDH elevated hepatitis panel ordered PSA unremarkable at 3 paracentesis fluid pending cytology results. Status: Acute (2) Lower extremity cellulitis: Problem comment: -Patient has a large blister that looks blood on his left foot, there is also swelling redness and warmth will start him on doxycycline, specially that per the daughter he was on antibiotics 10 days ago for LLE cellulitis. -starting doxycycline 100 b.i.d. on 05/22, no need for renally dosing per our pharmacist Status: Acute (3) CKD (chronic kidney disease) stage 4, GFR 15-29 ml/min: Problem comment: Followed by Dr. Romero , [facility] No more visible bleeding in the urine, pt able to urinate Reduced UOP Status: Acute (4) Hematuria: Problem comment: No more visible bleeding, pt able to urinate, though reduced UOP Nurses document blood clots upon a trial of stright cathing him on admission Status: Acute (5) Dysphagia: Problem comment: Speech therapist want to do a modified barium swallow study because patient has dysphagia. Status: Acute (6) Chronic anemia: Problem comment: will give 1 unit of her blood for hemoglobin of 6.9 History of myelofibrosis following with Heme-Onc, on medication Status: Acute (7) Cognitive impairment: Problem comment: No previous history of cognitive impairment but family reports forgetfulness. Status: Acute (8) Frequent falls: Problem comment: Falls frequently, especially at night. His has had to call 911 for the ambulance to help him get up. Status: Acute (9) Weakness: Problem comment: Acute on chronic. At baseline patient is able to walk with a walker in his own home. Acutely weak and unable to walk today. Status: Acute (10) Low grade fever: Problem comment: Temp of 99.7?. With elevated procalcitonin concern for infection. No obvious source. Continue to monitor. Status: Acute (11) Weight loss, non-intentional: Problem comment: June 2023 87.6 kg November 2023 84.8 kg 04/22/2024 81.4 kg Status: Acute (12) Dehydration: Problem comment: Patient appears dry by clinical and laboratory evaluation Status: Acute (13) Diarrhea: Problem comment: Patient had 1 diarrhea stool in the emergency department. With recent antibio tic use check C diff. Status: Acute (14) Myelofibrosis: Problem comment: Chronic anemia, lymphopenia and thrombocytopenia. Elevated monocytes/immature granulocytes. Also large platelets, teardrop cells, elliptocytes Status: Acute (15) Insomnia: Problem comment: On chronic alprazolam. Due to frequent falls I recommend stopping this. At this point will cut his dose from 0.5 mg at bedtime to 0.25 mg at bedtime and add in melatonin. Recommend complete cessation of alprazolam Status: Acute (16) Infection: Problem comment: With elevated inflammatory markers and low-grade fever and acute on chronic weakness I suspect he has an infection. Source of the infection is not clear. Obtain cultures and monitor. Status: Suspected (17) Heart murmur: Problem comment: 2/6 systolic ejection murmur Echo from Mar 09, 2017: Final Impressions: 1. Mild to moderately increased left ventricular size, moderately increased wall thickness, normal global systolic function, calculated EF of 58 %. 2. Severely enlarged left atrium. 3. The mitral valve is sclerotic, no mitral regurgitation. 4. The inferior vena cava is dilated, respiratory size variation greater than 50%. 5. Trivial pericardial effusion. Status: Acute (18) Low TSH level: Problem comment: Normal free T4. Not on thyroid replacement. Ultrasound in the past shows multiple thyroid nodules. Followed by serial ultrasounds. As of January 2023 findings are stable. Status: Acute (19) Cholelithiasis: Problem comment: Mildly abnormal liver tests. No tenderness over the gallbladder. No GI symptoms. Status: Acute (20) Multiple thyroid nodules: Status: Acute (21) Secondary hyperparathyroidism: Problem comment: Due to chronic kidney disease Status: Acute (22) Chronic cough: Problem comment: Reports 6 year history of chronic cough. Family has observed this occurs after drinking water. No history of aspiration pneumonia. Check swallowing evaluation. Status: Acute (23) Skin cancer: Problem comment: Patient has multiple lesions suggestive of skin cancer scattered over his body. Being followed and treated for skin cancer by optoelectronics engineer. Status: Acute (24) Tremor: Problem comment: Patient and both raise the issue of him having an occasional tremor. It sounds like this is not disabling and is infrequently and intermittently present. It is not present during my evaluation tonight. I suspect it is a physiologic tremor related to stress or illness based on the history that it seems to come at certain times of stress. Recommend no further evaluation unless it progresses or becomes disabling Status: Acute Total Time Spent Total Time Spent: Today I spent 50 minutes seeing the patient, reviewing Expanse and EPIC notes/diagnostics, discussing the care plan with our care time that includes social work, PT/OT, pharmacy, RT, correction and documenting my impressions and plan in the medical record. Subjective Date Seen: 05/23/24 Interval history: Pt seen and examined at bedside. Pt shows weakness and continues to need assistance. dysphagia requiring modification of diet. Cytology results pending. Exam Narrative: Exam Narrative: Physical exam GENERAL: Frail elderly, no acute distress. CARDIOVASCULAR: RRR. Normal S1, S2. RESPIRATORY: Clear to auscultation B/L. Good air entry B/L. No wheezes or rhonchi. GASTROINTESTINAL: distended, not tender to palpation. Dull on percussion. NEUROLOGY: Alert, awake. Normal speech. PSYCH: Normal mood, normal affect. Const: Vital Signs, click to edit/add: Vital Signs - 24 hr 05/22/24 15:00 05/22/24 15:00 05/22/24 19:00 Temperature 97.2 F L 98.9 F Pulse Rate [Pulse Oximeter] 78 78 81 Respiratory Rate 16 16 16 Blood Pressure [Le ft Arm] 129/65 Blood Pressure [Ri ght Arm] 161/75 H Pulse Oximetry 98 98 Oxygen Delivery Me thod Room Air Room Air 05/22/24 23:00 05/22/24 23:00 05/23/24 02:23 Temperature 98 F 98 F Pulse Rate [Pulse Oximeter] 78 78 90 Respiratory Rate 16 16 16 Blood Pressure [Le ft Arm] Blood Pressure [Ri ght Arm] 137/72 153/68 H Pulse Oximetry 98 91 Oxygen Delivery Me thod Room Air Room Air 05/23/24 08:45 Temperature 98.8 F Pulse Rate [Pulse Oximeter] 97 Respiratory Rate 24 Blood Pressure [Le ft Arm] 133/64 Blood Pressure [Ri ght Arm] Pulse Oximetry 95 Oxygen Delivery Me thod Room Air Labs Labs: Laboratory Results - last 24 hr 05/21/24 05/23/24 06:07 05:52 WBC 13.10 H RBC 2.95 L Hgb 7.9 L* Hct 25.3 L MCV 86 MCH 27 MCHC 31 L RDW Coeff of Fredy 19.6 H Plt Count 56 L Neut % (Auto) 38.8 L Lymph % (Auto) 15.3 L Mitchell % (Auto) 18.2 H Eos % (Auto) 3.8 Baso % (Auto) 1.5 Neut # (Auto) 5.10 Lymph # (Auto) 2.00 Mitchell # (Auto) 2.40 H Eos # (Auto) 0.50 Baso # (Auto) 0.20 Abs Immat Gran (auto) 2.90 H Imm/Tot Granulo (auto) 22.4 Sodium 133 L Potassium 4.0 Chloride 106 Carbon Dioxide 18 L Anion Gap 9 BUN 74 H Creatinine 3.4 H Estimated Creat Clear 15.51 Estimated GFR 17 Glucose 148 H Calcium 8.7 Hepatitis A IgM Ab Negative Hep Bs Antigen Negative Hep B Core IgM Ab Negative Hep C Ab Index (ISAAC) 0.05 Hep C Ab Interp ISAAC Negative Hepatitis Interpret See Note
[2024-05-23] MEDS: FERROUS SULFATE 325 MG TABLET PO (18:14)
[2024-05-23] MEDS: SODIUM CHLORIDE 0.9 % (FLUSH) 10 ML SYRINGE 5 ML IVF ×2 (18:15→21:20)
[2024-05-23] MEDS: INSULIN ASPART 100 UNIT/ML SUBCUT (18:15)
[2024-05-23 18:17] LABS: Appearance Urine Clear (Clear); Bilirubin Urine Negative (Negative); Blood Urine Negative (Negative); Color Urine Yellow (Yellow); Glucose Urine Negative (Negative); Ketones Urine Negative (Negative); Leukocyte Esterase Urine Negative (Negative); Nitrite Urine Negative (Negative); Protein Urine 1+ (Negative); Urobilinogen Urine 0.2 (0.2-1.0); pH Urine 5.5 (5.0-8.5)
[2024-05-23 18:41] LABS: Amorphous Sediment Urine Few; RBC Urine 0-2 (0-2); WBC Urine 0-2 (0-5)
--- NOTE | 2024-05-23 20:00 | PC.NURSE ---
End of shift [id number] - Pt appeared fatigued and weak at start of shift, unable to support weight in EZ stand. Difficulty with self feeding and swallowing noted by RN and Speech Therapy. Lethargy and weakness improved later in shift with pt able to converse with RN and visitors and support weight in EZ stand. Tolerating minced/moist diet with thickened liquids. Mepilex added to sacral area and R shoulder for prophylaxis. Appears to be resting comfortably in chair at end of shift with call light within reach.
[2024-05-23] MEDS: DOXAZOSIN 4 MG TABLET 8 MG PO (21:09)
[2024-05-23] MEDS: ALPRAZolam 0.25 MG TABLET PO (21:09)
[2024-05-23] MEDS: MELATONIN 3 MG TABLET PO (21:09)
[2024-05-23 21:13] VITALS: BP 135/58; PULSE 77; RESP 22; TEMP 36.9; O2SAT 99
[2024-05-24 00:05] VITALS: BP 129/57; PULSE 75; RESP 16; TEMP 36.8; O2SAT 95
[2024-05-24 03:40] VITALS: BP 139/64; PULSE 81; RESP 18; TEMP 36.9; O2SAT 95
[2024-05-24 06:45] LABS: Basophils Percent Auto 1.6 % (0.0-3.0); Eosinophils Percent Auto 3.8 % (0.0-7.0); Hematocrit 24.8 % (37.0-53.0); Immature Granulocytes Pct Auto 26.8 %; Lymphocytes Percent Auto 14.1 % (20-44); Mean Corpuscular HGB Conc 31 gm/dL (32-36); Mean Corpuscular Hemoglobin 27 pg (26-34); Mean Corpuscular Volume 87 fL (80-100); Monocytes Percent Auto 19.3 % (0.0-11.0); Neutrophils Percent Auto 34.4 % (42.0-72.0); Platelet Count* 61 K/uL (140-440); RDW Coefficient of Variation % 19.7 % (11.5-15.5); Red Blood Count 2.86 m/uL (4.30-5.90); White Blood Count* 17.66 K/uL (4.50-11.00)
[2024-05-24 06:53] LABS: Chloride* 109 mmol/L (96-114)
[2024-05-24 06:54] LABS: Potassium* 4.2 mmol/L (3.6-5.1); Sodium* 137 mmol/L (135-149)
[2024-05-24 06:57] LABS: Anion Gap 11 mEq/L (7-15); Blood Urea Nitrogen* 79 mg/dL (7-30); Calcium* 8.6 mg/dL (8.4-10.6); Carbon Dioxide* 17 mmol/L (20-32); Creatinine* 3.2 mg/dL (0.5-1.5); Est. Creatinine Clearance* 16.48; Estimated Glomerular Filt Rate 18 ml/min; Glucose* 134 mg/dL (60-115)
[2024-05-24 07:00] VITALS: BP 121/58; PULSE 96; RESP 20; TEMP 36.9; O2SAT 95
--- NOTE | 2024-05-24 07:00 | PC.NURSE ---
Pt alert and oriented to self and place. Afebrile. Pt denies pain, SOB, and N/V. Pt is up A2 with easy stand, voiding and turned and repositioned throughout night. ?
[2024-05-24 07:58] LABS: Corrected White Blood Count 15.77 K/UL (4.50-11.00); Hemoglobin* 7.7 gm/dL (13.5-17.5); Slide Review Reflex Yes
[2024-05-24 07:59] LABS: Slide Review Acceptable Review (Acceptable)
[2024-05-24] MEDS: FUROSEMIDE 40 MG TABLET PO (09:41)
[2024-05-24] MEDS: DOXYCYCLINE HYCLATE 100 MG PO ×2 (09:42→21:11)
[2024-05-24] MEDS: allopurinoL 100 MG TABLET PO (09:42)
[2024-05-24] MEDS: OMEPRAZOLE 20 MG CAPSULE DR PO (09:42)
[2024-05-24] MEDS: METOPROLOL SUCCINATE (XL) 100 MG TAB PO (09:42)
[2024-05-24] MEDS: SODIUM CHLORIDE 0.9 % (FLUSH) 10 ML SYRINGE 5 ML IVF ×2 (09:42→21:12)
[2024-05-24] MEDS: MULTIVITAMIN/MINERALS 1 TABLET 1 TAB PO (09:42)
[2024-05-24] MEDS: FERROUS SULFATE 325 MG TABLET PO (13:37)
[2024-05-24] MEDS: INSULIN ASPART 100 UNIT/ML SUBCUT (13:38)
[2024-05-24 15:00] VITALS: BP 126/58; PULSE 85; RESP 20; TEMP 36.7; O2SAT 95
--- NOTE | 2024-05-24 17:58 | P.IMPN_ITS ---
Assessment and Plan Assessment and plan (1) Ascites: Problem comment: Newly diagnosed ascites. 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 Liver panel unremarkable except for mild elevation in AST, family states that he never had history of alcohol abuse in the past or currently. paracentesis procedure done on 05/21/24, showed a low gradient (< 1.1 g/dL, <11 g/L) indicates causes of ascites not associated with increased portal pressure such as: tuberculosis, pancreatitis, infections, serositis, various types of peritoneal cancers (peritoneal carcinomatosis). Mildly elevated INR, liver panel unremarkable, LDH elevated hepatitis panel negative PSA unremarkable at 3 Cytology negative for malignant cells. Status: Acute (2) Lower extremity cellulitis: Problem comment: -Patient has a large blister that looks blood on his left foot, there is also swelling redness and warmth will start him on doxycycline, specially that per the daughter he was on antibiotics 10 days ago for LLE cellulitis. -starting doxycycline 100 b.i.d. on 05/22, no need for renally dosing per our pharmacist Status: Acute (3) CKD (chronic kidney disease) stage 4, GFR 15-29 ml/min: Problem comment: Followed by Dr. Romero , [facility] No more visible bleeding in the urine, pt able to urinate Reduced UOP Status: Acute (4) Hematuria: Problem comment: No more visible bleeding, pt able to urinate, though reduced UOP Nurses document blood clots upon a trial of stright cathing him on admission Status: Acute (5) Dysphagia: Problem comment: Speech therapist did a modified barium swallow study because patient has dysphagia. Diet modification: Soft and bite sized and mildly thickened liquids. Chin tuck when swallowing. No straw. Sitting upright for meals and 30 minutes afterwards. Status: Acute (6) Chronic anemia: Problem comment: will give 1 unit of her blood for hemoglobin of 6.9 History of myelofibrosis following with Heme-Onc, on medication Status: Acute (7) Cognitive impairment: Problem comment: No previous history of cognitive impairment but family reports forgetfulness. [place] score of 15/30 Status: Acute (8) Frequent falls: Problem comment: Falls frequently, especially at night. His has had to call 911 for the ambulance to help him get up. Status: Acute (9) Weakness: Problem comment: Acute on chronic. At baseline patient is able to walk with a walker in his own home. Acutely weak and unable to walk today. Status: Acute (10) Low grade fever: Problem comment: Temp of 99.7?. With elevated procalcitonin concern for infection. No obvious source. Continue to monitor. Status: Acute (11) Weight loss, non-intentional: Problem comment: June 2023 87.6 kg November 2023 84.8 kg 04/22/2024 81.4 kg Status: Acute (12) Dehydration: Problem comment: Patient appears dry by clinical and laboratory evaluation. Improved with IV fluids Status: Acute (13) Diarrhea: Problem comment: Patient had 1 diarrhea stool in the emergency department. C diff test negative. No ongoing diarrhea. Status: Acute (14) Myelofibrosis: Problem comment: Chronic anemia, lymphopenia and thrombocytopenia. Elevated monocytes/immature granulocytes. Also large platelets, teardrop cells, elliptocytes. Discussed with [place] [facility]. Restart Jakafi Status: Acute (15) Insomnia: Problem comment: On chronic alprazolam. Due to frequent falls I recommend stopping this. At this point will cut his dose from 0.5 mg at bedtime to 0.25mg and now 0.125 mg at bedtime and add in melatonin. Recommend complete cessation of alprazolam Status: Acute (16) Infection: Problem comment: With elevated inflammatory markers and low-grade fever and acute on chronic weakness I suspect he has an infection. Source of the infection is not clear. Obtain cultures and monitor. Status: Suspected (17) Heart murmur: Problem comment: 2/6 systolic ejection murmur Echo from Mar 09, 2017: Final Impressions: 1. Mild to moderately increased left ventricular size, moderately increased wall thickness, normal global systolic function, calculated EF of 58 %. 2. Severely enlarged left atrium. 3. The mitral valve is sclerotic, no mitral regurgitation. 4. The inferior vena cava is dilated, respiratory size variation greater than 50%. 5. Trivial pericardial effusion. Status: Acute (18) Low TSH level: Problem comment: Normal free T4. Not on thyroid replacement. Ultrasound in the past shows multiple thyroid nodules. Followed by serial ultrasounds. As of January 2023 findings are stable. Status: Acute (19) Cholelithiasis: Problem comment: Mildly abnormal liver tests. No tenderness over the gallbladder. No GI symptoms. Status: Acute (20) Multiple thyroid nodules: Status: Acute (21) Secondary hyperparathyroidism: Problem comment: Due to chronic kidney disease Status: Acute (22) Chronic cough: Problem comment: Reports 6 year history of chronic cough. Family has observed this occurs after drinking water. No history of aspiration pneumonia. Check swallowing evaluation. Status: Acute (23) Skin cancer: Problem comment: Patient has multiple lesions suggestive of skin cancer scattered over his body. 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 Status: Acute (24) Tremor: Problem comment: Patient and both raise the issue of him having an occasional tremor. It sounds like this is not disabling and is infrequently and intermittently present. It is not present during my evaluation tonight. I suspect it is a physiologic tremor related to stress or illness based on the history that it seems to come at certain times of stress. Recommend no further evaluation unless it progresses or becomes disabling Status: Acute (25) Discharge planning issues: Problem comment: Patient continues to have evidence of needing higher level of care, custodial facility. He verbalizes opposition to this. Family is in agreement. Status: Acute Plan Continue in hospital for ongoing evaluation management of multiple above problems. Total time spent today is 65 minutes in reviewing records, coordination of care, discussed in with family and patient ongoing evaluation management. Subjective Date Seen: 05/24/24 Interval history: Admission HPI: Yrn Steele is a 89 year old male with multiple medical problems outlined below presents with recurrent falls today. Patient has longstanding problems with falls. He normally walks with a walker Today he fell getting out of bed in the morning. He was unable to get up on his own. Has had recurrent falls since this morning as well. He reports no other symptoms of illness. In the emergency department he was found have a low-grade fever and inflammatory markers were abnormal. No obvious infection identified. History of weakness and recurrent falls. has called 911 to have paramedics help her pick him up when he falls. No serious injuries. Multiple bruises however. More frequently falls at night. Takes Xanax at bedtime. Stage 4 chronic kidney disease. Followed by Nephrology. Diabetes mellitus, apparently well controlled. Myelofibrosis with chronic anemia and thrombocytopenia. Patient was found to have abdominal ascites and had a diagnostic paracentesis. No malignant cells were seen on cytology. Did not appear to have bacterial peritonitis. Left foot injury has developed a large hemorrhagic blister over the dorsum of the foot. The blister broke today. He was found to have a [place] score of 15/30 Speech is therapist felt he had significant dysphagia with a modified barium swallow. Chin tuck was effective at preventing aspiration. Recommendation was for soft and bite size diet with mildly thick liquids and chin tuck without a straw. He is also be upright for eating and for 30 minutes afterwards. Physical therapy notes that patient is still needing assistance to stand and transfer. He has been using an EZ stand to transfer bed to [facility]. He is eating fair amounts according to family who are present. Exam Narrative: Exam Narrative: He is alert appears in no distress. I observe him to very slowly eat a small amount of fruit. No obvious swallowing difficulties. Respirations are clear to auscultation. Cardiovascular: S1, S2, regular rate and rhythm. Abdomen: Bowel sounds active. Abdomen is mildly distended and soft without tenderness or mass. Large hemorrhagic blister on the left foot dorsum ruptured today while I was putting his socks back on. Const: Vital Signs, click to edit/add: Vital Signs - 24 hr 05/23/24 21:13 05/24/24 00:05 05/24/24 00:05 Temperature 98.4 F 98.2 F Pulse Rate [Pulse Oximeter] 77 75 75 Respiratory Rate 22 16 16 Blood Pressure [Le ft Arm] Blood Pressure [Ri ght Arm] 135/58 L 129/57 L Pulse Oximetry 99 95 Oxygen Delivery Me thod Room Air Room Air 05/24/24 03:40 05/24/24 07:00 05/24/24 15:00 Temperature 98.5 F 98.4 F 98.0 F Pulse Rate [Pulse Oximeter] 81 96 85 Respiratory Rate 18 20 20 Blood Pressure [Le ft Arm] 121/58 L Blood Pressure [Ri ght Arm] 139/64 126/58 L Pulse Oximetry 95 95 95 Oxygen Delivery Me thod Room Air Room Air Room Air Labs Labs: Laboratory Results - last 24 hr 05/21/24 05/23/24 05/24/24 08:52 17:55 05:37 WBC 17.66 H Corrected WBC 15.77 H RBC 2.86 L Hgb 7.7 L* Hct 24.8 L MCV 87 MCH 27 MCHC 31 L RDW Coeff of Fredy 19.7 H Plt Count 61 L Neut % (Auto) 34.4 L Lymph % (Auto) 14.1 L [place] % (Auto) 19.3 H Eos % (Auto) 3.8 Baso % (Auto) 1.6 Neut # (Auto) 5.40 Lymph # (Auto) 2.20 [place] # (Auto) 3.00 H Eos # (Auto) 0.60 H Baso # (Auto) 0.30 Abs Immat Gran (auto) 4.20 H Imm/Tot Granulo (auto) 26.8 Diff Slide Review Acceptable Review Sodium 137 Potassium 4.2 Chloride 109 Carbon Dioxide 17 L Anion Gap 11 BUN 79 H Creatinine 3.2 H Estimated Creat Clear 16.48 Estimated GFR 18 Glucose 134 H Calcium 8.6 Urine Color Yellow Urine Appearance Clear Urine pH 5.5 Ur Specific [place] 1.010 Urine Protein 1+ A Urine Glucose (UA) Negative Urine Ketones Negative Urine Blood Negative Urine Nitrite Negative Urine Bilirubin Negative Urine Urobilinogen 0.2 Ur Leukocyte Esterase Negative Urine RBC 0-2 Urine WBC 0-2 Ur Squamous Epith Cells None Amorphous Sediment Few A Urine Bacteria None Cytology Interpretat See Scanned Report
[2024-05-24 19:30] VITALS: BP 122/67; PULSE 96; RESP 20; TEMP 36.9; O2SAT 96
--- NOTE | 2024-05-24 19:33 | PC.NURSE ---
End of shift [id number] - Pt alert, oriented, pleasant. Up with x2 assist and EZ stand with pt able to participate in transfers and support wt. Pt able to feed self with standby assistance, swallowing noted y RN to be improved from previous shift. Tolerating thickened liquids and modified diet. Incontinent of bowel and bladder during shift, inconsistently requests and is able to use urinal for voiding. Denies pain at rest, reports discomfort with transferring that resolves at rest. L foot blister noted to have drainage, dressed with ABD dressing and kerlix to keep in place. Heel pad added to L foot to maintain skin integrity. Pt reported discomfort of coccyx area with prolonged sitting and laying in bed. Mepilex dressing added to coccyx to maintain skin integrity and increased pt comfort. Frequent repositions between chair and bed performed per pt request. Family at bedside throughout shift. Appears to be resting comfortably at end of shift with call light within reach.
[2024-05-24] MEDS: ALPRAZolam 0.25 MG TABLET 0.125 MG PO (21:10)
[2024-05-24] MEDS: DOXAZOSIN 4 MG TABLET 8 MG PO (21:11)
[2024-05-24] MEDS: MELATONIN 3 MG TABLET PO (21:11)
[2024-05-24 23:00] VITALS: BP 130/62; PULSE 85; RESP 18; TEMP 36.9; O2SAT 96
[2024-05-25] VITALS (8 sets, daily range): BP systolic 119–149; BP diastolic 54–72; PULSE 80–92; RESP 16–22; TEMP 36.3–37.5; O2SAT 94–97
[2024-05-25] MEDS: OMEPRAZOLE 20 MG CAPSULE DR PO (09:25)
[2024-05-25] MEDS: MULTIVITAMIN/MINERALS 1 TABLET 1 TAB PO (09:25)
[2024-05-25] MEDS: METOPROLOL SUCCINATE (XL) 100 MG TAB PO (09:25)
[2024-05-25] MEDS: DOXYCYCLINE HYCLATE 100 MG PO ×2 (09:25→21:33)
[2024-05-25] MEDS: allopurinoL 100 MG TABLET PO (09:25)
[2024-05-25] MEDS: FUROSEMIDE 40 MG TABLET PO ×2 (09:30→16:05)
[2024-05-25] MEDS: SODIUM CHLORIDE 0.9 % (FLUSH) 10 ML SYRINGE 5 ML IVF ×2 (09:31→21:35)
[2024-05-25] MEDS: FERROUS SULFATE 325 MG TABLET PO (14:29)
--- NOTE | 2024-05-25 15:19 | PM.IMPN1 ---
Assessment and Plan Assessment and plan (1) Ascites: Problem comment: Newly diagnosed ascites. 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 Liver panel unremarkable except for mild elevation in AST, family states that he never had history of alcohol abuse in the past or currently. paracentesis procedure done on 05/21/24, showed a low gradient (< 1.1 g/dL, <11 g/L) indicates causes of ascites not associated with increased portal pressure such as: tuberculosis, pancreatitis, infections, serositis, various types of peritoneal cancers (peritoneal carcinomatosis). Mildly elevated INR, liver panel unremarkable, LDH elevated hepatitis panel negative PSA unremarkable at 3 Cytology negative for malignant cells. Status: Acute (2) Lower extremity cellulitis: Problem comment: -Patient has a large blister that looks blood on his left foot, there is also swelling redness and warmth will start him on doxycycline, specially that per the daughter he was on antibiotics 10 days ago for LLE cellulitis. Foot has marked nonblanching purplish discoloration consistent more with a bruise/hematoma than with cellulitis. -starting doxycycline 100 b.i.d. on 05/22. Status: Acute (3) CKD (chronic kidney disease) stage 4, GFR 15-29 ml/min: Problem comment: Followed by Dr. Romero , [facility] [place] No more visible bleeding in the urine, pt able to urinate Reduced UOP Status: Acute (4) Hematuria: Problem comment: No more visible bleeding, pt able to urinate, though reduced UOP Nurses document blood clots upon a trial of stright cathing him on admission Status: Acute (5) Dementia: Problem comment: Patient has a history per family of being increasingly forgetful. [place] score on this admission is 15/30 making dementia likely. Status: Acute (6) Dysphagia: Problem comment: Speech therapist did a modified barium swallow study because patient has dysphagia. Diet modification: Soft and bite sized and mildly thickened liquids. Chin tuck when swallowing. No straw. Sitting upright for meals and 30 minutes afterwards. Status: Acute (7) Chronic anemia: Problem comment: will give 1 unit of her blood for hemoglobin of 6.9 History of myelofibrosis following with Heme-Onc, on medication Status: Acute (8) Frequent falls: Problem comment: Falls frequently, especially at night. His has had to call 911 for the ambulance to help him get up. Status: Acute (9) Weakness: Problem comment: Acute on chronic. At baseline patient is able to walk with a walker in his own home. Acutely weak and unable to walk today. Status: Acute (10) Low grade fever: Problem comment: Temp of 99.7?. With elevated procalcitonin concern for infection. No obvious source. Continue to monitor. Status: Acute (11) Weight loss, non-intentional: Problem comment: June 2023 87.6 kg November 2023 84.8 kg 04/22/2024 81.4 kg Status: Acute (12) Dehydration: Problem comment: Patient appears dry by clinical and laboratory evaluation. Improved with IV fluids Status: Acute (13) Diarrhea: Problem comment: Patient had 1 diarrhea stool in the emergency department. C diff test negative. No ongoing diarrhea. Status: Acute (14) Myelofibrosis: Problem comment: Chronic anemia, lymphopenia and thrombocytopenia. Elevated monocytes/immature granulocytes. Also large platelets, teardrop cells, elliptocytes. Discussed with [place] [facility]. Restart Jakafi. Recommend outpatient follow-up with [facility]. Status: Acute (15) Insomnia: Problem comment: On chronic alprazolam. Due to frequent falls I recommend stopping this. At this point will cut his dose from 0.5 mg at bedtime to 0.25mg and now 0.125 mg at bedtime and add in melatonin. Recommend complete cessation of alprazolam Status: Acute (16) Infection: Problem comment: With elevated inflammatory markers and low-grade fever and acute on chronic weakness I suspect he has an infection. Source of the infection is not clear. Cultures of blood and peritoneal fluid negative. Status: Suspected (17) Heart murmur: Problem comment: 2/ systolic ejection murmur Echo from Mar 09, 2017: Final Impressions: 1. Mild to moderately increased left ventricular size, moderately increased wall thickness, normal global systolic function, calculated EF of 58 %. 2. Severely enlarged left atrium. 3. The mitral valve is sclerotic, no mitral regurgitation. 4. The inferior vena cava is dilated, respiratory size variation greater than 50%. 5. Trivial pericardial effusion. Status: Acute (18) Low TSH level: Problem comment: Normal free T4. Not on thyroid replacement. Ultrasound in the past shows multiple thyroid nodules. Followed by serial ultrasounds. As of January 2023 findings are stable. Status: Acute (19) Cholelithiasis: Problem comment: Mildly abnormal liver tests. No tenderness over the gallbladder. No GI symptoms. Status: Acute (20) Multiple thyroid nodules: Status: Acute (21) Secondary hyperparathyroidism: Problem comment: Due to chronic kidney disease Status: Acute (22) Chronic cough: Problem comment: Reports 6 year history of chronic cough. Family has observed this occurs after drinking water. No history of aspiration pneumonia. Check swallowing evaluation. Status: Acute (23) Skin cancer: Problem comment: Patient has multiple lesions suggestive of skin cancer scattered over his body. 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 Status: Acute (24) Tremor: Problem comment: Patient and both raise the issue of him having an occasional tremor. It sounds like this is not disabling and is infrequently and intermittently present. It is not present during my evaluation tonight. I suspect it is a physiologic tremor related to stress or illness based on the history that it seems to come at certain times of stress. Recommend no further evaluation unless it progresses or becomes disabling Status: Acute (25) Discharge planning issues: Problem comment: Patient continues to have evidence of needing higher level of care, longterm facility. He verbalizes opposition to this. Family is in agreement. Status: Acute Plan Continue in hospital for management of multiple above problems with probable discharge to longterm facility for additional rehab. Total Time Spent Total Time Spent: Total time spent today is 75 minutes. 40 minutes was spent in family meeting discussing multiple problems and prognosis. 35 minutes in coordination of care and discussing with other caregivers ongoing plan of care Subjective Date Seen: 05/25/24 Interval history: Admission HPI: Yrn Steele is a 89 year old male with multiple medical problems outlined below presents with recurrent falls today. Patient has longstanding problems with falls. He normally walks with a walker Today he fell getting out of bed in the morning. He was unable to get up on his own. Has had recurrent falls since this morning as well. He reports no other symptoms of illness. In the emergency department he was found have a low-grade fever and inflammatory markers were abnormal. No obvious infection identified. History of weakness and recurrent falls. has called 911 to have paramedics help her pick him up when he falls. No serious injuries. Multiple bruises however. More frequently falls at night. Takes Xanax at bedtime. Stage 4 chronic kidney disease. Followed by Nephrology. Diabetes mellitus, apparently well controlled. Myelofibrosis with chronic anemia and thrombocytopenia. Patient was found to have abdominal ascites and had a diagnostic paracentesis. No malignant cells were seen on cytology. Did not appear to have bacterial peritonitis. Left foot injury has developed a large hemorrhagic blister over the dorsum of the foot. The blister broke today. He was found to have a [place] score of 15/30 Speech is therapist felt he had significant dysphagia with a modified barium swallow. Chin tuck was effective at preventing aspiration. Recommendation was for soft and bite size diet with mildly thick liquids and chin tuck without a straw. He is also be upright for eating and for 30 minutes afterwards. Physical therapy notes that patient is still needing assistance to stand and transfer. He has been using an EZ stand to transfer bed to [facility]. He is eating fair amounts according to family who are present. 05/25/2024: Patient has no complaints today. He is still not able to walk. He still having pain in his left foot where he has a large bruise and blood blister that ruptured yesterday. He reports his appetite is okay but he gets early satiety. He reports after eating a little bit he feels full, possibly due to his ascites. No fever. No breathing problems. His son notes that he had some confusion last evening. I had a family meeting with the patient his son and his . We discussed the significant active medical problems in some detail. At this point I expressed my concern that the patient is on a trajectory of significant health decline and I am not sure that it is reversible. Among the problems that are likely to be progressive despite treatment are the following: Myelofibrosis Stage 4 kidney disease Dementia Problems of uncertain prognosis: Ascites. This is often associated with other serious medical problems such as malignancy, cirrhosis of the liver, advanced heart or kidney disease. Weight loss. He has had 6 kg of weight loss from June 2023 to April 2024. During that time however he has had the development of ascites, possibly up to 4 L or 4 kg of ascites. This suggest substantially more lean body weight loss and cachexia. Weakness and impaired gait and balance. Likely complication of his sedentary life, weight loss, dementia and other chronic medical problems. Uncertain if this is reversible with therapy. Problems with relatively good prognosis: Recurrent leg cellulitis. His son is hopeful that additional antibiotics will help him now as it has in the past. Exam Narrative: Exam Narrative: He is alert and pleasant and appears in no distress. Respirations are clear to auscultation. Cardiovascular: S1, S2, 2/6 systolic murmur. No gallop or rub. Abdomen: Bowel sounds active. Abdomen is distended with ascitic fluid. It is nontender. Extremities with no significant edema. Ruptured blood blister on the dorsum is left foot noted. He has bruising around this without significant erythema. This area lime vat tender to touch. Multiple other superficial bruises and ulcers with mature eschar on his legs are noted. No marked cellulitis. Const: Vital Signs, click to edit/add: Vital Signs - 24 hr 05/24/24 19:30 05/24/24 23:00 05/25/24 04:06 Temperature 98.4 F 98.4 F 98 F Pulse Rate [Pulse Oximeter] 96 85 82 Respiratory Rate 20 18 16 Blood Pressure [Le ft Arm] Blood Pressure [Ri ght Arm] 122/67 130/62 134/61 Pulse Oximetry 96 96 96 Oxygen Delivery Me thod Room Air Room Air Room Air 05/25/24 06:00 05/25/24 08:03 05/25/24 08:05 Temperature 98.3 F Pulse Rate [Pulse Oximeter] 82 82 82 Respiratory Rate 18 18 Blood Pressure [Le ft Arm] 145/66 H Blood Pressure [Ri ght Arm] Pulse Oximetry 94 Oxygen Delivery Me thod Room Air 05/25/24 11:45 Temperature 97.4 F L Pulse Rate [Pulse Oximeter] 92 Respiratory Rate 18 Blood Pressure [Le ft Arm] 119/54 L Blood Pressure [Ri ght Arm] Pulse Oximetry 97 Oxygen Delivery Me thod Room Air Documenting provider has reviewed patient's vital signs: yes
--- NOTE | 2024-05-25 17:07 | PC.NURSE ---
End of shift. - Pt alert, oriented, x2. off on date. he is pleasant. he is Up with x2 assist and EZ stand. pt is on thicket liquids. Pt able to feed self with standby assistance, he does cough at times. encouraged to drink slowly and tuck his chin . he has been Incontinent of bowel and bladder. he Denies pain at rest. L foot blister was changed. dressed with ABD dressing and kerlix to keep in place. Mepilex dressing to coccyx . he has been up to chair. Family at bedside throughout shift. Appears to be resting comfortably. call light within reach. iv is patent.
[2024-05-25] MEDS: INSULIN ASPART 100 UNIT/ML SUBCUT (18:43)
--- NOTE | 2024-05-25 19:43 | PC.NURSE ---
Nursing Care Hours: [id number] Pt this shift calm and cooperative, alert and oriented. EZ stand to toilet. Pt voided x2. Gown changed. Bandages are all in place and clean and dry. VSS. Insulin given per sliding scale.
[2024-05-25] MEDS: ALPRAZolam 0.25 MG TABLET 0.125 MG PO (21:32)
[2024-05-25] MEDS: MELATONIN 3 MG TABLET PO (21:33)
[2024-05-25] MEDS: DOXAZOSIN 4 MG TABLET 8 MG PO (21:34)
[2024-05-26 03:00] VITALS: BP 130/63; PULSE 81; RESP 17; TEMP 37.3; O2SAT 95
--- NOTE | 2024-05-26 06:28 | PC.NURSE ---
Shift note ([id number]): Patient pleasant, alert and cooperative. Remained in bed this shift. Denied pain. Dressing changed to right lower leg. ABD was difficult to remove from wound as was stuck. Saturating ABD pad prior to removal was not very effective. Vaseline gauze applied under new ABD pad to prevent ABD from adhering to wound. Patient tolerated dressing change well. ?
[2024-05-26 06:31] LABS: Basophils Percent Auto 1.6 % (0.0-3.0); Eosinophils Percent Auto 3.8 % (0.0-7.0); Hematocrit 25.1 % (37.0-53.0); Immature Granulocytes Pct Auto 18.8 %; Lymphocytes Percent Auto 14.3 % (20-44); Mean Corpuscular HGB Conc 31 gm/dL (32-36); Mean Corpuscular Hemoglobin 26 pg (26-34); Mean Corpuscular Volume 85 fL (80-100); Monocytes Percent Auto 19.6 % (0.0-11.0); Neutrophils Percent Auto 41.9 % (42.0-72.0); RDW Coefficient of Variation % 19.5 % (11.5-15.5); Red Blood Count 2.96 m/uL (4.30-5.90); White Blood Count* 21.82 K/uL (4.50-11.00)
[2024-05-26 06:34] LABS: Hemoglobin* 7.8 gm/dL (13.5-17.5); Platelet Count* 49 K/uL (140-440)
[2024-05-26 06:35] LABS: Slide Review Reflex No
[2024-05-26 06:56] LABS: Chloride* 109 mmol/L (96-114); Potassium* 3.9 mmol/L (3.6-5.1); Sodium* 136 mmol/L (135-149)
[2024-05-26 06:59] LABS: Anion Gap 10 mEq/L (7-15); Blood Urea Nitrogen* 81 mg/dL (7-30); Calcium* 8.6 mg/dL (8.4-10.6); Carbon Dioxide* 17 mmol/L (20-32); Creatinine* 3.3 mg/dL (0.5-1.5); Est. Creatinine Clearance* 15.98; Estimated Glomerular Filt Rate 17 ml/min; Glucose* 157 mg/dL (60-115)
[2024-05-26 07:00] VITALS: BP 115/71; PULSE 102; RESP 20; TEMP 36.2; O2SAT 97
[2024-05-26] MEDS: FUROSEMIDE 40 MG TABLET PO (08:52)
[2024-05-26] MEDS: OMEPRAZOLE 20 MG CAPSULE DR PO (08:52)
[2024-05-26] MEDS: DOXYCYCLINE HYCLATE 100 MG PO (08:54)
[2024-05-26] MEDS: SODIUM BICARBONATE 650 MG TABLET PO ×2 (08:54→12:36)
[2024-05-26] MEDS: allopurinoL 100 MG TABLET PO (08:54)
[2024-05-26] MEDS: METOPROLOL SUCCINATE (XL) 100 MG TAB PO (08:54)
[2024-05-26] MEDS: MULTIVITAMIN/MINERALS 1 TABLET 1 TAB PO (08:54)
[2024-05-26] MEDS: ACETAMINOPHEN 325 MG TABLET 650 MG PO (10:10)
--- NOTE | 2024-05-26 10:32 | P.DS_ITS ---
DS: Providers Provider Date Seen: 05/26/24 Date of admission: 05/20/24 13:43 Primary care physician: Jaspal Leigh MD Admitting Clinician: Bear Dean MD Attending Physician on discharge: Bear Dean MD Date of Discharge: 05/26/24 DS: Diagnosis Discharge Diagnosis (1) Ascites: Status: Acute Problem details: Newly diagnosed ascites. 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 Does have stage 4 kidney disease. No history of heart failure. Liver panel unremarkable except for mild elevation in AST, family states that he never had history of alcohol abuse in the past or currently. paracentesis procedure done on 05/21/24, SAAG had a low gradient of 0.9(< 1.1 g/dL, <11 g/L) indicates causes of ascites not associated with increased portal pressure typical of cirrhosis of the liver or heart failure. Other considerations include infection and malignancy. Neutrophil count in peritoneal fluid was low. Culture of peritoneal fluid is negative. Cytology on peritoneal fluid is negative for malignant cells. If ascites become symptomatic and outpatient visit with General surgery (Dr Salas) can be arranged at [facility] for repeat paracentesis. Call in advance to schedule (2) Lower extremity cellulitis: Status: Acute Problem details: -Patient has a large blister that looks blood on his left foot, there is also swelling redness and warmth will start him on doxycycline, specially that per the daughter he was on antibiotics 10 days ago for LLE cellulitis. Foot has marked nonblanching purplish discoloration consistent more with a bruise/hematoma than with cellulitis. -starting doxycycline 100 b.i.d. on 05/22. (3) CKD (chronic kidney disease) stage 4, GFR 15-29 ml/min: Status: Acute Problem details: Followed by Dr. Romero , [facility] No more visible bleeding in the urine, pt able to urinate Patient has metabolic acidosis likely due to chronic kidney disease. CO2 has been around 17 in the hospital so oral bicarb was started at a low dose. (4) Hematuria: Status: Acute Problem details: Initially had some bleeding after straight catheterization of urine. Then resolved. Urine culture x2 negative (5) Dementia: Status: Acute Problem details: Patient has a history per family of being increasingly forgetful. [place] score on this admission is 15/30 making dementia likely. (6) Dysphagia: Status: Acute Problem details: Speech therapist did a modified barium swallow study because patient has dysphagia. Diet modification: Soft and bite sized and mildly thickened liquids. Chin tuck when swallowing. No straw. Sitting upright for meals and 30 minutes afterwards. (7) Chronic anemia: Status: Acute Problem details: Received 1 unit PRBC transfusion due to anemia. This is likely related to myelofibrosis. Hemoglobin has been stable in the 7.5-7.9 range (8) Frequent falls: Status: Acute Problem details: Falls frequently, especially at night. His has had to call 911 for the ambulance to help him get up. (9) Weakness: Status: Acute Problem details: Acute on chronic. At baseline patient is able to walk with a walker in his own home. Acutely weak and unable to walk today. (10) Low grade fever: Status: Acute Problem details: Temp of 99.7? on admission. With elevated procalcitonin concern for infection. No obvious source. Continue to monitor. Treated with doxycycline for a possible cellulitis on his foot. (11) Weight loss, non-intentional: Status: Acute Problem details: June 2023 87.6 kg November 2023 84.8 kg 04/22/2024 81.4 kg (12) Dehydration: Status: Acute Problem details: Patient appears dry by clinical and laboratory evaluation. Improved with IV fluids. (13) Diarrhea: Status: Acute Problem details: Patient had 1 diarrhea stool in the emergency department. C diff test negative. No ongoing diarrhea. (14) Myelofibrosis: Status: Acute Problem details: Chronic anemia, lymphopenia and thrombocytopenia. Elevated monocytes/immature granulocytes. Also large platelets, teardrop cells, elliptocytes. Discussed with [place] [facility]. Restart Jarad. Recommend outpatient follow-up with heme Onc. (15) Insomnia: Status: Acute Problem details: On chronic alprazolam. During his hospital stay he was weaned off of alprazolam and did well. Started on melatonin (16) Infection: Status: Suspected Problem details: Patient presented with an acute deterioration of his physical strength and mental status. Suspected to be due to infection but no definite infectious cause was identified. (17) Heart murmur: Status: Acute Problem details: 2/6 systolic ejection murmur noted on admission. No cardiac symptoms. No further evaluation at this time. Echo from Mar 09, 2017: Final Impressions: 1. Mild to moderately increased left ventricular size, moderately increased wall thickness, normal global systolic function, calculated EF of 58 %. 2. Severely enlarged left atrium. 3. The mitral valve is sclerotic, no mitral regurgitation. 4. The inferior vena cava is dilated, respiratory size variation greater than 50%. 5. Trivial pericardial effusion. (18) Low TSH level: Status: Acute Problem details: Normal free T4. Not on thyroid replacement. Ultrasound in the past shows multiple thyroid nodules. Followed by serial ultrasounds. As of January 2023 findings are stable. (19) Cholelithiasis: Status: Acute Problem details: Mildly abnormal liver tests. No tenderness over the gallbladder. No GI symptoms. Appetite is fair. This is thought to be more likely due to other chronic problems and ascites. (20) Multiple thyroid nodules: Status: Acute (21) Secondary hyperparathyroidism: Status: Acute Problem details: Due to chronic kidney disease (22) Chronic cough: Status: Acute Problem details: Reports 6 year history of chronic cough. Family has observed this occurs after drinking water. No history of aspiration pneumonia. Swallowing evaluation did show aspiration. He is recommended to sit upright for meals and for 30 minutes after meals. Chin tuck when swallowing. Soft and bite sized solids and mildly thickened liquids to reduce aspiration. (23) Skin cancer: Status: Acute Problem details: Patient has multiple lesions suggestive of skin cancer scattered over his body. 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 (24) Tremor: Status: Acute Problem details: Patient and both raise the issue of him having an occasional tremor. It sounds like this is not disabling and is infrequently and intermittently present. It is not present during my evaluation tonight. I suspect it is a physiologic tremor related to stress or illness based on the history that it seems to come at certain times of stress. Recommend no further evaluation unless it progresses or becomes disabling (25) Discharge planning issues: Status: Acute Problem details: Patient continues to have evidence of needing higher level of care, correction facility. He verbalizes opposition to this. Family is in agreement. (26) Early satiety: Status: Acute Problem details: Probably due to ascites. (27) Skin ulcer: Status: Acute Problem details: Multiple skin ulcers on lower extremities due to injuries and picking. Good wound care. (28) Injury of foot, left: Status: Acute Problem details: Prior to admission had left foot injury. Radiographs negative for fracture or dislocation. Osteoarthritis. Developed large bruise and then blood blister. Blister ruptured. Now wound care for skin tear. (29) Right knee injury: Status: Acute Problem details: Prior to admission had a fall causing right knee injury. Radiographs negative for fracture. Osteoarthritis. Now getting wound care DS: Summary Hospital Course Hospital Course: Admission HPI: Yrn Steele is a 89 year old male with multiple medical problems outlined below presents with recurrent falls today. Patient has longs tanding problems with falls. He normally walks with a walker Today he fell getting out of bed in the morning. He was unable to get up on his own. Has had recurrent falls since this morning as well. He reports no other symptoms of illness. In the emergency department he was found have a low-grade fever and inflammatory markers were abnormal. No obvious infection identified. History of weakness and recurrent falls. has called 911 to have paramedics help her pick him up when he falls. No serious injuries. Multiple bruises however. More frequently falls at night. Takes Xanax at bedtime. Stage 4 chronic kidney disease. Followed by Nephrology. Diabetes mellitus, apparently well controlled. Myelofibrosis with chronic anemia and thrombocytopenia. Patient was found to have abdominal ascites and had a diagnostic paracentesis. No malignant cells were seen on cytology. Did not appear to have bacterial peritonitis. Left foot injury has developed a large hemorrhagic blister over the dorsum of the foot. The blister broke today. He was found to have a [place] score of 15/30 Speech is therapist felt he had significant dysphagia with a modified barium swallow. Chin tuck was effective at preventing aspiration. Recommendation was for soft and bite size diet with mildly thick liquids and chin tuck without a straw. He is also be upright for eating and for 30 minutes afterwards. Physical therapy notes that patient is still needing assistance to stand and transfer. He has been using an EZ stand to transfer bed [facility]. He is eating fair amounts according to family who are present. 05/25/2024: I had a family meeting with the patient his son and his . We discussed the significant active medical problems in some detail. He has had a somewhat chronic decline with an acute decline leading up to his fall and hospitalization. At this point I expressed my concern that the patient is on a trajectory of significant health decline and we have not yet found reversible causes for his decline and he has not had significant improvement during this hospital stay. Among the problems that are likely to be progressive despite treatment are the following: Myelofibrosis Stage 4 kidney disease Dementia Problems of uncertain prognosis: Ascites. This is often associated with other serious medical problems such as malignancy, cirrhosis of the liver, advanced heart or kidney disease. Weight loss. He has had 6 kg of weight loss from June 2023 to April 2024. During that time however he has had the development of ascites, possibly up to 4 L or 4 kg of ascites. This suggest substantially more lean body weight loss and cachexia. Weakness and impaired gait and balance. This is acute on chronic. Likely complication of his sedentary life, weight loss, dementia and other chronic medical problems. No obvious reversible or treatable causes. Uncertain if this is reversible with therapy. Problems with relatively good prognosis: Right knee injury, left foot injury. Recurrent leg cellulitis. His son is hopeful that additional antibiotics will help him now as it has in the past. Status at Discharge Functional status at discharge: bed bound (Lori Do for transfers) Overall status at discharge: patient is not back to baseline Time Spent with Patient Time attestation: Total time spent providing and/or coordinating discharge services: 50 minutes Time spent: Greater than 30 minutes Exam Narrative: Exam Narrative: He is alert and appears in no distress. Respirations are unlabored. Cardiovascular: S1, S2, 2/6 systolic murmur. Abdomen: Bowel sounds active. Abdomen is soft, protuberant with significant ascites. No tenderness or masses palpable. Extremities with improved edema. Const: Vital Signs, click to edit/add: Vital Signs - 24 hr 05/25/24 11:45 05/25/24 15:00 05/25/24 15:00 Temperature 97.4 F L 98.4 F Pulse Rate [Pulse Oximeter] 92 92 80 Respiratory Rate 18 18 18 Blood Pressure [Le ft Arm] 119/54 L 137/59 L Blood Pressure [Ri ght Arm] Pulse Oximetry 97 97 Oxygen Delivery Me thod Room Air Room Air 05/25/24 19:00 05/25/24 23:00 05/26/24 03:00 Temperature 98.5 F 99.5 F 99.2 F Pulse Rate [Pulse Oximeter] 80 83 81 Respiratory Rate 17 22 17 Blood Pressure [Le ft Arm] Blood Pressure [Ri ght Arm] 133/72 149/65 H 130/63 Pulse Oximetry 96 96 95 Oxygen Delivery Me thod Room Air Room Air Room Air 05/26/24 07:00 Temperature 97.2 F L Pulse Rate [Pulse Oximeter] 102 H Respiratory Rate 20 Blood Pressure [Le ft Arm] Blood Pressure [Ri ght Arm] 115/71 Pulse Oximetry 97 Oxygen Delivery Me thod Documenting provider has reviewed patient's vital signs: yes DS: Data Data Completed and Pending Labs on day of discharge: Labs from last 24 hours 05/26/24 06:00 WBC 21.82 H RBC 2.96 L Hgb 7.8 L* Hct 25.1 L MCV 85 MCH 26 MCHC 31 L RDW Coeff of Fredy 19.5 H Plt Count 49 L* Neut % (Auto) 41.9 L Lymph % (Auto) 14.3 L [place] % (Auto) 19.6 H Eos % (Auto) 3.8 Baso % (Auto) 1.6 Neut # (Auto) 9.10 H Lymph # (Auto) 3.10 H [place] # (Auto) 4.30 H Eos # (Auto) 0.80 H Baso # (Auto) 0.30 Abs Immat Gran (auto) 4.10 H Imm/Tot Granulo (auto) 18.8 Sodium 136 Potassium 3.9 Chloride 109 Carbon Dioxide 17 L Anion Gap 10 BUN 81 H Creatinine 3.3 H Estimated Creat Clear 15.98 Estimated GFR 17 Glucose 157 H Calcium 8.[address] scan - abdomen: Radiologist's impression: INDICATION: Hematuria. Large clots. Severe anemia. COMPARISON: August 02, 2021 TECHNIQUE: CT examination of the abdomen and pelvis was performed without intravenous contrast. Thin section axial images were obtained from the lung bases through the pubic symphysis. Oral contrast was not administered. Please note that all CT scans at this facility use dose modulation, iterative reconstruction, and/or weight-based dosing when appropriate to reduce radiation dose to as low as reasonably achievable. FINDINGS: LUNG BASES: Bibasilar opacities probably due to atelectasis.The heart is mildly enlarged the lung bases. There are atherosclerotic vascular and valvular calcifications noted. LIVER/BILIARY SYSTEM:No focal mass identified. No obvious cirrhotic morphology. Cholelithiasis with stones suggested within a contracted gallbladder ADRENALS: Normal non-contrast appearance KIDNEYS, URETERS and BLADDER:Normal-sized kidneys. No hydronephrosis or hydroureter. Low-density right midpole renal lesion probably a cyst. This measures 3.6 centimeters and is unchanged. No hydronephrosis or hydroureter. The bladder is not well evaluated as it is unopacified but no gross abnormalities are noted. Significant enlargement of the prostate is again noted. SPLEEN:Significantly enlarged spleen measuring about 21 centimeters. Similar in size to the prior study. There is perisplenic fluid that is part ascites but there is also likely a subcapsular component inferiorly. PANCREAS: Normal non-contrast appearance. RETROPERITONEUM and MESENTERY: There is no mass, adenopathy or aortic aneurysm. Very dense atherosclerotic vascular calcifications diffusely GASTROINTESTINAL SYSTEM: There is no evidence of diverticulitis, colitis, mechanical obstruction, or appendicitis. The small bowel as visualized appears normal. PELVIS: Enlarged prostate as mentioned above. OSSEOUS STRUCTURES and ABDOMINAL WALL: Diffuse osteosclerosis. This suggest osseous metastatic disease. The most common cause of this would be prostate carcinoma. OTHER: There is moderate to severe ascites. The exact cause of this is uncertain. There is also mild stranding and nodularity of the omentum which often indicates an intra-abdominal carcinoma. IMPRESSION: 1. Enlarged heart. Vascular and valvular calcifications. 2. Cholelithiasis. Contracted gallbladder. No definite acute cholecystitis. No obvious cirrhotic morphology of the liver on this noncontrast study. 3. Right renal cyst. No specific visible cause for hematuria on this noncontrast exam. 4. The spleen is significantly enlarged measuring 21 centimeters. Similar to the prior study. There is also a moderate-sized subcapsular splenic fluid collection which was not present previously. 5. Enlarged prostate. This is similar to the prior examination. 6. Moderate to severe ascites. There is also mild stranding and nodularity of the omentum which often indicates an intra-abdominal carcinoma, less likely infection. The omental surface findings ascites appear to be new. 7. Diffuse osteosclerosis. The most common cause of this is metastatic disease. In a male, this usually indicates prostate carcinoma 8. Other findings as discussed in the body of the report Chest x-ray: Radiologist's impression: INDICATION: Weakness. TECHNIQUE: Chest 1 view. COMPARISON: None. FINDINGS: Unremarkable cardiomediastinal contours. Mildly low lung volumes. No evident lung consolidation. No sign of pleural effusion. No pneumothorax. No acute osseous or soft tissue findings. IMPRESSION: No acute findings. Modified barium swallow: Radiologist's impression: INDICATION: Dysphagia TECHNIQUE: Modified barium swallow. Fluoroscopic time 1 minutes 30 seconds. COMPARISON: None FINDINGS/IMPRESSION: Flash laryngeal penetration occurred with varying consistencies of barium. Aspiration with cough reflex occurred with initial swallow of thin barium. This improved with chin tuck maneuver. Left foot: Radiologist's impression: Indication: Fall Technique: Three views of the left foot Comparison: None Findings/Impression: No acute fracture or malalignment. No ankle joint effusion. 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 Mild osteopenia. No suspicious osseous lesions. Moderate soft tissue swelling along the dorsal aspect of the forefoot. Severe vascular calcifications. Right knee: Radiologist's impression: INDICATION: Weakness. TECHNIQUE: Chest 1 view. COMPARISON: None. FINDINGS: Unremarkable cardiomediastinal contours. Mildly low lung volumes. No evident lung consolidation. No sign of pleural effusion. No pneumothorax. No acute osseous or soft tissue findings. IMPRESSION: No acute findings. Discharge Plan Discharge Disposition: [facility] Date of Admission: 05/20/24 13:43 Attending Provider on Discharge: Bear Dean Consulting Providers: Paz Salas Primary Care Provider: Jaspal Leigh Anticipated Discharge Date/Time: 05/26/24 11:00 Discharge Medications: New furosemide 40 mg Tablet 40 mg PO DAILY@0800 Qty: 30 0RF melatonin 3 mg Tablet 3 mg PO HS Qty: 30 0RF doxycycline hyclate 100 mg Tablet 100 mg PO BID Qty: 10 0RF glipizide 2.5 mg tablet extended release 24hr 2.5 mg PO DAILY Qty: 30 2RF sodium bicarbonate 325 mg tablet 325 mg PO TIDWMEAL PRN (Reason: stomach upset) Qty: 90 0RF Continued PreserVision AREDS-2 250-90-40-1 mg tablet,chewable 1 tab PO QAM AND QPM allopurinol 100 mg tablet 100 mg PO DAILY doxazosin 8 mg tablet 8 mg PO HS metoprolol succinate 100 mg tablet extended release 24 hr 100 mg PO DAILY omeprazole 20 mg capsule,delayed release(DR/EC) 20 mg PO DAILY Jakafi 20 mg tablet 20 mg PO DAILY cholecalciferol (vitamin D3) 25 mcg (1,000 unit) capsule 25 mcg PO DAILY ferrous sulfate 325 mg (65 mg iron) tablet 325 mg PO DAILY Rx Instructions: 65 mg elemental iron Discontinued alprazolam 1 mg tablet 0.5 mg PO HS furosemide 40 mg tablet 20 mg PO DAILY glipizide 5 mg tablet extended release 24hr 5 mg PO DAILY Discharge Orders: Discharge Order (Routine); Ordered 05/26/24 Ordered By: Bear Dean Additional Instructions: I recommend outpatient appointments with Nephrology and Hematology at next available appointments, within 2-3 weeks if possible. Activity Level: Up with assist, Weight Bearing as Tolerated, Use Walker and Other Activity Detail: EZ Stand Discharge Diet: Regular and Other Diet Detail: Minced & Moist/moderately thick liquids w/ chin tuck Follow Up Appointments: Jaspal Leigh MD [Primary Care Provider] - Forms: [facility] Info Instructions Wound Care: Daily dressing changes for left foot and right knee Admit to: SNF Discharge Potential: Fair Length of Stay: 30-90 days Can use facility standing orders?: Yes Code Status: Full Code Rehab Potential: Fair Therapy: Physical Therapy and Occupational Therapy Therapy Orders: Evaluate and Treat Oxygen: No Glucose Checks: daily Lab Orders: CBC, basic metabolic panel in one week
[2024-05-26] MEDS: FERROUS SULFATE 325 MG TABLET PO (12:35)
[2024-05-26] MEDS: INSULIN ASPART 100 UNIT/ML SUBCUT (12:36)
--- NOTE | 2024-05-26 14:03 | PC.SOCIAL ---
Discharge planning: Pt was discharged to [facility] today for short-term rehab. Discharge orders were secure emailed to Joel at [facility]. Pre-admission screening was completed and the confirmation number was secure emailed to [facility]. [id number]. Pt was transported via medical transport. Social work to follow-up as needed.
[2024-05-26 14:41] VITALS: BP 125/63; PULSE 83; RESP 20; TEMP 36.2
--- NOTE | 2024-05-26 16:00 | PC.NURSE ---
Discharge-- Pleasant and cooperative patient discharged to [facility] at approximately 1330 via wheelchair and medical transport van. VSS and pt is afebrile. SPO2 maintained >90% on RA. He c/o some mild pain in his legs and was given Tylenol with apparent relief. Dressings to left heel and right agarwal were C/D/I and CMS WNL. LS diminished with a few fine crackles noted in the left base. Pt continues to have ascites. He ate a regular, minced, moist breakfast and lunch with minimal assistance and tolerated it well. Pills were crushed in applesauce. SL was removed with tip intact. Nurse to nurse report was given to Kelton at [facility] and all questions were answered.
== END 2024-05-26 13:37 | DRG 841 ==
LOC: ED 18:22 → MEDSURG 19:30
PROVIDERS: Student in an Organized Health Care Education/Training Program; Admitting Provider Family Medicine; Emergency Provider Emergency Medicine; PCP Family Medicine; Visit Provider Family Medicine
DX: D47.1 Chronic myeloproliferative disease (principal); L03.116 Cellulitis of left lower limb; R18.8 Other ascites; N18.4 Chronic kidney disease, stage 4 (severe); N25.81 Secondary hyperparathyroidism of renal origin; F03.90 Unspecified dementia, unspecified severity, without behavioral disturbance, psychotic disturbance, mood disturbance, and anxiety; I12.9 Hypertensive chronic kidney disease with stage 1 through stage 4 chronic kidney disease, or unspecified chronic kidney disease; E11.22 Type 2 diabetes mellitus with diabetic chronic kidney disease; E88.A Wasting disease (syndrome) due to underlying condition; D64.9 Anemia, unspecified; R63.4 Abnormal weight loss; S90.822A Blister (nonthermal), left foot, initial encounter; R53.1 Weakness; R13.10 Dysphagia, unspecified; E86.0 Dehydration; R19.7 Diarrhea, unspecified; R50.9 Fever, unspecified; D63.1 Anemia in chronic kidney disease; E04.2 Nontoxic multinodular goiter; R25.1 Tremor, unspecified; D69.6 Thrombocytopenia, unspecified; R31.9 Hematuria, unspecified; R05.3 Chronic cough; W06.XXXA Fall from bed, initial encounter; C44.80 Unspecified malignant neoplasm of overlapping sites of skin; K80.20 Calculus of gallbladder without cholecystitis without obstruction; Y92.003 Bedroom of unspecified non-institutional (private) residence as the place of occurrence of the external cause; Z91.81 History of falling; S89.91XA Unspecified injury of right lower leg, initial encounter; G47.00 Insomnia, unspecified
CPT/HCPCS: 36415; 36430; 49083; 51798; 71045; 73562; 73630; 74176; 74230; 80048; 80053; 80074; 80076; 81001; 81003; 82042; 82150; 82945; 82962; 83605; 83615; 83735; 84100; 84145; 84155; 84157; 84439; 84443; 84484; 85018; 85025; 85610; 86140; 86850; 86900; 86901; 86922; 87040; 87070; 87086; 87205; 87493; 87631; 88112; 88305; 88341; 88342; 89051; 92526; 92610; 92611; 93005; 94761; 97110; 97162; 97165; 97530; 97535; 99284; 99285; G0103; A9153; A9270; G0378; J2003; J7030; P9016

== ENCOUNTER 2024-05-29 15:59 | Outpatient (CLI) | payer MEDICARE, OTHER, SELFPAY ==
[2024-05-29 16:34] LABS: Basophils Percent Auto 1.4 % (0.0-3.0); Hematocrit 27.5 % (37.0-53.0); Hemoglobin* 8.4 gm/dL (13.5-17.5); Immature Granulocytes Pct Auto 21.8 %; Lymphocytes Percent Auto 7.7 % (20-44); Mean Corpuscular HGB Conc 31 gm/dL (32-36); Mean Corpuscular Hemoglobin 26 pg (26-34); Mean Corpuscular Volume 84 fL (80-100); Monocytes Percent Auto 17.7 % (0.0-11.0); Neutrophils Percent Auto 48.4 % (42.0-72.0); Platelet Count* 65 K/uL (140-440); RDW Coefficient of Variation % 19.8 % (11.5-15.5); Red Blood Count 3.26 m/uL (4.30-5.90)
[2024-05-29 17:00] LABS: Slide Review Reflex Yes
[2024-05-29 17:01] LABS: Slide Review Acceptable Review (Acceptable)
[2024-05-29 17:04] LABS: Chloride* 106 mmol/L (96-114); Potassium* 4.3 mmol/L (3.6-5.1); Sodium* 135 mmol/L (135-149)
[2024-05-29 17:07] LABS: Anion Gap 14 mEq/L (7-15); Blood Urea Nitrogen* 85 mg/dL (7-30); Calcium* 8.5 mg/dL (8.4-10.6); Carbon Dioxide* 15 mmol/L (20-32); Creatinine* 3.5 mg/dL (0.5-1.5); Estimated Glomerular Filt Rate 16 ml/min; Glucose* 122 mg/dL (60-115)
== END 2024-05-29 16:00 | disposition home or self-care (01) ==
LOC: NPINS 16:14
PROVIDERS: PCP Family Medicine; Visit Provider Nurse Practitioner Gerontology
DX: D46.9 Myelodysplastic syndrome, unspecified (principal); N28.9 Disorder of kidney and ureter, unspecified; L03.116 Cellulitis of left lower limb
CPT/HCPCS: 80048; 85025

== ENCOUNTER 2024-05-29 18:00 | Outpatient (CLI) | payer MEDICARE, OTHER, SELFPAY | END 2024-05-29 18:01 | disposition home or self-care (01) | LOC: AMB 05-30 10:36 | PROVIDERS: PCP Family Medicine; Visit Provider Emergency Medicine Emergency Medical Services | DX: L08.9 Local infection of the skin and subcutaneous tissue, unspecified (principal); D72.829 Elevated white blood cell count, unspecified | CPT/HCPCS: A0425; A0429 ==

== ENCOUNTER 2024-05-29 18:15 | Emergency (ER) | payer MEDICARE, OTHER, SELFPAY ==
[2024-05-29] VITALS (19 sets, daily range): BP systolic 129–134; BP diastolic 59–62; PULSE 68–76; RESP 14–20; TEMP 36; O2SAT 94–97; BMI 26.0
--- NOTE | 2024-05-29 18:32 | ED_ITS ---
HPI - General Adult General Date Seen: 05/29/24 Chief complaint: Weakness Stated complaint: Infection Time Seen by Provider: 05/29/24 18:22 History of Present Illness HPI narrative: 89 yo M with a complex past medical history including myelodysplastic syndrome (sounds like he is chronically anemic with hemoglobin around 6), chronic renal insufficiency with baseline creatinine around 3.1. Creatinine was 3.3 on 05/19), He was hospitalized 05/26/2030. During that hospitalization he was worked up for new onset ascites without a history of liver disease. He had a paracentesis on 05/21 with a low albumin gradient suggesting likely not ascites of cirrhosis or heart failure. He had a low neutrophil count in the peritoneal fluid and peritoneal fluid culture was negative. Cytology was negative for malignant cells. He was also treated for left lower extremity cellulitis. He was started on doxycycline on 05/22 and is still on that antibiotic. He also had hematuria. Urine cultures negative x2. He also has chronic anemia. He did receive 1 packed unit of red cells while in the hospital. He was discharged from the hospital on Sunday to a [facility]. Wall hernia apparently at his nursing facility he has still been receiving his antibiotics and his other meds. He had a mechanical fall couple of days ago or maybe yesterday where he landed on a mattress. He has also had increasing redness and swelling of his left leg so he had a DVT ultrasound that was done, yesterday and was normal. The ultrasound had been ordered by the provider at his penitentiary facility . He has increasing redness of his left foot, swelling of his foot and drainage from his 3rd and 4th toes on his left foot. His nurses at the [facility]iary of also noticed that he had black eschar on the posterior heels of both feet. Today he had labs that showed a rising white count up from 21 up to 28 so was sent back here to the ER with concern for worsening infection. History is obtained mostly from the patient's daughter because of his poor memor y but some history is obtained from the patient. Combined history is as below. Apparently has been doing fairly poorly at the penitentiary facility. He has been somewhat poor with his appetite. A little bit weak. No definite fevers. He has not had a cough. No definite shortness of breath. He does have increasing abdominal distension, presumably from recurrent fluid building up. Daughter notes that he had a large purple blood blister on the dorsum of his left forefoot that stemmed initially from his fall on May 19. Apparently had fallen and had his toes bent at a very odd angle and then developed a blister. The blister broke open during physical exam by the hospitalists 1 day when he was in the hospital. Since then the skin on the dorsum of a sweat has peeled off and left a grayish/purplish sore. His 3rd and 4th toes, distal to the blister, have been purple and cyanotic for several days. Related Data Home Medications ?Medication ?Instructions ?Recorded ?Confirmed allopurinol 100 mg tablet 100 mg PO DAILY 12/05/21 05/29/24 doxazosin 8 mg tablet 8 mg PO HS 12/05/21 05/29/24 metoprolol succinate 100 mg 100 mg PO DAILY 12/05/21 05/29/24 tablet,extended release 24 hr omeprazole 20 mg capsule,delayed 20 mg PO DAILY 12/05/21 05/29/24 release ruxolitinib 20 mg tablet (Jakafi) 20 mg PO DAILY 12/05/21 05/29/24 vit C 250 mg-E 90 mg-zinc 40 1 tab PO QAM AND QPM 08/21/23 05/29/24 mg-copper 1 vy-hsiyit-xeithx chew tablet (PreserVision AREDS-2) cholecalciferol (vitamin D3) 25 25 mcg PO DAILY 05/20/24 05/29/24 mcg (1,000 unit) capsule ferrous sulfate 325 mg (65 mg 325 mg PO DAILY 05/20/24 05/29/24 iron) tablet alprazolam 1 mg tablet 1 mg PO DAILY PRN 05/29/24 05/29/24 Previous Rx's ?Medication ?Instructions ?Recorded doxycycline hyclate 100 mg tablet 100 mg PO BID #10 tabs 05/26/24 furosemide 40 mg tablet 40 mg PO DAILY@0800 #30 tabs 05/26/24 glipizide 2.5 mg tablet, extended 2.5 mg PO DAILY #30 tabs 05/26/24 release 24 hr melatonin 3 mg tablet 3 mg PO HS #30 tabs 05/26/24 sodium bicarbonate 325 mg tablet 325 mg PO TIDWMEAL PRN stomach 05/26/24 upset #90 tabs Allergies Allergy/AdvReac Type Severity Reaction Status Date / Time amoxicillin Allergy vomited Verified 05/29/24 18:46 codeine AdvReac Intermediate Nausea Verified 05/29/24 18:46 hydrocodone AdvReac Intermediate Nausea Verified 05/29/24 18:46 [facility] Medical History (Updated 05/29/24 @ 20:11 by Junior Cabral MD) Skin ulcer ?L98.499 - Non-pressure chronic ulcer of skin of other sites with unspecified severity (ICD-10) Early satiety ?R68.81 - Early satiety (ICD-10) Dementia ?F03.90 - Unspecified dementia, unspecified severity, without behavioral disturbance, psychotic disturbance, mood disturbance, and anxiety (ICD-10) Discharge planning issues ?Z75.8 - Other problems related to medical facilities and other health care (ICD-10) Chronic anemia ?D64.9 - Anemia, unspecified (ICD-10) Dysphagia ?R13.10 - Dysphagia, unspecified (ICD-10) Tremor ?R25.1 - Tremor, unspecified (ICD-10) Urethral stricture ?N35.919 - Unspecified urethral stricture, male, unspecified site (ICD-10) Hypercoagulable state ?D68.59 - Other primary thrombophilia (ICD-10) Cognitive impairment ?R41.89 - Other symptoms and signs involving cognitive functions and awareness (ICD-10) Skin cancer ?C44.90 - Unspecified malignant neoplasm of skin, unspecified (ICD-10) Chronic cough ?R05.3 - Chronic cough (ICD-10) Frequent falls ?R29.6 - Repeated falls (ICD-10) Weight loss, non-intentional ?R63.4 - Abnormal weight loss (ICD-10) Uric acid kidney stone ?N20.0 - Calculus of kidney (ICD-10) Secondary hyperparathyroidism ?N25.81 - Secondary hyperparathyroidism of renal origin (ICD-10) Unspecified essential hypertension ?I10 - Essential (primary) hypertension (ICD-10) Psychosexual dysfunction with inhibited sexual excitement ?F52.8 - Other sexual dysfunction not due to a substance or known physiological condition (ICD-10) Primary hypercoagulable state (11/28/06) ?D68.59 - Other primary thrombophilia (ICD-10) Peripheral arterial disease (01/18/23) ?I73.9 - Peripheral vascular disease, unspecified (ICD-10) Myelofibrosis (01/13/13) ?D75.81 - Myelofibrosis (ICD-10) Multiple thyroid nodules (11/30/19) ?E04.2 - Nontoxic multinodular goiter (ICD-10) Insomnia (11/27/14) ?G47.00 - Insomnia, unspecified (ICD-10) Gastroesophageal reflux disease (06/23/15) ?K21.9 - Gastro-esophageal reflux disease without esophagitis (ICD-10) Diverticulosis of colon (without mention of hemorrhage) (10/16/11) ?K57.30 - Diverticulosis of large intestine without perforation or abscess without bleeding (ICD-10) Depression, recurrent (05/23/22) ?F33.9 - Major depressive disorder, recurrent, unspecified (ICD-10) Cough ?R05.9 - Cough, unspecified (ICD-10) CKD (chronic kidney disease) stage 4, GFR 15-29 ml/min (05/12/21) ?N18.4 - Chronic kidney disease, stage 4 (severe) (ICD-10) Cholelithiasis (10/16/11) ?K80.20 - Calculus of gallbladder without cholecystitis without obstruction (ICD-10) Benign neoplasm of colon ?D12.6 - Benign neoplasm of colon, unspecified (ICD-10) Anxiety (11/27/14) ?F41.9 - Anxiety disorder, unspecified (ICD-10) Anemia in stage 4 chronic kidney disease (04/06/22) ?N18.4 - Chronic kidney disease, stage 4 (severe) (ICD-10) ?D63.1 - Anemia in chronic kidney disease (ICD-10) Heart murmur ?R01.1 - Cardiac murmur, unspecified (ICD-10) Weakness ?R53.1 - Weakness (ICD-10) Infection ?B99.9 - Unspecified infectious disease (ICD-10) Surgical History (Updated 05/19/24 @ 21:28 by Bear Dean MD) H/O umbilical hernia repair ?Z98.890 - Other specified postprocedural states (ICD-10) ?Z87.19 - Personal history of other diseases of the digestive system (ICD-10) H/O prostate biopsy ?Z98.890 - Other specified postprocedural states (ICD-10) H/O cystoscopy ?Z98.890 - Other specified postprocedural states (ICD-10) Family History (Updated 05/19/24 @ 21:30 by Bear Dean MD) Father Heart disease Brother Alcohol dependence Lung cancer Stroke Other High blood pressure Social History (Updated 05/19/24 @ 21:31 by Bear Dean MD) Narrative: He lives in [place] with his . had abdominal surgery last week and is recovering nicely. Daughter is staying with family well mom recovers. is healthcare power of assistant district attorney. Code status is DNR. He does not smoke. He does not drink alcohol. He walks with a walker. What is your current living situation?: I presently have a place to live Problems where you live: no known problems Problems where you live details: None In the past 12 months, utilities in danger of being shut off: no In past 12 months, lack of transportation kept you from medical appts, meetings, work, or getting things needed for daily living: no In the past 12 mos, have been you worried that your food would run out before you had money to buy more?: never true In the past 12 mos, the food you bought just didn't last and you didn't have money to buy more?: never true Smoking Status: Never smoker Do you use any of these nicotine containing products: None Second hand tobacco smoke exposure: No How often do you have a drink containing alcohol: never How often do you have six or more drinks on one occasion: Never AUDIT-C Alcohol total score: 0 Non-prescribed substance use: denies use Caffeine: No How often does anyone, including family, friends and others, physically hurt you : never How often does anyone, including family, friends and others, insult or talk down to you: never How often does anyone, including family, friends and others, threaten you with harm: never How often does anyone, including family, friends and others, scream or curse at you: never service: Yes Exam Narrative: Exam Narrative: Constitutional: Appears well-developed and well-nourished. He is initially sleeping but then arouses to roll over in changed position. He answers some simple questions appropriately but is not able to answer other questions. He follows simple commands. HENT: Head: Atraumatic. Nose: Nose normal. Mouth/Throat: Oral mucosa is clear but dry, not desiccated or cracked. no trismus. Because of limited cooperation difficult to sees entire posterior oropharynx. Visualized upper tonsils appear normal. Eyes: Conjunctivae normal. EOM normal. Pupils equal, round, and reactive to light. No scleral icterus. Neck: Normal range of motion. Neck supple. No tracheal deviation present. No JVD Cardiovascular: Normal rate, regular rhythm. No gallop. No friction rub. Systolic murmur heard. Symmetric radial artery pulses . Symmetric femoral pulses. I am not able to palpate pulses on either foot in the DP or PT arteries. The skin on the right foot does appear quite white and pale. The skin on the left foot does appear red. The skin on the 3rd and 4th toes of the left foot is cyanotic and looks as if there is impaired blood flow. He has no sensation on the 3rd, 4th, 5th toes of the left foot but does have sensation of the 1st and 2nd toes. I am able to get positive Doppler blood flow bilaterally through the posterior tibial arteries but not through the dorsalis pedis. Pulmonary/Chest: Effort normal. No stridor. No respiratory distress. No wheezes. No rales. No rhonchi . No tenderness. Abdominal: Soft. Bowel sounds normal. Mild distension. No mass. No tenderness. No rebound. No guarding. Musculoskeletal: RUE: Normal range of motion. No tenderness. No deformity LUE: Normal range of motion. No tenderness. No deformity RLE: Normal range of motion. No edema. No tenderness. No deformity LLE: Normal range of motion. No edema. No tenderness. No deformity Lymph: He does have a Neurological: Alert and oriented to person, place, min not date. Apparently has some baseline dementia per. Normal strength. CN II-VII intact. No sensory deficit. GCS eye subscore is 4. GCS verbal subscore is 5. GCS motor subscore is 6. Normal coordination Skin: Skin is warm and dry. No rash noted. No pallor. Normal capillary refill. Psychiatric: Limited. Polite when awake. Const: Vital Signs, click to edit/add: Vital Signs - 24 hr 05/29/24 18:20 05/29/24 18:35 05/29/24 18:36 Temperature 96.8 F L Pulse Rate 73 74 Pulse Rate [Pulse Oximeter] 76 Respiratory Rate 16 Blood Pressure 132/60 Blood Pressure [Ri ght Upper Arm] 134/62 Pulse Oximetry 94 97 96 Oxygen Delivery Me thod Room Air 05/29/24 18:45 05/29/24 19:00 05/29/24 19:02 Temperature Pulse Rate 74 73 68 Pulse Rate [Pulse Oximeter] Respiratory Rate Blood Pressure 129/61 Blood Pressure [Ri ght Upper Arm] Pulse Oximetry 96 97 96 Oxygen Delivery Me thod 05/29/24 19:15 05/29/24 19:30 05/29/24 19:31 Temperature Pulse Rate 70 70 69 Pulse Rate [Pulse Oximeter] Respiratory Rate 20 16 Blood Pressure 133/59 L Blood Pressure [Ri ght Upper Arm] Pulse Oximetry 96 95 95 Oxygen Delivery Me thod 05/29/24 19:32 05/29/24 19:45 05/29/24 20:30 Temperature Pulse Rate 70 72 70 Pulse Rate [Pulse Oximeter] Respiratory Rate 16 15 14 Blood Pressure Blood Pressure [Ri ght Upper Arm] Pulse Oximetry 95 97 96 Oxygen Delivery Me thod 05/29/24 20:34 05/29/24 20:45 Temperature Pulse Rate 69 73 Pulse Rate [Pulse Oximeter] Respiratory Rate 16 18 Blood Pressure Blood Pressure [Ri ght Upper Arm] Pulse Oximetry 96 96 Oxygen Delivery Me thod Course Vital Signs Vital signs: Initial Vital Signs Temperature 96.8 F L 05/29/24 18:20 Temperature Source Temporal Artery Scan 05/29/24 18:20 Pulse Rate 76 05/29/24 18:20 Respiratory Rate 16 05/29/24 18:20 Blood Pressure 134/62 05/29/24 18:20 Blood Pressure Mean 86 05/29/24 18:20 Blood Pressure Position Sitting 05/29/24 18:20 Pulse Oximetry 94 05/29/24 18:20 Oxygen Delivery Method Room Air 05/29/24 18:20 Vital Signs Temperature 96.8 F L 05/29/24 18:20 Pulse Rate 76 05/29/24 18:20 Respiratory Rate 16 05/29/24 18:20 Blood Pressure 134/62 05/29/24 18:20 Pulse Oximetry 94 05/29/24 18:20 Oxygen Delivery Method Room Air 05/29/24 18:20 Temperature 96.8 F L 05/29/24 18:20 Pulse Rate 73 05/29/24 20:45 Respiratory Rate 18 05/29/24 20:45 Blood Pressure 133/59 L 05/29/24 19:31 Pulse Oximetry 96 05/29/24 20:45 Oxygen Delivery Method Room Air 05/29/24 18:20 Medications Administered Medications: Discontinued Medications Generic Name Dose Route Start Last Admin Trade Name Linda PRN Reason Stop Dose Admin Metronidazole 500 mg in 100 mls @ 100 mls/hr 05/29/24 19:12 05/29/24 20:24 Metronidazole IVPB 05/29/24 20:11 100 mls/hr ONCE ONE Administration Sodium Chloride 1,000 mls @ 1,000 mls/hr 05/29/24 19:15 05/29/24 20:24 0.9 % Sodium Chloride 1000 Ml IV 05/29/24 20:14 1,000 mls/hr .Q1H ANUPAMA Administration Medical Decision Making MDM Narrative Medical decision making narrative: 89-year-old male with a complex presentation to the ER. 1. Infectious disease. Patient did injure his left foot when he had a amf mechanic al fall about 10 days ago, which was the inciting event leading to his recent hospitalization. He apparently had a large blood blister on the dorsum of that left foot after that injury which was popped when he was in the hospital last time. He has had signs of spreading cellulitis since then. He is already on outpatient c doxycycline but infection does not seem to be responding. Labs show a white count of a trending leukocytosis dating back to May 22. He was sent back to the ER today because of his rising white count and concern for failing outpatient antibiotics. Although his white count is markedly elevated his vital signs including pulse and blood pressure are stable. He is not febrile. She blood pressure is normal. Venous lactic acid is reassuring at 1.4. Nonetheless procalcitonin is elevated at 1.17. Clinical exam is concerning for a bad infection in the left dorsal foot and forefoot and toes. Will start on broad-spectrum antibiotics including vancomycin, cefepime, Flagyl for potential gangrene and left foot. Clinical exam left foot reveals a wound on the dorsum of the foot and also purplish cyanotic appearing almost gangrenous appearance of the 3rd and 4th toe s. He has also insensate on those toes and on the forefoot. There I do not appreciate any gas by palpation of the soft tissue or gas visible on his foot x- ray. However I am concerned about potential foot ischemia leading to gangrene. I am not able to palpate DP or PT pulses in either is left foot, or his right foot. However with bedside Doppler ultrasound I am able to get pulses in the PT pulses bilaterally. Discussed with our hospitalist, Dr. Gonzalez, who came to the patient's bedside to help me evaluate this patient's foot. You Given concern for low flow to the feet and potential for ischemia causing worsening of his infection, we feel that transfer to a facility with vascular surgeon capabilities would be in this patient's best interest. We had a goals of care discussion with the patient and mostly with his son and daughter. Although he does have some mild cognitive delay it is they report that he is generally pretty independent and had been fairly independent, even going fishing, up until his fall a couple of weeks ago. Therefore although his overall medical prognosis is poor, we think it is reasonable to transfer for at least vascular surgery consultation an effort to save his left foot and/or avoid sepsis leading to septic shock and . UA negative for infection. 2. Renal. He does have chronic renal insufficiency. Today labs show creatinine elevated up to 3.6. This is likely related to dehydration and poor oral intake for the past several days. Potassium is normal at 4.1. Sodium normal. 3. Heme. He does have chronic myelofibrosis with baseline anemia. Hemoglobin today is 7.7. This is at or near his baseline. He had been up to 8.4 after transfusion of packed red cells in the hospital last week. 4. Ortho. He had another mechanical fall yesterday or last night at his nursing facility. He did scrape up his right knee. 5. Goals of care: This patient has multiple medical comorbidities including chronic renal failure with worsening creatinine, chronic myelofibrosis with chronic anemia requiring transfusions, with a current acute severe left foot cellulitis and suspected new diagnosis of peripheral artery disease. I expressed my concern about his potential for poor outcome. Patient's children verbalized their understanding. We discussed options including admission here to [place] for IV antibiotics. However , we are concerned that administration of broad-spectrum antibiotics without further surgical or vascular intervention may not be sufficient to treat his infection. The patient's children feel like he would want at least consultation with vascular surgery in an attempt to treat this infection and/or save his foot from amputation. It sounds like he had was relatively functional and had a good quality of life up until his hospitalization 10 days ago. 6. Pulmonary. Breathing easily. Oxygen normal. Chest x-ray generally clear. No evidence for active pneumonia or CHF or other cause for his leukocytosis. 7. Neuro. He does have nonfocal confusion. It sounds like he does have a baseline some dementia but this may be in acute on chronic confusion. Suspect this is likely related to delirium from his infection. Son reports he has had similar episodes of confusion in the past when he has dealt with other infections. Lab Data Labs: Lab Results 05/29/24 05/29/24 Range/Units 19:40 20:00 WBC 27.21 H* (4.50-11.00) K/uL RBC 2.93 L (4.30-5.90) m/uL Hgb 7.7 L* (13.5-17.5) gm/dL Hct 24.6 L (37.0-53.0) % MCV 84 (80-100) fL MCH 26 (26-34) pg MCHC 31 L (32-36) gm/dL RDW Coeff of Fredy 19.5 H (11.5-15.5) % Plt Count 65 L (140-440) K/uL Neut % (Auto) 50.0 (42.0-72.0) % Lymph % (Auto) 8.0 L (20-44) % [place] % (Auto) 17.5 H (0.0-11.0) % Eos % (Auto) 3.2 (0.0-7.0) % Baso % (Auto) 1.4 (0.0-3.0) % Neut # (Auto) 13.60 H (1.7-7.0) K/uL Lymph # (Auto) 2.20 (0.90-2.90) K/uL [place] # (Auto) 4.80 H (0.00-0.90) K/UL Eos # (Auto) 0.90 H (0.00-0.50) K/uL Baso # (Auto) 0.40 H (0.00-0.30) K/uL Abs Immat Gran (auto) 5.40 H (0.00-0.30) K/uL Imm/Tot Granulo (auto) 19.9 % VBG pH 7.336 (7.32-7.43) VBG pCO2 35 L (40-50) mmHG VBG pO2 46.9 (25-47) mmHG VBG HCO3 18 L (21-28) mmol/L Sodium 136 (135-149) mmol/L Potassium 4.1 (3.6-5.1) mmol/L Chloride 106 (96-114) mmol/L Carbon Dioxide 18 L (20-32) mmol/L Anion Gap 12 (7-15) mEq/L BUN 89 H (7-30) mg/dL Creatinine 3.6 H (0.5-1.5) mg/dL Estimated Creat Clear 14.65 Estimated GFR 16 ml/min Glucose 131 H (60-115) mg/dL Lactate 1.4 (0.5-1.9) mmol/L Calcium 8.3 L (8.4-10.6) mg/dL Procalcitonin 1.17 H (<0.50) ng/mL Urine Color Yellow (Yellow) Urine Appearance Clear (Clear) Urine pH 5.5 (5.0-8.5) Ur Specific [place] 1.015 (1.000-1.030) Urine Protein 1+ A (Negative) Urine Glucose (UA) Negative (Negative) Urine Ketones Negative (Negative) Urine Blood Trace-intact A (Negative) Urine Nitrite Negative (Negative) Urine Bilirubin Negative (Negative) Urine Urobilinogen 0.2 (0.2-1.0) Ur Leukocyte Esterase Negative (Negative) Urine RBC 0-2 (0-2) Urine WBC 0-2 (0-5) Ur Squamous Epith Cells None (None-Few) Other Sediment 0 (None) Urine Bacteria None (None) Imaging Data XR r knee: Attestation: I have reviewed the pertinent imaging results. My impression: No acute fracture Radiologist's impression: IMPRESSION: No acute fractures or dislocation. XR L foot: Attestation: I have reviewed the pertinent imaging results. My impression: I do not see any gas in the soft tissue. No visible fracture. Radiologist's impression: Impression: 1. Extensive osteopenia of the forefoot and questionable stable erosive changes of the distal 4th metatarsal from comparison exam. Otherwise, moderate dorsal forefoot soft tissue swelling without evidence of obvious subcutaneous emphysema or new bony erosion. Chest x-ray: Attestation: I have reviewed the pertinent imaging results. Radiologist's impression: Impression: Chronic interstitial changes with mildly increased interstitial markings likely representing pulmonary vascular congestion. ECG Data Attestation: I personally reviewed and interpreted this ECG as follows: Interpretation: Normal sinus rhythm with occasional PVCs Rate: 69 NC: 144 QRS axis: Normal axis. Right bundle-branch block pattern. ST segment/T wave: No ST segment elevation or depression. No definite ischemia. QTc: 467 Discharge Plan Discharge Clinical Impression: Cellulitis of foot, left, Ischemia of foot, Chronic renal disease Prescriptions: No Action PreserVision AREDS-2 250-90-40-1 mg tablet,chewable 1 tab PO QAM AND QPM allopurinol 100 mg tablet 100 mg PO DAILY doxazosin 8 mg tablet 8 mg PO HS metoprolol succinate 100 mg tablet extended release 24 hr 100 mg PO DAILY omeprazole 20 mg capsule,delayed release(DR/EC) 20 mg PO DAILY Jakafi 20 mg tablet 20 mg PO DAILY cholecalciferol (vitamin D3) 25 mcg (1,000 unit) capsule 25 mcg PO DAILY ferrous sulfate 325 mg (65 mg iron) tablet 325 mg PO DAILY Rx Instructions: 65 mg elemental iron furosemide 40 mg Tablet 40 mg PO DAILY@0800 Qty: 30 0RF melatonin 3 mg Tablet 3 mg PO HS Qty: 30 0RF doxycycline hyclate 100 mg Tablet 100 mg PO BID Qty: 10 0RF glipizide 2.5 mg tablet extended release 24hr 2.5 mg PO DAILY Qty: 30 2RF sodium bicarbonate 325 mg tablet 325 mg PO TIDWMEAL PRN (Reason: stomach upset) Qty: 90 0RF alprazolam 1 mg tablet 1 mg PO DAILY PRN Follow Up/Referrals: Jaspal Leigh MD [Primary Care Provider] -
--- NOTE | 2024-05-29 19:09 | CRLHL7_ITS ---
For Patients: As a result of the Century Cures Act, medical imaging exams and procedure reports are released immediately into your electronic medical record. You may view this report before your referring provider. If you have questions, please contact your health care provider. Indication: Sepsis Comparison: Single-view chest May 19, 2024 Technique: PA and lateral views of the chest Findings: There is hyperinflation and chronic interstitial changes with diffusely increased interstitial markings likely representing mild pulmonary vascular congestion. There is no pneumothorax or pleural effusion. The cardiomediastinal silhouette is within normal limits. The bony thorax is grossly intact. Impression: Chronic interstitial changes with mildly increased interstitial markings likely representing pulmonary vascular congestion. Dictated by Juan Mares MD @ 05/29/2024 8:39:07 PM (Electronically Signed)
--- NOTE | 2024-05-29 19:09 | CRLHL7_ITS ---
For Patients: As a result of the Century Cures Act, medical imaging exams and procedure reports are released immediately into your electronic medical record. You may view this report before your referring provider. If you have questions, please contact your health care provider. Indication: Foot infection, purple 3rd and 4th digits, evaluate for subcutaneous emphysema Comparison: Three views left foot May 19, 2024 Technique: AP, lateral, and oblique views left foot were obtained. Findings: Again seen is bony erosion of the distal 4th metatarsal with extensive osteopenia of the digits similar to prior exam. No evidence of displaced fracture. No new periosteal changes or bony erosion. Stable hammertoe changes of the 2nd through 5th digits. Moderate dorsal forefoot soft tissue swelling is appreciated. No evidence of obvious subcutaneous emphysema. Impression: 1. Extensive osteopenia of the forefoot and questionable stable erosive changes of the distal 4th metatarsal from comparison exam. Otherwise, moderate dorsal forefoot soft tissue swelling without evidence of obvious subcutaneous emphysema or new bony erosion. Dictated by Juan Mares MD @ 05/29/2024 8:36:37 PM (Electronically Signed)
--- OUTSIDE RECORDS SUMMARY | 2024-05-29 19:34 | XMS_ITS | Patient Health Record ---
Author Organization [facility] Billing Info Address [address] [place] [id number] Care Team Providers Care Associate Professor Of Anthropology Name Role Phone YOVANI VALLE Unavailable Allergies Allergen (clinical drug ingredient) Drug/Non Drug [...] MEDICARE [place] PART B [address] [facility] ALISIA SCHMITZ [id number] Yrn Steele Self - patient is the insured 1 1 Medical (General) History Medical History History ICD Code Hypertension Diabetes mellitus Myelofibrosis
--- OUTSIDE RECORDS SUMMARY | 2024-05-29 19:34 | XMS_ITS | Data Portability ---
Author Organization [facility], Main Office Address [address] [place] [address] Assessment Encounter Date Assessment Date Assessment LastModified by Organization Details LastModified Time 10/09/2022 10/09/2022 1. Biopsy-proven basal carcinoma right jawline we discussed pain discomfort downtime flaps grafts closure length of scar chance of bleeding. Area cleansed with alcohol Nestabs 0.5% lidocaine with epinephrine Mohs case number [id number]. This was biopsied today see the [facility] for the pathology and interpretation Stage I: [...] Prolene. Suture removal in 9 days in [place]. Typewritten verbal wound care instructions given 2. [...] None recorded. Lab pathology, skin 2022 023 [facility], [address] [place] [address], [address], [place], [id number], 18:08:08 Referral None recorded. Procedures None recorded. Surgeries None recorded. Imaging None recorded. Medication Orders doxycycline hyclate 100 mg capsule 2022 023 [facility], [address] [place] [address], [address], 19:09:54 Patient TargetsNo targets recorded. Patient Instructions Encounter Date Encounter Id Patient Instructions Last Modified By Organization Details Last Modified Time 10/09/2022 [id number] cellulitis: care instructions [email or web address] Not available 10/09/2022 [...] SNOMED-CT Code Diagnosis ICD10 Code Diagnosis Note [id number] Cristy Estrada MD Main Office [address],[facility] [place] [address] 10/09/2022 12:44:46 10/27/2022 22:57:27 Neoplasm of uncertain behavior of skin 73291964 D48.5 Cellulitis [id number] L03 .90 Basal cell carcinoma of face 183316521 C44.319 Basal cell carcinoma of lower extremity 342611351 C44.712 Health Concerns Section Related Observation LastModified by Organization Detai ls LastModified Time None Recorded Concern Status LastModified by Organization Details LastModified Time None Recorded Advance Directives Directive None Recorded Payers Encounter Date Sequence Insurance Name Policy Number Policy Fofana Covered Member ID Fofana Member ID Guarantor Name 10/09/2022 1 MEDICA (MEDICARE REPLACEMENT/ ADVANTAGE - PPO) [id number] Yrn Steele [id number] Yrn Steele Notes Date Note Type Note [...] throughout the entire visit. Cristy Estrada MD [address] [place] [address], [id number], [facility] 10/27/2022 22:57:10
--- OUTSIDE RECORDS SUMMARY | 2024-05-29 19:34 | XMS_ITS | Clinical Summary ---
Author Organization [facility] Address [address] [place] [address] Care Team Providers Care Cisco Network Engineer Name Role Phone Jaspal Leigh MD Primary Care Provider [phone] Allergies Active Allergy Reactions Criticality Noted Date Comments Amoxicillin Nausea Only 10/11/2016 Hydrocodone-Acetaminophen Confusion 04/18/2010 Hydroxyzine Confusion 07/05/2012 Medications VITAMINS A,C,Z-EGWR-ROTXCX (Ocuvite PreserVision) 7,160 unit- 113 mg-100 unit [...] 0 3 Active furosemide (LASIX) 40 mg tabletIndications :Localized edema due to fluid overload TAKE ONE TABLET BY MOUTH EVERY MORNING 90 Tablet 3 4 Active metoprolol succinate (Toprol XL) 100 mg Sustained-Release tabletIndications :Benign essential HTN Take 1 Tablet (100 mg) by mouth once daily. 90 Tablet 3 4 Active omeprazole (PRILOSEC) 20 mg Delayed-Release capsuleIndication s:Gastroesophagea l reflux disease, unspecified whether esophagitis present Take 1 Capsule (20 mg) by mouth once daily before a meal. 90 Capsule 4 4 Active doxazosin (CARDURA) 8 mg tabletIndications :Essential hypertension with goal blood pressure less than 140/90 Take 1 Tablet (8 mg) by mouth at bedtime. 100 Tablet 3 4 Active allopurinoL (ZYLOPRIM) 100 mg tabletIndications :Kidney stones Take 1 Tablet (100 mg) by mouth once daily. 90 Tablet 3 4 Active glipiZIDE extended-release (GLUCOTROL XL) 5 mg Extended-Release tabletIndications :Type 2 diabetes mellitus without complication, without long-term current use of insulin (HC) Take 1 Tablet (5 mg) by mouth once daily before a meal. 90 Tablet 3 4 Active ALPRAZolam (XANAX) 1 mg tabletIndications :Anxiety,Other insomnia TAKE ONE-HALF TO ONE TABLET BY MOUTH AT BEDTIME NEEDED FOR ANXIETY 30 Tablet 2 4 Active blood sugar diagnostic (Blood Glucose Test) stripIndications: Type 2 diabetes mellitus without complication, without long-term current use of insulin (HC) Dispense test strips covered by the patient insurance. Test 1 times per day. 100 Each 3 5 Active cephalexin 250 mg capsuleIndication s:Cellulitis of skin Take 1 Capsule (250 mg) by mouth two times daily. 14 Capsule 5 Active Diabetic ShoeIndications:D iabetes mellitus without complication (HC) As directed. Benjy to size and fit right and left shoe for diabetes 2 Each 5 Active Active Problems Problem Noted Date Diagnosed [...] Romero and plans to follow him to [place]. He sees him every 3 months.Jaspal Leigh MD signed electronically .................... 01/10/2023 Multiple thyroid nodules 11/30/2019 Overview (11/30/2019): Yearly follow up Ultrasound will be due in [id number]. Gastroesophageal reflux disease 06/23/2015 Overview (07/09/2015): EGD [...] Problem Noted Date Diagnosed Date Resolved Date [facility] (current) use of anticoagulants 05/09/2010 10/13/2010 Overview (06/29/2010): INR Goal Range: 2.0 - 2.5 DVT (deep venous thrombosis) 05/09/2010 10/13/2010 Ulcer of esophagus without bleeding 10/19/2006 Acute renal failure 04/06/19 23 Encounters Date Type Department Care Team Description 05/24/2024 Telephone [facility] [address] [place] [address] Roro Hickman MD 05/21/2024 Orders Only [facility] Scanner 1 scan: (1-Ord) [facility] [place] BARIUM SWALLOW MODIFIED, 05/21/2024 05/21/2024 Lab Requisition [facility] [phone] Tricia Rivas MD 05/21/2024 Orders Only [facility] Scanner 1 scan: (1-Ord) [facility], DIAGNOSTIC PARACENTESIS, 05/21/2024 05/20/2024 Orders Only [facility] Scanner 1 scan: (1-Ord) [place], ABDOMEN PELVIS WO CON, 05/20/2024 05/19/2024 Orders Only [facility] Scanner 1 scan: (1-Ord) [place], LT FOOT MIN 3V, 05/19/2024 05/19/2024 Orders Only [facility] Scanner 1 scan: (1-Ord) [facility], XR CHEST 1V, 05/19/2024 05/19/2024 Orders Only [facility] Scanner 1 scan: (1-Ord) [facility], XR KNEE RT 3V, 05/19/2024 05/19/2024 Nurse Triage [facility] [address] [place] [address] Jaspal Leigh MD Lab; Urinary Problem (Needs triage/) 05/06/2024 Refill [facility] [address] [place] [address] Ceasar Romero MD Refill Request (Furosemide) 04/22/2024 11:15 AM BILLER Office Visit [facility] [address] [place] [address] Jaspal Leigh MD Derm Problem (Recheck cyst on back - looking better) 04/22/2024 Travel 04/16/2024 Telephone [facility] [address] [facility] [address] Jaspal Leigh MD Letter 04/11/2024 10:30 AM BILLER Office Visit [facility] [place] [address] Jaspal Leigh MD Derm Problem (Concerns with a cyst on his back) 04/11/2024 Travel 04/09/2024 Travel 03/27/2024 2:00 PM BILLER Orders Only [facility] [place] [facility] [address] [facility], [facility] 03/27/2024 Travel 03/03/2024 Telephone [facility] [place] [facility] [address] Jaspal Leigh MD Physical Therapy (MORE VISITS) 02/29/2024 Refill [facility] [place] [facility] [address] Jaspal Leigh MD Refill Request (Blood Glucose test strips) from Last 3 Months Immunizations Immunization Administration Dates Next Due AMB INFLUENZA IIV3 (AGE 65+ YRS) PF (Flu Clinic Only) 12/26/2018,12/05/2017 AMB Influenza, IIV3 (Age >=3 years)(Flu Clinic Only) 12/05/2012,11/27/2011,12/09/2010,2007 Amb Influenza, Inact (High-d ose) (Flu Clinic Only) 12/03/2015,11/20/2014,11/28/2013 COVID-19 VACCINE SPIKEVAX (M ODERNA 50MCG/0.5ML) 12YO+ PFS 11/09/2023,07/18/2023,01/10/2023 COVID-19 vaccine (Next Glass-Bio NTech 30mcg/0.3mL) 12YO+ BIVALENT PF, MDV 03/08/2022 COVID-19 vaccine (Next Glass-Bio NTech 30mcg/0.3mL) PF, MDV 12/13/2020,04/18/2020,03/28/2020 Influenza A [...] own primary at 60. Heart Disease Father MD at 54 and 6 3, at 64 [...] AM CDT Legal Sex Male 6:19 AM BILLER Gender Identity Not on file Sexual Orientation Not on file Occupation Industry Job Start Date Job End Date Retired Not on file Not on file Not on file Obstetrics History Last Filed Vital Signs Vital Sign Reading Time Taken Comments Blood Pressure 122/48 04/22/2024 11:56 AM BILLER Pulse 68 04/22/2024 11:41 AM BILLER Temperature 36.4 C (97.6 F) 04/22/2024 11:41 AM BILLER Respiratory Rate 16 08/29/2021 2:00 PM CDT Oxygen Saturation 99% 04/22/2024 11:41 AM BILLER Inhaled Oxygen Concentration - - Weight 81.4 kg (179 lb 8 oz) 04/22/2024 11:41 AM BILLER Height 174.2 cm (5' 8.6) 11/09/2023 2:54 PM CDT Body Mass Index 26.82 11/09/2023 2:54 PM CDT Plan of Treatment Upcoming Encounters Date Type Department Care Team (Late st Contact Info) Description 07/16/2024 11:00 AM CDT Orders Only [facility] [address] [place] [address] Lab, [facility] Maintenance Due Date Last [...] Completed 11/09/2023, , 12/28/2021, Additional history exists Procedures Procedure Name Priority Date/Time Associated Diagnosis Comments LAB TRACKING EVENT Routine 05/21/2024 8: 52 AM CDT PATH NON ADVERTISING CLERK CYTOLOGY Routine 05/21/2024 8:52 AM CDT SCAN-RADIOLOGY REPORT 05/21/2024 12:00 AM CDT SCAN-OPERATIVE/PROCEDUR E REPORT 05/21/2024 12:00 AM CDT SCAN-CT INTERPRETATION 12:00 AM CDT SCAN-RADIOLOGY REPORT 05/19/2024 12:00 AM CDT SCAN-RADIOLOGY REPORT 05/19/2024 12:00 AM CDT SCAN-RADIOLOGY REPORT 05/19/2024 12:00 AM CDT from Last 3 Months Results * LAB TRACKING EVENT (05/21/2024 8:52 AM CDT) Other (Other) Client Collect / Unknown 05/21/2024 8:52 AM CDT 05/21/2024 11:04 PM CDT us Tricia Rivas MD LAB BILL ONLY Final Result [facility] [address] [place] [address], [place] * PATH NON ADVERTISING CLERK CYTOLOGY (05/21/2024 8:52 AM CDT) Case Report Medical Cytology Report Case: [id number] Authorizing Provider: Tricia Rivas MD Collected: 05/21/2024 0852 Ordering Location: [facility] Received: 05/22/2024 0740 Pathologist: Saleem Garcia Jr., MD Specimen: Peritoneal Fluid 05/23/2024 3:38 PM CDT [facility] Final Diagnosis PERITONEAL FLUID FOR CYTOLOGY: Negative for malignancy 05/23/2024 3:38 PM CDT [facility] at 1538 CDT Clinical Information New ascites 05/23/2024 3:38 PM CDT [facility] Gross Description A) SOURCE: Peritoneal Fluid The specimen consists of 6 cc of dark orange hazy fluid from which the following is prepared: -1 Air-dried slide for DiffQuik stain -1 ThinPrep slide for Papanicolaou Stain -1 Cell block slide A2 Cell block material was placed in formalin at 0845 on 05/22/24 and fixed in formalin at least 6 hours and no more than 72 hours. 05/23/2024 3:38 PM CDT [facility] Microscopic Description Specimen adequacy: Adequate for interpretation. All slides were reviewed. The microscopic appearance substantiates the diagnosis. A battery of immunohistochemical studies was performed to further evaluate atypical cells in this specimen, showing the following results: Cytokeratin cocktail: positive Calretinin: positive WT-1: positive MOC-31: negative Claudin-4: negative 05/23/2024 3:38 PM CDT [facility] Additional Information Cytology is screened at [facility] - [address], [place] [address] and [facility] - [address] [place] [address] and [facility] - [address] [place] [address] Interpreted at [facility] - [address], [place] [address] Immunohistochemistry controls were reviewed and approved as appropriate by the pathologist during this examination. 05/23/2024 3:38 PM CDT [facility] Other PERITONEAL FLUID SPECIMEN / Unknown 05/21/2024 8:52 AM CDT 05/22/2024 7:40 AM CDT us Tricia Rivas MD PATHOLOGY/CYTOLOGY Final Result [facility] [address] [place] [address], [place] * SCAN-RADIOLOGY REPORT (05/21/2024 12:00 AM CDT) Only the most recent of4 resultswithin the time period is included. Anatomical Region Laterality Modality Other us Scanner OTHER Final Result * SCAN-OPERATIVE/PROCEDURE REPORT (05/21/2024 12:00 AM CDT) us Scanner OTHER Final Result * SCAN-CT INTERPRETATION (05/20/2024 12:00 AM CDT) Anatomical Region Laterality Modality Other us Scanner OTHER Final Result from Last 3 Months Insurance [employer] [place] [address] MEDICARE PART B [place] ONLY MEDICA PRIME SOLUTION [place] MEDICARE PART A [place] ONLY Advance Directives * Full Code (Latest Code Status on File) Date Activated Date Inactivated Comments 08/29/2021 11:00 AM 08/30/2021 2:15 AM Question Answer Comments Code Status Discussion: Reviewed Preferences Care Teams Cisco Network Engineer Relationship Specialty Start Date End Date Jaspal Leigh MD [address] [place] [address] PCP - General 07/27/05
--- NOTE | 2024-05-29 19:52 | CRLHL7_ITS ---
For Patients: As a result of the Cures Act, medical imaging exams and procedure reports are released immediately into your electronic medical record. You may view this report before your referring provider. If you have questions, please contact your health care provider. INDICATION: Trauma. TECHNIQUE: Right knee radiographs, 3 views. COMPARISON: Right knee radiographs 05/19/2024. FINDINGS: No acute fractures or dislocation. 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 No significant joint effusion. No significant soft tissue edema. Extensive vascular calcifications. IMPRESSION: No acute fractures or dislocation. Dictated by Guicho Rivers MD @ 05/29/2024 8:38:59 PM (Electronically Signed)
[2024-05-29 19:53] LABS: HCO3 VBG 18 mmol/L (21-28); Lactate* 1.4 mmol/L (0.5-1.9); PCO2 VBG 35 mmHG (40-50); PO2 VBG 46.9 mmHG (25-47); pH VBG 7.336 (7.32-7.43)
[2024-05-29 19:56] LABS: Basophils Percent Auto 1.4 % (0.0-3.0); Eosinophils Percent Auto 3.2 % (0.0-7.0); Hematocrit 24.6 % (37.0-53.0); Immature Granulocytes Pct Auto 19.9 %; Mean Corpuscular HGB Conc 31 gm/dL (32-36); Mean Corpuscular Hemoglobin 26 pg (26-34); Mean Corpuscular Volume 84 fL (80-100); Monocytes Percent Auto 17.5 % (0.0-11.0); Platelet Count* 65 K/uL (140-440); RDW Coefficient of Variation % 19.5 % (11.5-15.5); Red Blood Count 2.93 m/uL (4.30-5.90)
[2024-05-29 19:57] LABS: White Blood Count* 27.21 K/uL (4.50-11.00)
[2024-05-29 19:58] LABS: Hemoglobin* 7.7 gm/dL (13.5-17.5); Slide Review Reflex No
--- NOTE | 2024-05-29 20:00 | ED.NURSE ---
Lab called with critical WBC of 27 and critical Hgb of 7.7, doctor notified.
[2024-05-29 20:08] LABS: Chloride* 106 mmol/L (96-114)
[2024-05-29 20:09] LABS: Potassium* 4.1 mmol/L (3.6-5.1); Sodium* 136 mmol/L (135-149)
[2024-05-29 20:11] LABS: Blood Urea Nitrogen* 89 mg/dL (7-30); Creatinine* 3.6 mg/dL (0.5-1.5); Est. Creatinine Clearance* 14.65; Estimated Glomerular Filt Rate 16 ml/min
[2024-05-29 20:12] LABS: Anion Gap 12 mEq/L (7-15); Calcium* 8.3 mg/dL (8.4-10.6); Carbon Dioxide* 18 mmol/L (20-32); Glucose* 131 mg/dL (60-115)
[2024-05-29 20:15] LABS: Appearance Urine Clear (Clear); Bilirubin Urine Negative (Negative); Blood Urine Trace-intact (Negative); Color Urine Yellow (Yellow); Glucose Urine Negative (Negative); Ketones Urine Negative (Negative); Leukocyte Esterase Urine Negative (Negative); Nitrite Urine Negative (Negative); Protein Urine 1+ (Negative); Specific Gravity Urine 1.015 (1.000-1.030); Urobilinogen Urine 0.2 (0.2-1.0); pH Urine 5.5 (5.0-8.5)
[2024-05-29 20:19] LABS: Other Sediment Urine 0; RBC Urine 0-2 (0-2); WBC Urine 0-2 (0-5)
[2024-05-29] MEDS: metroNIDAZOLE 500 MG/100 ML PIGGYBACK 100 MG IVPB (20:24)
[2024-05-29] MEDS: 0.9 % SODIUM CHLORIDE 1000 ml 1,000 ML IV (20:24)
[2024-05-29 20:29] LABS: Procalcitonin* 1.17 ng/mL (<0.50)
--- OUTSIDE RECORDS SUMMARY | 2024-05-29 21:27 | XMS_ITS | Clinical Summary ---
Author Organization [employer] [facility] Address [address] [place] [address] Care Team Providers Care Valve Tester Name Role Phone Jaspal Leigh MD Primary Care Provider [phone] Allergies Active Allergy Reactions Criticality Noted Date Comments Amoxicillin Nausea Only 10/11/2016 Hydrocodone-Acetaminophen Confusion 04/18/2010 Hydroxyzine Confusion 07/05/2012 Medications VITAMINS A,C,C-HBQM-TJSTTX (Ocuvite PreserVision) 7,160 unit- 113 mg-100 unit [...] Romero and plans to follow him to [place]. He sees him every 3 months.Jaspal Leigh MD signed electronically .................... 01/10/2023 Multiple thyroid nodules 11/30/2019 Overview (11/30/2019): Yearly follow up Ultrasound will be due in [id number]. Gastroesophageal reflux disease 06/23/2015 Overview (07/09/2015): EGD [...] Problem Noted Date Diagnosed Date Resolved Date senior care (current) use of anticoagulants 05/09/2010 10/13/2010 Overview (06/29/2010): INR Goal Range: 2.0 - 2.5 DVT (deep venous thrombosis) 05/09/2010 10/13/2010 Ulcer of esophagus without bleeding 10/19/2006 Acute renal failure 04/06/19 23 Encounters Date Type Department Care Team Description 05/29/2024 10:30 PM CDT Hospital Encounter [facility] [address] [place] [address] [facility] 05/24/2024 Telephone [facility] [address] [place] [address] Roro Hickman MD 05/21/2024 Orders Only [facility] Scanner 1 scan: (1-Ord) [facility], [place] BARIUM SWALLOW MODIFIED, 05/21/2024 05/21/2024 Lab Requisition [facility] [phone] Tricia Rivas MD 05/21/2024 Orders Only [facility] Scanner 1 scan: (1-Ord) [facility], DIAGNOSTIC PARACENTESIS, 05/21/2024 05/20/2024 Orders Only [facility] Scanner 1 scan: (1-Ord) [place], ABDOMEN PELVIS WO CON, 05/20/2024 05/19/2024 Orders Only [facility] Scanner 1 scan: (1-Ord) [place], LT FOOT MIN 3V, 05/19/2024 05/19/2024 Orders Only [facility] Scanner 1 scan: (1-Ord) [facility], XR CHEST 1V, 05/19/2024 05/19/2024 Orders Only [facility] Scanner 1 scan: (1-Ord) [facility], XR KNEE RT 3V, 05/19/2024 05/19/2024 Nurse Triage [facility] [address] [place] [address] Jaspal Leigh MD Lab; Urinary Problem (Needs triage/) 05/06/2024 Refill [facility] [address] [place] [address] Ceasar Romero MD Refill Request (Furosemide) 04/22/2024 11:15 AM PROGRAM ANALYST Office Visit [facility] [address] [place] [address] Jaspal Leigh MD Derm Problem (Recheck cyst on back - looking better) 04/22/2024 Travel 04/16/2024 Telephone [facility] [place] [address] Jaspal Leigh MD Letter 04/11/2024 10:30 AM PROGRAM ANALYST Office [facility] [address] Jaspal Leigh MD Derm Problem (Concerns with a cyst on his back) 04/11/2024 Travel 04/09/2024 Travel 03/27/2024 2:00 PM PROGRAM ANALYST Orders Only [facility] [place] [address] [facility] 03/27/2024 Travel 03/03/2024 Telephone [facility] [place] [address] Jaspal Leigh MD Physical Therapy (MORE VISITS) 02/29/2024 Refill [facility] [place] [address] [address] [address] Jaspal Leigh MD Refill Request (Blood Glucose test strips) from Last 3 Months Immunizations Immunization Administration Dates Next Due AMB INFLUENZA IIV3 (AGE 65+ YRS) PF (Flu Clinic Only) 12/26/2018,12/05/2017 AMB Influenza, IIV3 (Age >=3 years)(Flu Clinic Only) 12/05/2012,11/27/2011,12/09/2010,2007 Amb Influenza, Inact (High-d ose) (Flu Clinic Only) 12/03/2015,11/20/2014,11/28/2013 COVID-19 VACCINE SPIKEVAX (M ODERNA 50MCG/0.5ML) 12YO+ PFS 11/09/2023,07/18/2023,01/10/2023 COVID-19 vaccine (Pfizer-Bio NTech 30mcg/0.3mL) 12YO+ BIVALENT PF, MDV 03/08/2022 [...] own primary at 61. Heart Disease Father [place] at 53 and 6 3, at 64 [...] AM CDT Legal Sex Male 6:19 AM PROGRAM ANALYST Gender Identity Not on file Sexual Orientation Not on file Occupation Industry Job Start Date Job End Date Retired Not on file Not on file Not on file Obstetrics History Last Filed Vital Signs Vital Sign Reading Time Taken Comments Blood Pressure 122/48 04/22/2024 11:56 AM PROGRAM ANALYST Pulse 68 04/22/2024 11:41 AM PROGRAM ANALYST Temperature 36.4 C (97.6 F) 04/22/2024 11:41 AM PROGRAM ANALYST Respiratory Rate 16 08/29/2021 2:00 PM CDT Oxygen Saturation 99% 04/22/2024 11:41 AM PROGRAM ANALYST Inhaled Oxygen Concentration - - Weight 81.4 kg (179 lb 8 oz) 04/22/2024 11:41 AM PROGRAM ANALYST Height 174.2 cm (5' 8.6) 11/09/2023 2:54 PM CDT Body Mass Index 26.82 11/09/2023 2:54 PM CDT Plan of Treatment Upcoming Encounters Date Type Department Care Team (Late st Contact Info) Description 07/16/2024 11:00 AM CDT Orders Only [facility] [address] [place] [address] Lab, [facility] Maintenance Due Date Last Done Comments RSV vaccine for adults or (1 - 1-dose 75+ series) 05/12/2011 COVID-19 vaccine series (8 - Pfizer risk ) 05/08/2024 11/09/2023, 07/18/2023, 01/10/2023, Additional history exists Depression [...] 05/21/2024 8: 52 AM CDT PATH NON SPOOL WORKER CYTOLOGY Routine 05/21/2024 8:52 AM CDT SCAN-RADIOLOGY [...] 8:52 AM CDT 05/21/2024 11:04 PM CDT Tricia Rivas MD LAB BILL ONLY Final Result [facility] [address] [place] [address], [place] * PATH NON SPOOL WORKER CYTOLOGY (05/21/2024 8:52 AM CDT) Case Report Medical Cytology Report Case: [id number] Authorizing Provider: Tricia Rivas MD Collected: 05/21/2024 0852 Ordering Location: [facility] Received: 05/22/2024 0740 Pathologist: Saleem Garcia Jr., MD Specimen: Peritoneal Fluid 05/23/2024 3:[address] [facility] Final Diagnosis PERITONEAL FLUID FOR CYTOLOGY: Negative for malignancy 05/23/2024 3:[address] [facility] at 1538 CDT Clinical Information New ascites 05/23/2024 3:[address] [facility] Gross Description A) SOURCE: Peritoneal Fluid [...] than 72 hours. 05/23/2024 3:[address] [facility] Microscopic Description Specimen adequacy: Adequate for interpretation. All slides were reviewed. The microscopic appearance substantiates the diagnosis. A battery of immunohistochemical studies was performed to further evaluate atypical cells in this specimen, showing the following results: Cytokeratin cocktail: positive Calretinin: positive WT-1: positive MOC-31: negative Claudin-4: negative 05/23/2024 3:[address] [facility] Additional Information Cytology is screened at [facility] - [address], [place] [address] and [facility] - [address], [place] [address] and [facility] - [address] [place] [address] Interpreted at [facility] - [address], [place] [address] Immunohistochemistry controls were reviewed and approved as appropriate by the pathologist during this examination. 05/23/2024 3:38 PM CDT [facility] Other PERITONEAL FLUID SPECIMEN / Unknown 05/21/2024 8:52 AM CDT 05/22/2024 7:40 AM CDT us Tricia Rivas MD PATHOLOGY/CYTOLOGY Final Result Performing Organization Address City/State/[facility] Co de Phone Number [facility] [address] [place] [address], [place] * SCAN-RADIOLOGY REPORT (05/21/2024 12:00 AM CDT) Only the most recent of4 resultswithin the time period is included. Anatomical Region Laterality Modality Other us Scanner OTHER Final Result * SCAN-OPERATIVE/PROCEDURE REPORT (05/21/2024 12:00 AM CDT) us Scanner OTHER Final Result * SCAN-CT INTERPRETATION (05/20/2024 12:00 AM CDT) Anatomical Region Laterality Modality Other us Scanner OTHER Final Result from Last 3 Months Insurance [employer] MR PB ONLY MEDICARE PART B HB ONLY MEDICA PRIME SOLUTION HB MEDICARE PART A HB ONLY Advance Directives * Full Code (Latest Code Status on File) Date Activated Date Inactivated Comments 08/29/2021 11:00 AM 08/30/2021 2:15 AM Question Answer Comments Code Status Discussion: Reviewed Preferences Care Teams Valve Tester Relationship Specialty Start Date End Date Jaspal Leigh MD [address] [place] [address] PCP - General 07/27/05
[2024-05-29] MEDS: CEFEPIME HCL 2 GM in 0.9 % SODIUM CHLORIDE Mini-bag 100 ML IVPB (21:38)
[2024-05-29] MEDS: ACETAMINOPHEN 325 MG TABLET 650 MG PO (22:36)
[2024-05-29] MEDS: VANCOMYCIN 1.75 GM/350 ML 1.75 GM/350 ML PIGGYBACK IVPB (22:36)
[2024-05-30] MEDS: MORPHINE 2 MG/ML inj IVP (00:12)
[2024-05-30 00:24] VITALS: BP 108/81; PULSE 73; RESP 18; TEMP 36.8; O2SAT 94
== END 2024-05-30 01:04 | disposition short-term general hospital (02) ==
PROVIDERS: Emergency Provider Emergency Medicine; PCP Family Medicine
DX: L03.116 Cellulitis of left lower limb (principal); N18.9 Chronic kidney disease, unspecified; I70.222 Atherosclerosis of native arteries of extremities with rest pain, left leg; D46.9 Myelodysplastic syndrome, unspecified; N28.9 Disorder of kidney and ureter, unspecified
CPT/HCPCS: 36415; 71046; 73562; 73630; 80048; 81001; 82803; 83605; 84145; 85025; 87040; 93005; 96365; 96366; 96375; 99285; A9270; J0692; J1836; J2270; J3372; J7030

== ENCOUNTER 2024-05-30 01:00 | Outpatient (CLI) | payer MEDICARE, OTHER, SELFPAY | END 2024-05-30 01:01 | disposition home or self-care (01) | LOC: AMB 06-02 08:30 | PROVIDERS: PCP Family Medicine; Visit Provider Internal Medicine | DX: L03.116 Cellulitis of left lower limb (principal); I99.8 Other disorder of circulatory system; N18.9 Chronic kidney disease, unspecified | CPT/HCPCS: A0425; A0429 ==